=== PATIENT | female | born 1935 | race Caucasian/White ===

== ENCOUNTER 2018-01-31 10:06 | Outpatient (CLI) | payer MEDICARE, SELFPAY ==
[2018-01-31 12:42] LABS: HCT 42.5 % (36.0-46.0); Mean Corp. HGB Concentration 32.9 g/dL (32.0-36.0); Mean Corpuscular Hemoglobin 31.7 pg (27.0-33.0); Mean Corpuscular Volume 96.4 fL (80-95); Platelet Count 272 x1000/uL (130-400); RBC 4.41 m/cumm (4.00-5.20); RBC Distribution Width 12.5 % (11.7-14.6); White Blood Cell Count 7.26 k/cumm (4.4-10.8)
[2018-01-31 12:49] LABS: Anion Gap 5.8 mmol/L (3-11); BUN 22 mg/dL (7-18); CO2 28.2 mmol/L (21.0-32.0); CREATININE 1.02 mg/dL (0.55-1.02); Chloride 105 mmol/L (98-107); Estimated GFR 52.01 (mL/min/1.73m2); Glucose 95 mg/dL (70-100); Potassium 4.6 mmol/L (3.5-5.1); Sodium 139 mmol/L (136-145)
== END 2018-01-31 10:07 ==
PROVIDERS: PCP Family Medicine; Visit Provider Family Medicine
DX: R55 Syncope and collapse (principal)
CPT/HCPCS: 36415; 80048; 85027; 93225

== ENCOUNTER 2018-01-31 13:34 | Outpatient (CLI) | payer MEDICARE, SELFPAY ==
--- NOTE | 2018-02-14 10:29 | ZIOP_ITS ---
DATE OF DICTATION: February 13, 2018 DATE OF RECORDING: January 31, 2018 through February 02, 2018 PRESCRIBING PHYSICIAN: Rajendra Oliva M.D. PRIMARY INDICATIONS: Syncope and collapse. ENROLLMENT: 1 day and 17 hours. FINDINGS: 1. Baseline sinus rhythm, heart rate spectrum 49-145 bpm, average 76 bpm. 2. Occasional PAC's 1.7%, 7 SVT runs, fastest and longest at 7 beats and 171 bpm. 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 No atrial fibrillation. 3. Rare PVC's, less than 1%, occasional couplets. No VT. 4. No significant pauses. 5. One triggered event: sinus rhythm 91 bpm with occasional PAC's. 6. One symptom event: lightheaded, dizziness, less than one minute, sinus rhythm 95 bpm with occa sional PAC's and PVC's.
== END 2018-01-31 13:35 ==
PROVIDERS: PCP Family Medicine; Visit Provider Family Medicine
DX: R55 Syncope and collapse (principal); I49.1 Atrial premature depolarization; I49.3 Ventricular premature depolarization
CPT/HCPCS: 93225

== ENCOUNTER 2018-02-13 18:28 | Outpatient (CLI) | payer MEDICARE, SELFPAY | END 2018-02-13 18:48 | PROVIDERS: PCP Family Medicine; Referring Provider Family Medicine; Visit Provider Internal Medicine Cardiovascular Disease | DX: R55 Syncope and collapse (principal); I49.1 Atrial premature depolarization; I49.3 Ventricular premature depolarization | CPT/HCPCS: 0298T ==

== ENCOUNTER → 2018-03-20 08:52 | Outpatient (BNVA) | payer MEDICARE, SELFPAY | PROVIDERS: PCP Family Medicine; Visit Provider Orthopaedic Surgery | DX: M17.11 Unilateral primary osteoarthritis, right knee (principal); M17.12 Unilateral primary osteoarthritis, left knee; I10 Essential (primary) hypertension | CPT/HCPCS: 20610; 99211; 99213; J1040 ==

== ENCOUNTER 2018-04-14 13:44 | Outpatient (CLI) | payer MEDICARE, SELFPAY | END 2018-04-14 14:04 | PROVIDERS: PCP Family Medicine; Referring Provider Family Medicine; Visit Provider Internal Medicine Cardiovascular Disease | DX: R69 Illness, unspecified (principal) ==

== ENCOUNTER → 2018-06-19 09:27 | Outpatient (BNVA) | payer MEDICARE, SELFPAY | PROVIDERS: PCP Family Medicine; Referring Provider Family Medicine; Visit Provider Orthopaedic Surgery | DX: M17.0 Bilateral primary osteoarthritis of knee (principal); I10 Essential (primary) hypertension | CPT/HCPCS: 20610; 99211; 99213; J1040 ==

== ENCOUNTER → 2018-09-18 08:48 | Outpatient (BNVA) | payer MEDICARE, SELFPAY | PROVIDERS: PCP Family Medicine; Referring Provider Family Medicine; Visit Provider Orthopaedic Surgery | DX: M17.11 Unilateral primary osteoarthritis, right knee (principal); M17.12 Unilateral primary osteoarthritis, left knee; I10 Essential (primary) hypertension | CPT/HCPCS: 20610; 99211; 99213; J1040 ==

== ENCOUNTER 2018-12-02 07:57 | Emergency (ER) | payer MEDICARE, SELFPAY ==
[2018-12-02 08:08] VITALS: BP 158/104; PULSE 100; RESP 20; TEMP 37; O2SAT 97
--- NOTE | 2018-12-02 08:31 | ED.GENADUL_ITS ---
Discharge Plan Disposition Patient Disposition: HOME Condition: Stable Discharge Details Chief Complaint: FlankPain Clinical Impression: Groin pain, Piriformis muscle pain Primary Care Provider: Rajendra Oliva ED Provider: Arnoldo Mantilla Home Meds and New Rx's Prescriptions: New cyclobenzaprine 5 mg tablet 5 mg PO TID PRNQty: 9 RF: 0 oxycodone 5 mg tablet 2.5 mg PO Q8H PRN (Reason: severe pain) Qty: 6 RF: 0 Continued metoprolol tartrate 50 mg tablet 50 mg PO BID Qty: 180 RF: 4 omega-3 fatty acids-fish oil 1 EACH capsule 1 ea PO DAILY RF: 0 GLUCOS-CHOND 500 COMPLEX CP 1 EACH capsule 1 ea PO DAILY RF: 0 magnesium oxide 250 MG tablet 500 mg PO wkly RF: 0 acetaminophen 650 MG tablet 650 mg PO BID RF: 0 ketoconazole 120 ML shampoo 1 applic Topical daily prn RF: 0 hydrocortisone 30 GM cream with perineal applicator 1 applic Topical daily prn RF: 0 Ketoconazole 15 GM CREAM..G. 1 applic Topical PRN RF: 0 psyllium husk [Fiber (psyllium husk)] 0.52 GM capsule 1 tab PO DAILY RF: 0 amlodipine 5 MG tablet 5 mg PO DAILY Qty: 90 RF: 4 simvastatin 20 MG tablet 20 mg PO HS Qty: 90 RF: 4 omeprazole 20 MG capsule,delayed release(DR/EC) 20 mg PO DAILY Qty: 90 RF: 4 Discharge Instructions Instructions: Musculoskeletal Pain (ED), Piriformis Syndrome (ED) Additional Instructions: Continue to use your acetaminophen as directed and take additional pain medication along with muscle relaxers as needed for further discomfort. Use these medications cautiously as it may make you sleepy. While on these medications please continue to use your cane or walker for walking assistance. You may slowly advance activity as tolerated by discomfort and if not improving in the next week follow-up with your primary care provider. Feel free to return for any new or significant worsening of your symptoms Referrals: Rajendra Oliva [Primary Care Provider] - (As needed for reassessment or if not improving) Discharge Data Discharge Date/Time-TO BE ENTERED AT DEPARTURE: 12/02/18 10:28 Medical Decision Making Patient presenting to the emergency department for chief complaint of left groin and flank pain. Patient states history of kidney stones and is concerned that she may have another one. Patient states some associated nausea but attributes this mostly to pain. Physical exam shows no abdominal tenderness, mild left groin tenderness with significant increase of tenderness with internal rotation of the left hip, no CVA tenderness. Plan to check urinalysis upon further questioning of patient she does state that she has been putting stick down tiles on the floor and bent over significantly over the past couple days. Pending urinalysis results to evaluate for hematuria may be secondary to kidney stone patient given Tylenol, Zofran, and small dose of oxycodone. Review of urinalysis does show some hematuria and given this I do feel patient needs CT imaging to rule out any calculi given history. Review of CT imaging shows no acute findings suggestive of renal calculi or other emergent intra-abdominal pathology. Patient reassessed and states that she is feeling better after the medication and is ambulatory with minimal gait disturbance. Given recent strenuous activities I do feel that musculoskeletal injury is more than likely attributed to her discomfort. Given the patient is full weightbearing, ambulatory, and well-controlled with pain medication I feel that she can be safely discharged. Did discuss with patient activity modification. Did [place] drug database and showed no concerning findings so patient was given limited prescription of oxycodone to use for severe pain otherwise patient to use acetaminophen for discomfort. Given some concern of piriformis syndrome patient was also given limited supply of Flexeril. Did discuss with patient and family risk benefits of these medications and to be cautious with sedation. Return precautions were discussed after discussion of diagnosis and plan of care patient has no further needs, questions, or concerns and states clear understanding to return to the emergency department for any worsening symptoms. HPI General Mode of arrival: wheelchair . Date/Time Provider Initiated Documentation: 12/02/18 08:05 . Limitations to Documentation: no limitations . Information obtained by: patient, family and RN notes reviewed . History of Present Illness 83 year old F presents to the emergency department with the chief complaint of Left groin and flank pain, described as severe, with intensity rated at 7. Quality is described as sharp, and is localized to the back and pelvis. Patient started experiencing this day(s) (1) and it has been constant. Patient did receive the following treatments prior to arrival, other (acetominophen) Related Data Home Medications Medication Instructions Recorded Confirmed Glucos-Chond 500 Complex Cp 1 ea PO DAILY 09/18/13 12/02/18 omega-3 fatty acids-fish oil 1 ea PO DAILY 09/18/13 12/02/18 magnesium oxide 500 mg PO wkly 11/15/15 12/02/18 acetaminophen 650 mg PO BID tab-cap 12/19/16 12/02/18 Ketoconazole 1 applic TOPICAL PRN 07/17/17 12/02/18 hydrocortisone 1 applic TOPICAL daily prn script 07/17/17 12/02/18 ketoconazole 1 applic TOPICAL daily prn script 07/17/17 12/02/18 amlodipine 5 mg PO DAILY #90 tab-cap 11/01/17 12/02/18 omeprazole 20 mg PO DAILY #90 tab-cap 11/01/17 12/02/18 psyllium husk [Fiber (psyllium 1 tab PO DAILY 11/01/17 12/02/18 husk)] simvastatin 20 mg PO HS #90 tab-cap 11/01/17 12/02/18 metoprolol tartrate 50 mg tablet 50 mg PO BID #180 tab-cap 06/17/18 12/02/18 cyclobenzaprine 5 mg PO TID PRN #9 tab 12/02/18 oxycodone 2.5 mg PO Q8H PRN #6 tab 12/02/18 Previous Rx's Medication Instructions Recorded amlodipine 5 mg PO DAILY #90 tab-cap 11/01/17 omeprazole 20 mg PO DAILY #90 tab-cap 11/01/17 simvastatin 20 mg PO HS #90 tab-cap 11/01/17 metoprolol tartrate 50 mg tablet 50 mg PO BID #180 tab-cap 06/17/18 cyclobenzaprine 5 mg PO TID PRN #9 tab 12/02/18 oxycodone 2.5 mg PO Q8H PRN #6 tab 12/02/18 Allergies Allergy/AdvReac Type Severity Reaction Status Date / Time mesalamine Allergy Intermediate HIVES Unverified 12/02/18 08:21 adhesive Allergy Mild Unverified 12/02/18 08:21 latex Allergy Mild SKIN RASH Unverified 12/02/18 08:21 oxaprozin Allergy Unknown Unverified 12/02/18 08:21 tetracycline Allergy Unknown Unverified 12/02/18 08:21 codeine AdvReac Intermediate H/A Unverified 12/02/18 08:21 Sulfa (Sulfonamide AdvReac Intermediate NAUSEA Unverified 12/02/18 08:21 Antibiotics) esomeprazole magnesium AdvReac Mild H/A Unverified 12/02/18 08:21 [From Nexium] General Stated Complaint: FlankPain REFUGIO: 3 Review of Systems Constitutional Reports chills and Denies fever(s) ENT Denies neck pain Cardiovascular Denies chest pain, Denies palpitations and Denies dyspnea Respiratory Denies dyspnea Gastrointestinal Denies abdominal pain, Denies constipation, Denies diarrhea, Denies nausea and Denies vomiting Genitourinary Reports as per HPI, Reports urinary frequency, Denies difficulty voiding, Reports flank pain and Denies urinary urgency Musculoskeletal Reports back pain and Denies neck pain Endocrine Denies palpitations PFSH Medical History Kidney stones (Chronic) Anxiety GERD (gastroesophageal reflux disease) Hyperlipidemia Hypertension Lower back pain Osteoarthritis of knees, bilateral Osteoporosis Primary malignant neoplasm of skin 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 Surgical History Abdominal hysterectomy Appendectomy Bladder Surgery (~07/2008) EGD - IV Sedation PROCEDURES Family History Mother Heart disease Hyperlipidemia Father Essential hypertension Heart disease Hyperlipidemia Sister Essential hypertension Heart disease Hyperlipidemia Brother Essential hypertension Heart disease Hyperlipidemia Brother Personal history of malignant neoplasm Brother Heart disease Stroke Brother Essential hypertension Heart disease Hyperlipidemia Brother Essential hypertension Heart disease Hyperlipidemia Stroke Son Hyperlipidemia Daughter Diabetes Hyperlipidemia COPD (chronic obstructive pulmonary disease) Daughter No problems noted. Social History Smoking/Tobacco Use Status: Never Alcohol Intake: never Drug use: Never Substance use type: does not use Do you feel safe at home: Yes Do you feel safe in your relationship?: Yes Exam Const General: cooperative Nutritional Appearance: average body habitus Orientation: alert, awake and oriented x3 Resp Effort & Inspection: normal respiratory effort and able to speak in complete sentences Auscultation: clear to auscultation bilaterally Cardio Rate: regular rate Rhythm: regular rhythm Heart Sounds: S1 normal, S2 normal, no click, no gallops, no murmurs and no rubs GI Palpation: soft, no hernias, no masses, not rigid and nontender Auscultation: normal bowel sounds Back/Spine/Pelvis Back: no CVA tenderness Thoracic/Lumbar Spine: No paraspinal tenderness and No lumbar spinal tenderness Pelvis: no pain with anterior-posterior compression, no pain with lateral compression, buttock tenderness on the left, sciatic notch tenderness on the left and tenderness over symphysis pubis Extrem Right lower extremity: normal to inspection and full ROM Left lower extremity: hip/thigh Details: tenderness Location: of the proximal upper leg Location: anteriorly and anterolaterally and abnormal ROM Details: pain with passive ROM Details: with internal rotation and with external rotation; no crepitus and no deformity Course Vital Signs Temperature 37 C 12/02/18 08:08 Pulse 100 H 12/02/18 08:08 Respiratory Rate 20 12/02/18 08:08 Blood Pressure 158/104 H 12/02/18 08:08 Pulse Oximetry 97 12/02/18 08:08 Temperature 37 C 12/02/18 08:08 Temperature Source Temporal Artery Scan 12/02/18 08:08 Pulse 100 H 12/02/18 08:08 Respiratory Rate 20 12/02/18 08:08 Respiratory Effort Non-Labored 12/02/18 08:08 Blood Pressure 158/104 H 12/02/18 08:08 Pulse Oximetry 97 12/02/18 08:08 Oxygen Delivery Method Room Air 12/02/18 08:08 Oxygen Flow Rate 0 12/02/18 08:08 Pain Level 8 12/02/18 08:24
[2018-12-02 08:37] LABS: Bilirubin Negative (Negative); Blood Trace-intact (Negative); Clarity Clear (Clear); Glucose Negative (Negative); Ketones 15 mg/dL (Negative); Leukocyte Esterase Negative (Negative); Nitrite Negative (Negative); Urobilinogen 0.2 EU/dL (Up TO 0.2)
[2018-12-02 08:53] LABS: WBC 0-2 HPF (0-5)
[2018-12-02 08:54] LABS: Bacteria Rare HPF (Negative); C & S Indicated? No; Casts Negative LPF (Negative); Crystals Negative HPF (Negative); Epithelial Cells Few HPF (Negative); Mucus Trace (Negative)
[2018-12-02] MEDS: Ondansetron O.D.T. 4 MG TABEF (08:55)
[2018-12-02] MEDS: oxyCODONE 5 MG TAB 2.5 MG PO (08:55)
[2018-12-02] MEDS: Normal Saline 500 ML IV (08:55)
[2018-12-02] MEDS: Acetaminophen 325 MG TAB 650 MG PO (08:55)
[2018-12-02] MEDS: Ondansetron 4 MG/2 ML VIAL (09:08)
--- NOTE | 2018-12-02 09:10 | DI.CT_ITS ---
SYMPTOM/DIAGNOSIS: LEFT FLANK, GROIN PAIN NONCONTRAST CT ABDOMEN AND PELVIS: Comparison is made with 06 Jul 2007. There is no evidence of hydronephrosis or urinary tract calculi. No renal masses are visible. The patient is stats post hysterectomy. The urinary bladder is unremarkable. The lung bases are clear. The liver, gallbladder, spleen, pancreas and adrenals are unremarkable. The aorta is tortuous and shows calcification but is normal in diameter. There is no bowel dilatation or inflammatory change. There are severe degenerative changes in the lumbar spine as well as scoliosis. IMPRESSION: No evidence of hydronephrosis, urinary tract calculi or other acute abnormality.
[2018-12-02 10:27] VITALS: BP 159/88; PULSE 86; RESP 18; TEMP 36.4; O2SAT 94
== END 2018-12-02 10:28 | disposition home or self-care (01) ==
PROVIDERS: Emergency Provider Nurse Practitioner Family; PCP Family Medicine
DX: R10.2 Pelvic and perineal pain (principal); M79.18 Myalgia, other site; R31.9 Hematuria, unspecified; Z87.440 Personal history of urinary (tract) infections
CPT/HCPCS: 96361; 96374; 99284; 74176; 81003; 81015; J2405

== ENCOUNTER → 2018-12-18 08:45 | Outpatient (BNVA) | payer MEDICARE, SELFPAY | PROVIDERS: PCP Family Medicine; Referring Provider Family Medicine; Visit Provider Orthopaedic Surgery | DX: M17.11 Unilateral primary osteoarthritis, right knee (principal); M17.12 Unilateral primary osteoarthritis, left knee; M25.552 Pain in left hip | CPT/HCPCS: 20610; 99211; 99213; J1040 ==

== ENCOUNTER 2019-02-16 13:40 | Outpatient (CLI) | payer MEDICARE, SELFPAY ==
--- NOTE | 2019-02-16 13:36 | DI.RAD_ITS ---
SYMPTOMS/DIAGNOSIS: KNEE PAIN LEFT KNEE: Medial tibiofemoral joint space narrowing, articular sclerosis and periarticular hypertrophic spurring are demonstrated. SUMMARY: The findings are consistent with severe DJD. RIGHT KNEE: Narrowing of the medial tibiofemoral joint space is demonstrated. There is articular sclerosis and periarticular hypertrophic spurring. Degenerative changes involving the patellofemoral joint are identified and there may be a small joint effusion. SUMMARY: Severe DJD, right knee.
== END 2019-02-16 14:00 ==
PROVIDERS: PCP Family Medicine; Visit Provider Physician Assistant
DX: M25.561 Pain in right knee (principal); M25.461 Effusion, right knee; M25.562 Pain in left knee; M17.0 Bilateral primary osteoarthritis of knee; Z98.890 Other specified postprocedural states
CPT/HCPCS: 73562; 99214

== ENCOUNTER 2019-03-11 13:00 | Outpatient (CLI) | payer MEDICARE, SELFPAY ==
--- NOTE | 2019-03-11 12:59 | HPE_ITS ---
Assessment and Plan Assessment and plan (1) Primary osteoarthritis of right knee: Status: Chronic Assessment and plan: Plan: Patient's complaint does not present like a typical chest pain complaint. She is functioning well and does not have any chest pain with activity. Her complaints could be consistent with GERD. Discussed patient's chest pain complaints with anesthesia department. After discussing case anesthesia department wanted to obtain an EKG for which they ordered. Patient is cleared for surgery pending EKG by anesthesia. Educated patient on surgery covering surgical technique, recovery process, benefits and risks including but not limited to risk of infection, blood clot, damage to soft tissue/blood vessels/nerves in detail. After discussion patient gives verbal understanding of risks and elects to proceed with scheduling surg won. Patient had opportunity to have questions answered to their satisfaction. They will contact office if issues arise. Patient will continue to be scheduled for right total knee replacement with Dr. Pruitt. After discussion patient voiced that she might want to proceed with her left knee first. She will contact office if she wishes to have left TKA instead of right. (2) Primary osteoarthritis of left knee: Status: Chronic History of Present Illness Narrative: Ms. Chambers is an 83-year-old female who presents to clinic for pre- operative visit for scheduled right TKA. She has long-standing history of bilateral knee pain with the right being more painful than left. However, over the past few weeks her left knee has been more bothersome causing her more significant discomfort than her right. She has significant arthritic disease in her knees bilaterally. Patient has been treated by Dr. Schroeder and reports previously receiving Synvisc injections without symptomatic relief as well as Depo-Medrol injections every 3 months which helped. Her most recent bilateral knee injection was on 12/18/18. Pain is described as a constant pain along her patella and the medial aspect of her joint. She is unable to walk her driveway to get her mail due to pain. Occasionally she will use a cane to ambulate. Unfortunately, patient continues to have pain that restricts activities of her daily life including ambulating around a grocery store. Due to her continued severe knee pain she was offered surgical intervention and elected to proceed. Pertinent Surgical Information Initially she denied all cardiac ROS then when completing the physical examination patient reported her cardiac symptoms. She states she woke up with a sharp chest pain located in the center and slightly towards the left side of her chest that woke her up as she turned over in bed. At first she states the chest pain woke her up but with further questioning she reports rolling over in bed, waking up and then feeling chest pain. With additional questions she is unsure if pain woke her up or if she was already awake and noticed pain. Describ es a sharp pain that lasted about 5 minutes before resolving without intervention. Denies any diaphoresis, dyspnea, radiated pain to her neck or down her arm. Reports she has had these events in the past that she has discussed with her PCP, Dr. Oliva that have been occurring a few times yearly. Review of her chart shows Holter monitor in 2018 was completed after syncopal event. Reviewed patient's holter monitor read by Dr. Carrasco on 02/13/18 lists the following findings: baseline sinus rhythm, heart rate spectrum 49-145 bpm, average 76 bpm.; Occasional PAC's 1.7%, 7 SVT runs, fastest and longest at 7 beats and 171 bpm. Most consistent with ectopic atrial tachycardia. No atrial fibrillation. ; Rare PVC's, less than 1%, occasional couplets. No VT.; No significant pauses.; One triggered event: sinus rhythm 91 bpm with occasional PAC's. ; One symptom event: lightheaded, dizziness, less than one minute, sinus rhythm 95 bpm with occasional PAC's and PVC's. States she is very active at baseline - going up/down ladders, she paints outdoors, she walks around when not limited by her knee pain. Denies any chest pain with activity or chest pain during the day. Reports she had general anesthesia for her left foot operation a few years ago at [facility] with Dr. Pak. States she did well with anesthesia and had experienced rare episodes of this chest pain prior to that surgery. Describing sleeping with two feather pillows at night. She does have significant PMH of GERD that as per patient has been treated for years with omeprazole. Her symptoms are isolated to just at night; reports symptoms only ever happen when she has sleeping and then resolve without intervention. Patient recently had an intensive right molar tooth filling on 03/03/19 in which she experienced a severe reaction causing her to have significant swelling along the right cheek and neck. In addition she felt like she had water in her ear when the swelling was present. She was treated with benadryl and the swelling was present for 1 week (yesterday). Denies past medical history of: stroke, cardiac issues, angina, asthma, COPD, sleep apnea, renal issues, liver issues, hepatitis, current gastrointestinal ulcers, bleeding disorders, migraines, depression, diabetes, autoimmune disorders, thyroid issues Reports it takes a while for her to come out of anesthesia; she also reports history of vomiting and nausea following anesthesia. Denies prior complications from surgery. Review of Systems Constitutional Constitutional: Denies fever(s), Denies frequent falls and Denies headache(s) Eyes Eyes: Denies change in vision ENT Ears, Nose, Mouth, and Throat: Denies dizziness, Denies ear discharge, Denies headache(s), Denies epistaxis, Denies nasal discharge and Denies sore throat Cardiovascular Cardiovascular: Reports chest pain (see Preop Info), Denies rapid heart rate, Denies irregular heart rhythm, Denies palpitations, Denies dyspnea, Denies dyspnea on exertion, Denies orthopnea, Denies paroxysmal nocturnal dyspnea and Denies slow heart rate Comments: Initially patient denied all cardiac symptoms however without prompting she later revealed that she has rare episodes of left sided chest pain; see Preop Info for more information Respiratory Respiratory: Denies cough, Denies dyspnea, Denies dyspnea on exertion and Denies wheezing Gastrointestinal Gastrointestinal: Denies abdominal pain, Denies melena, Denies hematochezia, Denies constipation, Denies diarrhea, Denies nausea and Denies vomiting Genitourinary Genitourinary: Denies hematuria, Denies dysuria and Denies urinary urgency Musculoskeletal Musculoskeletal: Reports as per HPI, Denies numbness and Denies tingling Neurologic Neurologic: Denies dizziness, Denies frequent falls, Denies headache(s), Denies numbness and Denies tingling Psychiatric Psychiatric: Reports anxiety and Denies depression Endocrine Endocrine: Denies palpitations Allergic/Immunologic Allergic/Immunologic: Denies wheezing [facility] Medical History (Updated 03/12/19 @ 15:41 by Abbi Ron) Anxiety Cellulitis of left hand (Resolved) Epilepsy (Chronic 11/30/10) GERD (gastroesophageal reflux disease) History of colitis (Acute) COLLAGENOUS COLITIS History of postoperative nausea and vomiting (Acute) Hyperlipidemia Hypertension Kidney stones (Chronic) Lower back pain Osteoarthritis of knees, bilateral Osteoporosis Primary malignant neoplasm of skin (Resolved) basal [id number]. 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) consider PT stretch daily Synovitis of hand (Inactive) 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 Surgical History (Updated 03/11/19 @ 14:36 by Rere Medina RN) Abdominal hysterectomy Appendectomy Bladder Surgery (~07/2008) sling and reconstruction for uterine prolapse and cystocele EGD - IV Sedation History of colonoscopy (Chronic) History of shoulder surgery (Inactive) Right bursa and excision of bone spurs Status post left foot surgery (Acute) Hallux valgus Status post phlebectomy (Inactive) Left leg vein excision Status post surgical removal of ganglion cyst (Acute) RMF Social History Smoking/Tobacco Use Status: Never Alcohol Intake: never Drug use: Never Substance use type: does not use Current gender identity: female Do you feel safe at home: Yes Do you feel safe in your relationship?: Yes Meds Home Medications and Allergies Home Medications Medication Instructions Recorded Confirmed Type Glucos-Chond 500 Complex Cp 1 ea PO DAILY 09/18/13 03/11/19 History omega-3 fatty acids-fish oil 1 ea PO DAILY 09/18/13 03/11/19 History magnesium oxide 500 mg PO wkly 11/15/15 03/11/19 History Ketoconazole 1 applic TOPICAL PRN 07/17/17 03/11/19 History hydrocortisone 1 applic TOPICAL daily prn script 07/17/17 03/11/19 History ketoconazole 1 applic TOPICAL daily prn script 07/17/17 03/11/19 History psyllium husk [Fiber (psyllium 1 tab PO DAILY 11/01/17 03/11/19 History husk)] metoprolol tartrate 50 mg tablet 50 mg PO BID #180 tab-cap 06/17/18 03/11/19 Rx oxycodone 2.5 mg PO Q8H PRN #6 tab 12/02/18 03/11/19 Rx Jeri's Butter See Rx Instructions TOPICAL PRN 12/16/18 03/11/19 History acetaminophen 650 mg 650 mg PO BID tab-cap 12/16/18 03/11/19 History tablet,extended release amlodipine 5 mg tablet 5 mg PO DAILY #90 tab-cap 12/16/18 03/11/19 Rx cholecalciferol (vitamin D3) 1,000 2,000 unit PO DAILY cap 12/16/18 03/11/19 History unit capsule hydrochlorothiazide 12.5 mg tablet 12.5 mg PO DAILY #90 tab 12/16/18 03/11/19 Rx simvastatin 20 mg tablet 20 mg PO HS #90 tab-cap 12/16/18 03/11/19 Rx omeprazole 20 mg capsule,delayed 20 mg PO DAILY #90 tab-cap 03/10/19 03/11/19 Rx release Allergies Allergy/AdvReac Type Severity Reaction Status Date / Time mesalamine Allergy Intermediate HIVES Unverified 03/11/19 14:37 latex Allergy Mild SKIN RASH Unverified 03/11/19 14:37 oxaprozin Allergy Unknown Unverified 03/11/19 14:37 tetracycline Allergy Unknown Unverified 03/11/19 14:37 morphine AdvReac Severe headaches, Verified 03/11/19 14:37 vomiting codeine AdvReac Intermediate H/A Unverified 03/11/19 14:37 Sulfa (Sulfonamide AdvReac Intermediate NAUSEA Unverified 03/11/19 14:37 Antibiotics) esomeprazole magnesium AdvReac Mild H/A Unverified 03/11/19 14:37 [From Nexium] Exam Const General: cooperative and no acute distress [facility] Head: normal to inspection, normocephalic and atraumatic Ears: external ears normal General nose exam: external nose normal and no nasal discharge Face and sinus: face symmetric Mouth: oral mucosae normal, lip normal, tongue normal and moist mucous membranes Teeth and gingiva: gingiva normal Throat: posterior oropharynx normal Eyes General: appearance normal, both eyes and all related structures Pupils: PERRL EOM: EOM intact bilaterally Neck Neck: trachea midline Carotids: normal carotid upstroke Lymphatic: no lymphadenopathy noted Resp Effort & Inspection: normal respiratory effort and able to speak in complete sentences Auscultation: clear to auscultation bilaterally, no rales, no rhonchi and no wheezes Cardio Heart Sounds: S1 normal, S2 normal and no murmurs Pulses: radial pulses present bilaterally GI Palpation: soft, no hepatosplenomegaly and nontender Auscultation: normal bowel sounds Skin General skin exam: no rashes or lesions noted Results Labs Result diagrams: 03/11/19 15:52 03/11/19 15:52
[2019-03-11 16:12] LABS: HCT 42.1 % (36.0-46.0); Mean Corp. HGB Concentration 33.3 g/dL (32.0-36.0); Mean Corpuscular Hemoglobin 30.8 pg (27.0-33.0); Mean Corpuscular Volume 92.7 fL (80-95); Mean Platelet Volume 9.6 fL (8.0-11.0); Platelet Count 284 x1000/uL (130-400); RBC 4.54 m/cumm (4.00-5.20); RBC Distribution Width 12.6 % (11.7-14.6); White Blood Cell Count 5.73 k/cumm (4.4-10.8)
[2019-03-11 17:02] LABS: Anion Gap 11.5 mmol/L (3-11); BUN 27 mg/dL (7-18); CO2 27.5 mmol/L (21.0-32.0); CREATININE 0.94 mg/dL (0.55-1.02); Calcium 9.6 mg/dL (8.5-10.1); Chloride 105 mmol/L (98-107); Estimated GFR 57.01 (mL/min/1.73m2); Glucose 105 mg/dL (70-100); Potassium 4.5 mmol/L (3.5-5.1); Sodium 144 mmol/L (136-145)
== END 2019-03-11 13:20 ==
LOC: DIORS 13:03 → DSU 13:06
PROVIDERS: PCP Family Medicine; Visit Provider Student in an Organized Health Care Education/Training Program
DX: M25.561 Pain in right knee (principal); M17.11 Unilateral primary osteoarthritis, right knee; Z01.818 Encounter for other preprocedural examination; Z01.812 Encounter for preprocedural laboratory examination; I10 Essential (primary) hypertension
CPT/HCPCS: 36415; 80048; 85027; NC; 77073

== ENCOUNTER 2019-03-11 13:06 | Outpatient (CLI) | payer MEDICARE, SELFPAY ==
--- NOTE | 2019-03-11 12:57 | DI.RAD_ITS ---
EXAM: XR STANDING ALIGNMENT INDICATION: pre-operative planning right TKA. COMPARISON: No exams were available for comparison TECHNIQUE: 2D digital imaging was performed. FINDINGS: The hip joint spaces are well maintained. There are severe degenerative changes of both knees, grea test of the medial femoral tibial joints. This causes some varus angulation at the knees. The ankle s show mild degenerative changes, right greater than left. 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
== END 2019-03-11 13:26 ==
PROVIDERS: PCP Family Medicine; Visit Provider Student in an Organized Health Care Education/Training Program
DX: M17.0 Bilateral primary osteoarthritis of knee (principal); M19.071 Primary osteoarthritis, right ankle and foot; M19.072 Primary osteoarthritis, left ankle and foot
CPT/HCPCS: 77073

== ENCOUNTER 2019-03-25 11:02 | Inpatient (IN) | payer MEDICARE, SELFPAY ==
--- NOTE | 2019-03-11 16:38 | PDOC.CMPRO ---
- If Service Date Differs Date of service: 03/11/19 Time of Service: 16:38 Care Management Progress Note CM met with Yoly during her pre op appointment. Yoly's a few years ago, so she now lives alone in [place]. Her daughter lives next to her, but doesn't often check in on her. Her son, Luan, lives in [place] and does check in on her often. Her home is one floor, with her bedroom and bathroom close to each other. She has grab bars all throughout her house, a cane and a 4WW. CM explained that often the recommendation for post surgery made by PT and the MD is a FWW, which CM will coordinate if needed. Yoly currently does not have any services in the community and she is independent at baseline. She stated that she is thinking about filling out an AD, but she has not yet. She also stated that she is interested in the portal, but she will ask her son to help sign her up. Luan will bring her to and from the hospital for surgery. She reports that she has been preparing food ahead and putting it in the freezer for easy access, and that Luan will help her with any additional support required. CM will continue to follow.
[2019-03-25] VITALS (12 sets, daily range): BP systolic 118–157; BP diastolic 72–89; PULSE 57–77; RESP 15–20; TEMP 36.3–37.2; O2SAT 92–96
[2019-03-25] MEDS: Gabapentin 300 MG CAP PO (11:49)
[2019-03-25] MEDS: Acetaminophen 500 MG TAB 1000 MG PO ×2 (11:49→19:43)
[2019-03-25] MEDS: Celecoxib 200 MG CAP 400 MG PO (11:49)
[2019-03-25] MEDS: Lactated Ringers 1,000 ML 80 ML IV ×2 (12:00→17:45)
[2019-03-25] MEDS: Bupivacaine 0.25% Pres-Free 30 ML VIAL ×2 (12:32→13:28)
[2019-03-25] MEDS: ceFAZolin 2 GM/50 ML BAG IVPB (12:53)
[2019-03-25] MEDS: Normal Saline 20 ML VIAL (13:28)
[2019-03-25] MEDS: Ketorolac 30 MG/ML VIAL (13:28)
[2019-03-25] MEDS: Bupivacaine LIPOSOME/PF 133 MG/10 ML VIAL IJ (13:28)
--- NOTE | 2019-03-25 17:35 | NUR.NOTE ---
Nursing Note: Patient arrived from PACU around 1630. Patient transferred from stretcher to bed via hovermat. Patient alert and oriented x3. HR regular. Apical HR 66. VSS. See worklist. Lungs clear at auscultation. Patient reports positive sensation in bilateral lower extremities. Patient reports achyness in right knee. Dressing clean, dry and intact. Positive pedal pulses bilaterally. Right leg on pillow with knee hanging to gravity and cryo cuff on. Patient currently having dinner. Denies nausea and pain.
[2019-03-25] MEDS: Metoprolol 50 MG TAB PO (19:44)
[2019-03-25] MEDS: Celecoxib 200 MG CAP PO (19:44)
[2019-03-25] MEDS: Aspirin E.C. 81 MG TABEC PO (19:44)
--- NOTE | 2019-03-25 22:05 | W.PM.OP ---
Date of service: 03/25/19 Time of Service: 17:06 Operative Note Operative Note DATE OF PROCEDURE: 03/25/19 PRE-OP DIAGNOSIS: Right Knee Osteoarthritis POST-OP DIAGNOSIS: same PROCEDURE: Right Total Knee Replacement SURGEON: Sekou Pruitt ELECTRIC POWER LINE EXAMINER: Abbi Ron ANESTHESIA: regional and spinal ESTIMATED BLOOD LOSS: 200 PATHOLOGY: none sent TOURNIQUET TIME: 32 COMPLICATIONS: None Patient was transported to: PACU Patient's condition: stable Implants: 1. Depuy Attune Posterior Stabilized Femoral Component, Size 5 2. Depuy Attune Fixed Platform Tibial Component, Size 4 3. Depuy Attune 5 x 8mm fixed, Stabilized Poly 4. Depuy Attune Patellar Component, Size 35 mm Indications: I have seen Yoly in clinic for symptoms of RIGHT knee arthritis, confirmed with radiographic findings. Yoly has exhausted nonoperative methods and was having significant limitations in daily function and desired better function and less pain. I discussed the technical details of a knee replacement. I explained the risks of the procedure to include, but not limited to, bleeding, infection, pain, stiffness, fracture, damage to nerves and vessels, damage to muscles and tendons, loosening, need for repeat procedure, blood clot and cardiopulmonary demise. Despite these risks, Yoly elected to proceed. Findings: There was significant signs of arthritis throughout the knee. Procedure Description: Yoly was greeted in the preoperative holding area where the correct side was identified and marked. The consent was reviewed with the patient and signed. The history and physical was updated. All questions were answered. Preoperative mediacations were administered: Acetaminophen 1000mg, Celebrex 400mg, and Gabapentin 300mg. An adductor canal block was then administered by the anesthesia team in the PACU. Yoly was taken back to the operating room. A spinal anesthestic was then administered. The patient was placed into the supine position on the operating room table. A nonsterile tourniquet was placed high onto the leg but only used for cementing. Posts were placed for positioning during the procedure. All bony prominences were well padded. Prophylactic antibiotics in the form of cefazolin were administered. 1g of Tranxemic Acid was given intravenously within 30 minutes of incision. The right leg was then prepped with Chloraprep and draped in a standard fashion with impervious stockinette and extremity drape with Iodine impregnated skin protection. A timeout to confirm correct identity, side and site, procedure, allergies, anesthesia, and medical concerns was performed. With the knee in some flexion, a midline incision was made overlying the knee. Full thickness skin flaps were raised once the extensor mechanism was encountered. These were raised medially and laterally. Any bleeding was controlled with electrocautery. Once the extensor mechanism was fully exposed, a medial parapatellar arthrotomy was performed in a flexed position. All bleeding from the arthrotomy and the geniculate arteries was coagulated. A medial subperiosteal peel was performed with electrocautery to the midcoronal plane. Due to the significant varus deformity the entire medial tibial plateau was exposed. The fat pad was removed while keeping the patellar tendon protected. The anterior distal femur synovium was removed for later visualization. The ACL and PCL were resected and the anterior horn of the lateral meniscus was transected. The knee was then flexed with the patella everted. Large osteophytes from the tibia were removed. Large osteophytes from the femur were removed. Using a step drill, and based on preoperative templating, the femoral canal was entered. This was done with a step drill without any difficulty. The intramedullary distal femoral cut guide was inserted, set to a 5 degree valgus cut and 9mm cut thickness. The distal femoral cut guide was then held in position and pinned. With the soft tissues protected, the distal cut was performed. This was passed over a few times to ensure a planar cut. I then turned attention to the tibia. The extramedullary guide was placed onto the leg. The distal aspect was slid medial to adjust for position of center of ankle and stay in line with shaft of the tibia. Approximately 3-5 degrees of posterior slope was kept in the proximal cutting guide. The center of the guide was aligned with the PCL. The stylus was used to assess cut thickness. The medial side, most involved side, was set for a 3mm cut. This was then held in position and pinned into place with 2 additional pins and a cross pin for stability. The medial and lateral collateral ligaments were protected and the cut was performed. With this completed, it was assessed and noted to be of appropriate dimensions. The guide was removed. A spacer block was inserted and the knee was brought into extension. The 8 mm spacer block provided full extension, without hyperextension and with stability of both the medial and lateral collateral ligaments was assessed. The pins from the femur and the tibia were then removed. The distal femur was then sized. The anterior stylus was placed onto the lateral ridge of the anterior femur. This indicated a size 5 femur. The external rotation of the guide was adjusted to 3 degrees to match the epicondylar axis, perpendicular to [place]?s line. The 4-in-1 cutting guide was the placed. The posterior medial femur cut was evaluated and appeared of good thickness. The spacer block was inserted underneath the cutting guide and stability was confirmed in 90 degrees of flexion. An cris wing was used to confirm appropriate position of the anterior cut to avoid notching. This cutting guide was ensured to be flush on the cut surface and then pinned into place with headed pins. While protecting the soft tissues, quad tendon, and collateral ligaments, the anterior and posterior cuts were performed with a saw. The central two pins were removed and the posterior and anterior chamfers were cut next. The notch-cutting guide was placed. This was pinned to lateralize the femoral component as much as possible while keeping it flush on the cut surface. This was then pinned into position. A reciprocating saw was used to make the notch cut. A rasp smoothed the cut surfaces. A trial posterior stabilized femoral component was then inserted, impacted down to the cut surfaces, and the lug holes were drilled. A provisional trial tibial component was placed and the knee was brought through range of motion. There was noted to be excellent extension and flexion. There was no significant instability. The patella was tracking without thumbs. The tibial cut surface was fully exposed. The medial and lateral menisci were removed. The tibia was then sized as a 4. The tibia had been previously marked during trialing to correspond to the center of the tibial component to help with rotation. The trial was aligned to this sonia, approximately rotated to the medial 1/3rd of the tibial tubercle. The trial was pinned into place. The tibia was prepared with a reamer and a keel punch. The knee was then brought into extension and the patella was measured as 26 mm. Using the patellar clamp and cut guide, this was resected to a flat surface with at least 13mm of thickness remaining. The size 35 patella fit the best. This was oriented and then clamped into position. The lugs were drilled. The trial components were removed. The final components, except for the polyethylene were opened on the back table. The periosteal and capsular tissues, especially posteriorly, around the knee were then systematically injected with a periarticular cocktail consisting of 50cc 0.25% Marcaine, 30mg Ketorolac, 20cc of Exparal and 50cc of injectable saline. The tourniquet was then inflated to 275mmHg. The knee was thoroughly irrigated with a pulse lavage and dried. On the back table, with the implants opened, the cement was mixed. 2 batches of antibiotic laden cement were prepared with vacuum assistance. After the cement was ready a small amount was placed on to the back side of the tibial component at the keel. A small amount was placed onto the posterior flange of the femur. Cement was manual pressurized and impregnated into the cut surface of the tibia. The tibial component was then inserted into the cut surface and impacted into position. Excess cement was removed and the component was reimpacted. Again, excess cement was removed and our attention was then turned to the femur. The femoral cut surface was once again dried and cement was manually impacted into the cut surface. The femoral component was lined with the lug holes and impacted. Excess cement was removed. It was ensured to be down against the cut surface. The trial polyethylene was then inserted and the leg was brought out into full extension for the duration of the cement curing process, approximately 15min. Cement was lastly manually impacted into the cut surface of the patella and the patellar button was clamped into position and held. During this process attention was turned to the gutters of the knee and for all interfaces for any excess cement. After the cement had finally cured, approximately 15min, the clamp was removed from the patella and the knee was taken through range of motion. A size 8 mm polyethylene component provided the best range of motion and stability with less than 2mm gapping with medial and lateral stress and full extension without significant hyperextension. The patella was tracking with a no-thumbs technique. The trial poly was removed and once again the knee was checked for any loose, excess, or errant cement. The poly component was then inserted and impacted into position after cleaning and drying the tibial tray. The capsule was then reapproximated with a No. 1 Vicryl at multiple locations. The capsule was finally closed with a No. 2 Stratafix, barbed suture. The tourniquet was then released and the arthrotomy appeared watertight without significant bleeding. The second dosing of 1g TXA was started. Deep tissues were then reapproximated with 0 Vicryl and 2-0 Vicryl. The skin was closed with a running 3-0 Monocryl in a subcuticular fashion. This was reinforced with skin glue. A Mepilex silver dressing was applied along with a [id number] JESSICA wrap. A CryoCuff was applied. Yoly was transferred to the hospital bed without difficulty an suffering no apparent complication. Yoly has a good prognosis. Physical therapy will start today and without restrictions, weight-bearing as tolerated. Aspirin 81mg BID will be used for DVT prophylaxis.
[2019-03-25] MEDS: Simvastatin 20 MG TAB PO (22:53)
[2019-03-25] MEDS: oxyCODONE 5 MG TAB PO (22:58)
[2019-03-26] VITALS (8 sets, daily range): BP systolic 94–128; BP diastolic 54–75; PULSE 54–76; RESP 12–19; TEMP 36.5–36.8; O2SAT 84–97
[2019-03-26] MEDS: oxyCODONE 5 MG TAB PO ×3 (02:47→14:40)
[2019-03-26] MEDS: Lactated Ringers 1,000 ML 80 ML IV (05:43)
[2019-03-26] MEDS: Normal Saline 1,000 ML 1000 ML IV (07:20)
[2019-03-26] MEDS: Ondansetron 4 MG/2 ML VIAL IVP ×2 (07:41→14:06)
[2019-03-26] MEDS: Cholecalciferol (Vitamin D3) 1,000 UNIT TAB 2000 UNITS PO (08:48)
[2019-03-26] MEDS: amLODIPine 5 MG TAB PO (08:49)
[2019-03-26] MEDS: Omeprazole 20 MG CAPCR PO (08:49)
[2019-03-26] MEDS: Celecoxib 200 MG CAP PO ×2 (08:49→19:48)
[2019-03-26] MEDS: Acetaminophen 500 MG TAB 1000 MG PO ×3 (08:49→19:46)
[2019-03-26] MEDS: Aspirin E.C. 81 MG TABEC PO ×2 (08:49→19:47)
[2019-03-26] MEDS: Glucosamine/Chondroitin CAP 1 CAP PO (08:49)
[2019-03-26] MEDS: Metoprolol 50 MG TAB PO ×2 (08:49→19:48)
--- NOTE | 2019-03-26 09:52 | PDOC.CMIN ---
- If Service Date Differs Date of service: 03/26/19 Time of Service: 09:52 Care Management Initial Assess REASON FOR HOSPITALIZATION:: Primary Osteoarthritis right knee PAST MEDICAL HISTORY/PAST SURGICAL HISTORY:: Medical History (Updated 03/12/19 @ 15:41 by Abbi Ron). Anxiety. Cellulitis of left hand (Resolved). Epilepsy (Chronic 11/30/10). GERD (gastroesophageal reflux disease). History of colitis (Acute). COLLAGENOUS COLITIS. History of postoperative nausea and vomiting (Acute). Hyperlipidemia. Hypertension. Kidney stones (Chronic). Lower back pain. Osteoarthritis of knees, bilateral. Osteoporosis. Primary malignant neoplasm of skin (Resolved). basal [id number]. [place] [facility] [place] [facility] [place] 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 09[place]05 [facility] [place] ?colitis. 08/06 colonoscopy normal ?bacterial overgrowth. 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 Pyriformis syndrome (Inactive). consider PT. stretch daily. Synovitis of hand (Inactive). 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. Surgical History (Updated 03/11/19 @ 14:36 by Rere Medina RN). Abdominal hysterectomy. Appendectomy. Bladder Surgery (~07/2008). sling and reconstruction. for uterine prolapse and cystocele. EGD - IV Sedation. History of colonoscopy (Chronic). History of shoulder surgery (Inactive). Right bursa and excision of bone spurs. Status post left foot surgery (Acute). Hallux valgus. Status post phlebectomy (Inactive). Left leg vein excision. Status post surgical removal of ganglion cyst (Acute). RMF PREVIOUS FUNCTIONAL STATUS/SOCIAL/FAMILY SUPPORTS:: Yoly lives alone in a mobile home in [place], [place]. Her 3 years ago. She has a son Luan who is disabled and a daughter who lives next door with her children. Yoly is very active and very independent. She shared that she and her son painted her whole house together and that she continues to mow the lawn on the tractor, and shovels snow in the winter. She loves to be out doors and keeps busy. She occasionally used a cane to get around but did not have any home services. CURRENT FUNCTIONAL STATUS:: Yoly was sitting up in bed when CM met with her. She was smiling and pleasant and readily engaged in conversation. Yoly stated that she had been vomiting earlier but that she felt better and that her pain was a 0. She stated that she does not feel she will need any services at home. She cleaned her house, dusted, vacuumed and went grocery shopping before coming to the hospital. ADVANCE DIRECTIVES:: VASU Chambers Has patient been provided with information about the portal?: No Did the patient sign up for the portal?: No CODE STATUS:: Full Code INSURANCE COVERAGE / FINANCIAL ISSUES:: Medicare. Financial Assist 100 CURRENT HOME/COMMUNITY SERVICES/EQUIPMENT:: has a walker and cane PRIMARY CARE PHYSICIAN:: Rajendra Oliva POTENTIAL DISCHARGE NEEDS:: Follow up with surgeon and PCP and discharge plan of care PATIENT/FAMILY EDUCATION NEEDS:: Discharge plan, limitations, Follow up plan, Ask Me Three ANTICIPATED BARRIERS TO DISCHARGE:: none TRANSPORTATION:: via private vehicle with family when ready. PLAN:: Yoly will be discharged home with no services. She will follow up with her surgeon and discharge plan of care. She will transport with family via private vehicle. CM will continue to support patient, family and dsicharge planning needs.
[2019-03-26] MEDS: Normal Saline Flush 10 ML SYR IV ×3 (11:20→14:40)
--- NOTE | 2019-03-26 12:44 | IN_ITS ---
Date of service: 03/26/19 Time of Service: 08:06 PT Notes Inpatient Physical Therapy Evaluation Date: 03/26/2019 Referring Doctor: Sekou Pruitt MD PT Orders: PT CONSULT: S/P Ortho Surgery Precautions: Fall. Standard. Patient Profile/Admitting Diagnosis: Patient is a 83-year-old female s/p R TKA POD 1 due to primary unuilateral osteoarthritis of R knee. PMHX: Medical History (Updated 03/12/19 @ 15:41 by Abbi Ron) Anxiety Cellulitis of left hand (Resolved) Epilepsy (Chronic 11/30/10) GERD (gastroesophageal reflux disease) History of colitis (Acute) COLLAGENOUS COLITIS History of postoperative nausea and vomiting (Acute) Hyperlipidemia Hypertension Kidney stones (Chronic) Lower back pain Osteoarthritis of knees, bilateral Osteoporosis Primary malignant neoplasm of skin (Resolved) basal [id number]. 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) consider PT stretch daily Synovitis of hand (Inactive) 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 Surgical History (Updated 03/11/19 @ 14:36 by Rere Medina RN) Abdominal hysterectomy Appendectomy Bladder Surgery (~07/2008) sling and reconstruction for uterine prolapse and cystocele EGD - IV Sedation History of colonoscopy (Chronic) History of shoulder surgery (Inactive) Right bursa and excision of bone spurs Status post left foot surgery (Acute) Hallux valgus Status post phlebectomy (Inactive) Left leg vein excision Status post surgical removal of ganglion cyst (Acute) F Social History/Home Situation: Patient lives alone in a mobile home in [place]. She has five steps to her porch, one to enter her home, and two to enter her middle room. Current Functional Limitations: Ms. Chambers states she used a cane for ambulation before surgery. Equipment Owned/DME: [place] Subjective: Patient states she is feeling good. She reports 1/10 pain, which gets better with ambulation. She denies headache, dizziness, lightheadedness, and is agreeable to PT evaluation this morning. Objective: General Observation: Patient is seen laying in bed with HOB elevated. She has an IV in R UE, antithromboembolic device on LLE, and mepilex bandage on R LE. Mental Status: Alert and oriented x 4 Pain: 1/10 ROM: Right Lower Extremity: Hip flexion WFL. Hip abduction WFL. Knee flexion 104. K nee extension -20 degrees. Ankle dorsiflexion WFL. Ankle plantarflexion WFL. Left Lower Extremity: Hip flexion WFL. Hip abduction WFL. Knee flexion WFL. Ankle dorsiflexion WFL. Ankle plantarflexion WFL. Strength: Right Lower Extremity: Hip flexors 4/5. Hip abductors 5/5. Knee flexors 3-/5. Knee extensors 3-/5. Ankle dorsiflexors 5/5. Ankle plantarflexors 5/5. Left Lower Extremity:Hip flexors 4/5. Hip abductors 5/5. Knee flexors 5/5. Knee extensors 5/5. Ankle dorsiflexors 5/5. Ankle plantarflexors 5/5. Bed Mobility/Transfers: Rolling Independent Supine to sit Independent Sit to supine Independent Sit to stand SBA Stand to sit SBA Bed to chair CGA Chair to bed SBA She Gait: Patient ambulated 30? with FWW, and CGA using a step-to gait pattern. She exhibited decreased step height, and length. She had a decreased shahid and overall gait speed. Balance: Static Sitting: Normal Dynamic Sitting: Normal Static Standing: Fair Dynamic Standing: Fair Special Tests: Mobility Limitations Standardized Measure [facility] AM-PAC 6 clicks Basic Mobility Inpatient Short Form: Raw Score: 18 CMS Score: 37% Informed Consent/Education: Patient instructed in purpose of PT consult and plan of care. Assessment: Patient is a 83 year old female s/p R TKA POD 1 due to primary osteoarthritis. Her pain is well managed, and she states ambulation decreases her pain. Nursing reported she had a bout of dizziness when they slid her up in bed, and the patient stated she had vertigo. She denied dizziness during the evaluation. She is ambulating well considering time passed since surgery. She lives alone in a mobile home, and has prepared to return home and be on her own. Her prognosis is good. Patient presents with clinical signs and symptoms consistent with curr ent/admitting diagnoses that have resulted to mobility limitations, gait instability, generalized weakness, and impairment of motor control as demonstrated by the following impairment level findings: 1. Decreased strength to R LE major muscle groups 2. Impaired sitting/standing balance 3. Impaired activity tolerance 4. Limitation of joint range of motion in R knee flexion/extension Impairments are contributing to the following functional limitations: 1. Dependent bed mobility skills 2. Increased dependence with transfers 3. Inability to safely ambulate without assistive device and physical assistance 4. Increase completion time for mobility ADL performance 5. Increased fall risk 6. Inability to negotiate steps alone safely Patient is assessed as a 14868 moderate complexity based on the following: History: Patient is a 83-year-old female s/p R TKA POD 1 due to primary unuilateral osteoarthritis of R knee. Examination: Demonstrable impairment in strength, balance, and range of motion with underlying impairments and functional limitations as documented above Presentation: Evolving Decision Makin Moderate complexity Goals: Goals X1 week 1. Supine-Sit independent 2. Sit-Supine independent 3. Sit-Stand independent 4. Stand-Sit independent 5. Bed-Chair independent 6. Chair-Bed independent 7. Independent gait on level surface with use of least restrictive device for at least 300 feet without report of pain nor dyspnea 8. Independent stair negotiation while holding onto bilateral rails for at least 10 steps without report of pain nor dyspnea 9. Independent with home exercise program 10. Good static and dynamic standing balance/tolerance Plan of Care/Treatment Plan: 1-2x/day, 7 days/week x 1 week. Plan of care has been reviewed with the SUGGESTION CLERK providing the service under Physical Therapy direction. Initiate Physical Therapy intervention for strengthening, bed mobility, transfers, gait, stairs, balance training, use of assistive device. DISCHARGE RECOMMENDATIONS: Patient is to be discharged to home once she is medically stable and all of the above goals are met. She will need a FWW and outpatient PT two weeks after discharge for continued strengthening, flexibility and balance training. TREATMENT CODE/TIME: 80473 x 21 minutes. Thank you very much for this referral. Jalen Daniels, [facility] In consultation with: Seda Lora PT, DPT, CLT [facility]
[2019-03-26] MEDS: Droperidol 5 MG/2 ML VIAL 0.625 MG IVP (14:39)
--- NOTE | 2019-03-26 15:34 | PT.INTREAT ---
Date of service: 03/26/19 Time of Service: 15:34 PT Notes Inpatient Physical Therapy Treatment Note [facility] Date: 03/26/19 PRECAUTIONS:Fall, WBAT R SUBJECTIVE: Yoly states that she has been feeling nauseous today, but feels a little better this afternoon. OBJECTIVE: PAIN: Patient c/o R LE pain with ther ex. BED MOBILITY/TRANSFERS Supine?sit: I with HOB flat Sit?supine: I with HOB flat Sit-stand: SBA Stand-sit: SBA GAIT Assistive Device: FWW Weight bearing: WBAT R Assist: SBA Distance: 40' x2 THEREX: Patient completed a LE strengthening and stabilization program, in a supine position, as per flow sheet. Patient was able to perform active SLR x10. She ends with cryocuff to R LE. STAIRS: Up/down 6x4 and 4x6 using 1 rail/SPC and a step-to pattern with SBA. She reports feeling woozy following stair training. ASSESSMENT: Patient tolerated session with c/o R knee pain with ther ex. She would benefit from continued gait and transfer training, as well as strengthening for improved mobility and activity tolerance. PLAN: Continue with PT's POC TREATMENT CODE/TIME: 30 minutes; 34591, [id number]
[2019-03-26] MEDS: Simvastatin 20 MG TAB PO (20:02)
[2019-03-27 00:40] VITALS: BP 101/63; PULSE 64; RESP 18; TEMP 37; O2SAT 93
[2019-03-27 04:00] VITALS: BP 107/60; PULSE 68; RESP 20; TEMP 36.7; O2SAT 95
[2019-03-27] MEDS: oxyCODONE 5 MG TAB PO (05:26)
[2019-03-27] MEDS: Omeprazole 20 MG CAPCR PO (07:32)
[2019-03-27 07:53] VITALS: BP 112/62; BP 119/66; BP 96/54; PULSE 62; RESP 18; TEMP 36.9; O2SAT 90
[2019-03-27 08:30] VITALS: O2SAT 94
[2019-03-27] MEDS: Aspirin E.C. 81 MG TABEC PO (08:54)
[2019-03-27] MEDS: Acetaminophen 500 MG TAB 1000 MG PO ×2 (08:54→13:09)
[2019-03-27] MEDS: amLODIPine 5 MG TAB PO (08:54)
[2019-03-27] MEDS: Celecoxib 200 MG CAP PO (08:54)
[2019-03-27] MEDS: Omega-3 Fatty Acids 1000 MG CAP PO (08:55)
[2019-03-27] MEDS: Cholecalciferol (Vitamin D3) 1,000 UNIT TAB 2000 UNITS PO (08:55)
[2019-03-27] MEDS: Glucosamine/Chondroitin CAP 1 CAP PO (08:55)
[2019-03-27] MEDS: Metoprolol 50 MG TAB PO (08:55)
[2019-03-27] MEDS: Ondansetron 4 MG/2 ML VIAL IVP (11:33)
[2019-03-27] MEDS: Normal Saline Flush 10 ML SYR IV (11:33)
--- NOTE | 2019-03-27 12:04 | W.PM.DS.N ---
Date of service: 03/27/19 Time of Service: 12:05 DS: Diagnosis Discharge Diagnosis (1) Primary osteoarthritis of right knee: Status: Chronic Discharge Plan Disposition Patient Disposition: HOME Condition: Improving Discharge Details Reason For Visit: RIGHT KNEE DJD Admit Date/Time: 03/25/19 11:02 Admit Provider: Sekou Pruitt Attending Provider: Sekou Pruitt Primary Care Provider: Rajendra Oliva Hospital Course Hospital Course: Patient was admitted to the medical/surgical floor following the procedure. It was tolerated well without any notable medical, surgical, or anesthetic complications. Mobilization began postoperatively. The peña catheter was removed and voiding spontaneously. Vitals were stable. Yoly did have some nausea which responded well to Zofran and time. Physical therapy worked with the patient and was cleared for discharge home. No acute medical issues. Home Meds and New Rx's Prescriptions: New aspirin 81 mg tablet,delayed release (DR/EC) 81 mg PO BID Qty: 60 RF: 0 acetaminophen 500 mg tablet 1,000 mg PO Q8H PRN (Reason: pain) Qty: 90 RF: 3 ibuprofen 600 mg tablet 600 mg PO TID PRNQty: 60 RF: 3 oxycodone 5 mg tablet 2.5 - 5 mg PO Q6H PRN PRNQty: 8 RF: 0 ondansetron 4 mg tablet,disintegrating 4 mg PO Q8H PRN (Reason: nausea and vomiting) Qty: 10 RF: 0 Continued cholecalciferol (vitamin D3) 1,000 unit capsule 2,000 unit PO DAILY RF: 0 Jeri's Butter See Rx Instructions topical PRN RF: 0 amlodipine 5 mg tablet 5 mg PO DAILY Qty: 90 RF: 4 simvastatin 20 mg tablet 20 mg PO HS Qty: 90 RF: 4 hydrochlorothiazide 12.5 mg tablet 12.5 mg PO DAILY Qty: 90 RF: 3 metoprolol tartrate 50 mg tablet 50 mg PO BID Qty: 180 RF: 4 omega-3 fatty acids-fish oil 1 EACH capsule 1 ea PO DAILY RF: 0 GLUCOS-CHOND 500 COMPLEX CP 1 EACH capsule 1 ea PO DAILY RF: 0 magnesium oxide 250 MG tablet 500 mg PO wkly RF: 0 ketoconazole 120 ML shampoo 1 applic Topical daily prn RF: 0 hydrocortisone 30 GM cream with perineal applicator 1 applic Topical daily prn RF: 0 Ketoconazole 15 GM CREAM..G. 1 applic Topical PRN RF: 0 psyllium husk [Fiber (psyllium husk)] 0.52 GM capsule 1 tab PO DAILY RF: 0 omeprazole 20 mg capsule,delayed release(DR/EC) 20 mg PO DAILY Qty: 90 RF: 4 Discontinued acetaminophen 650 mg tablet extended release 650 mg PO BID RF: 0 oxycodone 5 mg tablet 2.5 mg PO Q8H PRN (Reason: severe pain) Qty: 6 RF: 0 Discharge Instructions Instructions: Total Knee Discharge Instructions Additional Instructions: Dr. Pruitt?s Total Knee Discharge Instructions Activity: The most important activity is to walk. You should try to take short walks a few times a day. It is important that when resting you work on keeping the knee straight. Avoid putting a pillow behind the knee as this will encourage flexion. Work on range of motion exercises as provided by Physical Therapy. - Start outpatient physical therapy within 2 weeks. - You should wear the THANG hose on both legs for 2 weeks. Dressing: Keep the surgical dressing in place for at least one week. After the first week it may be removed and replace with light gauze and tape or nothing. It may get wet after 3 days but avoid soaking the dressing. If it gets wet, just lightly pat dry. Medications: - You should take Tylenol and anti-inflammatory Ibuprofen as your primary pain control medications - You have been prescribed a stronger pain medication Oxycodone for breakthrough pain, take as needed as prescribed. - You should continue your stomach acid reduction agent Omeprazole to help reduce stomach acid and reflux. - You will be taking Aspirin 81mg twice a day for DVT prevention unless instructed otherwise. - If you have constipation you should take Colace or Miralax (both ebkx-zsm-vyceeyi). It takes most people 3-4 days to have a bowel movement. Follow-up: 2 weeks Stand Alone Forms: Nursing Discharge Form Referrals: Sekou Pruitt MD [ [facility] STAFF PHYSICIAN] - 04/10/19 9:00 am [facility] [Provider Group] (2 weeks from L TKA) Activity:: Activity as Tolerated Equipment/Supplies:: No Equipment Needed Diet:: As Tolerated Discharge Orders Discharge Orders: Discharge Order (Routine); Ordered 03/27/19 Ordered By: Sekou Pruitt DS: Summary Status at Discharge Functional status at discharge: uses cane/walker Overall status at discharge: patient is progressing back to baseline Mental Status: mental status grossly normal Speech and Movement: speech and movement normal Mood: congruent mood Affect: normal affect Exam Psych Mental Status: mental status grossly normal Speech and Movement: speech and movement normal Mood: congruent mood Affect: normal affect DS: Data Vitals/I&O Vitals and I&O: Vital Signs Temperature 36.9 C 03/27/19 07:53 Temperature Source Tympanic 03/27/19 07:53 Pulse 62 03/27/19 07:53 Pulse Rhythm Regular 03/27/19 01:32 Respiratory Rate 18 03/27/19 07:53 Respiratory Effort Non-Labored 03/27/19 07:48 Respiratory Depth Normal 03/27/19 07:48 Respiratory Pattern Normal 03/27/19 07:48 Blood Pressure 96/54 L 03/27/19 07:53 Pulse Oximetry 90 L 03/27/19 07:53 Respiratory End-tidal CO2 36 03/25/19 16:00 Oxygen Delivery Method Room Air 03/27/19 07:53 Oxygen Flow Rate 0 03/27/19 07:53 Pain Level 5 03/27/19 08:57 Comment 03/27/19 04:00 Intake & Output 03/26/19 03/27/19 03/27/19 23:59 11:59 23:59 Intake Total 610 / 3160.666 400 / 400 Output Total 600 / 600 Balance 610 / 2360.666 -200 / -200 Intake: IV 2199.666 Oral 600 / 960 400 / 400 Output: Urine 600 / 600 Other: Urine Color Yellow Urine Appearance Clear Clear Urine Odor Normal Comment pt voided, missed hat in toilet, pt feels that her bladder is empty, first void since peña removal Voiding Methods Toilet Toilet [facility] Medical History Anxiety Cellulitis of left hand (Resolved) Epilepsy (Chronic 11/30/10) GERD (gastroesophageal reflux disease) History of colitis (Acute) COLLAGENOUS COLITIS History of postoperative nausea and vomiting (Acute) Hyperlipidemia Hypertension Kidney stones (Chronic) Lower back pain Osteoarthritis of knees, bilateral Osteoporosis Primary malignant neoplasm of skin (Resolved) basal [id number]. 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) consider PT stretch daily Synovitis of hand (Inactive) 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 Surgical History Abdominal hysterectomy Appendectomy Bladder Surgery (~07/2008) sling and reconstruction for uterine prolapse and cystocele EGD - IV Sedation History of colonoscopy (Chronic) History of shoulder surgery (Inactive) Right bursa and excision of bone spurs Status post left foot surgery (Acute) Hallux valgus Status post phlebectomy (Inactive) Left leg vein excision Status post surgical removal of ganglion cyst (Acute) RMF Family History Mother Heart disease Hyperlipidemia Father Essential hypertension Heart disease Hyperlipidemia Sister Essential hypertension Heart disease Hyperlipidemia Brother Essential hypertension Heart disease Hyperlipidemia Brother Personal history of malignant neoplasm Brother Heart disease Stroke Brother Essential hypertension Heart disease Hyperlipidemia Brother Essential hypertension Heart disease Hyperlipidemia Stroke Son Hyperlipidemia Daughter Diabetes Hyperlipidemia COPD (chronic obstructive pulmonary disease) Daughter No problems noted. Social History Smoking/Tobacco Use Status: Never Alcohol Intake: never Drug use: Never Substance use type: does not use Current gender identity: female Do you feel safe at home: Yes Do you feel safe in your relationship?: Yes
--- NOTE | 2019-03-27 16:28 | PDOC.CMDIS ---
- If Service Date Differs Date of service: 03/27/19 Time of Service: 16:28 LACE Index Scoring Tool - Questions: Length of Stay (in days): 2 Acuity (Admit via E.D.?): No E.D. Visits: 1 - Answers: Total Score: 3 Risk of Readmission: Low Risk Care Management Discharge Reason for Hospitalization: Primary Osteoarthritis right knee Discharge Plan: Yoly will return home with no additional services at this time. Her son, Luan, will transport her home via private vehicle. She will follow up with Ortho as recommended. Patient/Family Education Needs: Review discharge instructions regarding activity levels and medication, discussion of self care needs including Ask Me Three
--- NOTE | 2019-03-27 16:41 | PT.INTREAT ---
Date of service: 03/27/19 Time of Service: 16:41 PT Notes Inpatient Physical Therapy Treatment Note [facility] Date: 03/27/19 PRECAUTIONS: Fall, WBAT R SUBJECTIVE: Yoly states that she is feeling nauseous this morning, but is hopeful that she will return home today. OBJECTIVE: PAIN: Patient c/o R knee pain with gait training BED MOBILITY/TRANSFERS Sit-stand: S Stand-sit: S GAIT Assistive Device: FWW Weight bearing: WBAT R Assist: SBA Distance: 150' Deviation: Standing rest x5 secondary to R knee pain THEREX: Patient completed a LE strengthening and stabilization program, in a seated position, as per flow sheet. STAIRS: Up/down 3x4 and 2x6 using B rails and step-to pattern with supervision ASSESSMENT: Patient tolerated session with increased R knee pain with gait training. She was able to tolerate a progression in gait distance with FWW support and SBA requiring standing rest x5. She would benefit from continued gait training as well as strengthening for improved mobility and activity tolerance. PLAN: As per primary PT TREATMENT CODE/TIME: 30 minutes; 53557, [id number]
--- NOTE | 2019-03-30 09:10 | PT.INDS ---
Date of service: 03/30/19 PT Notes Inpatient Physical Therapy Discharge Summary Dates: 03/30/2019 Dates of Service: 03/26/2019 and 03/27/2019 This is a clinical summary of care provided on the duration of dates listed above. No charge was made in the completion of this documentation. Referring Doctor: Sekou Pruitt MD PT Orders: PT CONSULT: S/P Ortho Surgery Precautions: Fall. Standard. Patient Profile/Admitting Diagnosis: Patient is a 83-year-old female s/p R TKA POD 3 due to primary unilateral osteoarthritis of R knee. PMHX: Medical History (Updated 03/12/19 @ 15:41 by Abbi Ron) Anxiety Cellulitis of left hand (Resolved) Epilepsy (Chronic 11/30/10) GERD (gastroesophageal reflux disease) History of colitis (Acute) COLLAGENOUS COLITIS History of postoperative nausea and vomiting (Acute) Hyperlipidemia Hypertension Kidney stones (Chronic) Lower back pain Osteoarthritis of knees, bilateral Osteoporosis Primary malignant neoplasm of skin (Resolved) basal qcae-[id number]. 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) consider PT stretch daily Synovitis of hand (Inactive) 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 Surgical History (Updated 03/11/19 @ 14:36 by Rere Medina RN) Abdominal hysterectomy Appendectomy Bladder Surgery (~07/2008) sling and reconstruction for uterine prolapse and cystocele EGD - IV Sedation History of colonoscopy (Chronic) History of shoulder surgery (Inactive) Right bursa and excision of bone spurs Status post left foot surgery (Acute) Hallux valgus Status post phlebectomy (Inactive) Left leg vein excision Status post surgical removal of ganglion cyst (Acute) RMF Social History/Home Situation: Patient lives alone in a mobile home in [place]. She has five steps to her porch, one to enter her home, and two to enter her middle room. Current Functional Limitations: Ms. Chambers states she used a cane for ambulation before surgery. Equipment Owned/DME: [place] Subjective: NT Objective: General Observation: NT Mental Status: NT ROM: Right Lower Extremity: Hip flexion WFL. Hip abduction WFL. Knee flexion 104. Knee extension -20 degrees. Ankle dorsiflexion WFL. Ankle plantarflexion WFL. Left Lower Extremity: Hip flexion WFL. Hip abduction WFL. Knee flexion WFL. Ankle dorsiflexion WFL. Ankle plantarflexion WFL. Strength: Right Lower Extremity: Hip flexors 4/5. Hip abductors 5/5. Knee flexors 3-/5. Knee extensors 3-/5. Ankle dorsiflexors 5/5. Ankle plantarflexors 5/5. Left Lower Extremity:Hip flexors 4/5. Hip abductors 5/5. Knee flexors 5/5. Knee extensors 5/5. Ankle dorsiflexors 5/5. Ankle plantarflexors 5/5. Bed Mobility/Transfers: Rolling Independent Supine to sit Independent Sit to supine Independent Sit to stand supervision Stand to sit supervision Bed to chair supervision Chair to bed supervision Gait: Patient ambulated 150? with FWW, and CGA using a step-to gait pattern. Negotiated three 4-inch steps and two 6-inch steps while holding onto bilateral rails using step-to gait pattern with supervision. Balance: Static Sitting: Normal Dynamic Sitting: Normal Static Standing: Fair Dynamic Standing: Fair Assessment: Patient is a 83-year-old female s/p R TKA POD 3 due to primary osteoarthritis. Her pain is well managed, and she states ambulation decreases her pain. Nursing reported she had a bout of dizziness when they slid her up in bed, and the patient stated she had vertigo. She denied dizziness during the evaluation. She is ambulating well considering time passed since surgery. She lives alone in a mobile home, and has prepared to return home and be on her own. Her prognosis is good. Patient continues to present with clinical signs and symptoms consistent with current/admitting diagnoses that have resulted to mobility limitations, gait instability, generalized weakness, and impairment of motor control as demonstrated by the following impairment level findings: 1. Decreased strength to R LE major muscle groups 2. Impaired standing balance 3. Impaired activity tolerance 4. Limitation of joint range of motion in R knee flexion/extension Impairments are contributing to the following functional limitations: 1. Dependent bed mobility skills 2. Increased dependence with transfers 3. Inability to safely ambulate without assistive device and physical assistance 4. Increase completion time for mobility ADL performance 5. Increased fall risk 6. Inability to negotiate steps alone safely Goals: Goals X1 week 1. Supine-Sit independent MET 2. Sit-Supine independent MET 3. Sit-Stand independent NOT MET 4. Stand-Sit independent NOT MET 5. Bed-Chair independent NOT MET 6. Chair-Bed independent NOT MET 7. Independent gait on level surface with use of least restrictive device for at least 300 feet without report of pain nor dyspnea NOT MET 8. Independent stair negotiation while holding onto bilateral rails for at least 10 steps without report of pain nor dyspnea NOT MET 9. Independent with home exercise program NOT MET 10. Good static and dynamic standing balance/tolerance NOT MET DISCHARGE RECOMMENDATIONS: Patient is to be discharged to home once she is medically stable and all of the above goals are met. She will need a FWW and outpatient PT two weeks after discharge for continued strengthening, flexibility and balance training. TREATMENT CODE/TIME: KASSY. Thank you very much for this referral. Seda Lora PT, DPT, CLT [facility]
--- NOTE | 2019-03-30 21:46 | W.PM.PROGNOT ---
Date of Service Date of service: 03/26/19 Time of Service: 16:22 Assessment and Plan Assessment and plan (1) Primary osteoarthritis of left knee: Status: Chronic Assessment and plan: Yoly is doing well physically from the knee replacement surgery. She has had some pain but trying to reduce and limit any narcotic treatments. Given the nausea, we will keep Yoly here tonight and follow her nausea and treat with IV Ondansetron. Start ASA 81mg BID. WBAT with assistive devices. Likely alexandrea etomorrow. Subjective Subjective Interval history since last seen: Yoly has continued to have some nuasea throughout the day. While she has had some pain it has been controlled. She did well with physical therapy and has been minimal assistance for bathroom. She has had no chest pain or shortness of breath. Exam Narrative Exam Narrative: L knee dressing c/d/i. Minimal swelling and ecchymosis. Able to SLR. +ADF/APF/EHL/FHL. SILT DP/SP/Tib. Foot WWP. Objective Objective Clinical Data: Vital Signs Temperature 36.9 C 03/27/19 07:53 Temperature Source Tympanic 03/27/19 07:53 Pulse 62 03/27/19 07:53 Pulse Rhythm Regular 03/27/19 01:32 Respiratory Rate 18 03/27/19 07:53 Respiratory Effort Non-Labored 03/27/19 07:48 Respiratory Depth Normal 03/27/19 07:48 Respiratory Pattern Normal 03/27/19 07:48 Blood Pressure 96/54 L 03/27/19 07:53 Pulse Oximetry 94 L 03/27/19 08:30 Respiratory End-tidal CO2 36 03/25/19 16:00 Oxygen Delivery Method Room Air 03/27/19 08:30 Oxygen Flow Rate 0 03/27/19 08:30 Pain Level 1 03/27/19 13:09 Comment 03/27/19 04:00
== END 2019-03-27 13:38 | disposition home or self-care (01) | DRG 470 ==
LOC: PDS 11:02 → MS 17:02
PROVIDERS: Admitting Provider Student in an Organized Health Care Education/Training Program; PCP Family Medicine; Visit Provider Student in an Organized Health Care Education/Training Program
PROC: 0SRC0J9 Replacement of Right Knee Joint with Synthetic Substitute, Cemented, Open Approach (ICD-10-PCS; CPT 27447; principal; 2019-03-25 12:15)
DX: M17.11 Unilateral primary osteoarthritis, right knee (principal); M25.561 Pain in right knee; Z96.651 Presence of right artificial knee joint; G89.18 Other acute postprocedural pain; R11.0 Nausea; E78.5 Hyperlipidemia, unspecified; I10 Essential (primary) hypertension; K21.9 Gastro-esophageal reflux disease without esophagitis; G40.909 Epilepsy, unspecified, not intractable, without status epilepticus
CPT/HCPCS: 27447; 76942; 97110; 97162; 97530; NC; J0690; J1790; J1885; J2250; J2370; J2405

== ENCOUNTER 2019-04-08 13:02 | Outpatient (CLI) | payer MEDICARE, SELFPAY ==
--- NOTE | 2019-04-08 12:58 | DI.RAD_ITS ---
EXAM: XR STANDING ALIGNMENT CLINICAL HISTORY: status post right TKA TECHNIQUE: AP views of the lower extremities were obtained for standing alignment. COMPARISON: XR STANDING ALIGNMENT from 03/11/2019 FINDINGS: Mild DJD of both hips and both ankles noted. Right knee prosthesis in position. Marked degenerative changes noted involving the left knee, predominantly medial tibiofemoral joint.
--- NOTE | 2019-04-08 12:58 | DI.RAD_ITS ---
EXAM: XR KNEE RT 1V CLINICAL HISTORY: status post right TKA COMPARISON: XR KNEE RT 3V AP,LAT,EILEEN from 02/16/2019 FINDINGS: A single lateral view of the knee was obtained and shows a total knee joint replacement in position. Components appear well seated. No other bony abnormality is seen. IMPRESSION:
== END 2019-04-08 13:22 ==
PROVIDERS: PCP Family Medicine; Visit Provider Physician Assistant
DX: Z96.651 Presence of right artificial knee joint (principal); M16.0 Bilateral primary osteoarthritis of hip; M17.12 Unilateral primary osteoarthritis, left knee; M19.071 Primary osteoarthritis, right ankle and foot; M19.072 Primary osteoarthritis, left ankle and foot; Z47.1 Aftercare following joint replacement surgery
CPT/HCPCS: 73560; 77073

== ENCOUNTER → 2019-05-07 13:57 | Outpatient (BNVA) | payer MEDICARE, SELFPAY | PROVIDERS: PCP Family Medicine; Referring Provider Family Medicine; Visit Provider Student in an Organized Health Care Education/Training Program | DX: Z47.1 Aftercare following joint replacement surgery (principal); Z96.651 Presence of right artificial knee joint; I10 Essential (primary) hypertension ==

== ENCOUNTER → 2019-06-18 10:15 | Outpatient (BNVA) | payer MEDICARE, SELFPAY | PROVIDERS: PCP Family Medicine; Referring Provider Family Medicine; Visit Provider Student in an Organized Health Care Education/Training Program | DX: M17.12 Unilateral primary osteoarthritis, left knee (principal); Z96.651 Presence of right artificial knee joint; Z47.1 Aftercare following joint replacement surgery; I10 Essential (primary) hypertension | CPT/HCPCS: 20610; 99213; J1040 ==

== ENCOUNTER → 2019-10-16 08:49 | Outpatient (BNVA) | payer MEDICARE, SELFPAY | PROVIDERS: PCP Family Medicine; Referring Provider Family Medicine; Visit Provider Student in an Organized Health Care Education/Training Program | DX: M17.12 Unilateral primary osteoarthritis, left knee (principal); I10 Essential (primary) hypertension | CPT/HCPCS: 20610; 99213; J1040 ==

== ENCOUNTER 2019-12-09 08:28 | Outpatient (CLI) | payer MEDICARE, SELFPAY ==
[2019-12-09 12:35] LABS: Abs Immature Grans 0.02 k/cumm (0.0-0.09); Absolute Basophil Count 0.01 k/cumm (0.0-0.2); Absolute Eosinophil Count 0.14 k/cumm (0.0-0.7); Absolute Lymphocyte Count 1.41 k/cumm (1.2-3.4); Absolute Monocyte Count 0.59 k/cumm (0.11-0.7); Basophils % 0.1; Eosinophils % 1.7; HCT 39.2 % (36.0-46.0); HGB 12.7 g/dL (12.0-15.5); Immature Grans % 0.2 %; Lymphocytes % 17.5; Mean Corp. HGB Concentration 32.4 g/dL (32.0-36.0); Mean Corpuscular Volume 92.7 fL (80-95); Mean Platelet Volume 10.1 fL (8.0-11.0); Monocytes % 7.3; Neutrophils % 73.2; Platelet Count 319 x1000/uL (130-400); RBC 4.23 m/cumm (4.00-5.20); RBC Distribution Width 12.5 % (11.7-14.6); White Blood Cell Count 8.07 k/cumm (4.4-10.8)
[2019-12-09 12:44] LABS: Anion Gap 11.2 mmol/L (3-11); CO2 22.8 mmol/L (21.0-32.0); Chloride 104 mmol/L (98-107); Sodium 138 mmol/L (136-145)
== END 2019-12-09 08:48 ==
PROVIDERS: PCP Family Medicine; Visit Provider Family Medicine
DX: D64.9 Anemia, unspecified (principal); E87.1 Hypo-osmolality and hyponatremia
CPT/HCPCS: 36415; 80051; 85025

== ENCOUNTER 2020-01-12 07:44 | Outpatient (REF) | payer MEDICARE, SELFPAY ==
[2020-01-13 10:24] LABS: Campylobacter PCR Negative (Negative); Salmonella PCR Negative (Negative); Shiga Toxin PCR Negative (Negative); Shigella/Enteroinvasive Ecoli Negative (Negative)
[2020-01-13 20:52] LABS: Calprotectin 69.5 mcg/g
== END 2020-01-12 08:04 ==
LOC: LBN 07:44
PROVIDERS: PCP Family Medicine; Visit Provider Nurse Practitioner Adult Health
DX: R19.7 Diarrhea, unspecified (principal)
CPT/HCPCS: 87505; 83993; 87177; 87324

== ENCOUNTER 2020-01-26 08:21 | Outpatient (CLI) | payer MEDICARE, SELFPAY ==
--- NOTE | 2020-01-26 13:15 | DI.RAD_ITS ---
EXAM: XR LUMBAR SPINE COMPLETE CLINICAL HISTORY: chronic low back pain, no injury, M54.9 dorsalgia TECHNIQUE: COMPARISON: CR LUMBAR SPINE COMPLETE from 02/09/2015 FINDINGS: Five views were obtained. There is a moderate biconvex thoracolumbar scoliosis. There are mild dege nerative changes of the SI joints. There is disc space narrowing throughout the lumbar spine with mu ltilevel vacuum disc phenomenon. No fracture identified. Severe hypertrophic degenerative changes o f facet joints and vertebral endplates are noted. IMPRESSION: Severe DJD and scoliosis lumbosacral spine, multilevel disc degeneration. RADIATION DOSE DELIVERED: Total DLP
== END 2020-01-26 08:41 ==
PROVIDERS: PCP Family Medicine; Visit Provider Family Medicine
DX: M47.817 Spondylosis without myelopathy or radiculopathy, lumbosacral region (principal); M41.85 Other forms of scoliosis, thoracolumbar region; M54.9 Dorsalgia, unspecified; G89.29 Other chronic pain
CPT/HCPCS: 72110

== ENCOUNTER 2020-01-29 04:03 | Outpatient (CLI) | payer MEDICARE, SELFPAY ==
--- NOTE | 2020-01-29 08:22 | DI.MRI_ITS ---
EXAM: MR LUMBAR SPINE WO CLINICAL HISTORY: LOW back pain,M54.5. TECHNIQUE: Multiplanar multisequence MRI was performed. COMPARISON: No exams were available for comparison FINDINGS: MR examination of the lumbar spine was performed according to the usual protocol. There are peridiscal vertebral signal changes at multiple levels consistent with disc degeneration, m ost prominent at L3-4. There is multilevel loss of disc height. There are prominent hypertrophic ve rtebral endplate changes and hypertrophic facet changes throughout the lumbar region. There is possi ble healed right spondylolysis at L5. There is mild pseudo spondylolisthesis of L5 on S1. No significant findings at T11-T12. The conus medullaris appears intact. At T12-L1, there is facet hypertrophy causing deformity of left lateral wall of the spinal canal and slight narrowing of left lateral recess. Possibility of mild left neural foraminal stenosis is raise d. Moderate disc bulge without focal disc herniation. At L1-2, there is facet hypertrophy with mild narrowing of the lateral recesses of the spinal canal. There is probably mild bilateral neural foraminal stenosis left greater than right. At L2-3, there is prominent facet hypertrophic change with mild narrowing of the lateral recesses and borderline central canal spinal stenosis. Mild disc bulge without disc herniation. Mild bilateral neural foraminal stenosis. At L3-4, there is mild disc bulge without disc herniation. Mild facet hypertrophic changes. Neural foramina appear fairly well maintained. At L4-5, there is moderate disc bulge without focal disc herniation. There is narrowing of the later al recesses and neural foramina bilaterally. At L5-S1, there is prominent facet hypertrophy bilaterally. There is no evidence of disc herniation. There is a mild disc bulge. There is slight anterior pseudo spondylolisthesis of L5 on S1. There is bilateral neural foraminal narrowing at L5-S1. No central canal spinal stenosis.. IMPRESSION: Multilevel disc degeneration and multilevel hypertrophic facet changes with neural foraminal narrowi ng noted at multiple levels and borderline central canal spinal stenosis at L2-3. Please see above d iscussion for findings at individual disc levels. DATA REPOSITORY:
== END 2020-01-29 04:23 ==
PROVIDERS: PCP Family Medicine; Visit Provider Family Medicine
DX: M51.36 Other intervertebral disc degeneration, lumbar region (principal); M48.061 Spinal stenosis, lumbar region without neurogenic claudication; M51.26 Other intervertebral disc displacement, lumbar region
CPT/HCPCS: 72148

== ENCOUNTER 2020-02-05 12:52 | Outpatient (REF) | payer MEDICARE, SELFPAY ==
[2020-02-05 13:14] LABS: Abs Immature Grans 0.04 10^3/uL (0.0-0.06); Absolute Basophil Count 0.02 10^3/uL (0.0-0.2); Absolute Lymphocyte Count 0.59 10^3/uL (1.2-3.4); Absolute Monocyte Count 0.71 10^3/uL (0.1-0.8); Basophils % 0.2; HCT 40.1 % (36.0-46.0); HGB 12.8 g/dL (11.2-15.7); Immature Grans % 0.3; Lymphocytes % 4.9; MCH 29.5 pg (27.0-33.0); MCHC 31.9 % (32.0-36.0); MCV 92.4 fL (80-95); MPV 10.2 fL (8.0-11.0); Monocytes % 5.9; Neutrophils % 88.7; Nucleated RBC 0 %; Platelet Count 306 10^3/uL (130-400); RBC 4.34 10^6/uL (3.93-5.22); RDW 12.3 % (11.7-14.6); RDW-SD 42.2 fL; WBC 12.06 10^3/uL (4.4-10.8)
[2020-02-05 13:28] LABS: C-Reactive Protein 1.06 mg/dL (0.0-0.3)
[2020-02-05 14:07] LABS: ESR 36 mm/hr (0-30)
== END 2020-02-05 13:12 ==
LOC: LBN 12:52
PROVIDERS: PCP Family Medicine; Visit Provider Family Medicine
DX: R51 Headache (principal)
CPT/HCPCS: 85652; 85025; 86140

== ENCOUNTER 2020-02-10 01:26 | Outpatient (CLI) | payer MEDICARE, SELFPAY ==
--- NOTE | 2020-02-10 07:00 | DI.RAD_ITS ---
EXAM: XR MANDIBLE COMPLETE CLINICAL HISTORY: pain in rt jaw; no trauma,R68.84. TECHNIQUE: 2D digital imaging was performed. COMPARISON: No exams were available for comparison FINDINGS: BONES: No evidence of fracture. No destructive bony lesions are visible. The visualized portions of the skull are unremarkable. No sinus opacification is seen. Degenerative changes are seen in the c ervical spine. JOINTS: No evidence of temporomandibular joint dislocation . SOFT TISSUES: Unremarkable. IMPRESSION: Unremarkable radiographs of the mandible. DATA REPOSITORY: RADIATION DOSE DELIVERED:
== END 2020-02-10 01:46 ==
PROVIDERS: PCP Family Medicine; Visit Provider Family Medicine
DX: R68.84 Jaw pain (principal)
CPT/HCPCS: 70110

== ENCOUNTER 2020-02-12 10:43 | Day surgery (SDC) | payer MEDICARE, SELFPAY ==
[2020-02-12 11:30] VITALS: BP 141/86; PULSE 66; RESP 18; TEMP 36.4; O2SAT 92
[2020-02-12] MEDS: Tropicam./Phenyleph. (1/2.5%) 5 ML BTL OS ×3 (11:38→11:51)
--- NOTE | 2020-02-12 12:42 | W.PM.DSUDISC ---
Discharge Plan Disposition Patient Disposition: HOME Condition: Good Discharge Details Attending Provider: Wong Moore Primary Care Provider: Rajendra Oliva Home Meds and New Rx's Prescriptions: No Action cholecalciferol (vitamin D3) 1,000 unit capsule 2,000 unit PO DAILY RF: 0 Jeri's Butter See Rx Instructions topical PRN RF: 0 amoxicillin 500 mg tablet 500 mg PO TID Qty: 21 RF: 0 Metamucil 3.4 gram/5.4 gram powder 3 tsp PO DAILY RF: 0 diphenoxylate-atropine [Lomotil] 2.5-0.025 mg tablet 1 tab PO BID PRN (Reason: diarrhea) Qty: 30 RF: 0 amlodipine 5 mg tablet 5 mg PO DAILY Qty: 90 RF: 4 hydrochlorothiazide 12.5 mg tablet 12.5 mg PO DAILY Qty: 90 RF: 3 omega-3 fatty acids-fish oil 1 EACH capsule 1 ea PO DAILY RF: 0 magnesium oxide 250 MG tablet 500 mg PO wkly RF: 0 hydrocortisone 30 GM cream with perineal applicator 1 applic Topical daily prn RF: 0 Ketoconazole 15 GM CREAM..G. 1 applic Topical PRN RF: 0 omeprazole 20 mg capsule,delayed release(DR/EC) 20 mg PO DAILY Qty: 90 RF: 4 metoprolol tartrate 50 mg tablet 50 mg PO BID Qty: 180 RF: 4 losartan 100 mg tablet 100 mg PO DAILY Qty: 90 RF: 3 simvastatin 20 mg tablet 20 mg PO HS Qty: 90 RF: 4 acetaminophen 500 mg tablet 1,000 mg PO Q8H PRN (Reason: pain) Qty: 90 RF: 3 ibuprofen 600 mg tablet 600 mg PO TID PRNQty: 60 RF: 3 Discharge Instructions Stand Alone Forms: Post-op Topical Cataract, Press Ganey (DSU) Discharge Orders Discharge Orders: Discharge Order (Routine); Ordered 02/12/20 Ordered By: Wong Moore DS: Diagnosis Discharge Diagnosis (1) Posterior subcapsular age-related cataract of left eye: Status: Resolved (2) Nuclear sclerotic cataract of left eye: Status: Resolved (3) Cortical cataract of left eye: Status: Resolved
[2020-02-12] MEDS: Povidone-Iodine Ophth 30 ML BTL (12:50)
[2020-02-12] MEDS: Balanced Salt Soln.-PLUS 500 ML BAG (12:52)
[2020-02-12] MEDS: Lidocaine 1% Pres-Free 5 ML VIAL (12:53)
[2020-02-12] MEDS: Lidocaine 2% Jelly 6 ML SYR (12:56)
[2020-02-12] MEDS: Moxifloxacin-PF 1 MG/ML VIAL (13:08)
--- NOTE | 2020-02-12 13:37 | W.PM.OP ---
Date of service: 02/12/20 Time of Service: 13:37 Operative Note Operative Note DATE OF PROCEDURE: 02/12/20 PRE-OP DIAGNOSIS: Nuclear/cortical/posterior subcapsular cataract, left eye POST-OP DIAGNOSIS: same PROCEDURE: Cataract extraction using phacoemulsification with intraocular lens implant, left eye SURGEON: Wong Moore ANESTHESIA: MAC and local (sub-tenon's anesthetic infiltration) PATHOLOGY: none sent COMPLICATIONS: None Patient was transported to: same day Patient's condition: stable Implants: Eduardo and [employer] Vision / [employer] Tecnis [id number] Indications: Progressive decreased vision due to cataract, left eye Procedure Description: CATARACT SURGERY OPERATIVE REPORT PREOPERATIVE DIAGNOSIS: Nuclear/cortical/posterior subcapsular cataract, left eye POSTOPERATIVE DIAGNOSIS: Same OPERATION: Cataract extraction using phacoemulsification with posterior chamber intraocular lens implant, left eye. IOL: IOL Rotary Soil Stabilizer Operator/Model: [employer] Vision / JOHNSON Tecnis [id number] IOL Power: + 20.0 diopters IOL Serial Number: [id number] Optic Diameter: 6.0mm Haptic/Overall Diameter: 13.0mm PHACO INFO: Lm [employer] Vision System with OZil and Active Fluidics Cumulative Dispersed Energy (CDE): 8.3 seconds SURGEON: Wong Moore MD, LIANA ANESTHESIA: Monitored Anesthesia Care (MAC), with local sub-tenon's anesthetic infiltration COMPLICATIONS: None SPECIMENS: None INDICATIONS FOR PROCEDURE: Patient is an 84-year-old lady with history of diminished visual acuity in her left eye. She is noted to have a significant nuclear/cortical/posterior subcapsular cataract in the left eye. The option of cataract surgery was offered to the patient and she wished to proceed. PROCEDURE: The correct surgical eye was identified and marked as the left eye and the pupil was dilated in the preoperative area using mydriatics and cycloplegics. The dilated pupil size was 6.5 mm. Oral sedation was administered in the form of an Imprimis MKO Melt (midazolam 3mg/ketamine 25mg/ondansetron 2mg). The patient was brought to the operating room where cardiopulmonary monitoring was instituted and surgical time-out was performed, confirming the correct operative eye and IOL power. Topical anesthesia was administered and ophthalmic povidone-iodine 5% was instilled into the conjunctival fornices. Lidocaine gel was applied to the cornea and the manoj-ocular area was prepped with Betadine 10% solution and draped in the usual sterile fashion for intraocular surgery, including an aperture drape. A Tegaderm transparent film dressing was cut in half and used to cover the lashes and lid margins. Care was taken to sequester the lashes and lid margins under the Tegaderm dressing. A lid speculum was placed between the lids of the operative eye and the Bayron-Tomas operating microscope was maneuvered into position. Rita scissors were then used to make a conjunctival buttonhole approximately 6mm posterior to the limbus in the inferonasal quadrant. Blunt dissection was carried out to expose bare sclera, and a blunt-tipped sub-tenon?s anesthesia cannula was introduced and passed posteriorly along the globe where non-preserved plain lidocaine was injected into posterior sub-Tenon?s space. A sideport knife was used to make a paracentesis port superior/superiortemporally. Intraocular phenylephrine/lidocaine was injected into the anterior chamber. The anterior chamber was then filled with Healon Pro. A 2.4mm keratome knife was used to create a half-thickness groove at the limbus and then to construct a three-plane near-clear corneal tunnel extending 2.0mm into clear cornea in the temporal position. . A flap was raised on the anterior capsule and capsulorhexis forceps were used to complete a continuous curvilinear capsulorhexis of 5.5 mm. Balanced salt solution was then used to perform cortical cleaving hydrodissection and nuclear hydrodelineation until the lens could be freely rotated within the capsular bag. The lens nucleus was then disassembled and removed within the capsular bag and iris plane using phacoemulsification. Residual cortical material was removed using the 45-degree angled silicone I/A tip with 0.3mm port. The posterior capsule was carefully polished to remove as much residual lens epithelial cells as safely possible. The capsular bag was then inflated and the anterior chamber deepened with viscoelastic. The lens implant described above was inserted into the capsular bag using the J[employer]NSON [employer] Injector. A Kuglen hook was used to dial the IOL into position. Residual viscoelastic was then removed first from posterior to the IOL, then from the anterior chamber using the I/A handpiece. The lens implant was noted to center nicely within the capsular bag. The incisions were stromally hydrated, and the anterior chamber was reformed using BSS. Then 0.5cc of moxifloxacin 1.0mg/ml were injected into the capsular bag and anterior chamber. The incisions were checked with a Weck spear and found to be secure. Several drops of ophthalmic povidone-iodine 5% were then applied to the eye followed by two drops of Imprimis combination prednisolone/moxifloxacin/nepafenac solution. The drapes were removed and a clear plastic protective eye shield was placed over the eye. The patient was then returned to Same Day Surgery in stable condition.
[2020-02-12 13:40] VITALS: BP 130/78; PULSE 81; RESP 16; TEMP 36.5; O2SAT 94
== END 2020-02-12 14:00 | disposition home or self-care (01) ==
PROVIDERS: PCP Family Medicine; Visit Provider Ophthalmology
PROC: (CPT 66984; principal; 2020-02-12 14:30)
DX: H25.042 Posterior subcapsular polar age-related cataract, left eye (principal); H25.12 Age-related nuclear cataract, left eye; H25.012 Cortical age-related cataract, left eye
CPT/HCPCS: 66984; V2632

== ENCOUNTER 2020-02-26 06:50 | Day surgery (SDC) | payer MEDICARE, SELFPAY ==
[2020-02-26 06:55] VITALS: BP 136/85; PULSE 67; RESP 16; TEMP 36.5; O2SAT 94
[2020-02-26] MEDS: Tropicam./Phenyleph. (1/2.5%) 5 ML BTL OD ×3 (07:20→07:26)
[2020-02-26] MEDS: Tetracaine 0.5% 4 ML BTL OD (08:23)
[2020-02-26] MEDS: Moxifloxacin-PF 1 MG/ML VIAL (08:30)
[2020-02-26] MEDS: Balanced Salt Soln.-PLUS 500 ML BAG (08:31)
[2020-02-26] MEDS: Lidocaine 2% Jelly 6 ML SYR (08:32)
[2020-02-26] MEDS: Lidocaine 1% Pres-Free 5 ML VIAL (08:32)
[2020-02-26] MEDS: Povidone-Iodine Ophth 30 ML BTL (08:33)
--- NOTE | 2020-02-26 08:45 | W.PM.DSUDISC ---
Discharge Plan Disposition Patient Disposition: HOME Condition: Good Discharge Details Attending Provider: Wong Moore Primary Care Provider: Rajendra Oliva Home Meds and New Rx's Prescriptions: No Action cholecalciferol (vitamin D3) 1,000 unit capsule 2,000 unit PO DAILY RF: 0 Jeri's Butter See Rx Instructions topical PRN RF: 0 amoxicillin 500 mg tablet 500 mg PO TID Qty: 21 RF: 0 Metamucil 3.4 gram/5.4 gram powder 3 tsp PO DAILY RF: 0 amlodipine 5 mg tablet 5 mg PO DAILY Qty: 90 RF: 4 hydrochlorothiazide 12.5 mg tablet 12.5 mg PO DAILY Qty: 90 RF: 3 omega-3 fatty acids-fish oil 1 EACH capsule 1 ea PO DAILY RF: 0 magnesium oxide 250 MG tablet 500 mg PO wkly RF: 0 hydrocortisone 30 GM cream with perineal applicator 1 applic Topical daily prn RF: 0 Ketoconazole 15 GM CREAM..G. 1 applic Topical PRN RF: 0 omeprazole 20 mg capsule,delayed release(DR/EC) 20 mg PO DAILY Qty: 90 RF: 4 metoprolol tartrate 50 mg tablet 50 mg PO BID Qty: 180 RF: 4 losartan 100 mg tablet 100 mg PO DAILY Qty: 90 RF: 3 simvastatin 20 mg tablet 20 mg PO HS Qty: 90 RF: 4 diphenoxylate-atropine [Lomotil] 2.5-0.025 mg tablet 0.5 tab PO BID PRN (Reason: diarrhea) Qty: 30 RF: 1 acetaminophen 500 mg tablet 1,000 mg PO Q8H PRN (Reason: pain) Qty: 90 RF: 3 ibuprofen 600 mg tablet 600 mg PO TID PRNQty: 60 RF: 3 Discharge Instructions Stand Alone Forms: Post-op Topical Cataract, Press Ganey (DSU) Discharge Orders Discharge Orders: Discharge Order (Routine); Ordered 02/26/20 Ordered By: Wong Moore DS: Diagnosis Discharge Diagnosis (1) Posterior subcapsular age-related cataract, right eye: Status: Resolved (2) Nuclear sclerotic cataract of right eye: Status: Resolved (3) Cortical cataract of right eye: Status: Resolved
--- NOTE | 2020-02-26 08:46 | ROE_ITS ---
Date of service: 02/26/20 Time of Service: 08:47 Operative Note Operative Note DATE OF PROCEDURE: 02/26/20 PRE-OP DIAGNOSIS: Nuclear/cortical/posterior subcapsular cataract, right eye POST-OP DIAGNOSIS: same PROCEDURE: Cataract extraction using phacoemulsification with intraocular lens implant, right eye SURGEON: Wong Moore ANESTHESIA: MAC and local (sub-tenon's anesthetic infiltration) ESTIMATED BLOOD LOSS: 0 PATHOLOGY: none sent COMPLICATIONS: None Patient was transported to: same day Patient's condition: stable Implants: Eduardo and [employer] / [employer] Tecnis [id number] intraocular lens Indications: Progressive decreased vision due to cataract, right eye Procedure Description: CATARACT SURGERY OPERATIVE REPORT PREOPERATIVE DIAGNOSIS: Nuclear/cortical/posterior subcapsular cataract, right eye POSTOPERATIVE DIAGNOSIS: Same OPERATION: Cataract extraction using phacoemulsification with posterior chamber intraocular lens implant, right eye. 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 Diopters IOL Serial Number: [id number] Optic Diameter: 6.0mm Haptic/Overall Diameter: 13.0mm PHACO INFO: Lm [email or web address] Vision System with OZil and Active [employer]uid[employer] Cumulative Dispersed Energy (CDE): 6.77 seconds SURGEON: Wong Moore MD, LIANA ANESTHESIA: Monitored Anesthesia Care (MAC), with local sub-tenon's anesthetic infiltration COMPLICATIONS: None SPECIMENS: None INDICATIONS FOR PROCEDURE: The patient is a 84-year-old lady with visual acuity to both eyes secondary to the development of bilateral cataracts. She has already undergone cataract surgery left eye and is doing well postoperatively. PROCEDURE: The correct surgical eye was identified and marked as the right eye and the pupil was dilated in the preoperative area using mydriatics and cycloplegics. The dilated pupil size was 6.0 mm. Oral sedation was administered in the form of an Imprimis MKO Melt (midazolam 3mg/ketamine 25mg/ondansetron 2mg). The patient was brought to the operating room where cardiopulmonary monitoring was instituted and surgical time-out was performed, confirming the correct operative eye and IOL power. Topical anesthesia was administered and ophthalmic povidone-iodine 5% was instilled into the conjunctival fornices. Lidocaine gel was applied to the cornea and the manoj-ocular area was prepped with Betadine 10% solution and draped in the usual sterile fashion for intraocular surgery, including an aperture drape. A Tegaderm transparent film dressing was cut in half and used to cover the lashes and lid margins. Care was taken to sequester the lashes and lid margins under the Tegaderm dressing. A lid speculum was placed between the lids of the operative eye and the Bayron-Tomas operating microscope was maneuvered into position. Rita scissors were then used to make a conjunctival buttonhole approximately 6mm posterior to the limbus in the inferonasal quadrant. Blunt dissection was carried out to expose bare sclera, and a blunt-tipped sub-tenon?s anesthesia cannula was introduced and passed posteriorly along the globe where non- preserved plain lidocaine was injected into posterior sub-Tenon?s space. A sideport knife was used to make a paracentesis port inferiortemporally. Intraocular phenylephrine/lidocaine was injected into the anterior chamber. The anterior chamber was then filled with Healon Pro. A 2.4mm keratome knife was used to create a half-thickness groove at the limbus and then to construct a three-plane near-clear corneal tunnel extending 2.0mm into clear cornea in the superiortemporal position. . A flap was raised on the anterior capsule and capsulorhexis forceps were used to complete a continuous curvilinear capsulorhexis of 4.8 mm. Balanced salt solution was then used to perform cortical cleaving hydrodissection and nuclear hydrodelineation until the lens could be freely rotated within the capsular bag. The lens nucleus was then disassembled and removed within the capsular bag and iris plane using phacoemulsification. Residual cortical material was removed using the I/A handpiece. The posterior capsule was carefully polished to remove as much residual lens epithelial cells as safely possible. The capsular bag was then inflated and the anterior chamber deepened with viscoelastic. The lens implant described above was inserted into the capsular bag using the JOHNSON [place] Injector. A Kuglen hook was used to dial the IOL into position. Residual viscoelastic was then removed first from posterior to the IOL, then from the anterior chamber using the I/A handpiece. The lens implant was noted to center nicely within the capsular bag. The incisions were stromally hydrated, and the anterior chamber was reformed using BSS. Then 0.5cc of moxifloxacin 1.0mg/ml were injected into the capsular bag and anterior chamber. The incisions were checked with a Weck spear and found to be secure. Several drops of ophthalmic povidone-iodine 5% were then applied to the eye followed by two drops of Imprimis combination prednisolone/moxifloxacin/nepafenac solution. The drapes were removed and a clear plastic protective eye shield was placed over the eye. The patient was then returned to [facility] Day Surgery in stable condition.
[2020-02-26 09:05] VITALS: BP 139/87; PULSE 74; RESP 16; TEMP 36.2; O2SAT 97
== END 2020-02-26 09:20 | disposition home or self-care (01) ==
PROVIDERS: PCP Family Medicine; Visit Provider Ophthalmology
PROC: (CPT 66984; principal; 2020-02-26 08:30)
DX: H25.041 Posterior subcapsular polar age-related cataract, right eye (principal)
CPT/HCPCS: 66984; V2632

== ENCOUNTER 2020-03-25 09:16 | Outpatient (CLI) | payer MEDICARE, SELFPAY ==
--- NOTE | 2020-03-25 09:14 | DI.RAD_ITS ---
EXAM: XR KNEE RT 3V AP,LAT,EILEEN INDICATION: yearly follow-up. COMPARISON: CR XR KNEE RT 1V from 04/08/2019 TECHNIQUE: 2D digital imaging was performed. FINDINGS: There has been no change in the total knee prosthesis. No abnormal bony lucencies are seen. Vascula r calcifications are incidentally noted. No joint effusion is visible. Impression: Stable appearance of total knee prosthesis DATA REPOSITORY: RADIATION DOSE DELIVERED:
== END 2020-03-25 09:36 ==
PROVIDERS: PCP Family Medicine; Referring Provider Family Medicine; Visit Provider Student in an Organized Health Care Education/Training Program
DX: Z96.651 Presence of right artificial knee joint; M17.12 Unilateral primary osteoarthritis, left knee; I10 Essential (primary) hypertension
CPT/HCPCS: 20610; 73562; 99213; J1040

== ENCOUNTER → 2020-08-26 07:49 | Outpatient (BNVA) | payer MEDICARE, SELFPAY | PROVIDERS: PCP Family Medicine; Referring Provider Family Medicine; Visit Provider Student in an Organized Health Care Education/Training Program | DX: M17.12 Unilateral primary osteoarthritis, left knee (principal) | CPT/HCPCS: 20610; J1040 ==

== ENCOUNTER → 2020-09-02 07:48 | Outpatient (BNVA) | payer MEDICARE, SELFPAY | PROVIDERS: PCP Family Medicine; Referring Provider Family Medicine; Visit Provider Student in an Organized Health Care Education/Training Program | DX: M17.12 Unilateral primary osteoarthritis, left knee (principal); R22.41 Localized swelling, mass and lump, right lower limb | CPT/HCPCS: 99213 ==

== ENCOUNTER 2021-03-10 10:20 | Outpatient (CLI) | payer MEDICARE, SELFPAY ==
[2021-03-10 12:18] LABS: Abs Immature Grans 0.02 10^3/uL (0.0-0.06); Absolute Basophil Count 0.03 10^3/uL (0.0-0.2); Absolute Eosinophil Count 0.04 10^3/uL (0.0-0.7); Absolute Monocyte Count 0.66 10^3/uL (0.1-0.8); Absolute Neutrophil Count 5.23 10^3/uL (1.2-6.7); Basophils % 0.4; Eosinophils % 0.5; HCT 36.7 % (36.0-46.0); HGB 11.5 g/dL (11.2-15.7); Immature Grans % 0.3; Lymphocytes % 17.9; MCH 28.9 pg (27.0-33.0); MCHC 31.3 % (32.0-36.0); MCV 92.2 fL (80-95); MPV 10.5 fL (8.0-11.0); Monocytes % 9.1; Neutrophils % 71.8; Nucleated RBC 0 %; Platelet Count 293 10^3/uL (130-400); RBC 3.98 10^6/uL (3.93-5.22); RDW 12.2 % (11.7-14.6); RDW-SD 41.1 fL; WBC 7.28 10^3/uL (4.4-10.8)
[2021-03-10 12:30] LABS: Anion Gap 6.7 mmol/L (3-11); BUN 29 mg/dL (7-18); CO2 29.3 mmol/L (21.0-32.0); CREATININE 1.2 mg/dL (0.55-1.02); Calcium 9.3 mg/dL (8.5-10.1); Calculated LDL 93 mg/dL (<100); Chloride 105 mmol/L (98-107); Cholesterol 162 mg/dL (<200); Glucose 108 mg/dL (74-106); HDL Cholesterol 55 mg/dL (40-60); Potassium 4.3 mmol/L (3.5-5.1); Sodium 141 mmol/L (136-145); Triglyceride 74 mg/dL (<150)
== END 2021-03-10 10:21 | disposition home or self-care (01) ==
LOC: LOS 10:21
PROVIDERS: PCP Family Medicine; Referring Provider Family Medicine; Visit Provider Family Medicine
DX: E78.5 Hyperlipidemia, unspecified; E87.1 Hypo-osmolality and hyponatremia; M54.12 Radiculopathy, cervical region
CPT/HCPCS: 36415; 80048; 80061; 85025

== ENCOUNTER 2021-04-11 19:13 | Outpatient (REF) | payer MEDICARE, SELFPAY ==
[2021-04-11 20:13] LABS: Clarity Cloudy (Clear); Leukocyte Esterase Moderate (Negative); Nitrite Positive (Negative); Specific Gravity 1.025 (1.005-1.025)
[2021-04-11 20:14] LABS: Bilirubin Negative (Negative); Blood Moderate (Negative); Glucose Negative (Negative); Ketones Negative (Negative); Urobilinogen 0.2 EU/dL (Up TO 0.2)
[2021-04-11 20:17] LABS: WBC 20-50 HPF (0-5)
[2021-04-11 20:18] LABS: Bacteria Many HPF (Negative); C & S Indicated? Yes; Casts Negative LPF (Negative); Crystals Negative HPF (Negative); Epithelial Cells Few HPF (Negative); Mucus Negative (Negative)
== END 2021-04-11 19:14 | disposition home or self-care (01) ==
LOC: LBN 19:13
PROVIDERS: PCP Family Medicine; Visit Provider Family Medicine
DX: R30.0 Dysuria (principal)
CPT/HCPCS: 87077; 81003; 81015; 87086; 87186

== ENCOUNTER 2021-09-29 10:10 | Outpatient (CLI) | payer MEDICARE, SELFPAY ==
--- NOTE | 2021-09-29 10:00 | RT.EKG_ITS ---
APPROVED REPORT Exam: Resting ECG Reason for Exam: complaints of chest pain and SOB Patient Location: O HR:57 bpm ECG Measurements Heart Rate 57 AXIS GA 223 P 43 QRSd 75 QRS -7 QT 420 T 35 QTc 409 Conclusion Sinus bradycardia...rate< 60 Prolonged GA interval...GA >220, V-rate 50- 90
== END 2021-09-29 10:11 | disposition home or self-care (01) ==
LOC: DI.CM 10:11
PROVIDERS: PCP Family Medicine; Visit Provider Family Medicine
DX: R07.89 Other chest pain (principal)
CPT/HCPCS: 93010

== ENCOUNTER → 2021-10-12 00:05 | Outpatient (CLI) | payer MEDICARE, SELFPAY ==
--- NOTE | 2021-10-12 07:17 | DI.NM_ITS ---
APPROVED REPORT Exam: Exercise Treadmill Patient Location: Out-Patient Room/Bed: Stress Nurse: Elissa Hollingsworth RN Ordering Provider:GUADALUPE ARAGON, Contact Number: [phone] BMI: 29.47 Baseline Rhythm: Sinus Rhythm Comment: 1st AVB SD 0.22-0.25 Indications: chest pain Medical History Medical History: Chest pain, anxiety, HLD, HTN, GERD Cardiac Medications: Metoprolol tartrate, simvastatin, mag oxide, losartan, HCTZ, Amlodipine Allergies: Morphine, codeine, Esomeprazole, sulfa, tetracycline, latex, mesalamine Cardiac Risk Factors: Family Hx, HTN, HLD Previous Cardiac Procedures: None Pretest Chest Pain Characteristics: None Exercise History: Sedentary Physical Disabilities: ambulates with cane Lung Sounds: Clear to auscultation Heart Sounds: Regular Stress Test Details Test: Pharmacologic stress was paired with low level exercise. Nuclear Acquisition: Rest Tc-99m/Stress Tc-99m 1 day Rest Isotope: Tc-99m Sestamibi. Dose: 10.7 Date: 10/12/2021 Injection Time: 0820 Stress Isotope: Tc-99m Sestamibi. Dose: 31 Date: 10/12/2021 Injection Time: 0955 HR Resting HR Supine: 72 bpm Max Heart Rate (APMHR): 136 bpm Resting HR Standin bpm Target HR (85% APMHR): 115 bpm Max HR Achieved: 109 bpm % of APMHR: 80 Recovery HR: 91 bpm Comment: took metoprolol BP Resting BP Supine: 168/96 mmHg Resting BP Standin/90 mmHg Max BP: 162/98 mmHg Recovery BP: 158/88 mmHg ECG Resting ECst degree AV block, Sinus Rhythm Ectopy: none Stress ECG: Sinus Rhythm, Sinus Tachycardia ST Change: No significant ST segment changes noted Arrhythmia: VPC's, APC's Comment: Rare PVCs, frequent PACs Recovery ECG: Sinus Rhythm Recovery ST Change: No significant ST segment changes noted Recovery Arrhythmia: APC Comment: frequent PACs Clinical Rate Pressure Product: [id number] Stress ECG Conclusion 1. The resting electrocardiogram showed poor R wave progression 2. The patient underwent stress testing using a combination of low-level exercise with pharmacologic stress with regadenoson 3. Peak heart rate achieved was 80% of predicted for age 4. The electrocardiographic portion of the test was nondiagnostic due to inadequate heart rate 5. See MPI report Stress Test Summary STAGE HR BP Symptoms NOTES Supine 72 168/96 1 min post Lexiscan injection SOB severe Severe SOB, had to stop treadmill and get patient to str etcher 3 min post Lexiscan injection 99 162/98 SOB mild 6 min post Lexiscan injection 91 158/88 SOB resolved Pharmacologic testing was paired with low level exercise with treadmill at 1.0 MPH and 0% grade. Pt a mbulated for 2 minutes, lexiscan was injected, and then 30 seconds after injection patient reported s evere SOB and treadmill was stopped and patient brought back to stretcher. SOB resolved 4 minutes pos t lexiscan. MPI Conclusion Normal myocardial perfusion without evidence of ischemia or prior infarction EF 60%, normal wall motion Radiologist Interpretation Radiologist agrees with Pot Filler's Interpretation. Radiologist Interpretation by: Pedro Pablo Nelson MD Interpretation Date/Time: 10/12/2021 13:14:14
[2021-10-12] MEDS: Regadenoson 0.4 MG/5 ML SYR IVP (10:24)
== END ==
PROVIDERS: PCP Family Medicine; Visit Provider Family Medicine
DX: R07.9 Chest pain, unspecified (principal)
CPT/HCPCS: 78452; 93016; 93018; 93017; J2785

== ENCOUNTER 2021-10-16 21:54 | Outpatient (REF) | payer MEDICARE, SELFPAY ==
[2021-10-16 21:43] LABS: Bilirubin Negative (Negative); Blood Small (Negative); Clarity Cloudy (Clear); Glucose Negative (Negative); Ketones Negative (Negative); Leukocyte Esterase Large (Negative); Nitrite Positive (Negative); Urobilinogen 0.2 EU/dL (Up TO 0.2); pH 5.5 (5-8)
[2021-10-16 21:57] LABS: Bacteria Many HPF (Negative); C & S Indicated? Yes; Casts Negative LPF (Negative); Crystals Many Amorphous HPF (Negative); Epithelial Cells Few HPF (Negative); Mucus Negative (Negative); RBC Negative HPF (0-2); WBC >50 HPF (0-5)
== END 2021-10-16 21:55 | disposition home or self-care (01) ==
LOC: LBN 21:54
PROVIDERS: PCP Family Medicine; Visit Provider Family Medicine
DX: R30.0 Dysuria (principal)
CPT/HCPCS: 87077; 81003; 81015; 87086; 87186

== ENCOUNTER 2021-11-10 06:38 | Emergency (ER) | payer MEDICARE, SELFPAY ==
[2021-11-10 06:45] VITALS: BP 145/76; PULSE 71; RESP 20; TEMP 36.8; O2SAT 97
--- NOTE | 2021-11-10 07:15 | RT.EKG_ITS ---
APPROVED REPORT Exam: Resting ECG Reason for Exam: cough Patient Location: E HR:72 bpm ECG Measurements Heart Rate 72 AXIS [place] 203 P 49 QRSd 72 QRS -9 QT 391 T 41 QTc 423 Conclusion Sinus rhythm...normal P axis, V-rate 60- 99
--- NOTE | 2021-11-10 07:27 | W.ED.GENAD ---
Discharge Plan Disposition Patient Disposition: STILL A PATIENT Condition: Serious Discharge Details Primary Care Provider: Rajendra Oliva ED Provider: Markos Cardoso Home Meds and New Rx's Prescriptions: No Action cholecalciferol (vitamin D3) 1,000 unit capsule 2,000 unit PO DAILY Jeri's Butter See Rx Instructions topical PRN Label Comments: 12/16/18 Hemp with Arnica, si Rx Instructions: 1 application topical as needed; amlodipine 5 mg tablet 7.5 mg PO DAILY Qty: 90 4RF Rx Instructions: 1.5 tabs 10/26/ omega-3 fatty acids-fish oil 1 EACH capsule 1 ea PO DAILY magnesium oxide 250 MG tablet 500 mg PO wkly Label Comments: 06/21/17 on hold. si 11/01/17 takes wkly. si simvastatin 20 mg tablet 20 mg PO HS Qty: 90 4RF Rx Instructions: 1 TAB HS hydrochlorothiazide 12.5 mg tablet 12.5 mg PO DAILY Qty: 90 3RF Label Comments: Pt reports she hasn't been taking. 03/25/19 reports MD is not aware but it stopped her legs from cramping. 03/25/19 TR ibuprofen 600 mg tablet 600 mg PO BID PRN (Reason: joint pain) Qty: 60 2RF Rx Instructions: Take with food. losartan 100 mg tablet 100 mg PO DAILY Qty: 90 3RF omeprazole 20 mg capsule,delayed release(DR/EC) 20 mg PO DAILY Qty: 90 4RF Rx Instructions: metoprolol tartrate 50 mg tablet 50 mg PO BID Qty: 180 4RF Rx Instructions: instead of metoprolol succinate per insurance diphenoxylate-atropine [Lomotil] 2.5-0.025 mg tablet 0.5 tab PO DAILY Qty: 45 1RF Medical Decision Making 743 -- 86-year-old female here with shortness of breath, productive cough and chills. She has had some chest tightness which has improved after coughing and producing sputum this morning. Patient is hemodynamically stable but is tachypneic saturating well with rales and wheeze on the right. Concern for acute pneumonia. Plan to obtain chest x-ray and labs. Will give albuterol neb. Patient's have orthopnea with chest discomfort. Consider ACS and CHF. I would expect troponin elevation given chest discomfort at present all night. EKG was reviewed interpreted by me: Please see report, no STEMI. Nondiagnostic. She did recently have a negative MPI. HPI General Mode of arrival: ambulatory. Date/Time Provider Initiated Documentation: 11/10/21 07:00. Limitations to Documentation: no limitations. Information obtained by: patient. HPI Narrative: 86-year-old female presents with chief complaint of shortness of breath. Patient notes she is been feeling unwell with cold symptoms over the past few weeks. Symptoms much worse over the past couple days. She states she has cough productive of yellowish sputum. She states that last night and this morning she was having difficulty breathing. Her chest felt tight. She notes she coughed excessively in route to the hospital and produced a lot of sputum and is now breathing easier and feeling better. Patient has associated wheezing recently with no history of asthma/COPD. She does note associated chills. Of note, patient states that she has not been able to lie flat and has had to prop her self up with pillows. Related Data Home Medications Medication Instructions Recorded Confirmed omega-3 fatty acids-fish oil 300 1 ea PO DAILY 09/18/13 10/26/21 mg-1,000 mg capsule magnesium oxide 500 mg PO wkly 11/15/15 10/26/21 Jeri's Butter See Rx Instructions topical PRN 12/16/18 10/26/21 cholecalciferol (vitamin D3) 25 2,000 unit PO DAILY 12/16/18 10/26/21 mcg (1,000 unit) capsule simvastatin 20 mg tablet 20 mg PO HS #90 tab-caps 02/10/21 10/26/21 hydrochlorothiazide 12.5 mg tablet 12.5 mg PO DAILY #90 tabs 06/14/21 10/26/21 ibuprofen 600 mg tablet 600 mg PO BID PRN joint pain #60 06/14/21 10/26/21 tabs losartan 100 mg tablet 100 mg PO DAILY #90 tabs 06/14/21 10/26/21 omeprazole 20 mg capsule,delayed 20 mg PO DAILY #90 tab-caps 06/14/21 10/26/21 release metoprolol tartrate 50 mg tablet 50 mg PO BID #180 tab-caps 07/31/21 10/26/21 diphenoxylate-atropine 2.5 0.5 tab PO DAILY diarrhea #45 tabs 10/16/21 10/26/21 mg-0.025 mg tablet (Lomotil) amlodipine 5 mg tablet 7.5 mg PO DAILY #90 tab-caps 10/26/21 10/26/21 Previous Rx's Medication Instructions Recorded simvastatin 20 mg tablet 20 mg PO HS #90 tab-caps 02/10/21 hydrochlorothiazide 12.5 mg tablet 12.5 mg PO DAILY #90 tabs 06/14/21 ibuprofen 600 mg tablet 600 mg PO BID PRN joint pain #60 06/14/21 tabs losartan 100 mg tablet 100 mg PO DAILY #90 tabs 06/14/21 omeprazole 20 mg capsule,delayed 20 mg PO DAILY #90 tab-caps 06/14/21 release metoprolol tartrate 50 mg tablet 50 mg PO BID #180 tab-caps 07/31/21 diphenoxylate-atropine 2.5 0.5 tab PO DAILY diarrhea #45 tabs 10/16/21 mg-0.025 mg tablet (Lomotil) amlodipine 5 mg tablet 7.5 mg PO DAILY #90 tab-caps 10/26/21 Allergies Allergy/AdvReac Type Severity Reaction Status Date / Time mesalamine Allergy Intermediate HIVES Verified 11/10/21 06:51 latex Allergy Mild SKIN RASH Verified 11/10/21 06:51 oxaprozin Allergy Unknown unknown Verified 11/10/21 06:51 tetracycline Allergy Unknown unknown Verified 11/10/21 06:51 morphine AdvReac Severe headaches, Verified 11/10/21 06:51 vomiting codeine AdvReac Intermediate H/A Verified 11/10/21 06:51 Sulfa (Sulfonamide AdvReac Intermediate NAUSEA Verified 11/10/21 06:51 Antibiotics) esomeprazole magnesium AdvReac Mild H/A Verified 11/10/21 06:51 [From Nexium] General Stated Complaint: RespSymp REFUGIO: 3 Review of Systems All systems reviewed & are unremarkable except as noted in HPI and below ENT Ears, Nose, Mouth, and Throat: Reports sore throat Cardiovascular Cardiovascular: Denies leg edema Respiratory Respiratory: Reports as per HPI PFSH All Active Problems Lesion of skin of nose (Acute) Chest pain (Acute) Chills (without fever) (Acute) Chest pain, atypical (Acute) Groin rash (Acute) Collagenous colitis (Acute) Anxiety (Acute) Cervical radiculopathy (Acute 05/10/15) C spine DJD Dysphagia, unspecified (Acute 09/02/17) Generalized osteoarthrosis (Acute) DJD per Xray-10/07=right foot 1st MTP; left hand Hyperlipidemia (Acute) Lumbago (Acute) scoliosis and DJD 03/10-xray Varicose veins of lower extremity (Acute) Essential tremor (Acute) she wishes to hold off on any interventions for now Primary osteoarthritis of left knee (Chronic) Most recent Depo-Medrol injection: 08/26/20; 03/25/20; 10/16/19; 06/18/2019 Facial pain (Acute) Pain in upper jaw (Acute) Abdominal pain (Acute) Protracted diarrhea (Acute 09/18/13) 09/05 [facility] [place] ?colitis 08/06 colonoscopy normal ?bacterial overgrowth 09/2015 collagenous collitis Epilepsy (Chronic 11/30/10) pt. denies this Medical History Anxiety Arthritis of knee, right Cellulitis of left hand History of colitis COLLAGENOUS COLITIS History of postoperative nausea and vomiting Hyperlipidemia Kidney stones Lower back pain Osteoarthritis of knees, bilateral Osteoporosis Primary malignant neoplasm of skin basal [id number]. 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 Synovitis of hand 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 Surgical History Abdominal hysterectomy Appendectomy Bladder Surgery (~07/2008) sling and reconstruction for uterine prolapse and cystocele EGD - IV Sedation History of cataract surgery History of colonoscopy History of shoulder surgery Right bursa and excision of bone spurs Status post left foot surgery Hallux valgus Status post phlebectomy Left leg vein excision Status post surgical removal of ganglion cyst RMF Family History Mother Heart disease Hyperlipidemia Father Essential hypertension Heart disease Hyperlipidemia Sister Essential hypertension Heart disease Hyperlipidemia Brother Essential hypertension Heart disease Hyperlipidemia Brother Personal history of malignant neoplasm Brother Heart disease Stroke Brother Essential hypertension Heart disease Hyperlipidemia Brother Essential hypertension Heart disease Hyperlipidemia Stroke Son Hyperlipidemia Daughter Diabetes Hyperlipidemia COPD (chronic obstructive pulmonary disease) Daughter No problems noted. Social History Smoking/Tobacco Use Status: Never Smoking risk assessment performed?: Yes Alcohol Intake: never Drug use: Never Substance use type: does not use Current gender identity: female Do you feel safe at home: Yes Do you feel safe in your relationship?: Yes Exam Const General: cooperative and no acute distress HENMT Mouth: moist mucous membranes Eyes Conjunctivae: normal conjunctivae Sclera: normal sclerae Neck Neck: trachea midline and supple Resp Auscultation: no rhonchi Cardio Rate: regular rate and not tachycardic Rhythm: regular rhythm GI Palpation: soft, not firm, no guarding, no masses, not rigid and nontender Skin General skin exam: no rashes or lesions noted Neuro General: patient alert, patient awake and tone normal Extrem General: no edema Psych Appearance: grossly normal Mental Status: mental status grossly normal Speech and Movement: speech and movement normal Course Vital Signs Vital signs: Vital Signs Temperature 36.8 C 11/10/21 06:45 Pulse 71 11/10/21 06:45 Respiratory Rate 20 11/10/21 06:45 Blood Pressure 145/76 H 11/10/21 06:45 Pulse Oximetry 97 11/10/21 06:45 Temperature 36.8 C 11/10/21 06:45 Temperature Source Temporal Artery Scan 11/10/21 06:45 Pulse 71 11/10/21 06:45 Respiratory Rate 20 11/10/21 06:45 Blood Pressure 145/76 H 11/10/21 06:45 Pulse Oximetry 97 11/10/21 06:45 Oxygen Delivery Method Room Air 11/10/21 06:45 Oxygen Flow Rate 0 11/10/21 06:45
[2021-11-10] MEDS: Lactated Ringers 250 ML 1000 ML IV (07:30)
[2021-11-10 07:39] LABS: Lactate 1.2 mmol/L (0.6-1.4)
[2021-11-10] MEDS: Albuterol 2.5 MG/3 ML INH SOLN VIAL UPD (07:50)
--- NOTE | 2021-11-10 07:58 | DI.RAD_ITS ---
Exam(s) XR PORTABLE CHEST AP EXAM: XR PORTABLE CHEST AP CLINICAL HISTORY: cough, pui TECHNIQUE: 2D digital imaging was performed of the chest. One image was obtained. An AP view was ob tained. COMPARISON: CR CHEST 2 VIEWS PA,LAT from 03/01/2016 FINDINGS: MEDIASTINUM: Normal. HEART: Normal. PULMONARY VASCULATURE: Normal. LUNGS: Clear. PLEURAL SPACE: No pleural effusion or pneumothorax. BONE:Within normal limits for the patient's age. OTHER FINDINGS:Normal. IMPRESSION: No acute pulmonary findings. DATA REPOSITORY: RADIATION DOSE DELIVERED:
[2021-11-10 08:06] VITALS: BP 138/81; PULSE 72; RESP 18; TEMP 37; O2SAT 97
[2021-11-10 08:13] LABS: COVID-19 PCR Negative (Negative); Influenza A PCR Negative (Negative); Influenza B PCR Negative (Negative); RSV PCR Negative (Negative)
[2021-11-10 08:13] LABS: Abs Immature Grans 0.03 10^3/uL (0.0-0.06); Absolute Basophil Count 0.01 10^3/uL (0.0-0.2); Absolute Eosinophil Count 0.11 10^3/uL (0.0-0.7); Absolute Lymphocyte Count 1.08 10^3/uL (1.2-3.4); Absolute Monocyte Count 0.63 10^3/uL (0.1-0.8); Basophils % 0.1; Eosinophils % 1.4; HCT 39.4 % (36.0-46.0); HGB 12.8 g/dL (11.2-15.7); Immature Grans % 0.4; Lymphocytes % 13.7; MCH 29.4 pg (27.0-33.0); MCHC 32.5 % (32.0-36.0); MCV 90 fL (80-95); MPV 9.9 fL (8.0-11.0); Neutrophils % 76.4; Platelet Count 239 10^3/uL (130-400); RBC 4.36 10^6/uL (3.93-5.22); RDW-SD 40.1 fL; WBC 7.86 10^3/uL (4.4-10.8)
[2021-11-10 08:16] LABS: Source Nasopharynx
[2021-11-10 08:36] LABS: ALT 21 U/L (14-59); AST 22 U/L (15-37); Albumin 3.4 g/dL (3.4-5.0); Alkaline Phosphatase 115 U/L (46-116); Anion Gap 7.6 mmol/L (3-11); BUN 20 mg/dL (7-18); Bilirubin, Total 0.5 mg/dL (0.2-1.0); CO2 28.4 mmol/L (21.0-32.0); CREATININE 0.9 mg/dL (0.55-1.02); Calcium 9.1 mg/dL (8.5-10.1); Chloride 104 mmol/L (98-107); Estimated GFR 59.51 (mL/min/1.73m2); Glucose 102 mg/dL (74-106); NT-proBNP 553 pg/mL (<300); Potassium 3.8 mmol/L (3.5-5.1); Sodium 140 mmol/L (136-145); Total Protein 7.3 g/dL (6.4-8.2); Troponin I < 50 ng/L (<or=60)
--- NOTE | 2021-11-10 09:00 | DI.US_ITS ---
Exam(s) US LOWER EXTREMITY VENOUS LT EXAM: US LOWER EXTREMITY VENOUS LT CLINICAL HISTORY: swelling in left leg, sob, concern for DVT TECHNIQUE: Left lower extremity venous ultrasound performed using grayscale, color-flow, and spectra l Doppler analysis. COMPARISON: CR XR PORTABLE CHEST AP from 11/10/2021 US US LOWER EXTREMITY VENOUS LT from 11/10/2021 FINDINGS: The left common femoral, femoral and popliteal veins demonstrate normal compressibility, augmentation , and color Doppler. The posterior tibial veins are patent. The saphenofemoral junction is unremarka ble. There is no evidence of a Blanco cyst. Mild edema is seen in the soft tissues around the ankle. IMPRESSION: 1. No DVT. 2. Results of this exam have been verbally communicated with provider. DATA REPOSITORY:
[2021-11-10] MEDS: Normal Saline Flush 10 ML SYR IVP (09:31)
--- NOTE | 2021-11-10 09:40 | DI.CT_ITS ---
Exam(s) CT CHEST PE CTA EXAM: CT CHEST PE CTA CLINICAL HISTORY: shortness of breath, left leg swelling, concern PE. TECHNIQUE: Imaging Protocol: Axial CT angiography was performed with multi-slice acquisition and mu lti-planar and/or 3D reconstructions. CONTRAST MATERIAL: Intravenous: Isovue 100 contrast volume:61 mL COMPARISON: CT,NM,TMT NM MPI REST STRESS GRP from 10/12/2021 CR XR PORTABLE CHEST AP from 11/10/2021 FINDINGS: The examination is limited due to patient motion artifact. Tracheobronchial tree: Patent where visualized. Pulmonary parenchyma: No focal consolidating infiltrates are seen. Atelectatic changes are seen in t he lung bases. No architectural distortion. Pulmonary Arteries: No evidence of filling defect to suggest pulmonary emboli. Mediastinum and Mónica: No dominant adenopathy or fluid collection. The esophagus is unremarkable. Th ere is a small hiatal hernia. Visualized thyroid gland: There is a 1.9 cm hypodense right thyroid nodule. Pleura: No effusion or pneumothorax. Heart: Cardiomegaly. Coronary artery calcifications are present. No pericardial effusion. Aorta: Thoracic aorta non-dilated. No evidence of dissection. Atherosclerosis is present. Upper abdomen: Unremarkable. Soft tissues: Unremarkable. Bones: Within normal limits for the patient's age. IMPRESSION: 1. No evidence of pulmonary embolism, thoracic aortic dissection or aneurysm. 2. 1.9 cm hypodense right thyroid nodule. A follow-up nonemergent thyroid ultrasound is recommended. 3. Results of this exam have been verbally communicated with provider. Incidental Findings RADIATION DOSE DELIVERED: 394.28mGy.cm Total DLP DATA REPOSITORY: All CT scans at this facility are submitted to the National Radiology Data Registry (NRDR) Dose Index Registry (DIR) with the [employer] (A[employer]). RADIATION OPTIMIZATION: All CT scans at this facility use at least one of these dose optimization te chniques: automated exposure control; mA and/or kV adjustment per patient size (includes targeted exa ms where dose is matched to clinical indication); or iterative reconstruction.
--- NOTE | 2021-11-10 10:19 | W.EDPROG ---
Date of service: 11/10/21 Time of Service: 10:19 Medical Decision Making Patient resting comfortably no acute distress. Feeling much better after nebs and after bringing up some mucus when coughing. No hypoxia no tachycardia. Negative for DVT in left lower extremity also negative for PE. Patient did endorse some left lower extremity swelling last month and describes what sounds like either resolving localized edema versus subcutaneous burst blood vessel. Nontoxic no acute distress. Will follow with primary care physician. Son here to take her home. Sign Out Sign Out Data: Sign Out Comment: Follow-up on chest x-ray and labs. Reassess for disposition. Last updated by Markos Cardoso MD at 11/10/21 07:48 Discharge Plan Disposition Patient Disposition: HOME Condition: Improving Discharge Details Clinical Impression: Upper respiratory infection, viral Primary Care Provider: Rajendra Oliva ED Provider: Wong Tejeda Home Meds and New Rx's Prescriptions: No Action cholecalciferol (vitamin D3) 1,000 unit capsule 2,000 unit PO DAILY Jeri's Butter See Rx Instructions topical PRN Label Comments: 12/16/18 Hemp with marco Davila Rx Instructions: 1 application topical as needed; amlodipine 5 mg tablet 7.5 mg PO DAILY Qty: 90 4RF Rx Instructions: 1.5 tabs 10/26/21 omega-3 fatty acids-fish oil 1 EACH capsule 1 ea PO DAILY magnesium oxide 250 MG tablet 500 mg PO wkly Label Comments: 06/21/17 on hold. si 11/01/17 takes wkly. si simvastatin 20 mg tablet 20 mg PO HS Qty: 90 4RF Rx Instructions: 1 TAB HS hydrochlorothiazide 12.5 mg tablet 12.5 mg PO DAILY Qty: 90 3RF Label Comments: Pt reports she hasn't been taking. 03/25/19 reports MD is not aware but it stopped her legs from cramping. 03/25/19 TR ibuprofen 600 mg tablet 600 mg PO BID PRN (Reason: joint pain) Qty: 60 2RF Rx Instructions: Take with food. losartan 100 mg tablet 100 mg PO DAILY Qty: 90 3RF omeprazole 20 mg capsule,delayed release(DR/EC) 20 mg PO DAILY Qty: 90 4RF Rx Instructions: metoprolol tartrate 50 mg tablet 50 mg PO BID Qty: 180 4RF Rx Instructions: instead of metoprolol succinate per insurance diphenoxylate-atropine [Lomotil] 2.5-0.025 mg tablet 0.5 tab PO DAILY Qty: 45 1RF Discharge Instructions Instructions: Upper Respiratory Infection (ED) Additional Instructions: Please continue to take your medications as prescribed. Please return to the emergency department you develop any worsening symptoms such as cough fever shortness of breath chest pain or any other abnormal symptoms. Please be seen by your primary care physician.
== END 2021-11-10 10:27 | disposition home or self-care (01) ==
PROVIDERS: Student in an Organized Health Care Education/Training Program; Emergency Provider Emergency Medicine; PCP Family Medicine
DX: J06.9 Acute upper respiratory infection, unspecified (principal); R06.02 Shortness of breath; R22.42 Localized swelling, mass and lump, left lower limb; R05.1 Acute cough
CPT/HCPCS: 36415; 71275; 80053; 87637; 93005; 94640; 99285; 71045; 83605; 83880; 84484; 85025; 93010; 93971; 99284; J7613

== ENCOUNTER → 2022-01-25 00:45 | Outpatient (CLI) | payer MEDICARE, SELFPAY ==
--- NOTE | 2022-01-25 07:45 | DI.US_ITS ---
Exam(s) US THYROID EXAM: US THYROID CLINICAL HISTORY: THYROID nodule seen on chest CT,E04.1 TECHNIQUE: Ultrasound performed using standard protocol. COMPARISON: US US LOWER EXTREMITY VENOUS LT from 11/10/2021 FINDINGS: Thyroid ultrasound was performed to evaluate thyroid nodule noted on recent CT. There is nodule of t he lower pole of the right thyroid lobe, this measures about 16 x 21 x 30 millimeters. This is mildl y heterogeneous and solid in echotexture, it is wider than tall, and is isoechoic with surrounding pa renchyma. There are no calcifications associated, borders are smooth. No additional thyroid nodule seen. Right thyroid lobe measures 41 x 18 x 19 millimeters. Left thyroid lobe measures 37 x 13 x 13 millim eters. The isthmus is about 1-2 millimeters in thickness. Thyroid parenchyma is homogeneous. IMPRESSION: Right lower pole thyroid nodule, this is a TR 3 lesion by TI-RADS classification, biopsy is recommend ed for TR 3 lesion in excess of 2.5 cm. DATA REPOSITORY:
== END ==
PROVIDERS: PCP Family Medicine; Visit Provider Family Medicine
DX: E04.1 Nontoxic single thyroid nodule (principal)
CPT/HCPCS: 76536

== ENCOUNTER 2022-03-21 12:45 | Outpatient (CLI) | payer MEDICARE, SELFPAY ==
[2022-03-21 13:04] LABS: TSH (W/Ref FT4) 1.66 uIU/mL (0.36-3.74)
== END 2022-03-21 12:46 | disposition home or self-care (01) ==
LOC: LBO 12:48
PROVIDERS: PCP Family Medicine; Visit Provider Otolaryngology
DX: F41.9 Anxiety disorder, unspecified (principal)
CPT/HCPCS: 36415; 84443

== ENCOUNTER 2022-07-20 08:21 | Emergency (ER) | payer MEDICARE, SELFPAY ==
[2022-07-20] VITALS (51 sets, daily range): BP systolic 119–158; BP diastolic 69–118; PULSE 60–87; RESP 13–26; TEMP 36.7–37.3; O2SAT 92–97
--- NOTE | 2022-07-20 08:15 | RT.EKG_ITS ---
APPROVED REPORT Exam: Resting ECG Reason for Exam: SOB Patient Location: E HR:73 bpm ECG Measurements Heart Rate 73 AXIS TN 216 P 90 QRSd 80 QRS -14 QT 418 T 36 QTc 460 Conclusion Sinus rhythm...normal P axis, V-rate 60- 99 Borderline prolonged TN interval...TN >212, V-rate 50- 90
--- NOTE | 2022-07-20 08:45 | DI.RAD_ITS ---
Exam(s) XR CHEST 2V PA LATERAL EXAM: XR CHEST 2V PA LATERAL CLINICAL HISTORY: sob TECHNIQUE: 2D digital imaging was performed. COMPARISON: CT CT CHEST PE CTA from 11/10/2021 FINDINGS: HEART: Normal size. Aorta: Tortuous, dilated proximally, stable. PULMONARY VASCULATURE: Normal. LUNGS: Clear. PLEURAL SPACE: No pleural effusion or pneumothorax. BONE:Unremarkable for age. IMPRESSION: No acute abnormality. DATA REPOSITORY: RADIATION DOSE DELIVERED:
--- NOTE | 2022-07-20 08:48 | W.ED.GENAD ---
Discharge Plan Discharge Details Chief Complaint: SOB Primary Care Provider: Rajendra Oliva ED Provider: Cas Vazquez Home Meds and New Rx's Prescriptions: No Action cholecalciferol (vitamin D3) 1,000 unit capsule 2,000 unit PO DAILY Jeri's Butter See Rx Instructions topical PRN Patient Comments: 12/16/18 Hemp with marco Davila Rx Instructions: 1 application topical as needed; amlodipine 5 mg tablet 7.5 mg PO DAILY Qty: 90 4RF Rx Instructions: 1.5 tabs 10/26/21 omeprazole 20 mg capsule,delayed release(DR/EC) 20 mg PO DAILY Qty: 90 4RF Rx Instructions: metoprolol tartrate 50 mg tablet 50 mg PO BID Qty: 180 4RF Rx Instructions: instead of metoprolol succinate per insurance diphenoxylate-atropine [Lomotil] 2.5-0.025 mg tablet 1 tab PO DAILY Qty: 90 1RF acetaminophen 325 mg tablet 325 mg PO ONCE PRN omega-3 fatty acids-fish oil 1 EACH capsule 1 ea PO DAILY magnesium oxide 250 mg magnesium tablet 500 mg PO wkly PRN hydrochlorothiazide 12.5 mg tablet 12.5 mg PO DAILY Qty: 90 3RF Patient Comments: Pt reports she hasn't been taking. 03/25/19 reports MD is not aware but it stopped her legs from cramping. 03/25/19 TR losartan 100 mg tablet 100 mg PO DAILY Qty: 90 3RF simvastatin 20 mg tablet 20 mg PO HS Qty: 90 4RF Rx Instructions: 1 TAB HS Medical Decision Making 86-year-old lady with longstanding history of shortness of breath. After her last admission an outpatient stress test had been ordered for her to investigate her shortness of breath but she declined to have that study done because she is convinced that her lungs were the problem and not her heart. She presents today for worsening shortness of breath on exertion. Her EKG is nonischemic. Normal sinus rhythm with normal ST-T segments and T waves. Serial troponins were also negative emergency department and reportedly she was symptom free Chest x-ray did not reveal any abnormalities no signs of failure. Her proBNP is mildly elevated. Creatinine 1.1 from baseline of 0.9. At this point I believe that it is safe for her to be discharged home with close follow-up with her PCP. She is to continue her regular medications. I do not think she would benefit from a short course of diuretics at this point. HPI General Date/Time Provider Initiated Documentation: 07/20/22 08:37. HPI Narrative: 86-year-old lady who has been struggling with some dyspnea on exertion for the past 6 to 8 months, presents to the emergency department for persistent symptoms. She states that when she carries out activities like shopping walking around the house she does some shortness of breath sometimes associated with some pressure in her chest. No nausea no vomiting. No diaphoresis. No back pain no chest pain no abdominal pain. Symptoms resolved with rest She has had emergency department visits for this as well has primary care visits. Dr. Oliva had actually ordered either an echo or stress test which she declined to have as an outpatient. Related Data Home Medications Medication Instructions Recorded Confirmed omega-3 fatty acids-fish oil 300 1 ea PO DAILY 09/18/13 07/20/22 mg-1,000 mg capsule Jeri's Butter See Rx Instructions topical PRN 12/16/18 07/20/22 cholecalciferol (vitamin D3) 25 2,000 unit PO DAILY 12/16/18 07/20/22 mcg (1,000 unit) capsule amlodipine 5 mg tablet 7.5 mg PO DAILY #90 tab-caps 10/26/21 07/20/22 magnesium oxide 500 mg PO wkly PRN 03/07/22 07/20/22 acetaminophen 325 mg tablet 325 mg PO ONCE PRN 03/21/22 07/20/22 hydrochlorothiazide 12.5 mg tablet 12.5 mg PO DAILY #90 tabs 04/25/22 07/20/22 losartan 100 mg tablet 100 mg PO DAILY #90 tabs 04/25/22 07/20/22 simvastatin 20 mg tablet 20 mg PO HS #90 tab-caps 04/25/22 07/20/22 diphenoxylate-atropine 2.5 1 tab PO DAILY diarrhea #90 tabs 05/16/22 07/20/22 mg-0.025 mg tablet (Lomotil) metoprolol tartrate 50 mg tablet 50 mg PO BID #180 tab-caps 05/16/22 07/20/22 omeprazole 20 mg capsule,delayed 20 mg PO DAILY #90 tab-caps 05/16/22 07/20/22 release Previous Rx's Medication Instructions Recorded amlodipine 5 mg tablet 7.5 mg PO DAILY #90 tab-caps 10/26/21 hydrochlorothiazide 12.5 mg tablet 12.5 mg PO DAILY #90 tabs 04/25/22 losartan 100 mg tablet 100 mg PO DAILY #90 tabs 04/25/22 simvastatin 20 mg tablet 20 mg PO HS #90 tab-caps 04/25/22 diphenoxylate-atropine 2.5 1 tab PO DAILY diarrhea #90 tabs 05/16/22 mg-0.025 mg tablet (Lomotil) metoprolol tartrate 50 mg tablet 50 mg PO BID #180 tab-caps 05/16/22 omeprazole 20 mg capsule,delayed 20 mg PO DAILY #90 tab-caps 05/16/22 release Allergies Allergy/AdvReac Type Severity Reaction Status Date / Time mesalamine Allergy Intermediate HIVES Verified 07/20/22 08:31 latex Allergy Mild SKIN RASH Verified 07/20/22 08:31 oxaprozin Allergy Unknown unknown Verified 07/20/22 08:31 tetracycline Allergy Unknown unknown Verified 07/20/22 08:31 morphine AdvReac Severe headaches, Verified 07/20/22 08:31 vomiting codeine AdvReac Intermediate H/A Verified 07/20/22 08:31 Sulfa (Sulfonamide AdvReac Intermediate NAUSEA Verified 07/20/22 08:31 Antibiotics) esomeprazole magnesium AdvReac Mild H/A Verified 07/20/22 08:31 [From Nexium] General Stated Complaint: SOB REFUGIO: 3 Review of Systems Narrative: Constitutional negative for fevers and chills, positive fatigue negative for malaise HEENT negative cardiovascular see HPI respiratory see HPI GI no abdominal pain no nausea no vomiting no diarrhea no dysuria no frequency musculoskeletal no myalgia no arthralgias skin no rashes neuro no headaches no focal weakness no paresthesias psych positive anxiety endocrine no weight gain or weight loss hematological not on blood thinners no easy bleeding PFSH All Active Problems (Updated 05/16/22 @ 07:57 by Rajendra Oliva MD) COLVIN (dyspnea on exertion) (Acute) Thyroid nodule (Acute) Lesion of skin of nose (Acute) Chest pain (Acute) Chills (without fever) (Acute) Chest pain, atypical (Acute) Groin rash (Acute) Collagenous colitis (Acute) Anxiety (Acute) Cervical radiculopathy (Acute 05/10/15) C spine DJD Dysphagia, unspecified (Acute 09/02/17) Generalized osteoarthrosis (Acute) DJD per Xray-10/07=right foot 1st MTP; left hand Hyperlipidemia (Acute) Lumbago (Acute) scoliosis and DJD 03/10-xray Varicose veins of lower extremity (Acute) Essential tremor (Acute) she wishes to hold off on any interventions for now Primary osteoarthritis of left knee (Chronic) Most recent Depo-Medrol injection: 08/26/20; 03/25/20; 10/16/19; 06/18/2019 Facial pain (Acute) Pain in upper jaw (Acute) Abdominal pain (Acute) Protracted diarrhea (Acute 09/18/13) 09/05 [facility] [place] ?colitis 08/06 colonoscopy normal ?bacterial overgrowth 09/2015 collagenous collitis Epilepsy (Chronic 11/30/10) pt. denies this Medical History Anxiety Arthritis of knee, right Cellulitis of left hand History of colitis COLLAGENOUS COLITIS History of postoperative nausea and vomiting Hyperlipidemia Kidney stones Lower back pain Osteoarthritis of knees, bilateral Osteoporosis Primary malignant neoplasm of skin basal [id number]. 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 Synovitis of hand 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 Surgical History Abdominal hysterectomy Appendectomy Bladder Surgery (~07/2008) sling and reconstruction for uterine prolapse and cystocele EGD - IV Sedation History of cataract surgery History of colonoscopy History of shoulder surgery Right bursa and excision of bone spurs Status post left foot surgery Hallux valgus Status post phlebectomy Left leg vein excision Status post surgical removal of ganglion cyst RMF Family History Mother Heart disease Hyperlipidemia Father Essential hypertension Heart disease Hyperlipidemia Sister Essential hypertension Heart disease Hyperlipidemia Brother Essential hypertension Heart disease Hyperlipidemia Brother Personal history of malignant neoplasm Brother Heart disease Stroke Brother Essential hypertension Heart disease Hyperlipidemia Brother Essential hypertension Heart disease Hyperlipidemia Stroke Son Hyperlipidemia Daughter Diabetes Hyperlipidemia COPD (chronic obstructive pulmonary disease) Daughter No problems noted. Social History Smoking/Tobacco Use Status: Never Smoking risk assessment performed?: Yes Alcohol Intake: never Drug use: Never Substance use type: does not use Current gender identity: female Do you feel safe at home: Yes Do you feel safe in your relationship?: Yes Exam Narrative Exam Narrative: Awake alert Amlin x3 calm no acute distress pleasant cooperative HEENT PERRLA EOMI MMM anicteric Neck no JVD Chest clear to auscultation bilaterally regular rhythm and rate no murmurs Abdomen soft nondistended nontender Negative CVAT Skin no rashes Neuro cranial nerves II to XII grossly intact strength 5/5 bilaterally upper and lower extremities Extremities no pitting edema Psych adequate mood and affect. Course Vital Signs Vital signs: Vital Signs Temperature 37.3 C 07/20/22 08:26 Pulse 75 07/20/22 08:26 Respiratory Rate 24 07/20/22 08:26 Blood Pressure 158/90 H 07/20/22 08:26 Pulse Oximetry 94 07/20/22 08:26 Temperature 37.3 C 07/20/22 08:26 Temperature Source Temporal Artery Scan 07/20/22 08:26 Pulse 75 07/20/22 08:26 Respiratory Rate 24 07/20/22 08:42 Respiratory Effort Short of Breath, Labored, Incrsd Work of Breathing 07/20/22 08:42 Respiratory Pattern Tachypnea 07/20/22 08:42 Blood Pressure 158/90 H 07/20/22 08:26 Blood Pressure Position Sitting 07/20/22 08:26 Pulse Oximetry 94 07/20/22 08:26 Oxygen Delivery Method Room Air 07/20/22 08:26 Oxygen Flow Rate 0 07/20/22 08:26 Pain Level 0 07/20/22 08:26
[2022-07-20 09:06] LABS: Abs Immature Grans 0.02 10^3/uL (0.0-0.06); Absolute Basophil Count 0.05 10^3/uL (0.0-0.2); Absolute Eosinophil Count 0.07 10^3/uL (0.0-0.7); Absolute Lymphocyte Count 1.27 10^3/uL (1.2-3.4); Absolute Monocyte Count 0.53 10^3/uL (0.1-0.8); Absolute Neutrophil Count 5.05 10^3/uL (1.2-6.7); Basophils % 0.7; HCT 42.1 % (36.0-46.0); HGB 14.1 g/dL (11.2-15.7); Immature Grans % 0.3; Lymphocytes % 18.2; MCH 29.9 pg (27.0-33.0); MCHC 33.5 % (32.0-36.0); MCV 89 fL (80-95); Monocytes % 7.6; Neutrophils % 72.2; Platelet Count 264 10^3/uL (130-400); RBC 4.71 10^6/uL (3.93-5.22); RDW 12.3 % (11.7-14.6); WBC 6.99 10^3/uL (4.4-10.8)
[2022-07-20 09:29] LABS: Anion Gap 8.2 mmol/L (3-11); BUN 25 mg/dL (7-18); CO2 28.8 mmol/L (21.0-32.0); CREATININE 1.1 mg/dL (0.55-1.02); Calcium 9.5 mg/dL (8.5-10.1); Chloride 101 mmol/L (98-107); Estimated GFR 49.24 (mL/min/1.73m2); Glucose 107 mg/dL (74-106); NT-proBNP 746 pg/mL (<300); Potassium 3.7 mmol/L (3.5-5.1); Sodium 138 mmol/L (136-145); Troponin I < 50 ng/L (<or=60)
[2022-07-20 12:01] LABS: Troponin I < 50 ng/L (<or=60)
--- NOTE | 2022-07-20 12:47 | NUR.NOTE ---
pt has been referred tp PCP for f/u in 1 week for dyspnea - EDNursing Note:
== END 2022-07-20 13:30 | disposition home or self-care (01) ==
PROVIDERS: Emergency Provider Emergency Medicine; PCP Family Medicine
DX: R06.00 Dyspnea, unspecified (principal); R06.02 Shortness of breath
CPT/HCPCS: 36415; 80048; 93005; 99284; 71046; 83880; 84484; 85025; 93010; 99283

== ENCOUNTER 2022-08-03 00:29 | Outpatient (CLI) | payer MEDICARE, SELFPAY ==
--- NOTE | 2022-08-03 10:35 | DI.US_ITS ---
APPROVED REPORT EXAM: Comprehensive 2D, Doppler, and color-flow Echocardiogram Patient Location: [facility] Paramedic: Sofy Will RDCS (AE) Indications: Dyspne on exertion, HTN, Other Information Study Quality: Adequate Conclusion Normal left ventricular wall thickness and chamber size. Estimated ejection fraction is 55 to 60%. Wall motion is normal Right ventricle is grossly normal in size and systolic function Both atria are normal in size There are no structural valvular abnormalities Mild mitral and tricuspid regurgitation Estimated right ventricular systolic pressure is 28 mmHg Dilated ascending aorta measuring 4.09 cm Wall motion Left Ventricle The left ventricle is normal size. The left ventricular systolic function is normal. The left ventric ular ejection fraction is within the normal range. There is normal left ventricular wall thickness. T here is normal LV segmental wall motion. There is no ventricular septal defect visualized. LVEF is 58 %. Right Ventricle Right ventricle is grossly normal in size. Right ventricular systolic function is grossly normal. The RVSP is 28.7mmHg. Atria The left atrium size is normal. The right atrium size is normal. The interatrial septum is intact wit h no evidence for an atrial septal defect. Aortic Valve The aortic valve is normal in structure. Aortic valve is trileaflet. There is no aortic valvular sten osis. No aortic regurgitation is present. Mitral Valve The mitral valve is normal in structure. No evidence of mitral valve stenosis. Mild mitral regurgitat ion. Tricuspid Valve The tricuspid valve is normal in structure. There is no tricuspid valve stenosis. Mild tricuspid reg urgitation. Pulmonic Valve The pulmonary valve is normal in structure. There is no pulmonic valvular stenosis. Trace pulmonic re gurgitation. Great Vessels The aortic root is normal in size. The ascending aorta is moderate to severely dilated. Aortic arch i s not well visualized. IVC is normal in size and collapses >50% with inspiration. Pericardium There is no pericardial effusion. 2D Dimensions IVSD d PLAX 0.98 cm F: 0.6-1.0 LV Vol A2C d MOD 67.0 mL LVPW d PLAX 0.97 cm F: 0.6 - 1.0 LV Vol A4C d MOD 63.2 mL LVID d PLAX 4.27 cm F: 3.8 - 5.2 LA vol/ BSA A2C s A-L 28.0 mL/m2 LVDs 3.05 cm F: 2.2 - 3.5 LA vol/ BSA A4C s A-L 22.6 mL/m2 Ao Root d 3.45 cm F: 2.7 - 3.3 LA Vol/ BSA Biplane s A-L 25.8 mL/m2 RA Area A4C 16.61 cm2 LA Area A4C s MOD 15.29 cm2 RA Vol/ BSA A4C s A-L 25.5 mL/m2 LA Area A2C s MOD 16.59 cm2 Ao Asc Diam d 4.09 cm F: 2.3 - 3.1 LV EF A4C MOD 58.6 % LV EF Teichholz 55.4 % LV EF A2C MOD 58.6 % LVEF (Nguyen's) 58.11 % F: 54 - 74 LV EF Biplane MOD 58.1 % LV Volume 52.41 mL F: 46 - 106 SV 38.14 mL LV Volume Index 31.38 mL/m2 F: 29 - 61 SV Index 22.77 mL/m2 LV Vol Biplane MOD 65.6 mL FS 28.50 % M-Mode TAPSE 3.15 cm (M/F) >1.7 LV Diastology MV E' medial 0.051 (>0.07 m/s) E/A Ratio 0.6 LV E/e MED 9.20 (<14) MV E Vmax 0.47 (0.4-1.3 m/s) MV E' lateral 0.040 (>0.1 m/s) MV A Vmax 0.80 (0.4-1.3 m/s) LV E/e LAT 11.70 (<14) MV E/A Ratio 0.58 MV E/E' medial 9.23 MV E/E' lateral 11.74 Aortic Valve LVOT Area 3.53 cm2 AoV Area Vmax 2.75 cm2 LVOT Vmax 0.86 m/s AoV Area/ BSA (Vmax) 1.64 cm2/m2 LVOT Mean Hamilton. 0.54 m/s RICH Mean Hamilton. 2.63 cm2 LVOT Peak Grad 3.0 mmHg RICH Mean Hamilton. Index 1.57 cm2/m2 LVOT Mean Grad 1.4 mmHg LVOT VTI 0.194 m LVOT Diam s 2.10 cm AoV Vmax 1.11 m/s Velocity Ratio 0.77 AoV Mean Hamilton. 0.73 m/s AoV Peak Grad 4.9 mmHg LVOT SV 68.53 mL AoV Mean Grad 2.4 mmHg AoV VTI 0.216 m AoV Area VTI 3.18 cm2 AoV Area/ BSA (VTI) 1.90 cm/m2 Mitral Valve MV DT 256 (160-240 msec) MV PHT 74 msec MV Area PHT 2.97 cm2 MV VTI 0.249 m MV Area VTI 2.76 (4.0-6.0 cm2) Pulmonary Valve PV Vmax 0.64 (0.5-1.5 m/s) RVOT Peak Gr. 1.19 mmHg PV Peak Grad 1.6 mmHg RVOT Mean Gr. 0.60 mmHg PV Mean Grad 0.8 mmHg RVOT VTI 0.119 m PV VTI 0.132 m RVOT Vmax 0.54 m/s Tricuspid Valve TR Peak Grad 25.6 mmHg TR Vmax 2.53 m/s RA Pressure 3.00 mmHg RVSP (TR) 28.7 mmHg
== END 2022-08-03 00:49 ==
LOC: DI 00:29
PROVIDERS: PCP Family Medicine; Visit Provider Family Medicine
DX: I10 Essential (primary) hypertension (principal)
CPT/HCPCS: 93306

== ENCOUNTER 2022-09-07 03:46 | Outpatient (CLI) | payer MEDICARE, SELFPAY ==
[2022-09-07] MEDS: Albuterol HFA 18 GM 200 PUFF INH IH (14:34)
[2022-09-07] MEDS: Inhaler, Assist Device 1 EACH MC (14:34)
--- NOTE | 2022-09-10 09:17 | W.PFT ---
Date of service: 09/07/22 Time of Service: 13:05 Pulmonary Function Test Result Indications: Dyspnea on exertion Interpretation Spirometry: Although the FEV1/FVC is technically normal, mild airflow limitation is possible based on the flow volume loop and volume time curve. There was no significant bronchodilator response. Lung Volumes: There is some air trapping Diffusion Capacity: Normal diffusion Airway Pressure: Borderline low airways resistance. Impression Likely mild airflow limitation with air trapping and possible increased airways resistance. This may represent mild chronic bronchitis (COPD) or asthma. Clinical Correlation therefore is recommended.
== END 2022-09-07 03:47 | disposition home or self-care (01) ==
LOC: RT 03:46
PROVIDERS: PCP Family Medicine; Visit Provider Family Medicine
DX: R06.09 Other forms of dyspnea (principal)
CPT/HCPCS: 94060; 94726; 94729

== ENCOUNTER 2022-09-10 00:01 | Outpatient (CLI) | payer MEDICARE, SELFPAY ==
--- NOTE | 2022-09-10 07:45 | DI.US_ITS ---
Exam(s) US THYROID EXAM: US THYROID CLINICAL HISTORY: assess for change,thyroid nodule, e04.1. TECHNIQUE: Ultrasound thyroid performed using standard protocol. COMPARISON: US US THYROID from 01/25/2022 FINDINGS: ISTHMUS: 2.1 mm RIGHT LOBE: Size: 4.6 x 2.4 x 2.4 cm Echogenicity: Normal. Vascularity: Normal. Nodules: There is a solid isoechoic nodule again seen in the right lobe measuring 3.1 x 1.8 x 2.3 cm. This compares to 3 x 1.6 x 2 cm. It is consistent with a TI rads level 3 nodule. Due to its size, FNA is recommended. Please correlate with the patient's previous procedural history. There is a 0. 9 x 1 x 1.5 cm nodule in the inferior pole of the right lobe. This previously measured 1 x 0.9 x 1.5 cm. It is solid and hypoechoic. This is consistent with a TI rads level 4 nodule. Due to its size , FNA is recommended. LEFT LOBE: Size: 4 x 1.6 x 1.5 cm Echogenicity: Normal. Vascularity: Normal. Nodules: There is a solid hypoechoic 1.0 x 0.5 x 0.5 cm nodule. This nodule shown slight increase in size. Previously it measured 0.6 x 0.4 x 0.5 cm. This is consistent with a TI rads level 4 nodule. Follow-up is recommended due to its size. OTHER FINDINGS: None. IMPRESSION: Thyroid nodules as described above. DATA REPOSITORY:
== END 2022-09-10 00:21 ==
PROVIDERS: PCP Family Medicine; Visit Provider Otolaryngology
DX: E04.1 Nontoxic single thyroid nodule (principal)
CPT/HCPCS: 76536; 94762

== ENCOUNTER 2022-09-10 08:08 | Outpatient (CLI) | payer MEDICARE, SELFPAY ==
--- NOTE | 2022-09-11 12:36 | W.PFT ---
Date of service: 09/10/22 Time of Service: 19:58 Pulmonary Function Test Result Indications: Nocturnal dyspnea Note: Overnight Oximetry Amount of time analyzed: 7 hours 41 minutes Number of minutes under 88%: 6.0 minutes DANIEL: 1.9 Appearance of oxygen saturation pattern: Progressive decreases and increases which may be consistent with cardiac or pulmonary disease. Recommendation: Recommend sleep study or starting 2LPM supplemental oxygen at night followed by a repeat overnight oximetry. Idalia Joyce MD Pulmonary & Critical Care Medicine Clinical Correlation therefore is recommended.
== END 2022-09-10 08:09 | disposition home or self-care (01) ==
LOC: RT 09-11 08:09
PROVIDERS: PCP Family Medicine; Visit Provider Physician Assistant Surgical
DX: R06.00 Dyspnea, unspecified (principal)
CPT/HCPCS: 94762

== ENCOUNTER 2022-09-20 09:54 | Outpatient (RCR) | payer MEDICARE, SELFPAY ==
--- NOTE | 2022-09-20 09:45 | HOLTER_ITS ---
APPROVED REPORT Conclusion This is a Holter monitor ordered for dyspnea and palpitations Rhythm throughout is sinus with an average heart rate of 66. Minimum was 51, maximum 117. Borderlin e first-degree AV block was seen There were occasional ventricular ectopic beats There were rare atrial premature beats. Several self-limited atrial runs occurred. These were gener ally 4-5 beats in duration There was no atrial fibrillation, no high-grade AV block, no pauses greater than 3 seconds
== END 2022-09-30 23:59 | disposition home or self-care (01) ==
LOC: CARDOPNVT 09:54
PROVIDERS: PCP Family Medicine; Visit Provider Physician Assistant Surgical
DX: R00.2 Palpitations (principal); R06.00 Dyspnea, unspecified; I49.3 Ventricular premature depolarization
CPT/HCPCS: 93227; 93225; 93226

== ENCOUNTER 2022-10-23 01:10 | Outpatient (CLI) | payer MEDICARE, SELFPAY ==
--- NOTE | 2022-10-23 07:45 | DI.US_ITS ---
Exam(s) US NEEDLE LOCAL OTHER WO RAD EXAM: TR 3 and TR 4 right-sided nodules,ultrasound guided bx,e04.2 COMPARISON: US US THYROID from 09/10/2022 TECHNIQUE: Ultrasound performed using standard protocol. FINDINGS: Sonography was provided for Dr. Soto during the performance of a thyroid nodule biopsy. Please re chintan to the procedure report for complete details. DATA REPOSITORY:
--- NOTE | 2022-10-23 12:40 | PAPNONF_PTH ---
PATIENT: Yoly Chambers LOC: [facility] U#:[id number] AGE/SX: 86/F ROOM: RE10/23/[address]: Alfredo Soto MD : [id number] BED: DIS: 10/23/2022 SPEC #: [id number] RECD: 10/23/22 13:05 STATUS: LESTER REJaci #: [id number] TRACEY: 10/23/22 12:[address]: Alfredo Soto DEPT: [facility] Cytology RECD BY: Cathy Mackenzie ENTERED: 10/23/22 13:06 SP TYPE: JOSEMANUEL COLEY DR: Rajendra Oliva MD Tissues: 1 - BODY FLUID CYTO-FINE NEEDLE [facility] Procedures: BODY FLUID CYTO-FINE NEEDLE ASPIRATE[facility] Comments: [id number] (PATH FNA CONSULT) (REFRIGERATED)
--- NOTE | 2022-10-23 13:21 | W.PROCNOTE ---
Date of service: 10/23/22 Time of Service: 13:21 Procedure Note Date of procedure: 10/23/22 Procedure: Ultrasound-guided FNA, right thyroid nodule, pathology present Surgeon/Proceduralist/Physician: Alfredo Soto Procedure Diagnosis: Right thyroid nodule, meeting criteria for biopsy Procedure Indications: The patient has a right-sided thyroid nodule which meets criteria for biopsy. She wishes to proceed with biopsy. Risks and benefits as well as the procedure were discussed at length. Consent was filled out and signed prior to the procedure. Procedure Description: The patient was positioned in supine position and prepped and draped in appropriate fashion. Her neck was slightly extended. Ultrasound was used to localize the right-sided thyroid nodule which revealed that it had increased slightly in size since I saw her last. 1% lidocaine with 1/100,000 epinephrine was injected into the skin and subcutaneous tissues overlying the thyroid nodule and then a 25-gauge needle was used to remove the biopsy, with pathology assessing for cellular adequacy. 2 additional passes were made for potential of Afirma testing. After ensuring adequate hemostasis, a sterile dressing was applied. The patient was allowed to sit and then to stand. Her vital signs remained stable. She will remove the bandage later on today. She will call if she does not hear from me with regard to pathology results within 1 week. She may use Tylenol or ibuprofen for any discomfort. She had no further questions. She is comfortable with this plan.
== END 2022-10-23 01:30 ==
PROVIDERS: PCP Family Medicine; Visit Provider Otolaryngology
DX: E04.2 Nontoxic multinodular goiter (principal)
CPT/HCPCS: 10005; 76942; 88104

== ENCOUNTER 2023-01-23 08:57 | Outpatient (CLI) | payer MEDICARE, SELFPAY ==
[2023-01-23 12:16] LABS: NT-proBNP 1224 pg/mL (<300)
== END 2023-01-23 08:58 | disposition home or self-care (01) ==
LOC: LOS 08:57
PROVIDERS: PCP Family Medicine; Referring Provider Family Medicine; Visit Provider Family Medicine
DX: R06.09 Other forms of dyspnea (principal)
CPT/HCPCS: 36415; 83880

== ENCOUNTER → 2023-01-23 15:18 | Outpatient (CLI) | payer MEDICARE, SELFPAY ==
--- NOTE | 2023-01-23 13:34 | DI.RAD_ITS ---
Exam(s) XR CHEST 2V PA LATERAL EXAM: XR CHEST 2V PA LATERAL CLINICAL HISTORY: sob R05.3 CHRONIC COUGH TECHNIQUE: 2D digital imaging was performed of the chest. Two images were obtained. PA and lateral views were obtained. COMPARISON: CR XR CHEST 2V PA LATERAL from 07/20/2022 FINDINGS: MEDIASTINUM: Normal. HEART: Normal. PULMONARY VASCULATURE: There is tortuosity and atherosclerosis of the thoracic aorta. LUNGS: Stable scarring is seen in the left lung. No focal consolidating infiltrates are present. PLEURAL SPACE: No pleural effusion or pneumothorax. BONE:Within normal limits for the patient's age. OTHER FINDINGS:Normal. IMPRESSION: No acute pulmonary findings. DATA REPOSITORY: RADIATION DOSE DELIVERED:
== END ==
PROVIDERS: PCP Family Medicine; Visit Provider Family Medicine
DX: R05.3 Chronic cough (principal)
CPT/HCPCS: 36415; 71046; 83880

== ENCOUNTER 2023-04-12 02:18 | Emergency (ER) | payer MEDICARE, SELFPAY ==
[2023-04-12] VITALS (24 sets, daily range): BP systolic 140–184; BP diastolic 70–165; PULSE 65–107; RESP 15–27; TEMP 36.4–37.4; O2SAT 88–97
--- NOTE | 2023-04-12 02:15 | RT.EKG_ITS ---
APPROVED REPORT Exam: Resting ECG Reason for Exam: left arm pain Patient Location: E HR:92 bpm ECG Measurements Heart Rate 92 AXIS MS 67 P 0 QRSd 78 QRS -24 QT 399 T 2 QTc 493 Conclusion Sinus rhythm...normal P axis, V-rate 60- 99 Inferior infarct, old...Q >35mS, II III aVF Narrow complex normal sinus rhythm at a rate of 92. Left axis deviation no signs of LVH based on vol tage criteria. Poor R wave progression. No ST segment abnormalities. No T wave inversions. Appear s similar compared to prior dated earlier this year.
--- NOTE | 2023-04-12 02:33 | ED.GENADUL_ITS ---
Discharge Plan Discharge Details Chief Complaint: GenMedical Clinical Impression: Acute lactic acidosis, Cellulitis of left upper extremity Primary Care Provider: Rajendra Oliva ED Provider: Jhony Abdi Shannon Meds and New Rx's Prescriptions: No Action cholecalciferol (vitamin D3) 1,000 unit capsule 2,000 unit PO DAILY Jeri's Butter See Rx Instructions topical PRN Patient Comments: 12/16/18 Hemp with Lola si Rx Instructions: 1 application topical as needed; fluticasone propion-salmeterol [Advair Diskus] 250-50 mcg/dose blister with device 1 inh inhalation BID Qty: 60 11RF cyanocobalamin (vitamin B-12) 1,000 mcg capsule 1,000 mcg PO DAILY (DME) Aerochamber Mini Spacer See Rx Instructions .ROUTE .MEDSUPPLY Qty: 1 0RF Rx Instructions: As directed lidocaine 5 % adhesive patch,medicated 1 patch topical DAILY Qty: 30 2RF Rx Instructions: leave on most painful area for up to 12 hrs omeprazole 20 mg capsule,delayed release(DR/EC) 20 mg PO DAILY Qty: 90 4RF Rx Instructions: metoprolol tartrate 50 mg tablet 50 mg PO BID Qty: 180 4RF Rx Instructions: instead of metoprolol succinate per insurance acetaminophen 325 mg tablet 325 mg PO ONCE PRN aspirin [Adult Low Dose Aspirin] 81 mg tablet,delayed release (DR/EC) 81 mg PO DAILY omega-3 fatty acids-fish oil 1 EACH capsule 1 ea PO DAILY magnesium oxide 250 mg magnesium tablet 500 mg PO wkly PRN hydrochlorothiazide 12.5 mg tablet 12.5 mg PO DAILY Qty: 90 3RF Patient Comments: Pt reports she hasn't been taking. 03/25/19 reports MD is not aware but it stopped her legs from cramping. 03/25/19 TR simvastatin 20 mg tablet 20 mg PO HS Qty: 90 4RF Rx Instructions: 1 TAB HS diphenoxylate-atropine [Lomotil] 2.5-0.025 mg tablet 1 tab PO DAILY Qty: 90 1RF albuterol sulfate [Ventolin HFA] 90 mcg/actuation HFA aerosol inhaler 2 puff inhalation QID PRN (Reason: shortness of breath or wheezing) Qty: 8.5 2RF furosemide 20 mg tablet 20 mg PO DAILY Qty: 90 3RF amlodipine 5 mg tablet Patient Comments: TAKE ONE AND HALF A TABLET BY MOUTH ONCE DAILY spironolactone 25 mg tablet Patient Comments: TAKE 1/2 TABLET BY MOUTH DAILY amlodipine 10 mg tablet Patient Comments: TAKE ONE TABLET BY MOUTH EVERY DAY losartan 100 mg tablet Patient Comments: TAKE ONE TABLET BY MOUTH ONCE DAILY Anoro Ellipta 62.5-25 mcg/actuation blister with device INHALATION Patient Comments: INHALE 1 PUFF BY MOUTH AND INTO THE LUNGS ONCE DAILY HPI General Date/Time Provider Initiated Documentation: 04/12/23 02:33 . HPI Narrative: MDM This is an uncomfortable appearing [id number] 87-year-old tachycardic but normothermic and not hypotensive female with left hand pain swelling and left forearm pain and swelling concerning for the possibility of cellulitis. Given tachycardia will obtain lactate 2 sets of blood cultures treat empirically with ceftriaxone and vancomycin. No pain out of proportion to suggest necrotizing soft tissue infection. Patient did have a similar hospitalization several years ago and received antibiotics and subsequently steroids. Her condition ultimately improved. Swelling is in the same distribution as before when she was hospitalized. An arthocentesis was attempted at the time but unsuccessful. She does not carry diagnosis of gout. The left wrist is mildly swollen but I do not detect a large effusion that I would feel comfortable aspirating. No shortness of breath to suggest pneumonia. I considered vascular insult to the patient's hand however she had a 2+ left radial pulse and no signs of cyanosis. No documented history of cervical ribs so my suspicion for thoracic outlet syndrome is low. No nausea nor vomiting to suggest intra- abdominal infection. No diarrhea to suggest diverticulitis. No dysuria or frequency so doubt UTI. Will reassess following labs and imaging. Patient is not a drinker though she was hypertensive and tachycardic my suspicion for alcohol withdrawal is exceedingly low. Will provide 500 cc of crystalloid using normal saline. 3:28 AM Patient was found to have lactic acidosis with a serum lactate of 2.4 mmol/L. We will repeat lactate at 6 AM. 4:40 AM Urinalysis showing moderate blood but nitrite and leukoesterase negative. Microscopy showing few bacteriuria and hematuria. Patient continues to not have any tachycardia. She is mentating well. She is receiving some IV acetaminophen for her persistent left upper extremity pain. 5:26 AM CBC lacks anemia thrombocytopenia and leukocytosis. 5:36 AM I spoke with Dr. Denson from the hospitalist team who requested that he add on a uric acid level. He also requested a CT scan of the patient's left upper extremity to ensure that there was not necrotizing soft tissue infection. 5:45 AM Basic metabolic panel showing no KAYLEY. Very mild hyperglycemia but no anion gap. Normal bicarbonate. Very mild hypokalemia with a serum potassium of 3.2 for which patient will receive IV repletion. 6:42 AM Repeat reassuring normal lactate. We will sign patient out to the [facility] daytime provider pending read on her x-rays and CT scan prior to anticipated hospitalization. Chronic conditions affecting the care of the patient: Osteoarthritis History obtained from an outside historian: Patient's son External record review: [facility] EMR [Diagnostic interpretations performed by me:] [Per my independent interpretation chest x-ray shows:] [Per my independent interpretation EKG shows:] Narrow complex normal sinus rhythm at a rate of 92. Left axis deviation no signs of LVH based on voltage criteria. Poor R wave progression. No ST segment abnormalities. No T wave inversions. Appears similar compared to prior dated earlier this year. Medications: Hydromorphone, vancomycin, and ceftriaxone Social determinants of health affecting disposition: N/A Management discussed with: Dr. Denson & [facility] ED provider Treatment/interventions considered: Discharge but deferred given significant pain lactic acidosis and systemic symptoms of chills Response to therapies provided: Improved pain following oral analgesia in the ED HPI This is a [id number]-lenakrid 87-year-old female arrived to the emergency department with her son in the setting of left upper extremity pain for the past 3 days. Patient reports that she has had subjective chills and pain extending from her left elbow down to into her left hand. She reports that she has attempted treatment with ice and heat but this has not improved her symptoms. She has a history of asthma and some baseline shortness of breath but does not feel acutely short of breath at the moment. She denies chest pain nausea vomiting. She denies any trauma to her left upper extremity. She denies routine tobacco, ethanol, and illicits. She has not measured any explicit fevers. She had similar symptoms and was treated with antibiotics and hospitalized and also treated with steroids. Exam General: Well-appearing in no acute distress speaking in complete sentences. Head: Normocephalic, atraumatic. Eye:[Pupils equal, round reactive to light.] Extraocular eye movements intact. No conjunctival injection. No scleral icterus. Ear, nose, mouth, throat: Grossly normal inspection. Normal voice, handling secretions normally. Neck: Trachea midline. Cardiovascular: Well-perfused distal extremities. Regular rate and rhythm Respiratory: Nonlabored respiration. Clear lungs bilaterally Gastrointestinal: Nondistended abdomen. Soft nontender abdomen. Musculoskeletal: Left hand warm well perfused. Left hand and dorsal surface of left forearm warm compared to contralateral arm and hand. mild swelling throughout left wrist and left hand ulnar greater than radial aspect. Left hand with intact sensation across the radian, medial, and ulnar nerve distributions. Patient does have decreased motor function throughout left hand secondary to pain that she is able to grasp with 3 out of 5 strength. Patient is tenderness throughout her forearm although she is able to fully pronate and supinate. No crepitance to left upper extremity. She can flex and extend fully at the elbow. No pain more proximally in the elbow on the left. No right-sided upper extremity pain. Skin: Normal for age and race, grossly normal temperature and turgor. No acute rash. Neurologic: Alert and appropriate, no apparent acute deficits. Psychiatric: Mood and manner are appropriate. Grooming and personal hygiene are appropriate. Related Data Home Medications Medication Instructions Recorded Confirmed omega-3 fatty acids-fish oil 300 1 ea PO DAILY 09/18/13 04/12/23 mg-1,000 mg capsule Jeri's Butter See Rx Instructions topical PRN 12/16/18 04/12/23 cholecalciferol (vitamin D3) 25 2,000 unit PO DAILY 12/16/18 04/12/23 mcg (1,000 unit) capsule magnesium oxide 500 mg PO wkly PRN 03/07/22 04/12/23 acetaminophen 325 mg tablet 325 mg PO ONCE PRN 03/21/22 04/12/23 hydrochlorothiazide 12.5 mg tablet 12.5 mg PO DAILY #90 tabs 04/25/22 03/12/23 simvastatin 20 mg tablet 20 mg PO HS #90 tab-caps 04/25/22 04/12/23 metoprolol tartrate 50 mg tablet 50 mg PO BID #180 tab-caps 05/16/22 04/12/23 omeprazole 20 mg capsule,delayed 20 mg PO DAILY #90 tab-caps 05/16/22 04/12/23 release cyanocobalamin (vitamin B-12) 1,000 mcg PO DAILY 08/30/22 04/12/23 1,000 mcg capsule inhalational spacing device #1 ea 08/30/22 04/12/23 (Aerochamber Mini) aspirin 81 mg tablet,delayed 81 mg PO DAILY 09/10/22 04/12/23 release (Adult Low Dose Aspirin) diphenoxylate-atropine 2.5 1 tab PO DAILY diarrhea #90 tabs 11/19/22 04/12/23 mg-0.025 mg tablet (Lomotil) fluticasone 250 mcg-salmeterol 50 1 inh inhalation BID #60 ea 12/05/22 04/12/23 mcg/dose blistr powdr for inhalation (Advair Diskus) albuterol sulfate 90 mcg/actuation 2 puff inhalation QID PRN 02/14/23 04/12/23 aerosol inhaler (Ventolin HFA) shortness of breath or wheezing #8.5 grams lidocaine 5 % topical patch 1 patch topical DAILY #30 ea 03/12/23 04/12/23 furosemide 20 mg tablet 20 mg PO DAILY #90 tabs 03/25/23 04/12/23 amlodipine 10 mg tablet mg 04/12/23 amlodipine 5 mg tablet mg 04/12/23 losartan 100 mg tablet mg 04/12/23 spironolactone 25 mg tablet mg 04/12/23 umeclidinium 62.5 mcg-vilanterol inhalation 04/12/23 25 mcg/actuation powdr for inhalation (Anoro Ellipta) Previous Rx's Medication Instructions Recorded hydrochlorothiazide 12.5 mg tablet 12.5 mg PO DAILY #90 tabs 04/25/22 simvastatin 20 mg tablet 20 mg PO HS #90 tab-caps 04/25/22 metoprolol tartrate 50 mg tablet 50 mg PO BID #180 tab-caps 05/16/22 omeprazole 20 mg capsule,delayed 20 mg PO DAILY #90 tab-caps 05/16/22 release inhalational spacing device #1 ea 08/30/22 (Aerochamber Mini) diphenoxylate-atropine 2.5 1 tab PO DAILY diarrhea #90 tabs 11/19/22 mg-0.025 mg tablet (Lomotil) fluticasone 250 mcg-salmeterol 50 1 inh inhalation BID #60 ea 12/05/22 mcg/dose blistr powdr for inhalation (Advair Diskus) albuterol sulfate 90 mcg/actuation 2 puff inhalation QID PRN 02/14/23 aerosol inhaler (Ventolin HFA) shortness of breath or wheezing #8.5 grams lidocaine 5 % topical patch 1 patch topical DAILY #30 ea 03/12/23 furosemide 20 mg tablet 20 mg PO DAILY #90 tabs 03/25/23 Allergies Allergy/AdvReac Type Severity Reaction Status Date / Time mesalamine Allergy Intermediate HIVES Verified 04/12/23 04:45 latex Allergy Mild SKIN RASH Verified 04/12/23 04:45 oxaprozin Allergy Unknown unknown Verified 04/12/23 04:45 tetracycline Allergy Unknown unknown Verified 04/12/23 04:45 morphine AdvReac Severe headaches, Verified 04/12/23 04:45 vomiting codeine AdvReac Intermediate H/A Verified 04/12/23 04:45 losartan AdvReac Intermediate Cardiac Verified 04/12/23 04:45 Dysrhythmia Sulfa (Sulfonamide AdvReac Intermediate NAUSEA Verified 04/12/23 04:45 Antibiotics) esomeprazole magnesium AdvReac Mild H/A Verified 04/12/23 04:45 [From Nexium] General Stated Complaint: GenMedical REFUGIO: 3 PFSH All Active Problems (Updated 04/12/23 @ 03:29 by Jhony Abdi MD) Cellulitis of left upper extremity (Acute) Acute lactic acidosis (Acute) SOB (shortness of breath) (Acute) Orthopnea (Acute) Asthma (Chronic) Nocturnal hypoxia (Acute) Multinodular thyroid (Acute) Palpitations (Acute) COLVIN (dyspnea on exertion) (Acute) Thyroid nodule (Acute) Lesion of skin of nose (Acute) Chest pain (Acute) Chills (without fever) (Acute) Chest pain, atypical (Acute) Groin rash (Acute) Collagenous colitis (Acute) Anxiety (Acute) Cervical radiculopathy (Acute 05/10/15) C spine DJD Dysphagia, unspecified (Acute 09/02/17) Generalized osteoarthrosis (Acute) DJD per Xray-10/07=right foot 1st MTP; left hand Hyperlipidemia (Acute) Lumbago (Acute) scoliosis and DJD 03/10-xray Varicose veins of lower extremity (Acute) Essential tremor (Acute) she wishes to hold off on any interventions for now Primary osteoarthritis of left knee (Chronic) Most recent Depo-Medrol injection: 08/26/20; 03/25/20; 10/16/19; 06/18/2019 Facial pain (Acute) Pain in upper jaw (Acute) Abdominal pain (Acute) Protracted diarrhea (Acute 09/18/13) 09/05 [facility] colonoscopy ?colitis 08/06 colonoscopy normal ?bacterial overgrowth 09/2015 collagenous collitis Epilepsy (Chronic 11/30/10) pt. 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 PT stretch daily Synovitis of hand 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 Surgical History Abdominal hysterectomy Appendectomy Bladder Surgery (~07/2008) sling and reconstruction for uterine prolapse and cystocele EGD - IV Sedation History of cataract surgery History of colonoscopy History of shoulder surgery Right bursa and excision of bone spurs Status post left foot surgery Hallux valgus Status post phlebectomy Left leg vein excision Status post surgical removal of ganglion cyst RMF Family History Mother Heart disease Hyperlipidemia Father Essential hypertension Heart disease Hyperlipidemia Sister Essential hypertension Heart disease Hyperlipidemia Brother Essential hypertension Heart disease Hyperlipidemia Brother Personal history of malignant neoplasm Brother Heart disease Stroke Brother Essential hypertension Heart disease Hyperlipidemia Brother Essential hypertension Heart disease Hyperlipidemia Stroke Son Hyperlipidemia Daughter Diabetes Hyperlipidemia COPD (chronic obstructive pulmonary disease) Daughter No problems noted. Social History Smoking/Tobacco Use Status: Never Second Hand Exposure: Yes Smoking risk assessment performed?: Yes Alcohol Intake: never Drug use: Never Substance use type: does not use Current gender identity: female Do you feel safe at home: Yes Do you feel safe in your relationship?: Yes Course Vital Signs Vital signs: Vital Signs Temperature 37.4 C 04/12/23 02:25 Pulse 107 H 04/12/23 02:25 Respiratory Rate 22 04/12/23 02:25 Blood Pressure 166/99 H 04/12/23 02:25 Pulse Oximetry 95 04/12/23 02:25 Temperature 37.4 C 04/12/23 02:25 Temperature Source Oral 04/12/23 02:25 Pulse 107 H 04/12/23 02:25 Respiratory Rate 22 04/12/23 02:25 Respiratory Effort Normal 04/12/23 02:28 Blood Pressure 166/99 H 04/12/23 02:25 Blood Pressure Position Supine 04/12/23 02:25 Pulse Oximetry 95 04/12/23 02:25 Oxygen Delivery Method Room Air 04/12/23 02:25 Oxygen Flow Rate 0 04/12/23 02:25 Pain Level 8 04/12/23 02:25
--- NOTE | 2023-04-12 02:45 | DI.RAD_ITS ---
Exam(s) XR CHEST 2V PA LATERAL EXAM: XR CHEST 2V PA LATERAL CLINICAL HISTORY: Sepsis TECHNIQUE: 2D digital imaging was performed. COMPARISON: CR XR CHEST 2V PA LATERAL from 01/23/2023 FINDINGS: Exam limited by leads coiled over the chest. HEART: Normal size. Aorta: Tortuous. PULMONARY VASCULATURE: Normal. LUNGS: Clear. PLEURAL SPACE: No pleural effusion or pneumothorax. BONE:Unremarkable for age. IMPRESSION: No acute abnormality. DATA REPOSITORY: RADIATION DOSE DELIVERED:
--- NOTE | 2023-04-12 02:45 | DI.RAD_ITS ---
Exam(s) XR FOREARM LT EXAM: XR FOREARM LT CLINICAL HISTORY: Left forearm pain. TECHNIQUE: 2D digital imaging was performed. Two views. COMPARISON: No exams were available for comparison FINDINGS: BONES: No acute fracture is present. No bony destructive lesion is seen. Visualized portion of elbow is unremarkable. Severe degenerative changes at the wrist. SOFT TISSUE: Normal. IMPRESSION: No acute abnormality. DATA REPOSITORY: RADIATION DOSE DELIVERED:
[2023-04-12] MEDS: HYDROmorphone 2 MG/ML SYR 0.5 MG IVP (03:02)
[2023-04-12] MEDS: Normal Saline 500 ML IV (03:03)
[2023-04-12] MEDS: Acetaminophen 500 MG TAB 1000 MG PO (03:03)
[2023-04-12 03:19] LABS: Source Nasal/Nares
[2023-04-12 03:20] LABS: Lactate 2.4 mmol/L (0.6-1.4)
[2023-04-12] MEDS: cefTRIAXone 2 GM/50 ML BAG IVPB (03:37)
[2023-04-12 03:51] LABS: COVID-19 PCR Negative (Negative)
--- NOTE | 2023-04-12 04:00 | DI.RAD_ITS ---
Exam(s) XR HAND LT COMPLETE EXAM: XR HAND LT COMPLETE CLINICAL HISTORY: Left hand swelling. TECHNIQUE: 2D digital imaging was performed. Three views. COMPARISON: No exams were available for comparison FINDINGS: BONES: No acute fracture is present. No bony destructive lesion is seen. JOINTS: No dislocation present. Severe degenerative changes. SOFT TISSUE: Swelling around wrist. Chondrocalcinosis. IMPRESSION: Severe degenerative changes. No acute fracture. DATA REPOSITORY: RADIATION DOSE DELIVERED:
[2023-04-12 04:03] LABS: Bilirubin Negative (Negative); Blood Moderate (Negative); Clarity Clear (Clear); Glucose Negative (Negative); Ketones Negative (Negative); Leukocyte Esterase Negative (Negative); Nitrite Negative (Negative); Specific Gravity 1.025 (1.005-1.025); Urobilinogen 0.2 mg/dL (Up to 0.2); pH 6.5 (5-8)
[2023-04-12 04:07] LABS: Casts Negative LPF (Negative); Crystals Negative HPF (Negative); Epithelial Cells Few HPF (Negative); Mucus Negative (Negative); WBC Negative HPF (0-5)
[2023-04-12 04:08] LABS: Bacteria Few HPF (Negative); C & S Indicated? No
[2023-04-12] MEDS: ACETAMINOPHEN 1,000 MG/100 ML BTL 400 MG IVPB (04:37)
[2023-04-12 05:16] LABS: Abs Immature Grans 0.03 10^3/uL (0.0-0.06); Absolute Basophil Count 0.03 10^3/uL (0.0-0.2); Absolute Eosinophil Count 0.01 10^3/uL (0.0-0.7); Absolute Lymphocyte Count 0.92 10^3/uL (1.2-3.4); Absolute Monocyte Count 0.52 10^3/uL (0.1-0.8); Absolute Neutrophil Count 6.67 10^3/uL (1.2-6.7); Basophils % 0.4; Eosinophils % 0.1; HCT 37.2 % (36.0-46.0); HGB 12.2 g/dL (11.2-15.7); Immature Grans % 0.4; Lymphocytes % 11.2; MCH 29.4 pg (27.0-33.0); MCHC 32.8 % (32.0-36.0); MCV 90 fL (80-95); MPV 9.9 fL (8.0-11.0); Monocytes % 6.4; Neutrophils % 81.5; Platelet Count 236 10^3/uL (130-400); RBC 4.15 10^6/uL (3.93-5.22); RDW 12.8 % (11.7-14.6); RDW-SD 41.8 fL; WBC 8.18 10^3/uL (4.4-10.8)
--- NOTE | 2023-04-12 05:30 | DI.CT_ITS ---
Exam(s) CT UPPER EXTREMITY LT WO EXAM: CT UPPER EXTREMITY LT WO CLINICAL HISTORY: Left upper extremity pain TECHNIQUE: Imaging Protocol: Axial computed tomography images with coronal and sagittal reformatted images were created and reviewed. CONTRAST MATERIAL: Noncontrast COMPARISON: CT LT. UPPER EXTREMITY W CONTRAST from 03/02/2016 CR,XR XR HAND LT COMPLETE from 04/12/2023 CR,XR XR FOREARM LT from 04/12/2023 FINDINGS: Detailed evaluation of the wrist is limited by large field of view employed. Bones: There is no evidence of fracture or dislocation. There are severe degenerative changes at the 1st carpal metacarpal joint. Advanced degenerative hernandez ges are also noted in the interphalangeal joints of the fingers and as well as 1st through 3rd metaca rpophalangeal joints. There is chondrocalcinosis some of the triangular fibrocartilage. Multiple [place] fragments are noted around the wrist which are chronic. A few degenerative cystic changes are see n. No suspicious bony erosions. Soft Tissues: No focal collection. No abnormal soft tissue gas. IMPRESSION: Degenerative changes in the hand and wrist. Evidence of acute fracture. No acute soft tissue abnor mality in the forearm. RADIATION DOSE DELIVERED: Total DLP DATA REPOSITORY: All CT scans at this facility are submitted to the National Radiology Data Registry (NRDR) Dose Index Registry (DIR) with the [employer] (A[employer]). RADIATION OPTIMIZATION: All CT scans at this facility use at least one of these dose optimization te chniques: automated exposure control; mA and/or kV adjustment per patient size (includes targeted exa ms where dose is matched to clinical indication); or iterative reconstruction.
[2023-04-12 05:32] LABS: Anion Gap 9.4 mmol/L (3-11); BUN 22 mg/dL (7-18); CO2 25.6 mmol/L (21.0-32.0); CREATININE 0.9 mg/dL (0.55-1.02); Calcium 9.1 mg/dL (8.5-10.1); Chloride 103 mmol/L (98-107); Estimated GFR 62.26 (mL/min/1.73m2); Glucose 155 mg/dL (74-106); Potassium 3.2 mmol/L (3.5-5.1); Sodium 138 mmol/L (136-145)
[2023-04-12 05:53] LABS: Uric Acid 7.9 mg/dL (2.6-6.0)
[2023-04-12] MEDS: Normal Saline 500 ML 250 ML IV (06:15)
[2023-04-12] MEDS: POTASSIUM CHLORIDE 20 MEQ/100 ML BAG 50 MEQ IVPB (06:18)
[2023-04-12 06:37] LABS: Lactate 1.2 mmol/L (0.6-1.4)
--- NOTE | 2023-04-12 07:28 | DI.VRAD_ITS ---
PROCEDURE INFORMATION: Exam: XR Left Hand Exam date and time: 04/12/2023 4:03 AM Age: 87 years old Clinical indication: Pain; Hand; Left; Additional info: Lt hand pain TECHNIQUE: Imaging protocol: Radiologic exam of the left hand. Views: 3 views. COMPARISON: No relevant prior studies for comparison. FINDINGS: Bones/joints: The bones are diffusely demineralized. No fractures or suspicious osseous lesions are identified. 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 Similar findings are seen to a lesser degree in the proximal interphalangeal joints. Changes of osteoarthritis are additionally seen in the 1st-3rd metacarpophalangeal joints, the 1st interphalangeal and 1st carpometacarpal joints, and to a lesser extent in the triscaphe joint. Chondrocalcinosis is noted. Soft tissues: Mild periarticular soft tissue swelling in the digits. 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 Ordering:LINDA Booker MD
--- NOTE | 2023-04-12 07:29 | DI.VRAD_ITS ---
PROCEDURE INFORMATION: Exam: XR Chest Exam date and time: 04/12/2023 4:07 AM Age: 87 years old Clinical indication: Other: Sepsis TECHNIQUE: Imaging protocol: Radiologic exam of the chest. Views: 2 views. COMPARISON: 1. CR XR CHEST 2V PA LATERAL 01/23/2023 1:34 PM 2. CR XR CHEST 2V PA LATERAL 07/20/2022 9:23 AM FINDINGS: Lungs: Well aerated. No consolidation or pulmonary edema. Pulmonary vasculature is normal in caliber. Pleural spaces: No pleural effusion or pneumothorax. Heart/Mediastinum: Heart size is within normal limits. The thoracic aorta is tortuous. Cardiomediastinal contours are stable. Bones/joints: Degenerative changes. Mild exaggeration of the thoracic kyphosis No acute osseous abnormality. IMPRESSION: No active disease in the chest. No consolidation. Dictated and Authenticated by: Isabel Stephenson MD. Ordering:LINDA Booker MD
--- NOTE | 2023-04-12 07:32 | DI.VRAD_ITS ---
PROCEDURE INFORMATION: Exam: XR Left Forearm Exam date and time: 04/12/2023 4:00 AM Age: 87 years old Clinical indication: Pain; Lower or forearm; Left; Additional info: Lt forearm pain TECHNIQUE: Imaging protocol: Radiologic exam of the left forearm. Views: 2 views. COMPARISON: No relevant prior studies available. FINDINGS: Bones/joints: Diffuse osseous demineralization. No acute or healing fractures. No suspicious osseous lesions. Soft tissues: Faint calcifications in the region of the triangular fibrocartilage and adjacent to the ulnar styloid. Chondrocalcinosis and/or calcific periarthritis could account for this appearance. IMPRESSION: No acute abnormality in the left forearm. No fracture. Dictated and Authenticated by: Isabel Stephenson MD. Ordering:LINDA Booker MD
--- NOTE | 2023-04-12 07:54 | W.EDPROG ---
Date of service: 04/12/23 Time of Service: 07:54 Medical Decision Making 11:25 AM Patient was signed out to me by my colleague Dr. Abdi. Please refer to his HPI, physical exam, assessment and plan. At time of signout we are awaiting CT scan results. CT scan negative for evidence of acute process, necrotizing fasciitis, or subcutaneous emphysema. 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 Reexam was performed by myself, there does appear to be some mild swelling and warmth around the wrist, but no significant redness at this time. No evidence of abnormality swelling or redness in the forearm. 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 On my current assessment I do not see any evidence of redness or swelling that would clinically suggest cellulitis, rather the current symptomatology and clinical picture appears much more clinically consistent with a gout attack in the wrist. Patient has no fever, I did get an ESR and CRP, and these are both relatively normal/equivocal, ESR is only 33, CRP is minimally elevated at 0.67. Repeat lactate is normal. I did contact orthopedics and discussed the case with Dr. Pruitt. He has recommendations for steroids at this time as well. We will give Solu-Medrol here, and prednisone for home use. Dr. Pruitt does not recommend joint aspiration at this time. We will place referral for outpatient follow-up. Discussed red flags for which to return. I have extensively reviewed the treatment plan and discharge instructions with the patient. I have addressed all patient concerns at this time. The patient was made aware of what symptoms to monitor for that would warrant a return to the emergency department. Discussed the plan with the patient, they demonstrate verbal understanding and agreement with our assessment and plan at this time. The documentation in this chart was dictated using [employer] dictation software. Please excuse any dictation errors. FINDINGS: Lungs: Well aerated. No consolidation or pulmonary edema. Pulmonary vasculature is normal in caliber. Pleural spaces: No pleural effusion or pneumothorax. Heart/Mediastinum: Heart size is within normal limits. The thoracic aorta is tortuous. Cardiomediastinal contours are stable. Bones/joints: Degenerative changes. Mild exaggeration of the thoracic kyphosis No acute osseous abnormality. IMPRESSION: No active disease in the chest. No consolidation. Thank you for allowing us to participate in the care of your patient. Dictated and Authenticated by: Isabel Stephenson MD 04/12/2023 7:29 AM Eastern Time ([place] & [place]) FINDINGS: Bones/joints: Diffuse osseous demineralization. No acute or healing fractures. No suspicious osseous lesions. Soft tissues: Faint calcifications in the region of the triangular fibrocartilage and adjacent to the ulnar styloid. Chondrocalcinosis and/or calcific periarthritis could account for this appearance. IMPRESSION: No acute abnormality in the left forearm. No fracture. Thank you for allowing us to participate in the care of your patient. Dictated and Authenticated by: Isabel Stephenson MD 04/12/2023 7:32 AM Eastern Time ([place] & [place]) FINDINGS: Bones/joints: The bones are diffusely demineralized. No fractures or suspicious osseous lesions are identified. 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 Similar findings are seen to a lesser degree in the proximal interphalangeal joints. Changes of osteoarthritis are additionally seen in the 1st-3rd metacarpophalangeal joints, the 1st interphalangeal and 1st carpometacarpal joints, and to a lesser extent in the triscaphe joint. Chondrocalcinosis is noted. Soft tissues: Mild periarticular soft tissue swelling in the digits. 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 Dictated and Authenticated by: Isabel Stephenson MD 04/12/2023 7:28 AM Eastern Time ([place] & [place]) Sign Out Sign Out Data: Sign Out Comment: Please follow-up final reads on x-rays and CT scan prior to anticipated hospitalization for elderly female with worsening left arm pain swelling erythema concerning for recurrent cellulitis with lactic acidosis on arrival. 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 Primary Care Provider: Rajendra Oliva ED Provider: Ajit Mckeon Home Meds and New Rx's Prescriptions: New prednisone 50 mg tablet 50 mg PO DAILY Qty: 5 0RF No Action cholecalciferol (vitamin D3) 1,000 unit capsule 2,000 unit PO DAILY Jeri's Butter See Rx Instructions topical PRN Patient Comments: 12/16/18 Hemp with Arnica, si Rx Instructions: 1 application topical as needed; fluticasone propion-salmeterol [Advair Diskus] 250-50 mcg/dose blister with device 1 inh inhalation BID Qty: 60 11RF cyanocobalamin (vitamin B-12) 1,000 mcg capsule 1,000 mcg PO DAILY (DME) Aerochamber Mini Spacer See Rx Instructions .ROUTE .MEDSUPPLY Qty: 1 0RF Rx Instructions: As directed lidocaine 5 % adhesive patch,medicated 1 patch topical DAILY Qty: 30 2RF Rx Instructions: leave on most painful area for up to 12 hrs omeprazole 20 mg capsule,delayed release(DR/EC) 20 mg PO DAILY Qty: 90 4RF Rx Instructions: metoprolol tartrate 50 mg tablet 50 mg PO BID Qty: 180 4RF Rx Instructions: instead of metoprolol succinate per insurance acetaminophen 325 mg tablet 325 mg PO ONCE PRN aspirin [Adult Low Dose Aspirin] 81 mg tablet,delayed release (DR/EC) 81 mg PO DAILY omega-3 fatty acids-fish oil 1 EACH capsule 1 ea PO DAILY magnesium oxide 250 mg magnesium tablet 500 mg PO wkly PRN hydrochlorothiazide 12.5 mg tablet 12.5 mg PO DAILY Qty: 90 3RF Patient Comments: Pt reports she hasn't been taking. 03/25/19 reports MD is not aware but it stopped her legs from cramping. 03/25/19 TR simvastatin 20 mg tablet 20 mg PO HS Qty: 90 4RF Rx Instructions: 1 TAB HS diphenoxylate-atropine [Lomotil] 2.5-0.025 mg tablet 1 tab PO DAILY Qty: 90 1RF albuterol sulfate [Ventolin HFA] 90 mcg/actuation HFA aerosol inhaler 2 puff inhalation QID PRN (Reason: shortness of breath or wheezing) Qty: 8.5 2RF furosemide 20 mg tablet 20 mg PO DAILY Qty: 90 3RF amlodipine 5 mg tablet Patient Comments: TAKE ONE AND HALF A TABLET BY MOUTH ONCE DAILY spironolactone 25 mg tablet Patient Comments: TAKE 1/2 TABLET BY MOUTH DAILY amlodipine 10 mg tablet Patient Comments: TAKE ONE TABLET BY MOUTH EVERY DAY losartan 100 mg tablet Patient Comments: TAKE ONE TABLET BY MOUTH ONCE DAILY Anoro Ellipta 62.5-25 mcg/actuation blister with device INHALATION Patient Comments: INHALE 1 PUFF BY MOUTH AND INTO THE LUNGS ONCE DAILY Discharge Instructions Instructions: Gout (ED) Additional Instructions: At this time your symptoms appear consistent with gouty arthritis in your wrist. You have been given a prescription of prednisone. Please take this as prescribed. Please take Tylenol as needed for pain. Please apply the Voltaren gel 2-3 times per day on your wrist. Please follow-up closely with the learning support specialist. If you notice any worsening of your symptoms, or any new symptoms such as vomiting, diarrhea, fever, chills, shortness of breath, chest pain, numbness, weakness, or fainting , please return immediately to the emergency department for reevaluation. Please follow up with your primary care provider as soon as possible for reassessment and reevaluation. As always, it was a pleasure participating in your medical care today. Referrals: Sekou Pruitt MD [ [facility] STAFF PHYSICIAN] - Rajendra Oliva MD [Primary Care Provider] -
[2023-04-12] MEDS: Ondansetron O.D.T. 4 MG TABEF (08:29)
[2023-04-12 10:07] LABS: ESR 33 mm/hr (0-30)
[2023-04-12 10:14] LABS: C-Reactive Protein 0.67 mg/dL (0.0-0.3)
[2023-04-12] MEDS: Ondansetron 4 MG/2 ML VIAL IVP (11:22)
[2023-04-12] MEDS: methylPREDNISolone SUCC 125 MG VIAL IVP (11:22)
--- NOTE | 2023-04-12 11:32 | NUR.NOTE ---
Nursing Note: PT needs follow up with Ortho in one week for erosive arthritis. Melanie, ED
[2023-04-12] MEDS: Diclofenac 1% Gel 100 GM TUBE TP (11:51)
== END 2023-04-12 12:01 | disposition home or self-care (01) ==
PROVIDERS: Emergency Medicine; Emergency Provider Student in an Organized Health Care Education/Training Program; PCP Family Medicine
DX: E87.21 Acute metabolic acidosis (principal); L03.114 Cellulitis of left upper limb; R73.9 Hyperglycemia, unspecified; E87.6 Hypokalemia; M11.232 Other chondrocalcinosis, left wrist; J45.909 Unspecified asthma, uncomplicated; Z79.82 Long term (current) use of aspirin; Z20.822 Contact with and (suspected) exposure to COVID-19
CPT/HCPCS: 00123; 36415; 80048; 85652; 87040; 87635; 93005; 96365; 96366; 96367; 96368; 96375; 99284; 71046; 73090; 73130; 73200; 81003; 81015; 83605; 84550; 85025; 86140; 93010; J0131; J1170; J2405; J2930; J3480

== ENCOUNTER 2023-05-13 09:59 | Outpatient (REF) | payer MEDICARE, SELFPAY ==
[2023-05-13 12:23] LABS: Bilirubin Negative (Negative); Blood Moderate (Negative); Clarity Cloudy (Clear); Glucose Negative (Negative); Ketones Negative (Negative); Leukocyte Esterase Moderate (Negative); Nitrite Negative (Negative); Specific Gravity 1.015 (1.005-1.025); Urobilinogen 0.2 mg/dL (Up to 0.2); pH 5.5 (5-8)
[2023-05-13 12:30] LABS: C & S Indicated? Yes; WBC >50 HPF (0-5)
== END 2023-05-13 10:00 | disposition home or self-care (01) ==
LOC: LBN 09:59
PROVIDERS: PCP Family Medicine; Visit Provider Nurse Practitioner Family
DX: R30.0 Dysuria (principal); R35.0 Frequency of micturition; R82.998 Other abnormal findings in urine
CPT/HCPCS: 87077; 81003; 81015; 87086; 87186

== ENCOUNTER 2023-06-17 11:07 | Outpatient (REF) | payer MEDICARE, SELFPAY ==
[2023-06-17 15:11] LABS: Bilirubin Negative (Negative); Blood Moderate (Negative); Clarity Turbid (Clear); Glucose Negative (Negative); Ketones Negative (Negative); Leukocyte Esterase Small (Negative); Nitrite Positive (Negative); Urobilinogen 0.2 mg/dL (Up to 0.2); pH 5.5 (5-8)
[2023-06-17 15:22] LABS: Bacteria Many HPF (Negative); C & S Indicated? Yes; Casts Negative LPF (Negative); Crystals Negative HPF (Negative); Epithelial Cells Few HPF (Negative); Mucus Negative (Negative); WBC >50 HPF (0-5)
== END 2023-06-17 11:08 | disposition home or self-care (01) ==
LOC: LBN 11:07
PROVIDERS: PCP Family Medicine; Visit Provider Physician Assistant
DX: R39.89 Other symptoms and signs involving the genitourinary system (principal); R82.998 Other abnormal findings in urine
CPT/HCPCS: 87077; 81003; 81015; 87086; 87186

== ENCOUNTER 2023-07-01 18:24 | Outpatient (REF) | payer MEDICARE, SELFPAY ==
[2023-07-01 12:36] LABS: C Diff PCR Negative (Negative)
== END 2023-07-01 18:25 | disposition home or self-care (01) ==
LOC: LBN 18:24
PROVIDERS: PCP Family Medicine; Visit Provider Family Medicine
DX: R19.7 Diarrhea, unspecified (principal)
CPT/HCPCS: 87493

== ENCOUNTER 2023-08-05 10:28 | Outpatient (CLI) | payer MEDICARE, SELFPAY ==
--- NOTE | 2023-08-05 10:15 | RT.EKG_ITS ---
APPROVED REPORT Exam: Resting ECG Reason for Exam: high blood pressure Patient Location: O HR:85 bpm ECG Measurements Heart Rate 85 AXIS AZ 195 P 10 QRSd 85 QRS -21 QT 393 T 20 QTc 468 Conclusion Sinus rhythm...normal P axis, V-rate 50- 99 Normal Electrocardiogram
== END 2023-08-05 10:29 | disposition home or self-care (01) ==
LOC: DI.CM 10:29
PROVIDERS: PCP Family Medicine; Visit Provider Nurse Practitioner Family
DX: R42 Dizziness and giddiness (principal)
CPT/HCPCS: 93010

== ENCOUNTER → 2023-10-10 00:27 | Outpatient (CLI) | payer MEDICARE, SELFPAY ==
--- NOTE | 2023-10-10 12:50 | DI.US_ITS ---
Exam(s) US THYROID EXAM: US THYROID CLINICAL HISTORY: f/u multinodular thyroid,assess for change,E04.2. TECHNIQUE: Ultrasound thyroid performed using standard protocol. COMPARISON: US US THYROID from 09/10/2022 US US NEEDLE LOCAL OTHER WO RAD from 10/23/2022 FINDINGS: ISTHMUS: 3 mm RIGHT LOBE: Size: 5.5 x 2.6 x 2.4 cm Echogenicity: Normal. Vascularity: Normal. Nodules: There is again seen a predominantly solid nodule in the upper right thyroid gland measuring 1.8 AP by 2.2 transverse by 3.1 craniocaudad cm. No echogenic foci are seen. It is consistent with a TI rads level 3 nodule. Due to its size, FNA is recommended. The patient has had a prior thyroid biopsy. There is also nodule seen more inferiorly measuring 0.9 AP by 1.5 transverse by 1.2 cranioca udad cm. It is solid without echogenic foci. It is hypoechoic. It is consistent with a TI rads lev el 4 nodule. Due to its size, biopsy is suggested. LEFT LOBE: Size: 4.4 x 1.6 x 1.5 cm Echogenicity: Normal. Vascularity: Normal. Nodules: There is again seen a solid hypoechoic nodule in the lower pole of the left lobe of the thyr oid gland measuring 0.5 x 0.5 x 0.8 cm. No echogenic foci are seen. It is consistent with a TI rads level 4 nodule. Due to its size, no follow-up is recommended. OTHER FINDINGS: None. IMPRESSION: Stable thyroid nodules. Please see the above discussion for complete details. Please correlate the patient's biopsy history. DATA REPOSITORY:
== END ==
PROVIDERS: PCP Nurse Practitioner Family; Visit Provider Otolaryngology
DX: E04.2 Nontoxic multinodular goiter (principal)
CPT/HCPCS: 76536

== ENCOUNTER 2023-11-18 10:30 | Outpatient (REF) | payer MEDICARE, SELFPAY ==
[2023-11-19 11:24] LABS: HSV 1 DNA Result Positive (Negative); HSV 2 DNA Result Negative (Negative)
== END 2023-11-18 10:31 | disposition home or self-care (01) ==
LOC: LBN 10:30
PROVIDERS: PCP Nurse Practitioner Family; Visit Provider Family Medicine
DX: R21 Rash and other nonspecific skin eruption (principal); K13.0 Diseases of lips
CPT/HCPCS: 87529

== ENCOUNTER 2023-12-10 19:12 | Outpatient (REF) | payer MEDICARE, SELFPAY ==
[2023-12-10 21:23] LABS: Anion Gap 9.3 mmol/L (3-11); BUN 29 mg/dL (7-18); CO2 26.7 mmol/L (21.0-32.0); CREATININE 1.1 mg/dL (0.55-1.02); Calcium 9.2 mg/dL (8.5-10.1); Chloride 104 mmol/L (98-107); Estimated GFR 48.63 (mL/min/1.73m2); Glucose 100 mg/dL (74-106); Potassium 4.8 mmol/L (3.5-5.1); Sodium 140 mmol/L (136-145); Uric Acid 7.5 mg/dL (2.6-6.0)
[2023-12-10 21:25] LABS: Hemoglobin A1C 5.7 % (<5.7)
== END 2023-12-10 19:13 | disposition home or self-care (01) ==
LOC: LBN 19:12
PROVIDERS: PCP Nurse Practitioner Family; Visit Provider Nurse Practitioner Family
DX: E79.0 Hyperuricemia without signs of inflammatory arthritis and tophaceous disease (principal); I10 Essential (primary) hypertension; Z13.1 Encounter for screening for diabetes mellitus
CPT/HCPCS: 80048; 83036; 84550

== ENCOUNTER 2024-08-05 09:28 | Outpatient (REF) | payer MEDICARE, SELFPAY ==
[2024-08-05 13:29] LABS: Bilirubin Negative (Negative); Blood Moderate (Negative); Clarity Cloudy (Clear); Glucose Negative (Negative); Ketones Negative (Negative); Leukocyte Esterase Moderate (Negative); Nitrite Positive (Negative); Urobilinogen 0.2 mg/dL (Up to 0.2); pH 5.5 (5-8)
[2024-08-05 13:41] LABS: Epithelial Cells Few HPF (Negative); RBC >50 HPF (0-2); WBC >50 HPF (0-5)
[2024-08-05 13:42] LABS: Bacteria Many HPF (Negative); C & S Indicated? Yes; Casts Negative LPF (Negative); Crystals Negative HPF (Negative); Mucus Negative (Negative); Other Cells Negative (Negative)
== END 2024-08-05 09:29 | disposition home or self-care (01) ==
LOC: LBN 09:28
PROVIDERS: PCP Nurse Practitioner Family; Visit Provider Nurse Practitioner Family
DX: R39.9 Unspecified symptoms and signs involving the genitourinary system (principal); J18.9 Pneumonia, unspecified organism; N30.01 Acute cystitis with hematuria
CPT/HCPCS: 87077; 81003; 81015; 87086; 87186

== ENCOUNTER 2024-08-07 09:24 | Emergency (ER) | payer MEDICARE, SELFPAY ==
[2024-08-07] VITALS (25 sets, daily range): BP systolic 146–180; BP diastolic 85–110; PULSE 76–147; RESP 5–33; TEMP 36.5; O2SAT 92–98
--- NOTE | 2024-08-07 09:30 | RT.EKG_ITS ---
APPROVED REPORT Exam: Resting ECG Reason for Exam: Dyspnea Patient Location: E HR:89 bpm ECG Measurements Heart Rate 89 AXIS MS 187 P 29 QRSd 74 QRS -20 QT 361 T 33 QTc 440 Conclusion Sinus rhythm...normal P axis, V-rate 60- 99 Ventricular premature complex...V complex w/ short R-R interval I have reviewed and interpreted ECG and agree with software generated interpretation.
--- NOTE | 2024-08-07 09:45 | DI.RAD_ITS ---
Exam(s) XR PORTABLE CHEST AP EXAM: XR PORTABLE CHEST AP CLINICAL HISTORY: cough, SOB, eval for pneumonia. TECHNIQUE: 2D digital imaging was performed. COMPARISON: CR,XR XR CHEST 2V PA LATERAL from 04/12/2023 FINDINGS: Single AP portable view. Heart size is upper normal. The mediastinum is not widened. Lungs are clear. No infiltrates nor obvious pleural effusions. IMPRESSION: No acute pulmonary findings on this single AP portable view of the chest. DATA REPOSITORY: RADIATION DOSE DELIVERED:
--- NOTE | 2024-08-07 09:46 | ED.GENADUL_ITS ---
Discharge Plan Disposition Patient Disposition: Home Condition: Good Discharge Details Clinical Impression: Community acquired pneumonia Primary Care Provider: Fco Montes ED Provider: Ajit Mckeon Home Meds and New Rx's Prescriptions: No Action cholecalciferol (vitamin D3) 1,000 unit capsule 2,000 unit PO DAILY Jeri's Butter See Rx Instructions topical PRN Patient Comments: 12/16/18 Hemp with Arnica, si Rx Instructions: 1 application topical as needed; cyanocobalamin (vitamin B-12) 1,000 mcg capsule 1,000 mcg PO DAILY lidocaine 5 % adhesive patch,medicated 1 patch topical DAILY Qty: 30 2RF Rx Instructions: leave on most painful area for up to 12 hrs mupirocin 2 % ointment 1 applic topical BID Qty: 22 0RF albuterol sulfate [Ventolin HFA] 90 mcg/actuation HFA aerosol inhaler 2 puff inhalation QID PRN (Reason: shortness of breath or wheezing) Qty: 8.5 2RF diphenoxylate-atropine [Lomotil] 2.5-0.025 mg tablet 1 tab PO DAILY Qty: 90 1RF hydrochlorothiazide 12.5 mg tablet 12.5 mg PO DAILY Qty: 90 3RF Patient Comments: Pt reports she hasn't been taking. 03/25/19 reports MD is not aware but it stopped her legs from cramping. 03/25/19 TR diclofenac sodium [Aleve (diclofenac)] 1 % gel 4 g topical QID Qty: 100 0RF Rx Instructions: apply to SI joints QID prn irbesartan 150 mg tablet 150 mg PO DAILY Qty: 90 4RF Rx Instructions: dose increase acetaminophen 325 mg tablet 325 mg PO ONCE PRN aspirin [Adult Low Dose Aspirin] 81 mg tablet,delayed release (DR/EC) 81 mg PO DAILY omeprazole 20 mg capsule,delayed release(DR/EC) 20 mg PO DAILY Qty: 90 4RF Rx Instructions: prednisone 50 mg tablet 50 mg PO DAILY Qty: 5 0RF Rx Instructions: NOt taking, has on hand to start for cervical radiculopathy. amoxicillin-pot clavulanate [Augmentin] 500-125 mg tablet 1 tab PO BID Qty: 14 0RF azithromycin 250 mg tablet See Rx Instructions PO .COMPLEX Qty: 6 0RF Rx Instructions: For 250 mg dose pack: take 500 mg today (day 1), then 250 mg for 4 days (days 2-5) PO omega-3 fatty acids-fish oil 1 EACH capsule 1 ea PO DAILY magnesium oxide 250 mg magnesium tablet 500 mg PO wkly PRN simvastatin 20 mg tablet 20 mg PO HS Qty: 90 4RF Rx Instructions: 1 TAB HS Discharge Instructions Instructions: Community-Acquired Pneumonia, Adult (DC) Additional Instructions: At this time you still show evidence of pneumonia on your x-ray. It still continues to be my recommendation that you take all the antibiotics that were prescribed. However you have stated that you will not be taking the Augmentin anymore secondary to the diarrhea that it caused. While this is less ideal I would recommend that you still consider taking the azithromycin at the very least as you do have evidence of continued pneumonia. Your urine certainly does look improved compared to prior. Please continue to take the last 2 days of prednisone that you are prescribed. Please take a yogurt with live culture like Activia while you are on the antibiotic to help reduce the risk of infection or diarrhea. Please take the Symbicort inhaler, 2 puffs every 12 hours to help with your cough and wheeze. If you do have persistent diarrhea for greater than a week, please return for reassessment and evaluation of the stool to evaluate for potential C. difficile. If you notice any worsening of your symptoms, or any new symptoms such as vomiting, diarrhea, fever, chills, shortness of breath, chest pain, numbness, weakness, or fainting , please return immediately to the emergency department for reevaluation. Please follow up with your primary care provider as soon as possible for reassessment and reevaluation. As always, it was a pleasure participating in your medical care today. Referrals: Fco Montes NP [Primary Care Provider] - [facility] General Date/Time Provider Initiated Documentation: 08/07/24 09:33 . HPI Narrative: 88-year-old female with a past medical history of GERD, reactive airway disease but not a smoker, hypertension, high cholesterol, who presents today for evaluation of shortness of breath and cough. Patient states about 3 to 4 days ago she developed mild cough, she felt slightly short of breath. She was seen at urgent care about 24 hours ago. At that time she was diagnosed with pneumonia and urinary tract infection. She was started on Augmentin 500 mg for the UTI/pneumonia, and azithromycin 5-day course for the pneumonia. At home she states that she is not been feeling better, her cough has been worsening, and she has been feeling more short of breath. She admits to mild chest tightness. She does not smoke. Son who is at bedside states that he was just recently admitted for influenza, bilateral pneumonia and sepsis. He was recently discharged himself. Patient denies any persistent hemoptysis, however she did have a single episode 4 days ago where she coughed up what she describes as a large hard clot but thinks it may have come from her nose. No history of stroke or heart attack in the past. No other complaints at this time. Related Data Home Medications ?Medication ?Instructions ?Recorded ?Confirmed omega-3 fatty acids-fish oil 300 1 ea PO DAILY 09/18/13 08/07/24 mg-1,000 mg capsule Jeri's Butter See Rx Instructions topical PRN 12/16/18 08/07/24 cholecalciferol (vitamin D3) 25 2,000 unit PO DAILY 12/16/18 08/07/24 mcg (1,000 unit) capsule magnesium oxide 500 mg PO wkly PRN 03/07/22 08/07/24 acetaminophen 325 mg tablet 325 mg PO ONCE PRN 03/21/22 08/07/24 cyanocobalamin (vitamin B-12) 1,000 mcg PO DAILY 08/30/22 08/07/24 1,000 mcg capsule aspirin 81 mg tablet,delayed 81 mg PO DAILY 09/10/22 08/07/24 release (Adult Low Dose Aspirin) lidocaine 5 % topical patch 1 patch topical DAILY #30 ea 03/12/23 08/07/24 omeprazole 20 mg capsule,delayed 20 mg PO DAILY #90 tab-caps 08/14/23 08/07/24 release prednisone 50 mg tablet 50 mg PO DAILY #5 tabs 11/18/23 08/07/24 albuterol sulfate 90 mcg/actuation 2 puff inhalation QID PRN 02/24/24 08/07/24 aerosol inhaler (Ventolin HFA) shortness of breath or wheezing #8.5 grams diphenoxylate-atropine 2.5 1 tab PO DAILY diarrhea #90 tabs 02/24/24 08/07/24 mg-0.025 mg tablet (Lomotil) hydrochlorothiazide 12.5 mg tablet 12.5 mg PO DAILY #90 tabs 02/24/24 08/07/24 mupirocin 2 % topical ointment 1 applic topical BID #22 grams 02/24/24 08/07/24 diclofenac sodium 1 % topical gel 4 g topical QID #100 grams 03/23/24 08/07/24 (Aleve (diclofenac)) simvastatin 20 mg tablet 20 mg PO HS #90 tab-caps 05/22/24 08/07/24 irbesartan 150 mg tablet 150 mg PO DAILY #90 tabs 06/22/24 08/07/24 amoxicillin 500 mg-potassium 1 tab PO BID #14 tabs 08/05/24 08/07/24 clavulanate 125 mg tablet (Augmentin) azithromycin 250 mg tablet See Rx Instructions PO .COMPLEX #6 08/05/24 08/07/24 tabs Previous Rx's ?Medication ?Instructions ?Recorded lidocaine 5 % topical patch 1 patch topical DAILY #30 ea 03/12/23 omeprazole 20 mg capsule,delayed 20 mg PO DAILY #90 tab-caps 08/14/23 release prednisone 50 mg tablet 50 mg PO DAILY #5 tabs 11/18/23 albuterol sulfate 90 mcg/actuation 2 puff inhalation QID PRN 02/24/24 aerosol inhaler (Ventolin HFA) shortness of breath or wheezing #8.5 grams diphenoxylate-atropine 2.5 1 tab PO DAILY diarrhea #90 tabs 02/24/24 mg-0.025 mg tablet (Lomotil) hydrochlorothiazide 12.5 mg tablet 12.5 mg PO DAILY #90 tabs 02/24/24 mupirocin 2 % topical ointment 1 applic topical BID #22 grams 02/24/24 diclofenac sodium 1 % topical gel 4 g topical QID #100 grams 03/23/24 (Aleve (diclofenac)) simvastatin 20 mg tablet 20 mg PO HS #90 tab-caps 05/22/24 irbesartan 150 mg tablet 150 mg PO DAILY #90 tabs 06/22/24 amoxicillin 500 mg-potassium 1 tab PO BID #14 tabs 08/05/24 clavulanate 125 mg tablet (Augmentin) azithromycin 250 mg tablet See Rx Instructions PO .COMPLEX #6 08/05/24 tabs Allergies Allergy/AdvReac Type Severity Reaction Status Date / Time mesalamine Allergy Intermediate HIVES Verified 08/07/24 09:33 latex Allergy Mild SKIN RASH Verified 08/07/24 09:33 oxaprozin Allergy Unknown unknown Verified 08/07/24 09:33 tetracycline Allergy Unknown unknown Verified 08/07/24 09:33 morphine AdvReac Severe headaches, Verified 08/07/24 09:33 vomiting codeine AdvReac Intermediate H/A Verified 08/07/24 09:33 losartan AdvReac Intermediate Cardiac Verified 08/07/24 09:33 Dysrhythmia Sulfa (Sulfonamide AdvReac Intermediate NAUSEA Verified 08/07/24 09:33 Antibiotics) esomeprazole magnesium (From AdvReac Mild H/A Verified 08/07/24 09:33 Nexium) amlodipine AdvReac Intermediate Other (See Uncoded 08/07/24 09:33 Comment) General Stated Complaint: RespSymp REFUGIO: 3 Exam Narrative Exam Narrative: 1.Const: Well-nourished, Well-developed, appearing stated age 2.Eyes: PERRL, no conjunctival injection, and symmetrical lids. 3.ENT: Atraumatic external nose and ears. Slightly dry MM. Neck: Symmetric, trachea midline, No thyromegaly. 4.CVS: +S1/S2, Peripheral pulses 2+ and equal in all extremities. Brisk capillary refill in all extremities. 5.RESP: Rhonchorous breath sounds, no wheezes rales though. 6.GI: Soft, Nontender/Nondistended, No hepatosplenomegaly. No guarding or rebound. 7.MSK: Normocephalic/Atraumatic, Extremities w/o deformity or ttp No cyanosis or clubbing, Normal movement of all extremities 8.Skin: Warm, Dry. No rashes or lesions. 9.Neuro: ski edge painter II-XII grossly intact. Sensation grossly intact, no focal neurologic deficits. 10.Psych: (AAO) x3. Appropriate mood and affect Course Vital Signs Vital signs: Vital Signs Temperature 36.5 C 08/07/24 09:28 Pulse 91 H 08/07/24 09:28 Respiratory Rate 18 08/07/24 09:28 Blood Pressure 170/107 H 08/07/24 09:28 Pulse Oximetry 92 08/07/24 09:28 Temperature 36.5 C 08/07/24 09:33 Pulse 91 H 08/07/24 09:33 Respiratory Rate 18 08/07/24 09:33 Respiratory Effort Normal, Non-Labored 08/07/24 09:37 Respiratory Depth Normal 08/07/24 09:37 Blood Pressure 170/107 H 08/07/24 09:33 Pulse Oximetry 92 08/07/24 09:33 Medical Decision Making 88-year-old female with a past medical history of GERD, reactive airway disease but not a smoker, hypertension, high cholesterol, who presents today for evaluation of shortness of breath and cough. Patient states about 3 to 4 days ago she developed mild cough, she felt slightly short of breath. She was seen at urgent care about 24 hours ago. At that time she was diagnosed with pneumonia and urinary tract infection. She was started on Augmentin 500 mg for the UTI/pneumonia, and azithromycin 5-day course for the pneumonia. At home she states that she is not been feeling better, her cough has been worsening, and she has been feeling more short of breath. She admits to mild chest tightness. She does not smoke. Son who is at bedside states that he was just recently admitted for influenza, bilateral pneumonia and sepsis. He was recently discharged himself. Patient denies any persistent hemoptysis, however she did have a single episode 4 days ago where she coughed up what she describes as a large hard clot but thinks it may have come from her nose. No history of stroke or heart attack in the past. No other complaints at this time. Exam demonstrates slightly tachypneic female, but no hypoxemia. Rhonchorous breath sounds. Concern for worsening community-acquired pneumonia, with single episode of blood sounds more to be episode of a nosebleed leading to clot, and with no persistent hemoptysis, I feel it unlikely or at the very least less likely that there is a pulmonary cause. Will start with a chest x-ray. Symptoms do not appear overly consistent with PE at this time. We will give a breathing treatment, get an x-ray, perform laboratory workup. Will also evaluate for cardiac etiology although I feel that the chest tightness is more likely related to pneumonia or pulmonary etiology rather than ACS. EKG shows no evidence of STEMI. 12:30 PM Laboratory workup is returned, no white count bandemia or left shift. VBG shows no evidence of significant respiratory acidosis. Lactate is normal, electrol ytes normal, renal function stable, proBNP slightly high at 1111, serial troponins are normal though. Urinalysis shows no leuk esterase, no nitrites, or 10-20 WBCs, but there is moderate epithelials, with only few bacteria. COVID flu and RSV are negative. CTA of the chest shows no evidence of pulmonary embolism, there are infiltrates bilaterally in the right upper lobes right lower lobe left lower lobe. Patient is not wanting to take antibiotics anymore as it did cause some diarrhea from her history of irritable bowels. However with the findings I do recommend that she still continues to take the antibiotics. She is refusing to take the Augmentin but she states she is willing to take the azithromycin. With the evidence of notable pneumonia still, I do feel that this would be prudent. That being said I see no evidence of significant systemic severe illness, sepsis, or hypoxemia. We did get the patient up, ambulated her throughout the emergency department. She tolerated this well with no hypoxemia or tachycardia. She remains notably hemodynamically stable and is requesting discharge home. I do feel that this is reasonable but I did have a long discussion with her that she will likely not clinically improve at the rate that we would have hoped if she does not take all antibiotics as prescribed. She understands this. Additionally recommend continued hydration at home, and taking a daily probiotic and yogurt with live culture. She understands this. Respecting the patient's wishes she will be discharged home, family is at bedside and understands the plan. She does appear hemodynamically stable with no evidence of hemodynamic instability clinically or objectively at this time. Discussed red flags for which to return. I have extensively reviewed the treatment plan and discharge instructions with the patient and their family. I have addressed all patient concerns at this time. The patient and family was made aware of what symptoms to monitor for that would warrant a return to the emergency department. Discussed the plan with the patient and family, they demonstrate verbal understanding and agreement with our assessment and plan at this time. The documentation in this chart was dictated using Doodle Mobile dictation software. Please excuse any dictation errors. FINDINGS: CHEST: PULMONARY ARTERIES: There are no intraluminal filling defects to suggest acute pulmonary emboli. LUNGS: There is an area of infiltrate in the right upper lobe just above the minor fissure, this measuring 2 x 1.8 cm.. There is also mild infiltrate in the medial basal segment of right lower lobe. In the opposite-left lung there is an area of pleural based infiltrate in the inferior lingular segment measuring approximately 3 x 2 cm. Also some patchy infiltrate noted in the posterior and lateral basal segments of the left lower lobe.. There are no pleural effusions. MEDIASTINUM: There is no hilar nor mediastinal adenopathy. CARDIAC: Heart size is upper normal. There is no pericardial effusion.Caliber of the thoracic aorta is within normal limits. Ventricular ratio is 1:1 PARTIALLY VISUALIZED UPPERMOST ABDOMEN: Lowermost images reveal peripherally rubin cified and ectatic abdominal aorta only partially included in the field of view. OSSEOUS: No significant osseous lesions.No fractures.. IMPRESSION: 1. No evidence of acute pulmonary emboli. 2. There are infiltrates bilaterally in the right upper lobe, right lower lobe, left lower lobe, and lingular segment of the left lung. There are no pleural effusions nor intrathoracic adenopathy. 3. Appropriate follow-up recommended including repeat CT scan after appropriate clinical interval. Quality:SDOH Health Related Social Needs: No Data to Display PFSH All Active Problems (Updated 08/07/24 @ 12:51 by Ajit Mckeon DO) Community acquired pneumonia (Acute) Rash (Acute) Lip lesion (Acute) Left wrist pain (Acute) Diarrhea (Acute) Hyperuricemia (Acute) SOB (shortness of breath) (Acute) Orthopnea (Acute) Asthma (Chronic) Nocturnal hypoxia (Acute) Multinodular thyroid (Acute) Palpitations (Acute) COLVIN (dyspnea on exertion) (Acute) Thyroid nodule (Acute) Lesion of skin of nose (Acute) Chest pain (Acute) Chills (without fever) (Acute) Chest pain, atypical (Acute) Groin rash (Acute) Collagenous colitis (Acute) Anxiety (Acute) Cervical radiculopathy (Acute 05/10/15) C spine DJD Dysphagia, unspecified (Acute 09/02/17) Generalized osteoarthrosis (Acute) DJD per Xray-10/07=right foot 1st MTP; left hand Hyperlipidemia (Acute) Lumbago (Acute) scoliosis and DJD 03/10-xray Varicose veins of lower extremity (Acute) Essential tremor (Acute) she wishes to hold off on any interventions for now Primary osteoarthritis of left knee (Chronic) Most recent Depo-Medrol injection: 08/26/20; 03/25/20; 10/16/19; 06/18/2019 Facial pain (Acute) Pain in upper jaw (Acute) Abdominal pain (Acute) Protracted diarrhea (Acute 09/18/13) 09/05 [facility] [place] colonoscopy ?colitis 08/06 colonoscopy normal ?bacterial overgrowth 09/2015 collagenous collitis Medical History Epilepsy (11/30/10) pt. 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 Mohs at [facility] [place] Hyperlipidemia 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 Anxiety Osteoporosis Osteoarthritis of knees, bilateral Lower back pain Synovitis of hand Cellulitis of left hand Surgical History History of cataract surgery History of colonoscopy Status post left foot surgery Hallux valgus Status post surgical removal of ganglion cyst RMF History of shoulder surgery Right bursa and excision of bone spurs Status post phlebectomy Left leg vein excision Abdominal hysterectomy EGD - IV Sedation Bladder Surgery (~07/2008) sling and reconstruction for uterine prolapse and cystocele Appendectomy Family History Mother Heart disease Hyperlipidemia Father Essential hypertension Heart disease Hyperlipidemia Sister Essential hypertension Heart disease Hyperlipidemia Brother Essential hypertension Heart disease Hyperlipidemia Brother Personal history of malignant neoplasm Brother Heart disease Stroke Brother Essential hypertension Heart disease Hyperlipidemia Brother Essential hypertension Heart disease Hyperlipidemia Stroke Son Hyperlipidemia Daughter Diabetes Hyperlipidemia COPD (chronic obstructive pulmonary disease) Daughter No problems noted. Social History Smoking/Tobacco Use Status: Never Second Hand Exposure: Yes Smoking risk assessment performed?: Yes Alcohol Intake: never Drug use: Never Substance use type: does not use Adopted: No Caregiver/Support person: Yes Household members: none Housing: other Details: MOBILE HOME Number of Children: 3 number of grandchildren: 7 Communication Needs: Hard of Hearing and Corrective Lenses Education Level: high school Do you need help understanding health information?: Rarely current occupation: RETIRED Sexually active: No Do you think of yourself as: straight/heterosexual Current gender identity: female What is your relationship status?: How often do you talk on the phone with friends or family?: decline to answer How often do you get together with friends or relatives?: decline to answer How often do you attend zoroastrian or yazidi services?: decline to answer Do you belong to any clubs or organized social groups?: no Panel score (0-1 are the most socially isolated patients): 0 What type of physical activity do you participate in: other Details: [place] outside, mow lawn with riding mower, get groceries Duration: 60-90 minutes/day Frequency: 1-2 times per week Naz/[employer] Special naz needs: No Seatbelt use: always Drive intox or ride w/intox regional tanker truck driver: No Firearms in home: Yes Firearms unloaded and locked: Yes (unloaded, not locked) Do you feel safe at home: Yes Victim of physical abuse: No Victim of emotional abuse: No Victim of sexual abuse: No Would you like helpful sources: No
[2024-08-07] MEDS: Albuterol/Ipratropium 3 ML UPD VIAL UPD (10:26)
[2024-08-07 10:29] LABS: Abs Immature Grans 0.04 10^3/uL (0.0-0.06); Absolute Basophil Count 0.04 10^3/uL (0.0-0.2); Absolute Eosinophil Count 0.15 10^3/uL (0.0-0.7); Absolute Lymphocyte Count 1.57 10^3/uL (1.2-3.4); Absolute Monocyte Count 0.59 10^3/uL (0.1-0.8); Absolute Neutrophil Count 5.16 10^3/uL (1.2-6.7); BE (Venous) 4 mmol/L (-2-3); Basophils % 0.5 %; HCO3 (Venous) 29 mmol/L (23-28); HCT 44.1 % (36.0-46.0); HGB 14.1 g/dL (11.2-15.7); Immature Grans % 0.5 %; Lactate 1.8 mmol/L (<or=2.0); Lymphocytes % 20.8 %; MCH 29.7 pg (27.0-33.0); MCV 93 fL (80-95); MPV 9.4 fL (8.0-11.0); Monocytes % 7.8 %; Neutrophils % 68.4 %; O2 Sat (Venous) 39 %; Platelet Count 443 10^3/uL (130-400); RBC 4.75 10^6/uL (3.93-5.22); RDW 11.9 % (11.7-14.6); TCO2 (Venous) 26 mmol/L (24-29); WBC 7.55 10^3/uL (4.4-10.8); pCO2 (Venous) 52 mmHg (41-51); pH (Venous) 7.36 (7.31-7.41); pO2 (Venous) 24 mmHg
[2024-08-07 10:32] LABS: COVID-19 PCR Negative (Negative); Influenza A PCR Negative (Negative); Influenza B PCR Negative (Negative); RSV PCR Negative (Negative)
[2024-08-07 10:33] LABS: Bilirubin Negative (Negative); Blood Small (Negative); Clarity Clear (Clear); Glucose Negative (Negative); Ketones Negative (Negative); Leukocyte Esterase Negative (Negative); Nitrite Negative (Negative); Specific Gravity 1.015 (1.005-1.025); Urobilinogen 0.2 mg/dL (Up to 0.2); pH 5.5 (5-8)
[2024-08-07 10:34] LABS: Source Nasopharynx
[2024-08-07 10:42] LABS: INR 1.1 (0.9-1.1); PTT Activated 29.2 sec (20.6-30.2); Prothrombin Time 10.6 sec (9.1-11.1)
[2024-08-07 10:48] LABS: Bacteria Few HPF (Negative); Crystals Negative HPF (Negative); Epithelial Cells Moderate HPF (Negative); Mucus Trace (Negative); Other Cells Negative (Negative)
[2024-08-07 10:49] LABS: C & S Indicated? No/Sq. Contamination; Casts 0-2 Fine Granular LPF (Negative)
[2024-08-07 10:56] LABS: ALT 21 U/L (14-59); AST 20 U/L (15-37); Albumin 3.1 g/dL (3.4-5.0); Alkaline Phosphatase 110 U/L (46-116); Anion Gap 7.5 mmol/L (3-11); BUN 31 mg/dL (7-18); Bilirubin, Total 0.4 mg/dL (0.2-1.0); CO2 30.5 mmol/L (21.0-32.0); CREATININE 1.2 mg/dL (0.55-1.02); Calcium 9.8 mg/dL (8.5-10.1); Chloride 102 mmol/L (98-107); Estimated GFR 43.81 (mL/min/1.73m2); Glucose 116 mg/dL (74-106); NT-proBNP 1111 pg/mL (<300); Potassium 4.3 mmol/L (3.5-5.1); Sodium 140 mmol/L (136-145); Total Protein 8.6 g/dL (6.4-8.2); Troponin I 18 ng/L (<or=51)
--- NOTE | 2024-08-07 11:15 | DI.CT_ITS ---
Exam(s) CT CHEST PE CTA EXAM: CT CHEST PE CTA CLINICAL HISTORY: cough, SOB, eval for pe and pneumonia. TECHNIQUE: Imaging Protocol: CT angiography of the chest was performed using pulmonary embolus ryan col. Multi planar reconstructions were performed. CONTRAST MATERIAL: Intravenous: Omnipaque 350 Contrast volume: 60 cc COMPARISON: CT CT CHEST PE CTA from 11/10/2021 FINDINGS: CHEST: PULMONARY ARTERIES: There are no intraluminal filling defects to suggest acute pulmonary emboli. LUNGS: There is an area of infiltrate in the right upper lobe just above the minor fissure, this oliva uring 2 x 1.8 cm.. There is also mild infiltrate in the medial basal segment of right lower lobe. In the opposite-left lung there is an area of pleural based infiltrate in the inferior lingular segme nt measuring approximately 3 x 2 cm. Also some patchy infiltrate noted in the posterior and lateral basal segments of the left lower lobe.. There are no pleural effusions. MEDIASTINUM: There is no hilar nor mediastinal adenopathy. CARDIAC: Heart size is upper normal. There is no pericardial effusion.Caliber of the thoracic aorta is within normal limits. Ventricular ratio is 1:1 PARTIALLY VISUALIZED UPPERMOST ABDOMEN: Lowermost images reveal peripherally calcified and ectatic ab dominal aorta only partially included in the field of view. OSSEOUS: No significant osseous lesions.No fractures.. IMPRESSION: 1. No evidence of acute pulmonary emboli. 2. There are infiltrates bilaterally in the right upper lobe, right lower lobe, left lower lobe, and lingular segment of the left lung. There are no pleural effusions nor intrathoracic adenopathy. 3. Appropriate follow-up recommended including repeat CT scan after appropriate clinical interval. Called by myself to ER physician 08/07/2024 at 12:05 p.m. RADIATION DOSE DELIVERED: 82.86mGy.cm Total DLP DATA REPOSITORY: All CT scans at this facility are submitted to the National Radiology Data Registry (NRDR) Dose Index Registry (DIR) with the [employer] (ACR). RADIATION OPTIMIZATION: All CT scans at this facility use at least one of these dose optimization te chniques: automated exposure control; mA and/or kV adjustment per patient size (includes targeted exa ms where dose is matched to clinical indication); or iterative reconstruction.
[2024-08-07 11:27] LABS: Troponin I 16 ng/L (<or=51)
[2024-08-07] MEDS: Omnipaque 350 MG/ML 100 ML BTL IJ (11:52)
[2024-08-07] MEDS: Normal Saline - Diluent 50 ML VIAL IJ (11:52)
== END 2024-08-07 13:31 | disposition home or self-care (01) ==
PROVIDERS: Emergency Provider Student in an Organized Health Care Education/Training Program; PCP Nurse Practitioner Family
DX: J18.9 Pneumonia, unspecified organism (principal); I10 Essential (primary) hypertension; E78.5 Hyperlipidemia, unspecified; Z79.82 Long term (current) use of aspirin
CPT/HCPCS: 71275; 80053; 82805; 87637; 93005; 94640; 99285; 71045; 81003; 81015; 83605; 83880; 84484; 85025; 85610; 85730; 93010; J3490; J7620

== ENCOUNTER 2024-08-25 11:51 | Outpatient (CLI) | payer MEDICARE, SELFPAY ==
--- NOTE | 2024-08-25 09:45 | DI.RAD_ITS ---
Exam(s) XR LUMBAR SPINE COMPLETE EXAM: XR LUMBAR SPINE COMPLETE CLINICAL HISTORY: fell on ice, W19.XXXA. TECHNIQUE: 2D digital imaging was performed. COMPARISON: CR XR LUMBAR SPINE COMPLETE from 01/26/2020 FINDINGS: Five views. Degenerative scoliosis in the lumbar spine is again noted. Multilevel disc space narrowing again not ed with slight further progression of disc height loss at multiple levels. There is also degenerativ e anterolisthesis of L5 upon S1 again noted. There are no compression fractures in the lumbar verteb rhianna evident. Sacroiliac joints appear unremarkable. Visualized osteopenia but no obvious lytic nor blastic lesions evident. IMPRESSION: Further progression of degenerative changes as described above, when compared to prior images of 2019. No acute fractures evident DATA REPOSITORY: RADIATION DOSE DELIVERED:
== END 2024-08-25 12:11 ==
LOC: DI 11:51
PROVIDERS: PCP Nurse Practitioner Family; Visit Provider Nurse Practitioner Family
DX: W19.XXXA Unspecified fall, initial encounter (principal); M51.360 Other intervertebral disc degeneration, lumbar region with discogenic back pain only
CPT/HCPCS: 72110

== ENCOUNTER 2024-09-11 00:15 | Outpatient (CLI) | payer MEDICARE, SELFPAY ==
--- NOTE | 2024-09-11 07:15 | DI.MRI_ITS ---
Exam(s) MR LUMBAR SPINE WO EXAM: MR LUMBAR SPINE WO CLINICAL HISTORY: worsening degenerative changes, LUMBAGO, FALL, LOW BACK PAIN, M54.5. TECHNIQUE: Multiplanar multisequence MRI of the Lumbar spine was performed. COMPARISON: CT CT CHEST PE CTA from 08/07/2024 CR XR LUMBAR SPINE COMPLETE from 08/25/2024 FINDINGS: Bones: The last intervertebral disc space is designated the L5/S1 level for the numbering purpose of this ex amination. The vertebral body heights are well maintained. Alignment: Prominent Biconvex scoliosis. The marrow signal characteristics are show degenerative signal changes. No suspicious lesions. Cord: The conus tip ends at the T12 level. It is of normal size and signal intensity. T12-L1: Severe loss of disc height and prominent endplate osteophytes, eccentric toward the left. Le ft greater than right neural foraminal narrowing. No focal disc herniation is present. No central s genna canal stenosis. L1-2:There is severe loss of disc height, eccentric toward the left with prominent endplate osteophyt es and broad-based disc bulging. Facet degenerative changes. No focal disc herniation is present. Mild central spinal canal stenosis.Moderate bilateral neural foraminal stenosis. L2-3Severe loss of disc height and prominent endplate osteophytes eccentric toward the right. Facet d egenerative changes and ligamentous hypertrophy combine to produce moderate central canal stenosis.No focal disc herniation is present. Moderate right neural foraminal narrowing. L3-4: Severe loss of disc height and prominent endplate osteophytes, eccentric toward the right. Fac et degenerative changes. Mild right neural foraminal narrowing. L4-5:Severe loss of disc height and prominent endplate osteophytes, eccentric toward the right. Face t degenerative changes. Moderate central canal stenosis. Severe bilateral neural foraminal narrowin g.. L5-S1: Severe loss of disc height, eccentric toward the left. Severe left neural foraminal narrowing . No significant central canal stenosis. The visualized SI joints and sacrum are unremarkable. Soft tissues: The paraspinal soft tissues are unremarkable. IMPRESSION: Prominent biconvex scoliosis. Severe multilevel degenerative disc changes and facet degenerative sonali nges cause multilevel level bilateral neural foraminal narrowing. There is moderate central canal st enosis at L2-3 and L4-5. DATA REPOSITORY:
== END 2024-09-11 00:35 ==
LOC: DI 00:15
PROVIDERS: PCP Nurse Practitioner Family; Visit Provider Nurse Practitioner Family
DX: M51.360 Other intervertebral disc degeneration, lumbar region with discogenic back pain only (principal); W19.XXXA Unspecified fall, initial encounter; M99.63 Osseous and subluxation stenosis of intervertebral foramina of lumbar region; M41.86 Other forms of scoliosis, lumbar region
CPT/HCPCS: 72148

== ENCOUNTER 2024-10-01 02:08 | Outpatient (CLI) | payer MEDICARE, SELFPAY ==
--- NOTE | 2024-10-01 06:45 | DI.US_ITS ---
Exam(s) US THYROID EXAM: US THYROID CLINICAL HISTORY: Assess for change, biopsy benign,MULTINODULAR THYROID,E04.2. TECHNIQUE: Ultrasound thyroid performed using standard protocol. COMPARISON: US US THYROID from 10/10/2023 FINDINGS: ISTHMUS: 2.3 mm RIGHT LOBE: Size: 4.9 x 2.8 x 2.6 cm Echogenicity: Normal. Vascularity: Normal. Nodules: In the mid and upper pole of the right lobe there is a solid isoechoic nodule present. It m easures 3.3 x 1.9 x 2.1 cm. This is show no significant change in size compared to the prior examina tion. It is consistent with a TI rads level 3 nodule. In the lower pole of the right lobe there is a solid hypoechoic nodule. It measures 1.2 x 1.0 x 1.4 cm. This is unchanged in size compared to th e prior examination. It remains a TI rads level 4 nodule. LEFT LOBE: Size: 4.1 x 1.7 x 1.4 cm Echogenicity: Normal. Vascularity: Normal. Nodules: There is again seen a nodule in the inferior pole of the left lobe measuring 0.7 x 0.5 x 0.5 cm. It is solid and slightly hypoechoic. This is unchanged in size compared to the prior examinati on. It remains a TI rads level 4 nodule. OTHER FINDINGS: None. IMPRESSION: Stable bilateral thyroid nodules. DATA REPOSITORY:
== END 2024-10-01 02:28 ==
LOC: DI 02:10
PROVIDERS: PCP Nurse Practitioner Family; Visit Provider Otolaryngology
DX: E04.2 Nontoxic multinodular goiter (principal)
CPT/HCPCS: 76536

== ENCOUNTER 2024-10-07 09:33 | Outpatient (CLI) | payer MEDICARE, SELFPAY ==
--- NOTE | 2024-10-07 06:00 | DI.RAD_ITS ---
Exam(s) XR PAIN CLINIC SACRIOILIAC 2V EXAM: XR PAIN CLINIC SACRIOILIAC 2V CLINICAL HISTORY: DX: Sacroiliac Dysfunction. TECHNIQUE: Fluoroscopy was provided for the referring physician for guidance with performing pain cl inic injection procedure. COMPARISON: No exams were available for comparison FINDINGS: Please see procedure note for details. Fluoro time: 37.7 seconds RADIATION DOSE DELIVERED: Ka,r=12.44 mGy
[2024-10-07 09:47] VITALS: BP 166/104; PULSE 83; RESP 16; TEMP 36.3; O2SAT 96
--- NOTE | 2024-10-07 09:58 | PDOC.PAIN ---
Date of service: 10/07/24 Time of Service: 10:44 Pain Managment Procedure Note Procedure Note Procedure Note: ?Sacroiliac Joint Steroid Injection ? Location: Bilateral SI Joints? Pre-procedure Diagnosis: Sacroiliitis, not elsewhere classified - M46.1 ? Post-procedure Diagnosis:? The same as above ? Sedation:? NONE ? Medication: Depo-Medrol 40 mg, bupivacaine 0.5% 1 mL, Omnipaque 0.25 mL per joint ? Estimated blood loss:? less than 2 cc ? Surgeon:? Roderick Dominguez MD ? COMMENT: THIS WILL BE BOTH DIAGNOSTIC AND THERAPEUTIC ? Procedure Detail:? The procedure and potential risks were explained to the patient and informed written consent was obtained. The patient was escorted to the procedure room and placed in the prone position. Pillows were utilized for proper positioning and comfort. Time out was performed in the procedure room with nursing staff confirming the patient's identity, procedure to be performed, allergies, and any blood thinning or anti-platelet medications. The patient's lumbosacral area was prepped with ChloraPrep and draped in a sterile fashion. Sterile technique was maintained throughout the procedure.? Sterile gloves were used, a face mask was worn, and new single dose vials of all medications were used with the top being swabbed with alcohol and given time to dry prior to withdrawal of medication. Lidocaine 1% was used to anesthetize the skin. With fluoroscopic guidance, a 22-gauge 3.5 spinal needle was advanced into the posteroinferior aspect of the bilateral sacroiliac joints Confirmation of intra-articular position of the needle tip was obtained with injection of 0.25cc of Omnipaque 240 contrast which showed appropriate spread within the joint.? Following negative aspiration, 40mg of methylprednisolone mixed with 1 mL of bupivacaine 0.5% was injected.? The needle was gently removed. ?The patient tolerated the procedure well and was transported to the recovery area for observation and discharge instructions.? Permanent images saved and recorded. Plan:? Follow up prn. PAIN PRE PROCEDURE /10 POST PROCEDURE 010 COMMENT: 100 % BETTER AFTER INJECTION Consider interlaminar epidural steroid injection at L3-4 Coding Conscious Sedation used for procedure: No CPT Codes: SI Joint Inj; incl Fluoro * BILATERAL* - [id number] ([id number]) Additional Codes: Date of Service (99081) Date of service: 10/07/24
[2024-10-07 10:21] VITALS: PULSE 86; O2SAT 97
[2024-10-07 10:30] VITALS: PULSE 90; O2SAT 94
[2024-10-07] MEDS: methylPREDNISolone ACETATE 80 MG/ML VIAL IJ (10:37)
[2024-10-07] MEDS: Omnipaque 240 MG/ML 50 ML BTL IJ (10:37)
[2024-10-07] MEDS: Bupivacaine 0.5% Pres-Free 10 ML VIAL IJ (10:38)
[2024-10-07] MEDS: Nerve Block Tray 1 EACH MC (10:38)
== END 2024-10-07 09:34 | disposition home or self-care (01) ==
LOC: PC 09:34
PROVIDERS: PCP Nurse Practitioner Family; Visit Provider Anesthesiology Pain Medicine
DX: M46.1 Sacroiliitis, not elsewhere classified (principal); M25.551 Pain in right hip; M25.552 Pain in left hip
CPT/HCPCS: 27096; 72200; J0665; J1010; Q9967

== ENCOUNTER 2024-10-23 19:12 | Outpatient (REF) | payer MEDICARE, SELFPAY ==
[2024-10-26 10:21] LABS: HBs Antibody, Quant <3.1 mIU/mL (See Note); Hep B Surface Ab Negative (See Note); Hepatitis B Core Antibody Negative (Negative); Hepatitis B Surface Antigen Negative (Negative)
== END 2024-10-23 19:13 | disposition home or self-care (01) ==
LOC: LBN 19:12
PROVIDERS: PCP Nurse Practitioner Family; Visit Provider Nurse Practitioner Family
DX: Z11.59 Encounter for screening for other viral diseases (principal); R21 Rash and other nonspecific skin eruption; R10.30 Lower abdominal pain, unspecified
CPT/HCPCS: 86704; 86706; 87340

== ENCOUNTER 2024-11-06 07:50 | Emergency (ER) | payer MEDICARE, SELFPAY ==
[2024-11-06 07:54] VITALS: BP 223/109; PULSE 95; RESP 18; TEMP 36.6; O2SAT 95
--- NOTE | 2024-11-06 08:15 | DI.US_ITS ---
Exam(s) US LOWER EXTREMITY VENOUS LT EXAM: US LOWER EXTREMITY VENOUS LT CLINICAL HISTORY: L calf pain; increased varicosities TECHNIQUE: Grayscale, color, and doppler imaging of the deep venous system of the left lower extremi ty was performed. COMPARISON: US US THYROID from 10/01/2024 FINDINGS: There is no evidence of intraluminal thrombus and there is normal compression and augmentation demons trated within the common femoral vein, femoral vein, and popliteal vein. In the ipsilateral calf the interrogated veins also exhibit normal compression/ augmentation properti es. The ipsilateral saphenofemoral junction is patent. IMPRESSION: 1. No evidence of DVT in the left lower extremity. DATA REPOSITORY:
--- NOTE | 2024-11-06 08:22 | ED.GENADUL_ITS ---
Discharge Plan Disposition Patient Disposition: Home Condition: Stable Discharge Details Clinical Impression: Peripheral artery disease Primary Care Provider: Fco Montes ED Provider: Ajit Raymundo Home Meds and New Rx's Prescriptions: Continued cholecalciferol (vitamin D3) 1,000 unit capsule 5,000 unit PO DAILY Jeri's Butter See Rx Instructions topical PRN Patient Comments: 12/16/18 Hemp with Arnica, si Rx Instructions: 1 application topical as needed; lidocaine 5 % adhesive patch,medicated 1 patch topical DAILY Qty: 30 2RF Rx Instructions: leave on most painful area for up to 12 hrs mupirocin 2 % ointment 1 applic topical BID Qty: 22 0RF albuterol sulfate [Ventolin HFA] 90 mcg/actuation HFA aerosol inhaler 2 puff inhalation QID PRN (Reason: shortness of breath or wheezing) Qty: 8.5 2RF hydrochlorothiazide 12.5 mg tablet 12.5 mg PO DAILY Qty: 90 3RF irbesartan 150 mg tablet 150 mg PO DAILY Qty: 90 4RF Rx Instructions: dose increase triamcinolone acetonide 0.1 % cream 1 applic topical TID Qty: 80 0RF acetaminophen 325 mg tablet 325 mg PO ONCE PRN aspirin [Adult Low Dose Aspirin] 81 mg tablet,delayed release (DR/EC) 81 mg PO DAILY diclofenac sodium 1 % gel 4 g topical QID Qty: 100 0RF Rx Instructions: apply to SI joints QID prn diphenoxylate-atropine [Lomotil] 2.5-0.025 mg tablet 1 tab PO DAILY Qty: 90 1RF prednisone 50 mg tablet 50 mg PO DAILY Qty: 5 0RF Rx Instructions: NOt taking, has on hand to start for cervical radiculopathy. omega-3 fatty acids-fish oil 1 EACH capsule 1 ea PO DAILY magnesium oxide 250 mg magnesium tablet 500 mg PO wkly PRN omeprazole 20 mg capsule,delayed release(DR/EC) 20 mg PO DAILY Qty: 90 4RF Rx Instructions: omega 8-bic-qcm-fish oil [Fish Oil] 1,200 (144-216) mg capsule PO DAILY Discharge Instructions Instructions: Peripheral artery disease and claudication Additional Instructions: You were seen in the emergency department for your left leg pain, you have had significant changes to varicose veins of your left foot and ankle and lower leg. Your ultrasound was negative for any blood clot in the venous system of the leg, we performed a CTA of your lower aorta on both legs which showed that you have significant narrowing especially below the knee on the left lower extremity with the parts of your arteries being up to 80% occluded but you do still have good flow past these narrowings. You need to follow-up with vascular surgery at [facility] for definitive management. I will process a referral for your PCP to follow-up with you next week to get a referral entered for [facility] vascular consult, your PCP may want to start you on a medicine for PAD in the meantime, please keep applying Voltaren to areas of pain and take Tylenol, elevate your legs whenever you are feeling some pain. Please return for any necrotic lesions in any of your toes or feet, any severe worsening of pain with completely white or cold toes or feet, chest pain with walking. Referrals: Fco Montes [employer] [Primary Care Provider] - Discharge Data Discharge Date/Time-TO BE ENTERED AT DEPARTURE: 11/06/24 14:28 HPI General Date/Time Provider Initiated Documentation: 11/06/24 08:08 . HPI Narrative: 89 year-old female presents to ED today by POV/ambulating with a chief complaint of known sciatica, seen at pain clinic 3 weeks ago- having worsening L foot pain, and increasing varicosities in her L foot- especially compared to her R. Quality described as cold L foot, painful, no radiation to swelling, medial thigh pain, swollen calf, palpitations, redness, warmth to touch, lesions/ulcerations, knee pain. Severity is described as severe. Palliating factors include nothing specific beyond her normal back pain meds. Provoking factors include nothing specific. Events leading up to the incident/Associated Symptoms: Patient denies history of blood clot. Patient not anticoagulated. Related Data Home Medications ?Medication ?Instructions ?Recorded ?Confirmed omega-3 fatty acids-fish oil 300 1 ea PO DAILY 09/18/13 11/06/24 mg-1,000 mg capsule Jeri's Butter See Rx Instructions topical PRN 12/16/18 11/06/24 cholecalciferol (vitamin D3) 25 5,000 unit PO DAILY 12/16/18 11/06/24 mcg (1,000 unit) capsule magnesium oxide 500 mg PO wkly PRN 03/07/22 11/06/24 acetaminophen 325 mg tablet 325 mg PO ONCE PRN 03/21/22 11/06/24 aspirin 81 mg tablet,delayed 81 mg PO DAILY 09/10/22 11/06/24 release (Adult Low Dose Aspirin) lidocaine 5 % topical patch 1 patch topical DAILY #30 ea 03/12/23 11/06/24 albuterol sulfate 90 mcg/actuation 2 puff inhalation QID PRN 02/24/24 11/06/24 aerosol inhaler (Ventolin HFA) shortness of breath or wheezing #8.5 grams hydrochlorothiazide 12.5 mg tablet 12.5 mg PO DAILY #90 tabs 02/24/24 11/06/24 mupirocin 2 % topical ointment 1 applic topical BID #22 grams 02/24/24 11/06/24 irbesartan 150 mg tablet 150 mg PO DAILY #90 tabs 06/22/24 11/06/24 diclofenac sodium 1 % topical gel 4 g topical QID #100 grams 08/10/24 11/06/24 diphenoxylate-atropine 2.5 1 tab PO DAILY diarrhea #90 tabs 08/10/24 11/06/24 mg-0.025 mg tablet (Lomotil) prednisone 50 mg tablet 50 mg PO DAILY #5 tabs 08/10/24 11/06/24 omega 5-igl-abc-fish oil 1,200 mg cap PO DAILY 10/07/24 10/23/24 (144 mg-216 mg) capsule (Fish Oil) omeprazole 20 mg capsule,delayed 20 mg PO DAILY #90 tab-caps 10/14/24 11/06/24 release triamcinolone acetonide 0.1 % 1 applic topical TID #80 grams 10/23/24 11/06/24 topical cream Previous Rx's ?Medication ?Instructions ?Recorded lidocaine 5 % topical patch 1 patch topical DAILY #30 ea 03/12/23 albuterol sulfate 90 mcg/actuation 2 puff inhalation QID PRN 02/24/24 aerosol inhaler (Ventolin HFA) shortness of breath or wheezing #8.5 grams hydrochlorothiazide 12.5 mg tablet 12.5 mg PO DAILY #90 tabs 02/24/24 mupirocin 2 % topical ointment 1 applic topical BID #22 grams 02/24/24 irbesartan 150 mg tablet 150 mg PO DAILY #90 tabs 06/22/24 diclofenac sodium 1 % topical gel 4 g topical QID #100 grams 08/10/24 diphenoxylate-atropine 2.5 1 tab PO DAILY diarrhea #90 tabs 08/10/24 mg-0.025 mg tablet (Lomotil) prednisone 50 mg tablet 50 mg PO DAILY #5 tabs 08/10/24 omeprazole 20 mg capsule,delayed 20 mg PO DAILY #90 tab-caps 10/14/24 release triamcinolone acetonide 0.1 % 1 applic topical TID #80 grams 10/23/24 topical cream Allergies Allergy/AdvReac Type Severity Reaction Status Date / Time mesalamine Allergy Intermediate HIVES Verified 11/06/24 08:00 latex Allergy Mild SKIN RASH Verified 11/06/24 08:00 amlodipine Allergy Unknown Swelling/Ed Unverified 11/06/24 08:00 nic oxaprozin Allergy Unknown unknown Verified 11/06/24 08:00 tetracycline Allergy Unknown unknown Verified 11/06/24 08:00 morphine AdvReac Severe headaches, Verified 11/06/24 08:00 vomiting codeine AdvReac Intermediate H/A Verified 11/06/24 08:00 losartan AdvReac Intermediate Cardiac Verified 11/06/24 08:00 Dysrhythmia Sulfa (Sulfonamide AdvReac Intermediate NAUSEA Verified 11/06/24 08:00 Antibiotics) esomeprazole magnesium (From AdvReac Mild H/A Verified 11/06/24 08:00 Nexium) General Stated Complaint: Nk/Back Pain REFUGIO: 3 Review of Systems All systems reviewed & are unremarkable except as noted in HPI and below Exam Narrative Exam Narrative: GENERAL APPEARANCE: Well-nourished, non-toxic, awake and alert, atraumatic, no acute distress. SKIN: Warm, pink, dry, intact, without rashes/lesions/ulcerations. HEAD: Normocephalic, atraumatic, normal hair distribution for gender/age. EYES: Normal conjunctiva, no exudates on lids/lashes. ENT: Nares patent, no circumoral cyanosis, no facial swelling NECK: Supple, trachea midline, painless cervical ROM. LUNGS/CHEST: Lungs CTA bilaterally, non-labored respirations, normal A/P diameter, symmetrical expansion, no chest wall deformity HEART (CV/PV): Regular rate and rhythm without murmur, no peripheral edema, no JVD. ABDOMEN: Soft, non-distended, no guarding, no tenderness. MSK: Normal ROM, no swelling/deformity to bilateral UEs or LEs, moving all extremities without weakness, no cyanosis, spine midline without tenderness, normal curvature, L LE: Significant amounts of varicosities of left foot compared to right, Homans negative, no calf swelling or tenderness, no medial thigh tenderness, delayed capillary refill of left left toes, cool to touch, nonpalpable or dopplerable left pedal pulse, right dorsalis pedis 2+, no skin lesions, no breakdown NEURO: Mental Status AAOx4 - alert to person, place, time, events No facial droop, no forehead involvement. Motor: No focal weakness - strength 5/5 in bilateral UEs and LEs, proximal and distal, symmetric. Sensory: sensation intact to light touch globally. Gait normal: patient ambulated without ataxia into ED room. PSYCH: euthymic, cooperative, pleasant, appropriate speech Course Vital Signs Vital signs: Vital Signs Temperature 36.6 C 11/06/24 07:54 Pulse 95 H 11/06/24 07:54 Respiratory Rate 18 11/06/24 07:54 Blood Pressure 223/109 H 11/06/24 07:54 Pulse Oximetry 95 11/06/24 07:54 Temperature 36.6 C 11/06/24 07:54 Temperature Source Oral 11/06/24 07:54 Pulse 95 H 11/06/24 07:54 Respiratory Rate 18 11/06/24 07:54 Blood Pressure 223/109 H 11/06/24 07:54 Blood Pressure Position Sitting 11/06/24 07:54 Pulse Oximetry 95 11/06/24 07:54 Oxygen Delivery Method Room Air 11/06/24 07:54 Oxygen Flow Rate 0 11/06/24 07:54 Pain Level 8 11/06/24 07:54 Comment did not take meds today 11/06/24 07:54 Medical Decision Making This dictation utilizes [id number] dictation software and may contain unedited grammatical errors. 89 year-old female presents to ED today by POV/ambulating with a chief complaint of known sciatica, seen at pain clinic 3 weeks ago- having worsening L foot pain, and increasing varicosities in her L foot- especially compared to her R. Quality described as cold L foot, painful, no radiation to swelling, medial thigh pain, swollen calf, palpitations, redness, warmth to touch, lesions/ulcerations, knee pain. Severity is described as severe. Palliating factors include nothing specific beyond her normal back pain meds. Provoking factors include nothing specific. Events leading up to the incident/Associated Symptoms: Patient denies history of blood clot. Patients' medical history: Hypertension, GERD, hyperlipidemia, varicose veins spinal stenosis, SI joint dysfunction. Family and social history: Noncontributory. Pertinent exam findings / vital signs include extensive varicosities of the left lower extremity mostly in the foot and ankle, some extending to calf, far more severe than the right lower extremity, no knee tenderness, Homans negative, no medial thigh tenderness, no unilateral leg swelling, slightly delayed capillary refill in the toes of left foot, nonpalpable, nondopplerable dorsalis pedis and posterior tib. Differential / pathologies of concern include vascular pathology-DVT or arterial occlusion or PAD, unlikely cellulitis, no lesions. Diagnostic studies of: - CBC, BMP, US DVT left lower extremity, CTA abdominal aorta with runoffs. - Labs are completely benign - DVT study negative -CTA shows no major large vessel occlusion of the left lower extremity but does show multilevel disease and about 80% intermittent occlusion below the left ankle and discussion with radiologist Interventions of: - Counseled the patient to follow-up with her PCP for possible starting of prescription medicine for PAD as well as to seek a referral to vascular surgery, I see no need for emergent consult or transfer from today's findings. ED Course/Assessment/Plan: 89-year-old female presents with left lower extremity pain and some concerning skin changes including a massive amount of varicosities to the left especially when compared to the right foot, she has some nodular focal swellings in the vascular distribution of the calf, Homans is negative and no medial thigh tenderness, she has known sciatica and was questioning whether the pain was from this, her toes are cold on the left and her pulses were nonpalpable, nondopplerable in the left foot. Ultrasound DVT studies negative, labs were significantly delayed with the BMP becoming hemolyzed X3 times, CTA aorta and runoff show severe beading and stenosis of the distal left lower extremity likely the cause of her pain in the setting of peripheral artery disease. She has delayed capillary refill in the toes and they are cool to touch but does have flow, I counseled the patient that she should continue using Voltaren on her leg and Tylenol but that she would likely need to definitively follow-up with [facility] vascular surgery, she states she has no way of getting there. I placed a referral for her PCP to follow-up with her to possibly start cilostazol for PAD, or work with the patient to get a vascular consult. Findings not consistent with arterial occlusion, DVT, cellulitis, skin ulceration, neurovascular compromise of left lower extremity. Disposition of Peripheral Artery Disease. Patient verbalized understanding of the plan and return to ED criteria and engaged in shared decision making. Medical Records Medical records reviewed: Yes I reviewed the patient's medical records. Imaging Data Radiologic Study: Attestation: I personally reviewed and interpreted this imaging study as follows: Imaging: CT Scan Radiologist's impression: EXAM: CT ABD AORTA CTA W RUNOFF CLINICAL HISTORY: L foot absent pedal pulses. TECHNIQUE: Imaging Protocol: Axial computed tomography images with coronal and sagittal reformatted images were created and reviewed CONTRAST MATERIAL: Intravenous: Omnipaque 350 Contrast volume:100 ml Oral: None COMPARISON: CT CT UPPER EXTREMITY LT WO from 04/12/2023 FINDINGS: ABDOMEN: AORTA: Abdominal aorta is atherosclerotic. There is left-sided mural plaque in the infrarenal mid abdominal aorta. There is a fusiform infrarenal abdominal aortic aneurysm with maximum diameter 2.6 cm. At the level of the plaque the diameter is 2.8 cm. There is arterial megaly of the iliac arteries. Maximum diameter is 1.6 cm at the level of the mid left common iliac artery. There is no stenosis at the aortic bifurcation nor in the common iliac arteries. Also no significant stenosis in the external iliac arteries bilaterally nor within the common femoral arteries. The bilateral SFA arteries in the thighs exhibit mild disease bilaterally in José Luis's canal but no tight stenosis at this level nor at the junction with the popliteal arteries.. The right popliteal artery is so difficult to evaluate because of right knee prosthesis, this despite IMAR utilization.. Left popliteal artery exhibits only mild disease. There is no evidence of obvious popliteal artery aneurysm on either side. CALF RUNOFF: Both tibioperoneal trunks are patent. There is three-vessel runoff in both calves. There is multilevel/multifocal disease in the 3 runoff vessels of both calves but these vessels are not occluded. Dominant runoff vessel in each calf appears to be the posterior tibial arteries.. There is no ascites. LIVER: There are no focal hepatic lesions nor dilatation of intrahepatic ducts. GALLBLADDER/BILIARY: Cannot be assessed due to motion artifact. CBD also cannot be assessed due to motion artifact. PANCREAS: Difficult to assess because of motion artifact. SPLEEN: Spleen size normal. Splenic parenchyma difficult to assess because of motion artifact. ADRENALS: No obvious adrenal masses. KIDNEYS: Benign cyst in the posterior cortex of the inferior pole of the right kidney which measures 2.7 x 2.8 cm and does not require further workup. No solid lesions seen in either kidney. No calculi nor hydronephrosis. No solid re nal masses. ABDOMINAL AORTA: See above LYMPH NODES: There is no retroperitoneal nor para-aortic adenopathy. No obvious mesenteric masses. ABDOMINAL WALL: No evidence of significant anterior abdominal wall hernia. GI: There is no evidence of bowel obstruction, free air, nor abscess. PELVIS: LYMPH NODES: There is no intrapelvic nor inguinal adenopathy. GI: No evidence of appendicitis.Sigmoid diverticula but no obvious diverticulitis. URINARY BLADDER: No calculi nor masses evident REPRODUCTIVE: Uterus is surgically absent. No abnormal adnexal masses nor free fluid in the pelvis. OSSEOUS: No significant osseous lesions. Multilevel chronic degenerative disc disease. IMPRESSION: 1. Atherosclerotic involvement of the infrarenal abdominal aorta and mild fusiform dilatation to maximum diameter 2.6 cm. The common iliac arteries also exhibit some arterial megaly but with maximum diameter only 1.6 cm in the distal left common iliac artery. There is no significant stenosis in the aorto iliac segments nor the level the aortic bifurcation and there are no dissection flaps. 2. Mild multilevel atherosclerotic disease throughout both SFA arteries in the thighs but without at tight stenosis in these vessels nor within the popliteal arteries. There are no obvious popliteal artery aneurysms. 3. There is three-vessel runoff in both calves with the dominant runoff vessels being the posterior tibial arteries bilaterally. There is multilevel beaded atherosclerotic disease throughout the runoff vessels in the calf but they do appear to be patent to the ankle levels. 4. Other findings as above Discussed by phone with ER provider 11/06/2024 at 1:15 p.m. Radiologic Study #2: Attestation: I personally reviewed and interpreted this imaging study as follows: Imaging: Ultrasound Radiologist's impression: EXAM: US LOWER EXTREMITY VENOUS LT CLINICAL HISTORY: L calf pain; increased varicosities TECHNIQUE: Grayscale, color, and doppler imaging of the deep venous system of the left lower extremity was performed. COMPARISON: US US THYROID from 10/01/2024 FINDINGS: There is no evidence of intraluminal thrombus and there is normal compression and augmentation demonstrated within the common femoral vein, femoral vein, and popliteal vein. In the ipsilateral calf the interrogated veins also exhibit normal compression/ augmentation properties. The ipsilateral saphenofemoral junction is patent. IMPRESSION: 1. No evidence of DVT in the left lower extremity. Lab Data Lab results reviewed: Yes I reviewed the patient's lab results. Labs: Laboratory Tests Range/Units 11/06/24 11/06/24 11/06/24 09:43 10:12 10:57 WBC (4.4-10.8) 10^3/uL 6.73 RBC (3.93-5.22) 10^6/uL 4.67 Hgb (11.2-15.7) g/dL 14.1 Hct (36.0-46.0) % 43.4 MCV (80-95) fL 93 MCH (27.0-33.0) pg 30.2 MCHC (32.0-36.0) % 32.5 RDW (11.7-14.6) % 12.7 Plt Count (130-400) 10^3/uL 267 MPV (8.0-11.0) fL 9.2 Immature Gran % % 0.3 Neutrophils % % 74.7 Lymphocytes % % 16.3 Monocytes % % 7.9 Eosinophils % % 0.4 Basophils % % 0.4 Nucleated RBC % (0.0-0.3) % 0.0 Absolute Neutrophils (1.2-6.7) 10^3/uL 5.02 Absolute Lymphocytes (1.2-3.4) 10^3/uL 1.10 L Absolute Monocytes (0.1-0.8) 10^3/uL 0.53 Absolute Eosinophils (0.0-0.7) 10^3/uL 0.03 Absolute Basophils (0.0-0.2) 10^3/uL 0.03 Sodium Cancelled Cancelled 138 Potassium Cancelled Cancelled 4.2 Chloride Cancelled Cancelled 100 Carbon Dioxide Cancelled Cancelled 30.0 Anion Gap Cancelled Cancelled 8.0 BUN Cancelled Cancelled 27 H Creatinine Cancelled Cancelled 0.9 Est GFR (CKD-EPI 2020) Cancelled Cancelled 61.49 Glucose Cancelled Cancelled 120 H Calcium Cancelled Cancelled 9.6 Quality:SDOH Health Related Social Needs: No Data to Display PFSH All Active Problems (Updated 11/06/24 @ 14:03 by JAVI Interiano) Peripheral artery disease (Acute) Spinal stenosis of lumbar region (Acute) SI (sacroiliac) joint dysfunction (Acute) Lumbar spondylosis (Acute) Fall (Acute) Left wrist pain (Acute) Hyperuricemia (Acute) Orthopnea (Acute) Asthma (Chronic) Nocturnal hypoxia (Acute) Multinodular thyroid (Acute) Palpitations (Acute) COLVIN (dyspnea on exertion) (Acute) Lesion of skin of nose (Acute) Collagenous colitis (Acute) Anxiety (Acute) Cervical radiculopathy (Acute 05/10/15) 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 per Xray-10/07=right foot 1st MTP; left hand Hyperlipidemia (Acute) Lumbago (Acute) scoliosis and DJD 03/10-xray Varicose veins of lower extremity (Acute) Essential tremor (Acute) she wishes to hold off on any interventions for now Primary osteoarthritis of left knee (Chronic) Most recent Depo-Medrol injection: 08/26/20; 03/25/20; 10/16/19; 06/18/2019 Medical History Rash Lip lesion Diarrhea SOB (shortness of breath) Thyroid nodule Chest pain Chills (without fever) Chest pain, atypical Groin rash Pain in upper jaw Facial pain Abdominal pain Protracted diarrhea (09/18/13) 09/05 [facility] colonoscopy ?colitis 08/06 colonoscopy normal ?bacterial overgrowth 09/2015 collagenous collitis Dysphagia, unspecified (09/02/17) Epilepsy (11/30/10) pt. 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 Mohs at [facility] Hyperlipidemia 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 Anxiety Osteoporosis Osteoarthritis of knees, bilateral Lower back pain Synovitis of hand Cellulitis of left hand Surgical History History of cataract surgery History of colonoscopy Status post left foot surgery Hallux valgus Status post surgical removal of ganglion cyst RMF History of shoulder surgery Right bursa and excision of bone spurs Status post phlebectomy Left leg vein excision Abdominal hysterectomy EGD - IV Sedation Bladder Surgery (~07/2008) sling and reconstruction for uterine prolapse and cystocele Appendectomy Family History Mother Heart disease Hyperlipidemia Father Essential hypertension Heart disease Hyperlipidemia Sister Essential hypertension Heart disease Hyperlipidemia Brother Essential hypertension Heart disease Hyperlipidemia Brother Personal history of malignant neoplasm Brother Heart disease Stroke Brother Essential hypertension Heart disease Hyperlipidemia Brother Essential hypertension Heart disease Hyperlipidemia Stroke Son Hyperlipidemia Daughter Diabetes Hyperlipidemia COPD (chronic obstructive pulmonary disease) Daughter No problems noted. Social History Smoking/Tobacco Use Status: Never Second Hand Exposure: Yes Smoking risk assessment performed?: Yes Alcohol Intake: never Drug use: Never Substance use type: does not use Adopted: No Caregiver/Support person: Yes Household members: none Housing: other Details: MOBILE HOME Number of Children: 3 number of grandchildren: 7 Communication Needs: Hard of Hearing and Corrective Lenses Education Level: high school Do you need help understanding health information?: Rarely current occupation: RETIRED Sexually active: No Do you think of yourself as: straight/heterosexual Current gender identity: female What is your relationship status?: How often do you talk on the phone with friends or family?: decline to answer How often do you get together with friends or relatives?: decline to answer How often do you attend mormon or worship services?: decline to answer Do you belong to any clubs or organized social groups?: no Panel score (0-1 are the most socially isolated patients): 0 What type of physical activity do you participate in: other Details: [place] outside, mow lawn with riding mower, get groceries Duration: 60-90 minutes/day Frequency: 1-2 times per week Naz/Mosque: Synagogue Special naz needs: No Seatbelt use: always Drive intox or ride w/intox 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
[2024-11-06 09:50] LABS: Abs Immature Grans 0.02 10^3/uL (0.0-0.06); Absolute Basophil Count 0.03 10^3/uL (0.0-0.2); Absolute Eosinophil Count 0.03 10^3/uL (0.0-0.7); Absolute Monocyte Count 0.53 10^3/uL (0.1-0.8); Absolute Neutrophil Count 5.02 10^3/uL (1.2-6.7); Basophils % 0.4 %; Eosinophils % 0.4 %; HCT 43.4 % (36.0-46.0); HGB 14.1 g/dL (11.2-15.7); Immature Grans % 0.3 %; Lymphocytes % 16.3 %; MCH 30.2 pg (27.0-33.0); MCHC 32.5 % (32.0-36.0); MCV 93 fL (80-95); MPV 9.2 fL (8.0-11.0); Monocytes % 7.9 %; Neutrophils % 74.7 %; Platelet Count 267 10^3/uL (130-400); RBC 4.67 10^6/uL (3.93-5.22); RDW 12.7 % (11.7-14.6); RDW-SD 43.2 fL; WBC 6.73 10^3/uL (4.4-10.8)
[2024-11-06] MEDS: Acetaminophen 325 MG TAB 650 MG PO (09:55)
[2024-11-06 11:31] LABS: BUN 27 mg/dL (7-18); CREATININE 0.9 mg/dL (0.55-1.02); Calcium 9.6 mg/dL (8.5-10.1); Chloride 100 mmol/L (98-107); Estimated GFR 61.49 (mL/min/1.73m2); Glucose 120 mg/dL (74-106); Potassium 4.2 mmol/L (3.5-5.1); Sodium 138 mmol/L (136-145)
[2024-11-06] MEDS: Normal Saline - Diluent 50 ML VIAL IJ ×2 (11:45→11:48)
[2024-11-06] MEDS: Omnipaque 350 MG/ML 100 ML BTL IJ (11:46)
[2024-11-06] MEDS: Omnipaque 350 MG/ML 50 ML BTL IJ (11:47)
--- NOTE | 2024-11-06 11:55 | DI.CT_ITS ---
Exam(s) CT ABD AORTA CTA W RUNOFF EXAM: CT ABD AORTA CTA W RUNOFF CLINICAL HISTORY: L foot absent pedal pulses. TECHNIQUE: Imaging Protocol: Axial computed tomography images with coronal and sagittal reformatted images were created and reviewed CONTRAST MATERIAL: Intravenous: Omnipaque 350 Contrast volume:100 ml Oral: None COMPARISON: CT CT UPPER EXTREMITY LT WO from 04/12/2023 FINDINGS: ABDOMEN: AORTA: Abdominal aorta is atherosclerotic. There is left-sided mural plaque in the infrarenal mid abdominal aorta. There is a fusiform infrarenal abdominal aortic aneurysm with maximum diameter 2.6 cm. At t he level of the plaque the diameter is 2.8 cm. There is arterial megaly of the iliac arteries. Maxi mum diameter is 1.6 cm at the level of the mid left common iliac artery. There is no stenosis at the aortic bifurcation nor in the common iliac arteries. Also no significant stenosis in the external i liac arteries bilaterally nor within the common femoral arteries. The bilateral SFA arteries in the thighs exhibit mild disease bilaterally in José Luis's canal but no ti ght stenosis at this level nor at the junction with the popliteal arteries.. The right popliteal art won is so difficult to evaluate because of right knee prosthesis, this despite IMAR utilization.. Le ft popliteal artery exhibits only mild disease. There is no evidence of obvious popliteal artery ane urysm on either side. CALF RUNOFF: Both tibioperoneal trunks are patent. There is three-vessel runoff in both calves. There is multile sabas/multifocal disease in the 3 runoff vessels of both calves but these vessels are not occluded. Do minant runoff vessel in each calf appears to be the posterior tibial arteries.. There is no ascites. LIVER: There are no focal hepatic lesions nor dilatation of intrahepatic ducts. GALLBLADDER/BILIARY: Cannot be assessed due to motion artifact. CBD also cannot be assessed due to m otion artifact. PANCREAS: Difficult to assess because of motion artifact. SPLEEN: Spleen size normal. Splenic parenchyma difficult to assess because of motion artifact. ADRENALS: No obvious adrenal masses. KIDNEYS: Benign cyst in the posterior cortex of the inferior pole of the right kidney which measures 2.7 x 2.8 cm and does not require further workup. No solid lesions seen in either kidney. No calcul i nor hydronephrosis. No solid renal masses. ABDOMINAL AORTA: See above LYMPH NODES: There is no retroperitoneal nor para-aortic adenopathy. No obvious mesenteric masses. ABDOMINAL WALL: No evidence of significant anterior abdominal wall hernia. GI: There is no evidence of bowel obstruction, free air, nor abscess. PELVIS: LYMPH NODES: There is no intrapelvic nor inguinal adenopathy. GI: No evidence of appendicitis.Sigmoid diverticula but no obvious diverticulitis. URINARY BLADDER: No calculi nor masses evident REPRODUCTIVE: Uterus is surgically absent. No abnormal adnexal masses nor free fluid in the pelvis. OSSEOUS: No significant osseous lesions. Multilevel chronic degenerative disc disease. IMPRESSION: 1. Atherosclerotic involvement of the infrarenal abdominal aorta and mild fusiform dilatation to maxi mum diameter 2.6 cm. The common iliac arteries also exhibit some arterial megaly but with maximum di ameter only 1.6 cm in the distal left common iliac artery. There is no significant stenosis in the a orto iliac segments nor the level the aortic bifurcation and there are no dissection flaps. 2. Mild multilevel atherosclerotic disease throughout both SFA arteries in the thighs but without at tight stenosis in these vessels nor within the popliteal arteries. There are no obvious popliteal ar carolina aneurysms. 3. There is three-vessel runoff in both calves with the dominant runoff vessels being the posterior t ibial arteries bilaterally. There is multilevel beaded atherosclerotic disease throughout the runoff vessels in the calf but they do appear to be patent to the ankle levels. 4. Other findings as above Discussed by phone with ER provider 11/06/2024 at 1:15 p.m. RADIATION DOSE DELIVERED: 795.22mGy.cm Total DLP DATA REPOSITORY: All CT scans at this facility are submitted to the National Radiology Data Registry (NRDR) Dose Index Registry (DIR) with the [employer] ([employer]). RADIATION OPTIMIZATION: All CT scans at this facility use at least one of these dose optimization te chniques: automated exposure control; mA and/or kV adjustment per patient size (includes targeted exa ms where dose is matched to clinical indication); or iterative reconstruction.
[2024-11-06 13:04] VITALS: BP 177/111; PULSE 95; O2SAT 96
[2024-11-06 14:20] VITALS: BP 184/100; PULSE 94; RESP 16; O2SAT 94
--- NOTE | 2024-11-07 10:47 | NUR.NOTE ---
Nursing Note: This RN accessed this patient's chart to return her phone call regarding the need for [facility] referral. Patient was seen in this ER the day prior, denied wanting referral at this time of her ER visit. Patient called this morning 11/07/24 to say that she changed her mind and would like the referral. This RN spoke to Lamont CALDWELL who was this patient provider yesterday and who is here today, provider states that she will need to call her PCP for referral. This RN called patient to inform her, patient states that she will call them on Saturday. Alexandra Keller RN, BSN
== END 2024-11-06 14:28 | disposition home or self-care (01) ==
PROVIDERS: Emergency Provider Physician Assistant; PCP Nurse Practitioner Family
DX: I73.9 Peripheral vascular disease, unspecified (principal); I83.93 Asymptomatic varicose veins of bilateral lower extremities; Z79.82 Long term (current) use of aspirin
CPT/HCPCS: 36415; 75635; 80048; 99285; 85025; 93971; 99284; J3490; Q9967

== ENCOUNTER 2024-12-12 10:19 | Outpatient (REF) | payer MEDICARE, SELFPAY ==
[2024-12-12 16:54] LABS: Glucose 100 mg/dL (Negative)
[2024-12-12 17:02] LABS: WBC >50 HPF (0-5)
== END 2024-12-12 10:20 | disposition home or self-care (01) ==
LOC: LBN 10:19
PROVIDERS: PCP Nurse Practitioner Family; Visit Provider Physician Assistant
DX: R30.0 Dysuria (principal); B96.29 Other Escherichia coli [E. coli] as the cause of diseases classified elsewhere
CPT/HCPCS: 81003; 81015

== ENCOUNTER 2025-01-16 09:54 | Outpatient (CLI) | payer MEDICARE, SELFPAY ==
--- NOTE | 2025-01-16 09:45 | RT.EKG_ITS ---
APPROVED REPORT Exam: Resting ECG Reason for Exam: SOB Patient Location: O HR:83 bpm ECG Measurements Heart Rate 83 AXIS KS 179 P 10 QRSd 79 QRS -13 QT 379 T 31 QTc 446 Conclusion Sinus rhythm...normal P axis, V-rate 50- 99 Atrial premature complexes in couplets...pair SV complexes w/ short R-R
--- NOTE | 2025-01-16 10:50 | DI.RAD_ITS ---
Exam(s) XR CHEST 2V PA LATERAL EXAM: XR CHEST 2V PA LATERAL CLINICAL HISTORY: evalutate pathology, R06.02 shortness of breathe TECHNIQUE: 2D digital imaging was performed. Two views. COMPARISON: CR XR PORTABLE CHEST AP from 08/07/[address] CHEST PE CTA from 08/07/2024 FINDINGS: HEART: Mildly enlarged. Aorta: Tortuous. PULMONARY VASCULATURE: Normal. MEDIASTINUM: Unremarkable. LUNGS: Clear. PLEURAL SPACE: No pleural effusion or pneumothorax. BONE:Unremarkable for age. SOFT TISSUES: Unremarkable. IMPRESSION: No acute abnormality. The preliminary [facility] report was reviewed. DATA REPOSITORY: RADIATION DOSE DELIVERED:
--- NOTE | 2025-01-16 12:37 | DI.[facility]_ITS ---
PROCEDURE INFORMATION: Exam: XR Chest Exam date and time: 01/16/2025 10:45 AM Age: 89 years old Clinical indication: Shortness of breath and other: Evalutate pathology TECHNIQUE: Imaging protocol: Radiologic exam of the chest. Views: 2 views. COMPARISON: CT CHEST PE CTA 08/07/2024 11:40 AM FINDINGS: Lungs: The lungs are mildly hyperinflated. On the patient's prior chest CT scan of 08/07/2024 there was a small patchy infiltrate in the right upper lobe which has resolved. There is also noted to be a small infiltrate in the lingula which shows some minimal residual density. No new infiltrates identified. Density in the right cardiophrenic angle corresponds to prominent epicardial fat. Pleural spaces: No effusions or pneumothoraces. Heart/Mediastinum: The heart is normal in size. The aorta is atherosclerotic. The descending thoracic aorta is tortuous. Bones/joints: There are moderate diffuse degenerative changes of the thoracic spine without acute bony change IMPRESSION: 1. On the current examination there has been interval resolution of the previously noted small patchy right upper lobe infiltrate and nearly complete resolution of the lingular infiltrate since the CT scan of 08/07/2024. No current new infiltrates identified. No effusions or pneumothoraces. Dictated and Authenticated by: Martin Avitia MD. Orderin Ibrahima Dietrich MD
== END 2025-01-16 10:14 ==
LOC: DI.CM 09:55 → DI 10:39
PROVIDERS: PCP Nurse Practitioner Family; Visit Provider Nurse Practitioner Family
DX: R06.02 Shortness of breath (principal)
CPT/HCPCS: 71046

== ENCOUNTER 2025-01-29 09:39 | Outpatient (CLI) | payer MEDICARE, SELFPAY ==
[2025-01-29 12:50] LABS: TSH (W/Ref FT4) 1.73 uIU/mL (0.36-3.74)
== END 2025-01-29 09:40 | disposition home or self-care (01) ==
LOC: LOS 09:39
PROVIDERS: PCP Nurse Practitioner Family; Referring Provider Nurse Practitioner Family; Visit Provider Nurse Practitioner Family
DX: E04.2 Nontoxic multinodular goiter (principal)
CPT/HCPCS: 36415; 84443

== ENCOUNTER 2025-02-05 09:29 | Outpatient (CLI) | payer MEDICARE, SELFPAY ==
--- NOTE | 2025-02-05 09:15 | RT.EKG_ITS ---
APPROVED REPORT Exam: Resting ECG Reason for Exam: malaise and weakness Patient Location: O HR:93 bpm ECG Measurements Heart Rate 93 AXIS NM 180 P -11 QRSd 79 QRS -26 QT 360 T 24 QTc 448 Conclusion Sinus rhythm...normal P axis, V-rate 50- 99 Atrial premature complex...SV complex w/ short R-R interval Borderline left axis deviation...QRS axis (-15,-29)
== END 2025-02-05 09:30 | disposition home or self-care (01) ==
LOC: DI.CM 09:30
PROVIDERS: PCP Nurse Practitioner Family; Visit Provider Nurse Practitioner Family
DX: R53.81 Other malaise (principal)
CPT/HCPCS: 93010

== ENCOUNTER 2025-02-05 09:42 | Outpatient (CLI) | payer MEDICARE, SELFPAY ==
[2025-02-05 12:24] LABS: Glucose Negative (Negative)
[2025-02-05 12:28] LABS: Abs Immature Grans 0.02 10^3/uL (0.0-0.06); HCT 39.1 % (36.0-46.0); HGB 12.4 g/dL (11.2-15.7); Immature Grans % 0.3 %; MCH 29.4 pg (27.0-33.0); MCHC 31.7 % (32.0-36.0); MCV 93 fL (80-95); MPV 9.7 fL (8.0-11.0); Platelet Count 366 10^3/uL (130-400); RBC 4.22 10^6/uL (3.93-5.22); RDW 13.3 % (11.7-14.6); RDW-SD 45.1 fL; WBC 7.67 10^3/uL (4.4-10.8)
[2025-02-05 12:59] LABS: ALT 18 U/L (14-59); AST 21 U/L (15-37); Albumin 3.3 g/dL (3.4-5.0); Alkaline Phosphatase 93 U/L (46-116); Anion Gap 8.1 mmol/L (3-11); BUN 28 mg/dL (7-18); Bilirubin, Total 0.6 mg/dL (0.2-1.0); CO2 28.9 mmol/L (21.0-32.0); Calcium 9.7 mg/dL (8.5-10.1); Chloride 102 mmol/L (98-107); Estimated GFR 54.19 (mL/min/1.73m2); Glucose 115 mg/dL (74-106); Potassium 4.2 mmol/L (3.5-5.1); Sodium 139 mmol/L (136-145); Total Protein 8.0 g/dL (6.4-8.2); WBC 0-2 HPF (0-5)
[2025-02-05 13:00] LABS: C & S Indicated? No
== END 2025-02-05 09:43 | disposition home or self-care (01) ==
LOC: LOS 09:42
PROVIDERS: PCP Nurse Practitioner Family; Referring Provider Nurse Practitioner Family; Visit Provider Nurse Practitioner Family
DX: R31.9 Hematuria, unspecified (principal); R53.83 Other fatigue
CPT/HCPCS: 36415; 80053; 81003; 81015; 85025

== ENCOUNTER 2025-02-12 16:03 | Outpatient (REF) | payer MEDICARE, SELFPAY | END 2025-02-12 16:04 | disposition home or self-care (01) | LOC: LBN 16:03 | PROVIDERS: PCP Nurse Practitioner Family; Visit Provider Nurse Practitioner Family | DX: N39.0 Urinary tract infection, site not specified (principal); R94.31 Abnormal electrocardiogram [ECG] [EKG]; R53.81 Other malaise; R53.1 Weakness | CPT/HCPCS: 87086 ==

== ENCOUNTER 2025-02-25 08:57 | Emergency (ER) | payer MEDICARE, SELFPAY ==
[2025-02-25] VITALS (22 sets, daily range): BP systolic 126–185; BP diastolic 71–133; PULSE 72–116; RESP 10–29; TEMP 36.6; O2SAT 94–97
--- NOTE | 2025-02-25 09:15 | DI.RAD_ITS ---
Exam(s) XR KNEE LT 3V AP,LAT,EILEEN EXAM: XR KNEE LT 3V AP,LAT,EILEEN CLINICAL HISTORY: left knee pain. TECHNIQUE: 2D digital imaging was performed. Three views. COMPARISON: CR XR knee LT 3V AP,lat,eileen from 02/16/2019 CR XR KNEE RT 3V AP,LAT,EILEEN from 03/25/2020 FINDINGS: BONES: No acute fracture is present. No bony destructive lesion is seen. JOINTS: There is severe narrowing of the medial femoral tibial joint space, with a [id number] appearance. There is prominent periarticular spurring. There is varus angulation at the knee. A small joint effusion is seen. SOFT TISSUE: Severe vascular calcifications. IMPRESSION: Severe degenerative changes of the medial femoral tibial joint. No acute abnormality. DATA REPOSITORY: RADIATION DOSE DELIVERED:
--- NOTE | 2025-02-25 09:15 | RT.EKG_ITS ---
APPROVED REPORT Exam: Resting ECG Reason for Exam: irregular pulse Patient Location: E HR:96 bpm ECG Measurements Heart Rate 96 AXIS MS 199 P 60 QRSd 75 QRS -10 QT 363 T 25 QTc 460 Conclusion Sinus rhythm...normal P axis, V-rate 60- 99 Atrial premature complex...SV complex w/ short R-R interval Physician: no stemi
--- NOTE | 2025-02-25 09:15 | DI.US_ITS ---
Exam(s) US LOWER EXTREMITY VENOUS LT EXAM: US LOWER EXTREMITY VENOUS LT CLINICAL HISTORY: left leg swelling and pain. TECHNIQUE: Lower extremity venous ultrasound performed using grayscale, color- flow, and spectral Doppler analysis. COMPARISON: No exams were available for comparison FINDINGS: The common femoral, femoral and popliteal veins demonstrate normal compressibility, augmentation, and color Doppler. The posterior tibial and peroneal veins are patent. No saphenous vein thrombosis or other superficial venous thrombosis is seen. 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 IMPRESSION: Blanco's cyst. No evidence of DVT. DATA REPOSITORY:
[2025-02-25 09:43] LABS: Abs Immature Grans 0.01 10^3/uL (0.0-0.06); HCT 36.8 % (36.0-46.0); HGB 11.5 g/dL (11.2-15.7); Immature Grans % 0.2 %; MCH 28.5 pg (27.0-33.0); MCHC 31.3 % (32.0-36.0); MCV 91 fL (80-95); MPV 8.8 fL (8.0-11.0); Platelet Count 362 10^3/uL (130-400); RBC 4.03 10^6/uL (3.93-5.22); RDW 13.2 % (11.7-14.6); RDW-SD 44.4 fL; WBC 6.43 10^3/uL (4.4-10.8)
[2025-02-25 09:59] LABS: C-Reactive Protein 8.75 mg/dL (<or=0.5); Uric Acid 7.1 mg/dL (2.6-6.0)
[2025-02-25 10:08] LABS: ALT 16 U/L (14-59); AST 19 U/L (15-37); Albumin 2.8 g/dL (3.4-5.0); Alkaline Phosphatase 90 U/L (46-116); Anion Gap 6.4 mmol/L (3-11); BUN 28 mg/dL (7-18); Bilirubin, Total 0.5 mg/dL (0.2-1.0); CO2 31.6 mmol/L (21.0-32.0); Calcium 9.4 mg/dL (8.5-10.1); Chloride 101 mmol/L (98-107); Estimated GFR 61.49 (mL/min/1.73m2); Glucose 114 mg/dL (74-106); Magnesium 1.9 mg/dL (1.8-2.4); Potassium 3.5 mmol/L (3.5-5.1); Sodium 139 mmol/L (136-145); TSH (W/Ref FT4) 2.02 uIU/mL (0.36-3.74); Total Protein 7.7 g/dL (6.4-8.2)
--- NOTE | 2025-02-25 13:37 | W.ED.GENAD ---
Discharge Plan Disposition Patient Disposition: Home Discharge Details Clinical Impression: Blanco's cyst, Acute knee pain Primary Care Provider: Fco Montes ED Provider: Cathy Castelan Home Meds and New Rx's Prescriptions: New diclofenac sodium 1 % gel 4 g topical QID Qty: 100 0RF Rx Instructions: apply to single knee, ankle, foot; for foot includes sole/toes/top of foot prednisone 20 mg tablet 40 mg PO ONCE Qty: 10 0RF Continued cholecalciferol (vitamin D3) 1,000 unit capsule 5,000 unit PO DAILY Jeri's Butter See Rx Instructions topical PRN Patient Comments: 12/16/18 Hemp with Arnica, si Rx Instructions: 1 application topical as needed; lidocaine 5 % adhesive patch,medicated 1 patch topical DAILY Qty: 30 2RF Rx Instructions: leave on most painful area for up to 12 hrs mirtazapine 7.5 mg tablet 7.5 mg PO QHS Qty: 30 0RF mupirocin 2 % ointment 1 applic topical BID Qty: 22 0RF albuterol sulfate [Ventolin HFA] 90 mcg/actuation HFA aerosol inhaler 2 puff inhalation QID PRN (Reason: shortness of breath or wheezing) Qty: 8.5 2RF irbesartan 150 mg tablet 150 mg PO DAILY Qty: 90 4RF Rx Instructions: dose increase acetaminophen 325 mg tablet 325 mg PO ONCE PRN aspirin [Adult Low Dose Aspirin] 81 mg tablet,delayed release (DR/EC) 81 mg PO DAILY diclofenac sodium 1 % gel 4 g topical QID Qty: 100 0RF Rx Instructions: apply to SI joints QID prn diphenoxylate-atropine [Lomotil] 2.5-0.025 mg tablet 1 tab PO DAILY Qty: 90 1RF hydrochlorothiazide 12.5 mg tablet 12.5 mg PO DAILY Qty: 90 3RF cephalexin 500 mg capsule 500 mg PO BID Qty: 14 0RF magnesium oxide 250 mg magnesium tablet 500 mg PO wkly PRN omega 0-[id number]-fish oil [Fish Oil] 1,200 (144-216) mg capsule 1 cap PO DAILY Discharge Instructions Instructions: Blanco's Cyst (DC), Knee Pain ED Additional Instructions: Please follow-up with orthopedics, I will place the referral You may apply diclofenac gel topically and take Tylenol [id number] Wear your brace as needed for discomfort Please return earlier should you have chest pain, worsening shortness of breath, increased swelling or redness Referrals: Sekou Pruitt MD [ [facility] STAFF PHYSICIAN, Orthopaedic Surgical] HPI General Date/Time Provider Initiated Documentation: 02/25/25 09:16. HPI Narrative: This 89-year-old female with history of SI dysfunction hyperlipidemia hypertension presents with left knee pain over the past several weeks states knee feels tight she is having some difficulty ambulating secondary to this. She denies any chest pain or shortness of breath. She denies prior history of blood clots. She denies any fever or chills or known trauma to the affected area. She has had a prior right knee replacement per patient. Denies any recent tick bites. Did not take any of her medications prior to arrival. Related Data Home Medications ?Medication ?Instructions ?Recorded ?Confirmed Jeri's Butter See Rx Instructions topical PRN 12/16/18 02/25/25 cholecalciferol (vitamin D3) 25 5,000 unit PO DAILY 12/16/18 02/25/25 mcg (1,000 unit) capsule magnesium oxide 500 mg PO wkly PRN 03/07/22 02/25/25 acetaminophen 325 mg tablet 325 mg PO ONCE PRN 03/21/22 02/25/25 aspirin 81 mg tablet,delayed 81 mg PO DAILY 09/10/22 02/25/25 release (Adult Low Dose Aspirin) lidocaine 5 % topical patch 1 patch topical DAILY #30 ea 03/12/23 02/25/25 albuterol sulfate 90 mcg/actuation 2 puff inhalation QID PRN 02/24/24 02/25/25 aerosol inhaler (Ventolin HFA) shortness of breath or wheezing #8.5 grams mupirocin 2 % topical ointment 1 applic topical BID #22 grams 02/24/24 02/25/25 irbesartan 150 mg tablet 150 mg PO DAILY #90 tabs 06/22/24 02/25/25 diclofenac sodium 1 % topical gel 4 g topical QID #100 grams 08/10/24 02/25/25 diphenoxylate-atropine 2.5 1 tab PO DAILY diarrhea #90 tabs 08/10/24 02/25/25 mg-0.025 mg tablet (Lomotil) omega 6-hqd-qot-fish oil 1,200 mg 1 cap PO DAILY 10/07/24 02/25/25 (144 mg-216 mg) capsule (Fish Oil) hydrochlorothiazide 12.5 mg tablet 12.5 mg PO DAILY #90 tabs 01/29/25 02/25/25 mirtazapine 7.5 mg tablet 7.5 mg PO QHS #30 tabs 02/08/25 02/25/25 cephalexin 500 mg capsule 500 mg PO BID #14 caps 02/12/25 02/25/25 diclofenac sodium 1 % topical gel 4 g topical QID #100 grams 02/25/25 prednisone 20 mg tablet 40 mg (2 x 20 mg) PO ONCE #10 tabs 02/25/25 Previous Rx's ?Medication ?Instructions ?Recorded lidocaine 5 % topical patch 1 patch topical DAILY #30 ea 03/12/23 albuterol sulfate 90 mcg/actuation 2 puff inhalation QID PRN 02/24/24 aerosol inhaler (Ventolin HFA) shortness of breath or wheezing #8.5 grams mupirocin 2 % topical ointment 1 applic topical BID #22 grams 02/24/24 irbesartan 150 mg tablet 150 mg PO DAILY #90 tabs 06/22/24 diclofenac sodium 1 % topical gel 4 g topical QID #100 grams 08/10/24 diphenoxylate-atropine 2.5 1 tab PO DAILY diarrhea #90 tabs 08/10/24 mg-0.025 mg tablet (Lomotil) hydrochlorothiazide 12.5 mg tablet 12.5 mg PO DAILY #90 tabs 01/29/25 mirtazapine 7.5 mg tablet 7.5 mg PO QHS #30 tabs 02/08/25 cephalexin 500 mg capsule 500 mg PO BID #14 caps 02/12/25 diclofenac sodium 1 % topical gel 4 g topical QID #100 grams 02/25/25 prednisone 20 mg tablet 40 mg (2 x 20 mg) PO ONCE #10 tabs 02/25/25 Allergies Allergy/AdvReac Type Severity Reaction Status Date / Time cilostazol Allergy Severe Psychosis Verified 02/25/25 09:03 mesalamine Allergy Intermediate HIVES Verified 02/25/25 09:03 rosuvastatin Allergy Intermediate Skin Rash Verified 02/25/25 09:03 latex Allergy Mild SKIN RASH Verified 02/25/25 09:03 amlodipine Allergy Unknown Swelling/Ed Verified 02/25/25 09:03 nic oxaprozin Allergy Unknown unknown Verified 02/25/25 09:03 tetracycline Allergy Unknown unknown Verified 02/25/25 09:03 morphine AdvReac Severe headaches, Verified 02/25/25 09:03 vomiting codeine AdvReac Intermediate H/A Verified 02/25/25 09:03 losartan AdvReac Intermediate Cardiac Verified 02/25/25 09:03 Dysrhythmia Sulfa (Sulfonamide AdvReac Intermediate NAUSEA Verified 02/25/25 09:03 Antibiotics) esomeprazole magnesium (From AdvReac Mild H/A Verified 02/25/25 09:03 Nexium) General Stated Complaint: Vascular REFUGIO: 4 Exam Narrative Exam Narrative: This 89-year-old female is alert and oriented she is in no acute distress her left knee is swollen and she has some mild calf swelling and tenderness, her distal pulses are intact she has no swelling in her upper leg her rhythm is a regular her lungs are clear to auscultation pupils equal round reactive to light and accommodation lungs clear to auscultation Course Vital Signs Vital signs: Vital Signs Temperature 36.6 C 02/25/25 09:00 Pulse 91 H 02/25/25 09:00 Respiratory Rate 10 L 02/25/25 09:00 Blood Pressure 171/110 H 02/25/25 09:00 Pulse Oximetry 94 02/25/25 09:00 Temperature 36.6 C 02/25/25 09:00 Temperature Source Oral 02/25/25 09:00 Pulse 88 02/25/25 12:35 Pulse Rhythm Irregular 02/25/25 10:26 Pulse 96 H 02/25/25 12:10 Respiratory Rate 26 H 02/25/25 12:10 Respiratory Effort Normal 02/25/25 10:26 Respiratory Depth Normal 02/25/25 10:26 Blood Pressure 148/120 H 02/25/25 12:35 Blood Pressure Mean 101 02/25/25 11:01 Blood Pressure Position Sitting 02/25/25 09:00 Pulse Oximetry 96 02/25/25 12:35 Oxygen Delivery Method Room Air 02/25/25 10:26 Oxygen Flow Rate 0 02/25/25 10:26 Pain Level 7 02/25/25 10:26 Comment irregular HR 02/25/25 09:23 Lab/Test Results Lab/Test Results: Laboratory Tests Range/Units 02/25/25 09:37 WBC (4.4-10.8) 10^3/uL 6.43 RBC (3.93-5.22) 10^6/uL 4.03 Hgb (11.2-15.7) g/dL 11.5 Hct (36.0-46.0) % 36.8 MCV (80-95) fL 91 MCH (27.0-33.0) pg 28.5 MCHC (32.0-36.0) % 31.3 L RDW (11.7-14.6) % 13.2 Plt Count (130-400) 10^3/uL 362 MPV (8.0-11.0) fL 8.8 Immature Gran % % 0.2 Neutrophils % % 70.0 Lymphocytes % % 18.8 Monocytes % % 9.3 Eosinophils % % 1.4 Basophils % % 0.3 Nucleated RBC % (0.0-0.3) % 0.0 Absolute Neutrophils (1.2-6.7) 10^3/uL 4.50 Absolute Lymphocytes (1.2-3.4) 10^3/uL 1.21 Absolute Monocytes (0.1-0.8) 10^3/uL 0.60 Absolute Eosinophils (0.0-0.7) 10^3/uL 0.09 Absolute Basophils (0.0-0.2) 10^3/uL 0.02 Sodium (136-145) mmol/L 139 Potassium (3.5-5.1) mmol/L 3.5 Chloride (98-107) mmol/L 101 Carbon Dioxide (21.0-32.0) mmol/L 31.6 Anion Gap (3-11) mmol/L 6.4 BUN (7-18) mg/dL 28 H Creatinine (0.55-1.02) mg/dL 0.9 Est GFR (CKD-EPI 2020) (mL/min/1.73m2) 61.49 Glucose (74-106) mg/dL 114 H Uric Acid (2.6-6.0) mg/dL 7.1 H Calcium (8.5-10.1) mg/dL 9.4 Magnesium (1.8-2.4) mg/dL 1.9 Total Bilirubin (0.2-1.0) mg/dL 0.5 AST (15-37) U/L 19 ALT (14-59) U/L 16 Alkaline Phosphatase (46-116) U/L 90 C-Reactive Protein (<or=0.5) mg/dL 8.75 H Total Protein (6.4-8.2) g/dL 7.7 Albumin (3.4-5.0) g/dL 2.8 L TSH (0.36-3.74) uIU/mL 2.02 Medical Decision Making Results: Ultrasound of the patient's leg does not show evidence of acute abnormality per radiology interpretation of my review, there is a Blanco's cyst that is quite large 9 cm x 4 x 2. X-ray shows significant degenerative changes with significant narrowing of the knee. Labs do not show significant acute abnormality CBC and chemistries are within normal limits, uric acid is mildly elevated as is CRP I do not see evidence of infectious process clinically Assessment and plan: Patient is alert and oriented she is in no significant acute distress I did review the Blanco's cyst and severe degenerative changes and have referred patient to orthopedics for consultation and further intervention at their request. She may need PT as well. I have given her steroids for a few days and placed her in a hinged knee brace for comfort. We did review all labs and she is encouraged to be reevaluated in 24 to 48 hours. Should her symptoms worsen she is encouraged to return immediately. There is no evidence of a DVT on her studies today. Quality:SDOH Health Related Social Needs: Health related social needs lonely/isolated PFSH All Active Problems (Updated 02/25/25 @ 12:26 by JAVI Petit) Acute knee pain (Acute) Blanco's cyst (Acute) Fatigue (Acute) Sebaceous hyperplasia of face (Acute) Spinal stenosis of lumbar region (Acute) SI (sacroiliac) joint dysfunction (Acute) Lumbar spondylosis (Acute) Fall (Acute) Left wrist pain (Acute) Hyperuricemia (Acute) Orthopnea (Acute) Asthma (Chronic) Nocturnal hypoxia (Acute) Multinodular thyroid (Acute) Palpitations (Acute) COLVIN (dyspnea on exertion) (Acute) Lesion of skin of nose (Acute) Collagenous colitis (Acute) Anxiety (Acute) Cervical radiculopathy (Acute 05/10/15) 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 per Xray-10/07=right foot 1st MTP; left hand Hyperlipidemia (Acute) Lumbago (Acute) scoliosis and DJD 03/10-xray Varicose veins of lower extremity (Acute) Essential tremor (Acute) she wishes to hold off on any interventions for now Primary osteoarthritis of left knee (Chronic) Most recent Depo-Medrol injection: 08/26/20; 03/25/20; 10/16/19; 06/18/2019 Medical History Rash Lip lesion Diarrhea SOB (shortness of breath) Thyroid nodule Chest pain Chills (without fever) Chest pain, atypical Groin rash Pain in upper jaw Facial pain Abdominal pain Protracted diarrhea (09/18/13) 09/05 [facility] colonoscopy ?colitis 08/06 colonoscopy normal ?bacterial overgrowth 09/2015 collagenous collitis Dysphagia, unspecified (09/02/17) Epilepsy (11/30/10) pt. 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 Mohs at [facility] Hyperlipidemia 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 Anxiety Osteoporosis Osteoarthritis of knees, bilateral Lower back pain Synovitis of hand Cellulitis of left hand Surgical History History of cataract surgery History of colonoscopy Status post left foot surgery Hallux valgus Status post surgical removal of ganglion cyst RMF History of shoulder surgery Right bursa and excision of bone spurs Status post phlebectomy Left leg vein excision Abdominal hysterectomy EGD - IV Sedation Bladder Surgery (~07/2008) sling and reconstruction for uterine prolapse and cystocele Appendectomy Family History Mother Heart disease Hyperlipidemia Father Essential hypertension Heart disease Hyperlipidemia Sister Essential hypertension Heart disease Hyperlipidemia Brother Essential hypertension Heart disease Hyperlipidemia Brother Personal history of malignant neoplasm Brother Heart disease Stroke Brother Essential hypertension Heart disease Hyperlipidemia Brother Essential hypertension Heart disease Hyperlipidemia Stroke Son Hyperlipidemia Daughter Diabetes Hyperlipidemia COPD (chronic obstructive pulmonary disease) Daughter No problems noted. Social History (Updated 02/08/25 @ 16:07 by Maricel Branham) Smoking/Tobacco Use Status: Never Second Hand Exposure: Yes Smoking risk assessment performed?: Yes Alcohol Intake: never Drug use: Never Substance use type: does not use Counseling given: No Adopted: No Caregiver/Support person: Yes Household members: none Housing: other Details: MOBILE HOME Number of Children: 3 number of grandchildren: 7 Communication Needs: Hard of Hearing and Corrective Lenses Education Level: high school Do you need help understanding health information?: Rarely current occupation: RETIRED Sexually active: No Do you think of yourself as: straight/heterosexual Current gender identity: female What is your relationship status?: How often do you talk on the phone with friends or family?: decline to answer How often do you get together with friends or relatives?: decline to answer How often do you attend restorationist or yazidism services?: decline to answer Do you belong to any clubs or organized social groups?: no Panel score (0-1 are the most socially isolated patients): 0 What type of physical activity do you participate in: other Details: [place] outside, mow lawn with riding mower, get groceries Duration: 60-90 minutes/day Frequency: 1-2 times per week Naz/Buddhist: Bahai Special naz needs: No Agree to transfusion: Yes Seatbelt use: always Drive intox or ride w/intox refrigerated company driver: No Working smoke detector in home: Yes Carbon monox detector in home: Yes Firearms in home: Yes Firearms unloaded and locked: No (unloaded, not locked) Do you feel safe at home: Yes Victim of physical abuse: No Victim of emotional abuse: No Victim of sexual abuse: No Would you like helpful sources: No
== END 2025-02-25 12:56 | disposition home or self-care (01) ==
PROVIDERS: Emergency Provider Physician Assistant; PCP Nurse Practitioner Family
DX: M25.562 Pain in left knee (principal); M71.22 Synovial cyst of popliteal space [Baker], left knee; I10 Essential (primary) hypertension; E78.5 Hyperlipidemia, unspecified; Z79.82 Long term (current) use of aspirin
CPT/HCPCS: 36415; 73562; 80053; 93005; 99284; 83735; 84443; 84550; 85025; 86140; 93010; 93971

== ENCOUNTER → 2025-03-18 08:17 | Outpatient (BNVA) | payer MEDICARE, SELFPAY | PROVIDERS: PCP Nurse Practitioner Family; Referring Provider Nurse Practitioner Family; Visit Provider Physician Assistant | DX: M17.12 Unilateral primary osteoarthritis, left knee (principal) | CPT/HCPCS: 20610; J1010 ==

== ENCOUNTER 2025-03-23 07:36 | Emergency (ER) | payer MEDICARE, SELFPAY ==
[2025-03-23 07:43] VITALS: BP 177/82; PULSE 115; RESP 12; TEMP 36.8; O2SAT 97
--- NOTE | 2025-03-23 08:15 | DI.RAD_ITS ---
Exam(s) XR CHEST 2V PA LATERAL EXAM: XR CHEST 2V PA LATERAL CLINICAL HISTORY: left crackles TECHNIQUE: 2D digital imaging was performed of the chest. Two images were obtained. PA and lateral views were obtained. COMPARISON: CR,XR XR CHEST 2V PA LATERAL from 04/12/2023 CR,XR XR CHEST 2V PA LATERAL from 01/16/2025 FINDINGS: MEDIASTINUM: Normal. HEART: Normal. PULMONARY VASCULATURE: Normal. There is tortuosity of the thoracic aorta. LUNGS: There are no focal consolidating infiltrates. PLEURAL SPACE: No pleural effusion or pneumothorax. BONE:Within normal limits for the patient's age. OTHER FINDINGS:Normal. IMPRESSION: No acute pulmonary findings. DATA REPOSITORY: RADIATION DOSE DELIVERED:
[2025-03-23] MEDS: oxyCODONE 5 MG TAB 2.5 MG PO (08:36)
[2025-03-23] MEDS: Dexamethasone 4 MG/ML VIAL IVP (08:36)
[2025-03-23] MEDS: Normal Saline 500 ML IV (08:37)
[2025-03-23 08:58] LABS: Glucose Negative (Negative)
--- NOTE | 2025-03-23 09:00 | DI.RAD_ITS ---
Exam(s) XR FOOT LT COMPLETE EXAM: XR FOOT LT COMPLETE CLINICAL HISTORY: pain lateral foot. TECHNIQUE: 2D digital imaging was performed of the left foot. Three images were obtained. AP, oblique and lateral views were obtained. COMPARISON: No exams were available for comparison FINDINGS: BONES: There is a healing minimally displaced fracture of the mid shaft of the proximal phalanx of the 4th toe. Callus formation is seen about the fracture. No bony destructive lesion is seen. There is a small plantar calcaneal spur. JOINTS: No dislocation present. Degenerative changes are seen in the foot particularly the interphalangeal joints of the toes. There is a hallux valgus deformity. There is flattening of the head of the 3rd metatarsal which may reflect an avascular necrosis. SOFT TISSUE: Atherosclerotic calcification is present. IMPRESSION: 1. Subacute mildly displaced healing fracture of the proximal phalanx of the 4th toe. 2. Degenerative changes of the left foot. DATA REPOSITORY: RADIATION DOSE DELIVERED:
--- NOTE | 2025-03-23 09:00 | DI.RAD_ITS ---
Exam(s) XR HAND LT COMPLETE EXAM: XR HAND LT COMPLETE CLINICAL HISTORY: pain 1st mcp and 2 nd mcp. TECHNIQUE: 2D digital imaging was performed of the left hand. Three views were obtained. AP, lateral and oblique views were obtained. COMPARISON: CR,XR XR HAND LT COMPLETE from 04/12/2023 FINDINGS: BONES: No acute fracture is present. No bony destructive lesion is seen. JOINTS: No dislocation present. There again seen advanced arthritic changes throughout the hand characterized by joint space narrowing and osteophytes. Subluxations are also present at the 1st CMC joint and the interphalangeal joint of the 3rd finger. There is joint space narrowing and bony productive change seen at the 2nd and 3rd metacarpophalangeal joints. There is chondrocalcinosis seen at the ulnar carpal joint space. SOFT TISSUE: Normal. IMPRESSION: 1. There is no acute fracture. 2. Advanced arthritis of the left hand. DATA REPOSITORY: RADIATION DOSE DELIVERED:
[2025-03-23 09:12] LABS: C & S Indicated? No; WBC Negative HPF (0-5)
[2025-03-23 09:38] LABS: Abs Immature Grans 0.06 10^3/uL (0.0-0.06); HCT 38.0 % (36.0-46.0); HGB 12.2 g/dL (11.2-15.7); Immature Grans % 0.6 %; MCH 28.7 pg (27.0-33.0); MCHC 32.1 % (32.0-36.0); MCV 89 fL (80-95); MPV 8.9 fL (8.0-11.0); Platelet Count 343 10^3/uL (130-400); RBC 4.25 10^6/uL (3.93-5.22); RDW 14.2 % (11.7-14.6); RDW-SD 46.3 fL; WBC 9.56 10^3/uL (4.4-10.8)
[2025-03-23 09:39] LABS: COVID-19 PCR Negative (Negative); RSV PCR Negative (Negative)
[2025-03-23 09:45] LABS: ESR 95 mm/hr (0-30)
--- NOTE | 2025-03-23 09:48 | W.ED.GENAD ---
Discharge Plan Disposition Patient Disposition: Home Discharge Details Clinical Impression: Polyarthralgia, Gout attack Primary Care Provider: Fco Montes ED Provider: Cathy Castelan Home Meds and New Rx's Prescriptions: New colchicine 0.6 mg tablet 0.6 mg PO DAILY Qty: 9 0RF Rx Instructions: take 1.2 mg colchicine followed by 0.6 mg every 4 days as needed for pain prednisone 20 mg tablet 40 mg PO DAILY Qty: 17 0RF Continued cholecalciferol (vitamin D3) 1,000 unit capsule 5,000 unit PO DAILY Jeri's Butter See Rx Instructions topical PRN Patient Comments: 12/16/18 Hemp with Arnica, si Rx Instructions: 1 application topical as needed; lidocaine 5 % adhesive patch,medicated 1 patch topical DAILY Qty: 30 2RF Rx Instructions: leave on most painful area for up to 12 hrs mirtazapine 7.5 mg tablet 7.5 mg PO QHS Qty: 30 0RF mupirocin 2 % ointment 1 applic topical BID Qty: 22 0RF albuterol sulfate [Ventolin HFA] 90 mcg/actuation HFA aerosol inhaler 2 puff inhalation QID PRN (Reason: shortness of breath or wheezing) Qty: 8.5 2RF amoxicillin-pot clavulanate 875-125 mg tablet 1 tab PO BID Qty: 20 0RF acetaminophen 325 mg tablet 325 mg PO ONCE PRN aspirin [Adult Low Dose Aspirin] 81 mg tablet,delayed release (DR/EC) 81 mg PO DAILY diclofenac sodium 1 % gel 4 g topical QID Qty: 100 0RF Rx Instructions: apply to SI joints QID prn cephalexin 500 mg capsule 500 mg PO BID Qty: 14 0RF magnesium oxide 250 mg magnesium tablet 500 mg PO wkly PRN irbesartan 150 mg tablet 150 mg PO DAILY Qty: 90 4RF Rx Instructions: dose increase diphenoxylate-atropine [Lomotil] 2.5-0.025 mg tablet 1 tab PO DAILY Qty: 90 1RF omega 5-jyn-irs-fish oil [Fish Oil] 1,200 (144-216) mg capsule 1 cap PO DAILY Discontinued hydrochlorothiazide 12.5 mg tablet 12.5 mg PO DAILY Qty: 90 3RF Discharge Instructions Instructions: Gout ED Additional Instructions: You may take 2 tablets followed by 1 tablet an hour later if your still having symptoms in 4 days, you may repeat this every 4 days start on prednisone if the pain returns and take the full 14 days follow-up with pcp this week i've place a referral to [facility] rheumatology for recheck given recurrence of gout Please return with worsening pain, persistent fever, or should any new concerns arise Referrals: Fco Montes NP [Primary Care Provider, Medicine] HPI General Date/Time Provider Initiated Documentation: 03/23/25 07:40. HPI Narrative: This 89-year-old female with a history of gout SI joint dysfunction hyperlipidemia hypertension presents with reports of left 1st and 2nd MCP joint pain and right foot pain. She states she was evaluated at Ortho previously for a steroid injection was on oral prednisone secondary to the hand pain and concern for gout. She states her pain completely resolved while she was on the prednisone she has been off for 3 days and the pain has dramatically worsened in the same locations. She has had chills and generally feels unwell. She denies any chest pain or shortness of breath. She has any known sick contacts. She denies any additional rashes or lesions. She has been taking Tylenol without relief of symptoms. There is a urinary component of symptoms. Related Data Home Medications ?Medication ?Instructions ?Recorded ?Confirmed Jeri's Butter See Rx Instructions topical PRN 12/16/18 03/23/25 cholecalciferol (vitamin D3) 25 5,000 unit PO DAILY 12/16/18 03/23/25 mcg (1,000 unit) capsule magnesium oxide 500 mg PO wkly PRN 03/07/22 03/23/25 acetaminophen 325 mg tablet 325 mg PO ONCE PRN 03/21/22 03/23/25 aspirin 81 mg tablet,delayed 81 mg PO DAILY 09/10/22 03/23/25 release (Adult Low Dose Aspirin) lidocaine 5 % topical patch 1 patch topical DAILY #30 ea 03/12/23 03/23/25 albuterol sulfate 90 mcg/actuation 2 puff inhalation QID PRN 02/24/24 03/23/25 aerosol inhaler (Ventolin HFA) shortness of breath or wheezing #8.5 grams mupirocin 2 % topical ointment 1 applic topical BID #22 grams 02/24/24 03/23/25 diclofenac sodium 1 % topical gel 4 g topical QID #100 grams 03/10/25 10/21/25 omega 2-oud-gqe-fish oil 1,200 mg 1 cap PO DAILY 10/07/24 03/23/25 (144 mg-216 mg) capsule (Fish Oil) mirtazapine 7.5 mg tablet 7.5 mg PO QHS #30 tabs 02/08/25 03/23/25 cephalexin 500 mg capsule 500 mg PO BID #14 caps 02/12/25 03/23/25 irbesartan 150 mg tablet 150 mg PO DAILY #90 tabs 03/15/25 03/23/25 diphenoxylate-atropine 2.5 1 tab PO DAILY diarrhea #90 tabs 03/16/25 03/23/25 mg-0.025 mg tablet (Lomotil) amoxicillin 875 mg-potassium 1 tab PO BID #20 tabs 03/22/25 03/23/25 clavulanate 125 mg tablet colchicine 0.6 mg tablet 0.6 mg PO DAILY #9 tabs 03/23/25 prednisone 20 mg tablet 40 mg (2 x 20 mg) PO DAILY #17 tabs 03/23/25 Previous Rx's ?Medication ?Instructions ?Recorded lidocaine 5 % topical patch 1 patch topical DAILY #30 ea 03/12/23 albuterol sulfate 90 mcg/actuation 2 puff inhalation QID PRN 02/24/24 aerosol inhaler (Ventolin HFA) shortness of breath or wheezing #8.5 grams mupirocin 2 % topical ointment 1 applic topical BID #22 grams 02/24/24 diclofenac sodium 1 % topical gel 4 g topical QID #100 grams 08/10/24 mirtazapine 7.5 mg tablet 7.5 mg PO QHS #30 tabs 02/08/25 cephalexin 500 mg capsule 500 mg PO BID #14 caps 02/12/25 irbesartan 150 mg tablet 150 mg PO DAILY #90 tabs 03/15/25 diphenoxylate-atropine 2.5 1 tab PO DAILY diarrhea #90 tabs 03/16/25 mg-0.025 mg tablet (Lomotil) amoxicillin 875 mg-potassium 1 tab PO BID #20 tabs 03/22/25 clavulanate 125 mg tablet colchicine 0.6 mg tablet 0.6 mg PO DAILY #9 tabs 03/23/25 prednisone 20 mg tablet 40 mg (2 x 20 mg) PO DAILY #17 tabs 03/23/25 Allergies Allergy/AdvReac Type Severity Reaction Status Date / Time cilostazol Allergy Severe Psychosis Verified 03/23/25 07:48 mesalamine Allergy Intermediate HIVES Verified 03/23/25 07:48 rosuvastatin Allergy Intermediate Skin Rash Verified 03/23/25 07:48 latex Allergy Mild SKIN RASH Verified 03/23/25 07:48 amlodipine Allergy Unknown Swelling/Ed Verified 03/23/25 07:48 nic oxaprozin Allergy Unknown unknown Verified 03/23/25 07:48 tetracycline Allergy Unknown unknown Verified 03/23/25 07:48 morphine AdvReac Severe headaches, Verified 03/23/25 07:48 vomiting codeine AdvReac Intermediate H/A Verified 03/23/25 07:48 losartan AdvReac Intermediate Cardiac Verified 03/23/25 07:48 Dysrhythmia Sulfa (Sulfonamide AdvReac Intermediate NAUSEA Verified 03/23/25 07:48 Antibiotics) esomeprazole magnesium (From AdvReac Mild H/A Verified 03/23/25 07:48 Nexium) General Stated Complaint: Orthopedic REFUGIO: 3 Exam Narrative Exam Narrative: Alert and oriented 89-year-old female appears uncomfortable pupils are equal and reactive to light and accommodation no meningismus lungs with crackles at base of left lung cardiac rate rhythm regular no abdominal tenderness swelling and mild pink discoloration noted over 1st and 2nd MCP joints tenderness over right MTP, no warmth or redness noted. Neurovascularly intact all 4 extremities Course Vital Signs Vital signs: Vital Signs Temperature 36.8 C 03/23/25 07:43 Pulse 115 H 03/23/25 07:43 Respiratory Rate 12 03/23/25 07:43 Blood Pressure 177/82 H 03/23/25 07:43 Pulse Oximetry 97 03/23/25 07:43 Temperature 36.8 C 03/23/25 07:43 Temperature Source Oral 03/23/25 07:43 Pulse 115 H 03/23/25 07:43 Respiratory Rate 12 03/23/25 07:43 Blood Pressure 177/82 H 03/23/25 07:43 Blood Pressure Position Sitting 03/23/25 07:43 Pulse Oximetry 97 03/23/25 07:43 Oxygen Delivery Method Room Air 03/23/25 07:43 Oxygen Flow Rate 0 03/23/25 07:43 Lab/Test Results Lab/Test Results: 03/23/25 09:25 Blood Blood Culture - Pending 03/23/25 09:08 Blood Blood Culture - Pending Laboratory Tests Range/Units 03/23/25 03/23/25 08:46 09:25 WBC (4.4-10.8) 10^3/uL 9.56 RBC (3.93-5.22) 10^6/uL 4.25 Hgb (11.2-15.7) g/dL 12.2 Hct (36.0-46.0) % 38.0 MCV (80-95) fL 89 MCH (27.0-33.0) pg 28.7 MCHC (32.0-36.0) % 32.1 RDW (11.7-14.6) % 14.2 Plt Count (130-400) 10^3/uL 343 MPV (8.0-11.0) fL 8.9 Immature Gran % % 0.6 Neutrophils % % 76.0 Lymphocytes % % 12.9 Monocytes % % 10.1 Eosinophils % % 0.2 Basophils % % 0.2 Nucleated RBC % (0.0-0.3) % 0.0 Absolute Neutrophils (1.2-6.7) 10^3/uL 7.26 H Absolute Lymphocytes (1.2-3.4) 10^3/uL 1.23 Absolute Monocytes (0.1-0.8) 10^3/uL 0.97 H Absolute Eosinophils (0.0-0.7) 10^3/uL 0.02 Absolute Basophils (0.0-0.2) 10^3/uL 0.02 ESR (0-30) mm/hr 95 H VBG Lactate (<or=2.0) mmol/L 1.1 Urine Color (Yellow) Yellow Urine Clarity (Clear) Sl Cloudy Urine pH (5-8) 5.5 Ur Specific [place] (1.005-1.025) 1.020 Urine Protein (Neg-Trace) mg/dL 100 H Urine Ketones (Negative) mg/dL Negative Urine Blood (Negative) Small H Urine Nitrite (Negative) Negative Urine Bilirubin (Negative) Negative Urine Urobilinogen (Up to 0.2) mg/dL 0.2 Ur Leukocyte Esterase (Negative) Negative Urine RBC (0-2) HPF 3-5 H Urine WBC (0-5) HPF Negative Ur Epithelial Cells (Negative) HPF Few Urine Crystals (Negative) HPF Negative Urine Bacteria (Negative) HPF Negative Urine Casts (Negative) LPF 3-5 Hyaline Urine Mucus (Negative) Trace Ur Culture Indicated? No Urine Glucose (Negative) mg/dL Negative COVID-19 Source Nasopharynx SARS-CoV-2 (PCR) (Negative) Negative Influenza Type A (PCR) (Negative) Negative Influenza Type B (PCR) (Negative) Negative RSV (PCR) (Negative) Negative Medical Decision Making Results: Chest x-ray per radiology interpretation my review does not show acute abnormality, left hand with advanced arthritis, right foot with swelling and tenderness neurovascularly intact, CBC and chemistry reassuring, mild elevation in BUN. CRP of 9 sed rate of 95 not significantly changed from prior uric acid 7.1 similar to prior lactate within normal limits Assessment and plan: Patient presenting polyarthralgia fever, no leukocytosis and labs except for inflammatory markers which are likely secondary to acute gouty flare, are negative. Low concern clinically for infectious etiology. Case discussed with Dr. Pruitt, orthopedics he recommends colchicine prescription for home with 2 weeks of prednisone if her symptoms recur. Reassessment of ultrasound administration 1.2 followed by 0.6 mg, your pain has completely resolved. She will need close outpatient follow-up with her primary care physician and I will also prescribe referral to rheumatology as she mayneed to be on a prophylactic medication. She is also encouraged to stop her hydrochlorothiazide as discussed. Return precautions reviewed and patient expressed understanding, recheck next week primary care physician encouraged. Encouraged to drink at least 88 ounces of water daily Quality:SDOH Health Related Social Needs: Health related social needs lonely/isolated PFSH All Active Problems (Updated 03/23/25 @ 11:47 by JAVI Petit) Gout attack (Acute) Polyarthralgia (Acute) Joint pain (Acute) Fever (Acute) Acute knee pain (Acute) Blanco's cyst (Acute) Fatigue (Acute) Sebaceous hyperplasia of face (Acute) Spinal stenosis of lumbar region (Acute) SI (sacroiliac) joint dysfunction (Acute) Lumbar spondylosis (Acute) Fall (Acute) Left wrist pain (Acute) Hyperuricemia (Acute) Orthopnea (Acute) Asthma (Chronic) Nocturnal hypoxia (Acute) Multinodular thyroid (Acute) Palpitations (Acute) COLVIN (dyspnea on exertion) (Acute) Lesion of skin of nose (Acute) Collagenous colitis (Acute) Anxiety (Acute) Cervical radiculopathy (Acute 05/10/15) 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 per Xray-10/07=right foot 1st MTP; left hand Hyperlipidemia (Acute) Lumbago (Acute) scoliosis and DJD 03/10-xray Varicose veins of lower extremity (Acute) Essential tremor (Acute) she wishes to hold off on any interventions for now Primary osteoarthritis of left knee (Chronic) Most recent Depo-Medrol injection: 03/18/25; 08/26/20; 03/25/20; 10/16/19; 06/18/2019 Medical History Rash Lip lesion Diarrhea SOB (shortness of breath) Thyroid nodule Chest pain Chills (without fever) Chest pain, atypical Groin rash Pain in upper jaw Facial pain Abdominal pain Protracted diarrhea (09/18/13) 09/05 [facility] [place] colonoscopy ?colitis 08/06 colonoscopy normal ?bacterial overgrowth 09/2015 collagenous collitis Dysphagia, unspecified (09/02/17) Epilepsy (11/30/10) pt. 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 Mohs at [facility] [place] Hyperlipidemia 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 Anxiety Osteoporosis Osteoarthritis of knees, bilateral Lower back pain Synovitis of hand Cellulitis of left hand Surgical History History of cataract surgery History of colonoscopy Status post left foot surgery Hallux valgus Status post surgical removal of ganglion cyst RMF History of shoulder surgery Right bursa and excision of bone spurs Status post phlebectomy Left leg vein excision Abdominal hysterectomy EGD - IV Sedation Bladder Surgery (~07/2008) sling and reconstruction for uterine prolapse and cystocele Appendectomy Family History Mother Heart disease Hyperlipidemia Father Essential hypertension Heart disease Hyperlipidemia Sister Essential hypertension Heart disease Hyperlipidemia Brother Essential hypertension Heart disease Hyperlipidemia Brother Personal history of malignant neoplasm Brother Heart disease Stroke Brother Essential hypertension Heart disease Hyperlipidemia Brother Essential hypertension Heart disease Hyperlipidemia Stroke Son Hyperlipidemia Daughter Diabetes Hyperlipidemia COPD (chronic obstructive pulmonary disease) Daughter No problems noted. Social History (Updated 02/08/25 @ 16:07 by Maricel Branham) Smoking/Tobacco Use Status: Never Second Hand Exposure: Yes Smoking risk assessment performed?: Yes Alcohol Intake: never Drug use: Never Substance use type: does not use Counseling given: No Adopted: No Caregiver/Support person: Yes Household members: none Housing: other Details: MOBILE HOME Number of Children: 3 number of grandchildren: 7 Communication Needs: Hard of Hearing and Corrective Lenses Education Level: high school Do you need help understanding health information?: Rarely current occupation: RETIRED Sexually active: No Do you think of yourself as: straight/heterosexual Current gender identity: female What is your relationship status?: How often do you talk on the phone with friends or family?: decline to answer How often do you get together with friends or relatives?: decline to answer How often do you attend yazdanism or jehovah's witness services?: decline to answer Do you belong to any clubs or organized social groups?: no Panel score (0-1 are the most socially isolated patients): 0 What type of physical activity do you participate in: other Details: [place] outside, mow lawn with riding mower, get groceries Duration: 60-90 minutes/day Frequency: 1-2 times per week Naz/Congregational: Christian Special naz needs: No Agree to transfusion: Yes Seatbelt use: always Drive intox or ride w/intox route sales delivery drivers supervisor: No Working smoke detector in home: Yes Carbon monox detector in home: Yes Firearms in home: Yes Firearms unloaded and locked: No (unloaded, not locked) Do you feel safe at home: Yes Do you feel safe in your relationship?: Yes Victim of physical abuse: No Victim of emotional abuse: No Victim of sexual abuse: No Would you like helpful sources: No
[2025-03-23] MEDS: Colchicine 0.6 MG TAB PO (09:49)
[2025-03-23 10:04] LABS: ALT 21 U/L (14-59); AST 17 U/L (15-37); Albumin 3.1 g/dL (3.4-5.0); Alkaline Phosphatase 88 U/L (46-116); Anion Gap 9.6 mmol/L (3-11); BUN 29 mg/dL (7-18); Bilirubin, Total 0.8 mg/dL (0.2-1.0); C-Reactive Protein 9.89 mg/dL (<or=0.5); CO2 27.4 mmol/L (21.0-32.0); Calcium 9.4 mg/dL (8.5-10.1); Chloride 101 mmol/L (98-107); Estimated GFR 54.19 (mL/min/1.73m2); Glucose 113 mg/dL (74-106); Potassium 3.9 mmol/L (3.5-5.1); Sodium 138 mmol/L (136-145); Total Protein 8.0 g/dL (6.4-8.2); Uric Acid 7.1 mg/dL (2.6-6.0)
[2025-03-23] MEDS: Colchicine 0.6 MG TAB 1.2 MG PO (10:30)
[2025-03-23 12:31] VITALS: BP 185/126; PULSE 98; TEMP 36.2; O2SAT 95
[2025-03-24 10:54] LABS: Lyme Ab w Rflx to Lyme Confirm Negative (Negative)
[2025-03-26 01:29] LABS: B. miyamotoi PCR Negative (Negative); Babesia divergens/MO-1 Negative (Negative); Ehrlichia muris eauclairensis Negative (Negative)
== END 2025-03-23 12:38 | disposition home or self-care (01) ==
PROVIDERS: Emergency Provider Physician Assistant; PCP Nurse Practitioner Family
DX: M25.59 Pain in other specified joint (principal); M10.9 Gout, unspecified
CPT/HCPCS: 99284; 99285; 96374; 80053; 85652; 87040; 87637; 87798; 96361; 71046; 73130; 73630; 81003; 81015; 83605; 84550; 85025; 86140; 86431; 86618; J1100

== ENCOUNTER 2025-04-05 09:09 | Observation (INO) | payer MEDICARE, SELFPAY ==
[2025-04-05] VITALS (11 sets, daily range): BP systolic 122–190; BP diastolic 71–148; PULSE 85–113; RESP 16–23; TEMP 36.3–37.4; O2SAT 94–97
--- NOTE | 2025-04-05 09:00 | RT.EKG_ITS ---
APPROVED REPORT Exam: Resting ECG Reason for Exam: dizziness Patient Location: E HR:98 bpm ECG Measurements Heart Rate 98 AXIS MD 233 P 22 QRSd 73 QRS -23 QT 362 T 2 QTc 463 Conclusion Sinus rhythm...normal P axis, V-rate 60- 99 Supraventricular bigeminy...bigeminy string>4 w/ SV complexes Prolonged MD interval...MD >215, V-rate 91-120 No Occlusion AK. PACs versus Mobitz 2
--- NOTE | 2025-04-05 09:45 | DI.CT_ITS ---
Exam(s) CT THORAX ABD/PEL CTA EXAM: CT THORAX ABD/PEL CTA CLINICAL HISTORY: fall with gi bleeding/sob. TECHNIQUE: Imaging Protocol: Axial CT angiography was performed with multi- slice acquisition and multi-planar and/or 3D reconstructions. Lung Computer Aided Detection (CAD) was utilized. CONTRAST MATERIAL: Intravenous: Omnipaque 350 contrast volume:75 mL Oral: No COMPARISON: CT CT renal colic wo from 12/02/[address] CHEST PE CTA from 08/07/2024 FINDINGS: CHEST: Tracheobronchial tree: Patent where visualized. There is no evidence of bronchiectasis. Pulmonary parenchyma: No consolidation or dominant measurable mass. No architectural distortion. Pulmonary Arteries: No evidence of filling defect to suggest pulmonary emboli. Mediastinum and Mónica: No dominant adenopathy or fluid collection. The esophagus is unremarkable. Visualized thyroid: There is a 2 cm right thyroid nodule. Nonemergent thyroid ultrasound is recommended. Pleura: No effusion or pneumothorax. Heart: Mild cardiomegaly. There are coronary artery calcifications. No pericardial effusion. Aorta: The ascending thoracic aorta measures 3.9 x 4.0 cm. There is no evidence of dissection. Atherosclerotic calcification is present. Soft Tissues: Unremarkable. Bones: Within normal limits for the patient's age. ABDOMEN AND PELVIS: Abdomen: Celiac axis/mesenteric arteries: No evidence of occlusion or significant stenosis. There is atherosclerotic calcification at the origins of both the superior mesenteric in the celiac arteries but no significant stenosis is seen. Renal Arteries: No evidence of occlusion or significant stenosis. There is atherosclerosis at the origins of the renal arteries bilaterally with less than 50 percent stenosis. Aorta: No evidence of occlusion or significant stenosis. No aneurysm or dissection. Atherosclerotic calcification is present. Pelvis: Iliac Arteries: No evidence of occlusion or significant stenosis. Atherosclerotic calcification is present but no significant stenosis is seen. Common Femoral Arteries: No evidence of occlusion or significant stenosis. Atherosclerotic calcification is present but no significant stenosis is seen. ABDOMEN: Liver: Normal density. No measurable mass. Portal, superior mesenteric and splenic veins: Unremarkable. Gallbladder and Biliary Tract: No radiodense calculus or dilation. Pancreas: Normal density, no abnormal calcifications or inflammatory process. Spleen: Normal. Adrenals: Stable nodularity of the adrenal glands. Kidneys: Normal size, contour and axis. There is no obstructive uropathy. There is a right renal cyst. No follow-up is recommended. There are no suspicious renal masses. Bowel: No obstruction or bowel wall thickening. There is no evidence of appendicitis. Peritoneal Cavity: No ascites, collection or mesenteric inflammatory response. No free air. Lymph Nodes: Within normal limits. Bones: Within normal limits for the patient's age. There is a right convex thoracolumbar scoliosis. Soft Tissues: Unremarkable. PELVIS: Bladder: Symmetric distention, no gross wall thickening. Reproductive Organs: Status post hysterectomy. Lymph Nodes: Within normal limits. Bones: Within normal limits for the patient's age. IMPRESSION: 1. There is no acute abdominal or pelvic process. 2. No evidence of gastrointestinal hemorrhage. 3. There is no evidence of a pulmonary embolism or thoracic aortic dissection. 4. No evidence of an abdominal aortic aneurysm or dissection. 5. There is no acute pulmonary process. RADIATION DOSE DELIVERED: 734.62mGy.cm Total DLP DATA REPOSITORY: All CT scans at this facility are submitted to the National Radiology Data Registry (NRDR) Dose Index Registry (DIR) with the [employer] (ACR). RADIATION OPTIMIZATION: All CT scans at this facility use at least one of these dose optimization techniques: automated exposure control; mA and/or kV adjustment per patient size (includes targeted exams where dose is matched to clinical indication); or iterative reconstruction.
--- NOTE | 2025-04-05 09:45 | DI.CT_ITS ---
Exam(s) CT BRAIN NECK CTA EXAM: CT BRAIN NECK CTA CLINICAL HISTORY: dizziness, fx falls. TECHNIQUE: Imaging Protocol: Axial CT angiography was performed with multi- slice acquisition and multi-planar and/or 3D reconstructions. CONTRAST MATERIAL: Intravenous: Omnipaque 350 contrast volume:70 mL COMPARISON: There are no priors for comparison. FINDINGS: CT Head W/O and W: Ventricles and Extra axial spaces: Normal in size and morphology for the patient's age. Hemorrhage: None. Cerebral parenchyma: There are areas of decreased attenuation in the white matter consistent with chronic microvascular ischemic disease. There is no acute mass effect. Midline shift: None. Brainstem/Cerebellum: Normal. Calvarium: Normal. Visualized Paranasal sinuses/Mastoids: Clear. Soft Tissues: Unremarkable. Enhancement: Unremarkable. CTA Neck W: Common Carotid: There is mild atherosclerotic calcification in the carotid bulbs. Right: No dissection, occlusion or significant stenosis. Left: No dissection, occlusion or significant stenosis. Atherosclerotic calcification is seen in the common carotid artery. External Carotid: Right: No occlusion or significant stenosis. Left: No occlusion or significant stenosis. Internal Carotid: Right: No dissection, occlusion or significant stenosis. Left: No dissection, occlusion or significant stenosis. Vertebral Artery: Right: No dissection, occlusion or significant stenosis. Left: No dissection, occlusion or significant stenosis. Lung Apices: Normal. Bones: Within normal limits for the patient's age. There is a grade 1 anterolisthesis of C3 on C4 and C4 on C5 which are likely degenerative in nature. Facet arthropathy is seen at multiple levels throughout the cervical spine. Soft Tissues: Normal. Thyroid gland: There is a 2 cm hypodense right thyroid nodule. Nonemergent thyroid ultrasound is recommended for further evaluation. CTA Brain W: Internal Carotid Arteries: Atherosclerotic calcification is seen in the internal carotid arteries. There is no significant stenosis or aneurysm. No occlusion is seen. Anterior Cerebral Arteries: Right: No aneurysm, occlusion or significant stenosis. Left: No aneurysm, occlusion or significant stenosis. Middle Cerebral Arteries: Right: No aneurysm, occlusion or significant stenosis. Left: No aneurysm, occlusion or significant stenosis. Posterior Cerebral Arteries: Right: No aneurysm, occlusion or significant stenosis. Left: No aneurysm, occlusion or significant stenosis. Vertebral Arteries: Right: No aneurysm, occlusion or significant stenosis. Left: No aneurysm, occlusion or significant stenosis. Basilar Artery: No aneurysm, occlusion or significant stenosis. IMPRESSION: 1. No large vessel occlusion or significant stenosis on the CT angiography of the head. 2. No acute intracranial process. 3. No occlusion or significant stenosis on the CT angiography of the neck. 4. 2 cm right thyroid nodule. Nonemergent thyroid ultrasound is recommended for further evaluation. Unexpected findings RADIATION DOSE DELIVERED: 2,050.44mGy.cm Total DLP DATA REPOSITORY: All CT scans at this facility are submitted to the National Radiology Data Registry (NRDR) Dose Index Registry (DIR) with the [employer] (ACR). RADIATION OPTIMIZATION: All CT scans at this facility use at least one of these dose optimization techniques: automated exposure control; mA and/or kV adjustment per patient size (includes targeted exams where dose is matched to clinical indication); or iterative reconstruction.
[2025-04-05 10:12] LABS: Abs Immature Grans 0.02 10^3/uL (0.0-0.06); HCT 39.9 % (36.0-46.0); HGB 12.6 g/dL (11.2-15.7); Immature Grans % 0.3 %; MCH 28.7 pg (27.0-33.0); MCHC 31.6 % (32.0-36.0); MCV 91 fL (80-95); MPV 9.7 fL (8.0-11.0); Platelet Count 328 10^3/uL (130-400); RBC 4.39 10^6/uL (3.93-5.22); RDW 14.2 % (11.7-14.6); RDW-SD 47.8 fL; WBC 6.77 10^3/uL (4.4-10.8)
[2025-04-05 10:26] LABS: Glucose Negative (Negative)
[2025-04-05] MEDS: Omnipaque 350 MG/ML 100 ML BTL IJ ×2 (10:33→11:00)
[2025-04-05] MEDS: Normal Saline - Diluent 50 ML VIAL IJ ×2 (10:34→11:00)
[2025-04-05 10:35] LABS: Lipase 12 U/L (<78); Troponin I 51 ng/L (<or=51)
[2025-04-05 10:38] LABS: ALT 19 U/L (14-59); AST 22 U/L (15-37); Albumin 3.1 g/dL (3.4-5.0); Alkaline Phosphatase 90 U/L (46-116); Anion Gap 10.0 mmol/L (3-11); BUN 33 mg/dL (7-18); Bilirubin, Total 0.5 mg/dL (0.2-1.0); CO2 27.0 mmol/L (21.0-32.0); Calcium 9.2 mg/dL (8.5-10.1); Chloride 103 mmol/L (98-107); Glucose 97 mg/dL (74-106); Magnesium 1.9 mg/dL (1.8-2.4); Potassium 4.3 mmol/L (3.5-5.1); Sodium 140 mmol/L (136-145); TSH (W/Ref FT4) 1.90 uIU/mL (0.36-3.74); Total Protein 7.9 g/dL (6.4-8.2)
[2025-04-05 10:39] LABS: C & S Indicated? No; WBC Negative HPF (0-5)
--- NOTE | 2025-04-05 10:40 | W.ED.GENAD ---
Discharge Plan Discharge Details Chief Complaint: GI Bleed Primary Care Provider: Fco Montes ED Provider: Cathy Castelan Home Meds and New Rx's Prescriptions: No Action cholecalciferol (vitamin D3) 1,000 unit capsule 5,000 unit PO DAILY Jeri's Butter See Rx Instructions topical PRN Patient Comments: 12/16/18 Hemp with Arnica, si Rx Instructions: 1 application topical as needed; lidocaine 5 % adhesive patch,medicated 1 patch topical DAILY Qty: 30 2RF Rx Instructions: leave on most painful area for up to 12 hrs mirtazapine 7.5 mg tablet 7.5 mg PO QHS Qty: 30 0RF mupirocin 2 % ointment 1 applic topical BID Qty: 22 0RF albuterol sulfate [Ventolin HFA] 90 mcg/actuation HFA aerosol inhaler 2 puff inhalation QID PRN (Reason: shortness of breath or wheezing) Qty: 8.5 2RF acetaminophen 325 mg tablet 325 mg PO ONCE PRN aspirin [Adult Low Dose Aspirin] 81 mg tablet,delayed release (DR/EC) 81 mg PO DAILY diclofenac sodium 1 % gel 4 g topical QID Qty: 100 0RF Rx Instructions: apply to SI joints QID prn magnesium oxide 250 mg magnesium tablet 500 mg PO wkly PRN irbesartan 150 mg tablet 150 mg PO DAILY Qty: 90 4RF Rx Instructions: dose increase diphenoxylate-atropine [Lomotil] 2.5-0.025 mg tablet 1 tab PO DAILY Qty: 90 1RF colchicine 0.6 mg tablet 0.6 mg PO DAILY Qty: 9 0RF Rx Instructions: take 1.2 mg colchicine followed by 0.6 mg every 4 days as needed for pain prednisone 20 mg tablet 40 mg PO DAILY Qty: 17 0RF omega 5-uct-fii-fish oil [Fish Oil] 1,200 (144-216) mg capsule 1 cap PO DAILY HPI General Date/Time Provider Initiated Documentation: 04/05/25 09:12. HPI Narrative: This 89-year-old female with history of hypertension, gout, hypomagnesemia presents with weakness and bloody stool for the past 6 days. She states she has been taking 2 Aleve in the morning and at night her son is concerned that perhaps this is causing some of the irritation and bleeding. She was prescribed 2 doses of colchicine on 26 March and mild this alleviated her gout, she is wondering if this also could have precipitated this episode. She denies any prior history of GI bleed. She denies any anticoagulation. She has had some increased shortness of breath but denies any chest discomfort. She has a mild headache. She has had multiple falls but this is secondary to lightheadedness and some dizziness per patient. She states she has been feeling more weak in the past 2 days. She has had 8+ episodes of diarrhea daily denies recent antibiotics. Denies any head injury associated with the falls. Related Data Home Medications Medication Instructions Recorded Confirmed Jeri'prosper Butter See Rx Instructions topical PRN 12/16/18 03/26/25 cholecalciferol (vitamin D3) 25 5,000 unit PO DAILY 12/16/18 03/26/25 mcg (1,000 unit) capsule magnesium oxide 500 mg PO wkly PRN 03/07/22 03/26/25 acetaminophen 325 mg tablet 325 mg PO ONCE PRN 03/21/22 03/26/25 aspirin 81 mg tablet,delayed 81 mg PO DAILY 09/10/22 03/26/25 release (Adult Low Dose Aspirin) lidocaine 5 % topical patch 1 patch topical DAILY #30 ea 03/12/23 03/26/25 albuterol sulfate 90 mcg/actuation 2 puff inhalation QID PRN 02/24/24 03/26/25 aerosol inhaler (Ventolin HFA) shortness of breath or wheezing #8.5 grams mupirocin 2 % topical ointment 1 applic topical BID #22 grams 02/24/24 03/26/25 diclofenac sodium 1 % topical gel 4 g topical QID #100 grams 08/10/24 03/26/25 omega 1-bro-amt-fish oil 1,200 mg 1 cap PO DAILY 10/07/24 03/26/25 (144 mg-216 mg) capsule (Fish Oil) mirtazapine 7.5 mg tablet 7.5 mg PO QHS #30 tabs 02/08/25 03/26/25 irbesartan 150 mg tablet 150 mg PO DAILY #90 tabs 03/15/25 03/26/25 diphenoxylate-atropine 2.5 1 tab PO DAILY diarrhea #90 tabs 03/16/25 03/26/25 mg-0.025 mg tablet (Lomotil) colchicine 0.6 mg tablet 0.6 mg PO DAILY #9 tabs 03/23/25 03/26/25 prednisone 20 mg tablet 40 mg (2 x 20 mg) PO DAILY #17 tabs 03/23/25 Previous Rx's Medication Instructions Recorded lidocaine 5 % topical patch 1 patch topical DAILY #30 ea 03/12/23 albuterol sulfate 90 mcg/actuation 2 puff inhalation QID PRN 02/24/24 aerosol inhaler (Ventolin HFA) shortness of breath or wheezing #8.5 grams mupirocin 2 % topical ointment 1 applic topical BID #22 grams 02/24/24 diclofenac sodium 1 % topical gel 4 g topical QID #100 grams 08/10/24 mirtazapine 7.5 mg tablet 7.5 mg PO QHS #30 tabs 02/08/25 irbesartan 150 mg tablet 150 mg PO DAILY #90 tabs 03/15/25 diphenoxylate-atropine 2.5 1 tab PO DAILY diarrhea #90 tabs 03/16/25 mg-0.025 mg tablet (Lomotil) colchicine 0.6 mg tablet 0.6 mg PO DAILY #9 tabs 03/23/25 prednisone 20 mg tablet 40 mg (2 x 20 mg) PO DAILY #17 tabs 03/23/25 Allergies Allergy/AdvReac Type Severity Reaction Status Date / Time cilostazol Allergy Severe Psychosis Verified 03/25/25 08:55 mesalamine Allergy Intermediate HIVES Verified 03/25/25 08:55 rosuvastatin Allergy Intermediate Skin Rash Verified 03/25/25 08:55 latex Allergy Mild SKIN RASH Verified 03/25/25 08:55 amlodipine Allergy Unknown Swelling/Ed Verified 03/25/25 08:55 nic oxaprozin Allergy Unknown unknown Verified 03/25/25 08:55 tetracycline Allergy Unknown unknown Verified 03/25/25 08:55 morphine AdvReac Severe headaches, Verified 03/25/25 08:55 vomiting codeine AdvReac Intermediate H/A Verified 03/25/25 08:55 losartan AdvReac Intermediate Cardiac Verified 03/25/25 08:55 Dysrhythmia Sulfa (Sulfonamide AdvReac Intermediate NAUSEA Verified 03/25/25 08:55 Antibiotics) esomeprazole magnesium (From AdvReac Mild H/A Verified 03/25/25 08:55 Nexium) General Stated Complaint: GI Bleed REFUGIO: 3 Exam Narrative Exam Narrative: Pale, alert and oriented, pupils equal round reactive to light and accommodation no cervical spine tenderness mild tenderness to left shoulder, range of motion intact no bruising or evidence of deformity lungs clear to auscultation sinus tachycardia cardiac rate rhythm regular, mild diffuse abdominal tenderness 1+ edema to bilateral lower extremities GCS 15 alert oriented x 4 able to follow basic commands Course Vital Signs Vital signs: Vital Signs Temperature 36.3 C L 04/05/25 09:14 Pulse 85 04/05/25 09:14 Respiratory Rate 20 04/05/25 09:14 Blood Pressure 168/115 H 04/05/25 09:14 Pulse Oximetry 95 04/05/25 09:14 Temperature 36.3 C L 04/05/25 09:14 Temperature Source Oral 04/05/25 09:14 Pulse 85 04/05/25 09:14 Respiratory Rate 20 04/05/25 09:14 Blood Pressure 158/82 H 04/05/25 10:17 Blood Pressure Mean 107 04/05/25 10:17 Pulse Oximetry 95 04/05/25 09:14 Oxygen Delivery Method Room Air 04/05/25 09:14 Oxygen Flow Rate 0 04/05/25 09:14 Lab/Test Results Lab/Test Results: Laboratory Tests Range/Units 04/05/25 04/05/25 04/05/25 09:34 10:14 10:28 WBC (4.4-10.8) 10^3/uL 6.77 RBC (3.93-5.22) 10^6/uL 4.39 Hgb (11.2-15.7) g/dL 12.6 Hct (36.0-46.0) % 39.9 MCV (80-95) fL 91 MCH (27.0-33.0) pg 28.7 MCHC (32.0-36.0) % 31.6 L RDW (11.7-14.6) % 14.2 Plt Count (130-400) 10^3/uL 328 MPV (8.0-11.0) fL 9.7 Immature Gran % % 0.3 Neutrophils % % 69.2 Lymphocytes % % 20.4 Monocytes % % 9.6 Eosinophils % % 0.4 Basophils % % 0.1 Nucleated RBC % (0.0-0.3) % 0.0 Absolute Neutrophils (1.2-6.7) 10^3/uL 4.68 Absolute Lymphocytes (1.2-3.4) 10^3/uL 1.38 Absolute Monocytes (0.1-0.8) 10^3/uL 0.65 Absolute Eosinophils (0.0-0.7) 10^3/uL 0.03 Absolute Basophils (0.0-0.2) 10^3/uL 0.01 VBG Lactate (<or=2.0) mmol/L 0.7 Sodium (136-145) mmol/L 140 Potassium (3.5-5.1) mmol/L 4.3 Chloride (98-107) mmol/L 103 Carbon Dioxide (21.0-32.0) mmol/L 27.0 Anion Gap (3-11) mmol/L 10.0 BUN (7-18) mg/dL 33 H Creatinine (0.55-1.02) mg/dL 1.0 Est GFR (CKD-EPI 2020) (mL/min/1.73m2) 54.19 Glucose (74-106) mg/dL 97 Calcium (8.5-10.1) mg/dL 9.2 Magnesium (1.8-2.4) mg/dL 1.9 Total Bilirubin (0.2-1.0) mg/dL 0.5 AST (15-37) U/L 22 ALT (14-59) U/L 19 Alkaline Phosphatase (46-116) U/L 90 Troponin I (<or=51) ng/L 51 Total Protein (6.4-8.2) g/dL 7.9 Albumin (3.4-5.0) g/dL 3.1 L Lipase (<78) U/L 12 TSH (0.36-3.74) uIU/mL 1.90 Urine Color (Yellow) Yellow Urine Clarity (Clear) Clear Urine pH (5-8) 6.0 Ur Specific [place] (1.005-1.025) 1.010 Urine Protein (Neg-Trace) mg/dL Trace Urine Ketones (Negative) mg/dL Negative Urine Blood (Negative) Small H Urine Nitrite (Negative) Negative Urine Bilirubin (Negative) Negative Urine Urobilinogen (Up to 0.2) mg/dL 0.2 Ur Leukocyte Esterase (Negative) Negative Urine RBC (0-2) HPF 3-5 H Urine WBC (0-5) HPF Negative Ur Epithelial Cells (Negative) HPF Rare Urine Crystals (Negative) HPF Negative Urine Bacteria (Negative) HPF Negative Urine Casts (Negative) LPF Negative Urine Mucus (Negative) Negative Ur Culture Indicated? No Urine Glucose (Negative) mg/dL Negative Medical Decision Making Results: EKG nonischemic with PACs, CBC without acute abnormality specifically no anemia, BUN of 33 mildly increased for patient urinalysis with 3 of right 5 red blood cells no evidence of infection flu COVID RSV pending A+ blood type, CTA head and neck per radiology interpretation reviewed shows thyroid nodule no acute abnormality, CTA chest abdomen pelvis per radiology interpretation my review no acute abnormality specifically no source of active bleeding Assessment and plan: 89-year-old female presenting with bloody diarrhea for the past 6 days. No recent antibiotic use did take colchicine for gout on 26 March. Has been taking ibuprofen for the past 6 days. States in the past 3 days she has become quite weak, she has been having 6-8 episodes of bloody diarrhea a day per patient. Describes the blood as bright red. Denies history of similar symptoms in the past has had cramping in her abdomen and pelvis. Took Imodium prior to arrival so has not had any bloody diarrhea during the day today. Denies prior history of C. difficile. CTs are reassuring as are her labs, however she is quite weak I performed orthostatics patient was not orthostatic but quite weak with attempted ambulation. I suspect she is dehydrated secondary to bleeding will need stool studies. I think she requires admission for observation. I did speak with cardiology regarding patient's EKG as initially there was concern for possible Mobitz type II heart block, I spoke with Hitesh nurse practitioner who reviewed the EKG with the on-call gis specialist. Patient will receive fluids, reglan 5 mg for MAK, protonix 40 mg IV and will need admission for observation. Quality:SDOH Health Related Social Needs: Health related social needs lonely/isolated PFSH All Active Problems (Updated 03/28/25 @ 00:02 by MARYLOU HUSAIN) Gout attack (Acute) Fatigue (Acute) Sebaceous hyperplasia of face (Acute) Spinal stenosis of lumbar region (Acute) SI (sacroiliac) joint dysfunction (Acute) Lumbar spondylosis (Acute) Fall (Acute) Left wrist pain (Acute) Hyperuricemia (Acute) Orthopnea (Acute) Asthma (Chronic) Nocturnal hypoxia (Acute) Multinodular thyroid (Acute) Palpitations (Acute) COLVIN (dyspnea on exertion) (Acute) Lesion of skin of nose (Acute) Collagenous colitis (Acute) Anxiety (Acute) Cervical radiculopathy (Acute 05/10/15) 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 per Xray-10/07=right foot 1st MTP; left hand Hyperlipidemia (Acute) Lumbago (Acute) scoliosis and DJD 03/10-xray Varicose veins of lower extremity (Acute) Essential tremor (Acute) she wishes to hold off on any interventions for now Primary osteoarthritis of left knee (Chronic) Most recent Depo-Medrol injection: 03/18/25; 08/26/20; 03/25/20; 10/16/19; 06/18/2019 Medical History (Updated 03/28/25 @ 00:02 by MARYLOU HUSAIN) Polyarthralgia Joint pain Fever Rash Lip lesion Diarrhea SOB (shortness of breath) Thyroid nodule Chest pain Chills (without fever) Chest pain, atypical Groin rash Pain in upper jaw Facial pain Abdominal pain Protracted diarrhea (09/18/13) 09/05 [facility] colonoscopy ?colitis 08/06 colonoscopy normal ?bacterial overgrowth 09/2015 collagenous collitis Dysphagia, unspecified (09/02/17) Epilepsy (11/30/10) pt. 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 at [facility] Hyperlipidemia 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 Anxiety Osteoporosis Osteoarthritis of knees, bilateral Lower back pain Synovitis of hand Cellulitis of left hand Surgical History History of cataract surgery History of colonoscopy Status post left foot surgery Hallux valgus Status post surgical removal of ganglion cyst RMF History of shoulder surgery Right bursa and excision of bone spurs Status post phlebectomy Left leg vein excision Abdominal hysterectomy EGD - IV Sedation Bladder Surgery (~07/2008) sling and reconstruction for uterine prolapse and cystocele Appendectomy Family History Mother Heart disease Hyperlipidemia Father Essential hypertension Heart disease Hyperlipidemia Sister Essential hypertension Heart disease Hyperlipidemia Brother Essential hypertension Heart disease Hyperlipidemia Brother Personal history of malignant neoplasm Brother Heart disease Stroke Brother Essential hypertension Heart disease Hyperlipidemia Brother Essential hypertension Heart disease Hyperlipidemia Stroke Son Hyperlipidemia Daughter Diabetes Hyperlipidemia COPD (chronic obstructive pulmonary disease) Daughter No problems noted. Social History Smoking/Tobacco Use Status: Never Second Hand Exposure: Yes Smoking risk assessment performed?: Yes Alcohol Intake: never Drug use: Never Substance use type: does not use Counseling given: No Adopted: No Caregiver/Support person: Yes Household members: none Housing: other Details: MOBILE HOME Number of Children: 3 number of grandchildren: 7 Communication Needs: Hard of Hearing and Corrective Lenses Education Level: high school Do you need help understanding health information?: Rarely current occupation: RETIRED Sexually active: No Do you think of yourself as: straight/heterosexual Current gender identity: female What is your relationship status?: How often do you talk on the phone with friends or family?: decline to answer How often do you get together with friends or relatives?: decline to answer How often do you attend moravian or mandaeism services?: decline to answer Do you belong to any clubs or organized social groups?: no Panel score (0-1 are the most socially isolated patients): 0 What type of physical activity do you participate in: other Details: Holly outside, mow lawn with riding mower, get groceries Duration: 60-90 minutes/day Frequency: 1-2 times per week Naz/Evangelical: [employer] Special naz needs: No Agree to transfusion: Yes Seatbelt use: always Drive intox or ride w/intox front end driver: No Working smoke detector in home: Yes Carbon monox detector in home: Yes Firearms in home: Yes Firearms unloaded and locked: No (unloaded, not locked) Do you feel safe at home: Yes Do you feel safe in your relationship?: Yes Victim of physical abuse: No Victim of emotional abuse: No Victim of sexual abuse: No Would you like helpful sources: No
[2025-04-05 10:56] LABS: Troponin I 52 ng/L (<or=51)
[2025-04-05] MEDS: Normal Saline 1,000 ML 250 ML IV (12:19)
[2025-04-05] MEDS: Pantoprazole 40 MG VIAL IVP (13:57)
[2025-04-05] MEDS: Metoclopramide 10 MG/2 ML VIAL 5 MG IVP (13:58)
--- NOTE | 2025-04-05 15:22 | W.PC.ACHO ---
Registration Status: REG ER Primary Language: Preferred Language: Estonian ED Information & Data Chief Complaint GI Bleed 04/05/25 11:09 Chief Complaint GI Bleed 04/05/25 10:45 Triage Note x6 days taking double doses 04/05/25 09:14 of Aleve, blood in stool x6days, dizzy/weak since yesterday, fell this AM right shoulder & leg pain also right first finger pain , denies head strike Medical / Surgical History (Last Updated 03/26/25 @ 18:10 by Fco Campbell NP) Polyarthralgia Joint pain Fever Rash Lip lesion Diarrhea SOB (shortness of breath) Thyroid nodule Chest pain Chills (without fever) Chest pain, atypical Groin rash Pain in upper jaw Facial pain Abdominal pain Protracted diarrhea (09/18/13) Dysphagia, unspecified (09/02/17) Epilepsy (11/30/10) Nocturnal dyspnea Arthritis of knee, right History of colitis History of postoperative nausea and vomiting Pyriformis syndrome Kidney stones Primary malignant neoplasm of skin Hyperlipidemia 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 Anxiety Osteoporosis Osteoarthritis of knees, bilateral Lower back pain Synovitis of hand Cellulitis of left hand (Last Reviewed 03/26/25 @ 18:07 by Fco Campbell NP) History of cataract surgery History of colonoscopy Status post left foot surgery Status post surgical removal of ganglion cyst History of shoulder surgery Status post phlebectomy Abdominal hysterectomy EGD - IV Sedation Bladder Surgery (~07/2008) Appendectomy Most Recent Vital Signs Temperature 36.3 C L 04/05/25 09:14 Temperature Source Oral 04/05/25 09:14 Pulse 93 H 04/05/25 09:41 Pulse 104 H 04/05/25 09:41 Respiratory Rate 23 04/05/25 09:41 Blood Pressure 162/84 H 04/05/25 12:35 Blood Pressure Mean 110 04/05/25 12:35 Pulse Oximetry 95 04/05/25 09:14 Oxygen Delivery Method Room Air 04/05/25 09:14 Oxygen Flow Rate 0 04/05/25 09:14 Allergies cilostazol Allergy (Severe, Verified 04/05/25 15:17) Psychosis suicidal ideation mesalamine Allergy (Intermediate, Verified 04/05/25 15:17) HIVES rosuvastatin Allergy (Intermediate, Verified 04/05/25 15:17) Skin Rash And itching latex Allergy (Mild, Verified 04/05/25 15:17) SKIN RASH amlodipine Allergy (Unknown, Verified 04/05/25 15:17) Swelling/Edema headache, swelling in feet oxaprozin Allergy (Unknown, Verified 04/05/25 15:17) unknown tetracycline Allergy (Unknown, Verified 04/05/25 15:17) unknown morphine Adverse Reaction (Severe, Verified 04/05/25 15:17) headaches, vomiting codeine Adverse Reaction (Intermediate, Verified 04/05/25 15:17) H/A losartan Adverse Reaction (Intermediate, Verified 04/05/25 15:17) Cardiac Dysrhythmia Sulfa (Sulfonamide Antibiotics) Adverse Reaction (Intermediate, Verified 04/05/25 15:17) NAUSEA esomeprazole magnesium (From Nexium) Adverse Reaction (Mild, Verified 04/05/25 15:17) H/A Precautions Isolation Standard precaution 04/05/25 11:09 Active Medications Generic Name Dose Route Start Last Admin Trade Name Freq PRN Reason Stop Dose Admin Iohexol 100 ml 04/05/25 10:45 04/05/25 11:00 Omnipaque 350 Mg/Ml 100 Ml Btl IJ 05/05/25 23:59 75 ml DIRECTED FORREST Administration Sodium Chloride 50 ml 04/05/25 10:45 04/05/25 11:00 Normal Saline - Diluent 50 Ml Vial IJ 50 ml DIRECTED FORREST Administration IV IV Catheter Type [Left Forearm Saline Lock ] IV Catheter Type [Right Diffusics Antecubital] IV Catheter Gauge [Left 20 Forearm] Diagnostics 04/05/25 04/05/25 04/05/25 Range/Units 14:25 12:35 11:08 WBC (4.4-10.8) 10^3/uL RBC (3.93-5.22) 10^6/uL Hgb (11.2-15.7) g/dL Hct (36.0-46.0) % MCV (80-95) fL MCH (27.0-33.0) pg MCHC (32.0-36.0) % RDW (11.7-14.6) % Plt Count (130-400) 10^3/uL MPV (8.0-11.0) fL Immature Gran % % Neutrophils % % Lymphocytes % % Monocytes % % Eosinophils % % Basophils % % Nucleated RBC % (0.0-0.3) % Absolute Neutrophils (1.2-6.7) 10^3/uL Absolute Lymphocytes (1.2-3.4) 10^3/uL Absolute Monocytes (0.1-0.8) 10^3/uL Absolute Eosinophils (0.0-0.7) 10^3/uL Absolute Basophils (0.0-0.2) 10^3/uL VBG Lactate (<or=2.0) mmol/L Sodium (136-145) mmol/L Potassium (3.5-5.1) mmol/L Chloride (98-107) mmol/L Carbon Dioxide (21.0-32.0) mmol/L Anion Gap (3-11) mmol/L BUN (7-18) mg/dL Creatinine (0.55-1.02) mg/dL Est GFR (CKD-EPI 2020) (mL/min/1.73m2) Glucose (74-106) mg/dL Calcium (8.5-10.1) mg/dL Magnesium (1.8-2.4) mg/dL Total Bilirubin (0.2-1.0) mg/dL AST (15-37) U/L ALT (14-59) U/L Alkaline Phosphatase (46-116) U/L Troponin I Pending Pending (<or=51) ng/L Total Protein (6.4-8.2) g/dL Albumin (3.4-5.0) g/dL Lipase (<78) U/L TSH (0.36-3.74) uIU/mL Urine Color (Yellow) Urine Clarity (Clear) Urine pH (5-8) Ur Specific Emerson (1.005-1.025) Urine Protein (Neg-Trace) mg/dL Urine Ketones (Negative) mg/dL Urine Blood (Negative) Urine Nitrite (Negative) Urine Bilirubin (Negative) Urine Urobilinogen (Up to 0.2) mg/dL Ur Leukocyte Esterase (Negative) Urine RBC (0-2) HPF Urine WBC (0-5) HPF Ur Epithelial Cells (Negative) HPF Urine Crystals (Negative) HPF Urine Bacteria (Negative) HPF Urine Casts (Negative) LPF Urine Mucus (Negative) Ur Culture Indicated? Urine Glucose (Negative) mg/dL COVID-19 Source SARS-CoV-2 (PCR) Influenza Type A (PCR) Influenza Type B (PCR) RSV (PCR) ABO/Rh Antibody Screen Antibody Identification Antibody ID Referred Pending 04/05/25 04/05/25 04/05/25 Range/Units 10:28 10:14 10:03 WBC (4.4-10.8) 10^3/uL RBC (3.93-5.22) 10^6/uL Hgb (11.2-15.7) g/dL Hct (36.0-46.0) % MCV (80-95) fL MCH (27.0-33.0) pg MCHC (32.0-36.0) % RDW (11.7-14.6) % Plt Count (130-400) 10^3/uL MPV (8.0-11.0) fL Immature Gran % % Neutrophils % % Lymphocytes % % Monocytes % % Eosinophils % % Basophils % % Nucleated RBC % (0.0-0.3) % Absolute Neutrophils (1.2-6.7) 10^3/uL Absolute Lymphocytes (1.2-3.4) 10^3/uL Absolute Monocytes (0.1-0.8) 10^3/uL Absolute Eosinophils (0.0-0.7) 10^3/uL Absolute Basophils (0.0-0.2) 10^3/uL VBG Lactate 0.7 (<or=2.0) mmol/L Sodium (136-145) mmol/L Potassium (3.5-5.1) mmol/L Chloride (98-107) mmol/L Carbon Dioxide (21.0-32.0) mmol/L Anion Gap (3-11) mmol/L BUN (7-18) mg/dL Creatinine (0.55-1.02) mg/dL Est GFR (CKD-EPI 2020) (mL/min/1.73m2) Glucose (74-106) mg/dL Calcium (8.5-10.1) mg/dL Magnesium (1.8-2.4) mg/dL Total Bilirubin (0.2-1.0) mg/dL AST (15-37) U/L ALT (14-59) U/L Alkaline Phosphatase (46-116) U/L Troponin I 52 H* (<or=51) ng/L Total Protein (6.4-8.2) g/dL Albumin (3.4-5.0) g/dL Lipase (<78) U/L TSH (0.36-3.74) uIU/mL Urine Color Yellow (Yellow) Urine Clarity Clear (Clear) Urine pH 6.0 (5-8) Ur Specific Emerson 1.010 (1.005-1.025) Urine Protein Trace (Neg-Trace) mg/dL Urine Ketones Negative (Negative) mg/dL Urine Blood Small H (Negative) Urine Nitrite Negative (Negative) Urine Bilirubin Negative (Negative) Urine Urobilinogen 0.2 (Up to 0.2) mg/dL Ur Leukocyte Esterase Negative (Negative) Urine RBC 3-5 H (0-2) HPF Urine WBC Negative (0-5) HPF Ur Epithelial Cells Rare (Negative) HPF Urine Crystals Negative (Negative) HPF Urine Bacteria Negative (Negative) HPF Urine Casts Negative (Negative) LPF Urine Mucus Negative (Negative) Ur Culture Indicated? No Urine Glucose Negative (Negative) mg/dL COVID-19 Source Pending SARS-CoV-2 (PCR) Pending Influenza Type A (PCR) Pending Influenza Type B (PCR) Pending RSV (PCR) Pending ABO/Rh Antibody Screen Antibody Identification Antibody ID Referred 04/05/25 Range/Units 09:34 WBC 6.77 (4.4-10.8) 10^3/uL RBC 4.39 (3.93-5.22) 10^6/uL Hgb 12.6 (11.2-15.7) g/dL Hct 39.9 (36.0-46.0) % MCV 91 (80-95) fL MCH 28.7 (27.0-33.0) pg MCHC 31.6 L (32.0-36.0) % RDW 14.2 (11.7-14.6) % Plt Count 328 (130-400) 10^3/uL MPV 9.7 (8.0-11.0) fL Immature Gran % 0.3 % Neutrophils % 69.2 % Lymphocytes % 20.4 % Monocytes % 9.6 % Eosinophils % 0.4 % Basophils % 0.1 % Nucleated RBC % 0.0 (0.0-0.3) % Absolute Neutrophils 4.68 (1.2-6.7) 10^3/uL Absolute Lymphocytes 1.38 (1.2-3.4) 10^3/uL Absolute Monocytes 0.65 (0.1-0.8) 10^3/uL Absolute Eosinophils 0.03 (0.0-0.7) 10^3/uL Absolute Basophils 0.01 (0.0-0.2) 10^3/uL VBG Lactate (<or=2.0) mmol/L Sodium 140 (136-145) mmol/L Potassium 4.3 (3.5-5.1) mmol/L Chloride 103 (98-107) mmol/L Carbon Dioxide 27.0 (21.0-32.0) mmol/L Anion Gap 10.0 (3-11) mmol/L BUN 33 H (7-18) mg/dL Creatinine 1.0 (0.55-1.02) mg/dL Est GFR (CKD-EPI 2020) 54.19 (mL/min/1.73m2) Glucose 97 (74-106) mg/dL Calcium 9.2 (8.5-10.1) mg/dL Magnesium 1.9 (1.8-2.4) mg/dL Total Bilirubin 0.5 (0.2-1.0) mg/dL AST 22 (15-37) U/L ALT 19 (14-59) U/L Alkaline Phosphatase 90 (46-116) U/L Troponin I 51 (<or=51) ng/L Total Protein 7.9 (6.4-8.2) g/dL Albumin 3.1 L (3.4-5.0) g/dL Lipase 12 (<78) U/L TSH 1.90 (0.36-3.74) uIU/mL Urine Color (Yellow) Urine Clarity (Clear) Urine pH (5-8) Ur Specific Emerson (1.005-1.025) Urine Protein (Neg-Trace) mg/dL Urine Ketones (Negative) mg/dL Urine Blood (Negative) Urine Nitrite (Negative) Urine Bilirubin (Negative) Urine Urobilinogen (Up to 0.2) mg/dL Ur Leukocyte Esterase (Negative) Urine RBC (0-2) HPF Urine WBC (0-5) HPF Ur Epithelial Cells (Negative) HPF Urine Crystals (Negative) HPF Urine Bacteria (Negative) HPF Urine Casts (Negative) LPF Urine Mucus (Negative) Ur Culture Indicated? Urine Glucose (Negative) mg/dL COVID-19 Source SARS-CoV-2 (PCR) Influenza Type A (PCR) Influenza Type B (PCR) RSV (PCR) ABO/Rh A Positive Antibody Screen POSITIVE Antibody Identification Pending Antibody ID Referred Intake and Output - 24 Hour Total 04/05/25 09:09 thru 04/05/25 10:09 Intake Total 20 Balance 20 Weight 67 kg Intake: IV 20 Falls Risk Assessment History of Falls Admit Due to Fall 04/05/25 10:10 Contributing Factors Unstable 04/05/25 10:10 Ambulatory Aids Uses ambulatory device + 04/05/25 10:10 Tubes/Lines With any additional score 04/05/25 10:10 Gait Evaluation W/any additional score 04/05/25 10:10 Fall Total Score 98 04/05/25 10:10 Level of Risk Maximum Risk 04/05/25 10:10 v v v v v v v v v Sending and/or Receiving Nurses: Please use comment section below to note any information pertinent to the patient hand-off not included above. Information / Comments: Alert and oriented, here for rectal bleeding for 6 days, due to doubleing dose of advil she was taking for Gout at home. became dizzy and fell at home scans were negative no injurys, hands on assist of one to commode, c diff needed, bilateral 20G IV Report received from: Aga TSAI in ER at [id number]
[2025-04-05 15:54] LABS: Troponin I 60 ng/L (<or=51)
[2025-04-05 16:08] LABS: COVID-19 PCR Negative (Negative); RSV PCR Negative (Negative)
[2025-04-05] MEDS: Felodipine 2.5 MG TABCR PO (17:35)
--- NOTE | 2025-04-05 17:44 | W.PM.HP.N ---
Date of service: 04/05/25 Time of Service: 17:44 Assessment and Plan Assessment and plan (1) Bloody diarrhea: Status: Acute Assessment and plan: Lower GI bleed, likely secondary to NSAID-induced colitis vs. collagenous colitis flare. Dehydration and weakness due to volume loss from diarrhea and bleeding. Admit for observation and hydration (IV fluids). Protonix 40 mg IV BID for GI protection/BRBPR. Reglan 5 mg IV for headache/nausea in ED without relief; acetaminophen/ondansetron prn. Hold NSAIDs (Aleve, diclofenac). Stool studies: occult blood, C. difficile, culture. Monitor H/H and renal function. Cardiology consulted for EKG—Mobitz II ruled out. Continue home medications as appropriate; hold aspirin until GI bleeding ruled out. Consider GI consult for possible endoscopic evaluation if bleeding persists. (2) Hypertension: Status: Chronic Assessment and plan: Contnues to have high blood pressure. Discussed with Dr Ocasio Continue Irbesartan at 150 mg daily; add felodipine 2.5 mg daily. Monitor BP Will review with PCP 04/06 (3) Fatigue: Status: Acute Assessment and plan: In setting of bloody diarrhea Lack of sleep up and down all night PT cx (4) Anxiety: Status: Chronic Assessment and plan: Stable (5) Hyperuricemia: Status: Chronic Assessment and plan: Will recheck uric acid, ESR, CRP per PCP plan (6) Mechanical venous thromboembolism (VTE) prophylaxis in place: Status: Acute Assessment and plan: ISO BRBPR - no chemical VTE prophylaxis (7) Discharge planning issues: Status: Acute Assessment and plan: Home when stable possibly with HH PT History of Present Illness History of Present Illness Chief Complaint: Bloody diarrhea Narrative: An 89-year-old female with a past medical history of hypertension, gout, hypomagnesemia, and collagenous colitis presents with progressive weakness and bright red bloody diarrhea ongoing for the past 6 days. She was [facility] seen [facility] for hand pain and started on Augmentin 875 mg twice daily for 10 days for suspected infection. She returned to the ED on 03/23 for a gout flare and was prescribed colchicine 0.6 mg every 4 days, Aleve twice daily, and prednisone 40 mg daily for an 8-day course. She was evaluated by her PCP on 03/25, at which time gout symptoms were improving. Colchicine was effective but caused nausea, and prednisone provided relief. Labs revealed uric acid 7.1 mg/dL (goal <6). The PCP’s plan included rechecking uric acid, ESR, CRP, and BMP in two weeks; continuing Aleve as needed for pain (avoiding concurrent prednisone use); and considering restarting allopurinol for long-term prevention after lab review. For hypertension (BP 158/100), irbesartan was increased from 150 mg daily to 1½–2 tablets daily, with instructions to continue holding HCTZ and monitor blood pressure at home. She now presents to the ED with worsening weakness, lightheadedness, and ongoing bright red bloody diarrhea. She reports taking Aleve 2 tablets twice daily, and her son is concerned this may be contributing to gastrointestinal irritation and bleeding. She also took two doses of colchicine on 03/26 for recurrent gout symptoms, which improved her joint pain. Additionally, she completed a 10-day course of Augmentin for possible septic arthritis. She denies prior history of gastrointestinal bleeding and is not on anticoagulation. Over the past two days, she has experienced increased weakness, dizziness, and several falls, though denies head trauma. She notes shortness of breath without chest pain, mild headache, and frequent loose, bloody stools (>=/day). She denies nausea, vomiting, hematemesis, or melena. She took Imodium prior to arrival with temporary improvement and reports using Lomotil daily. ED Course & Results Vitals: BP 168/115, 158/82, HR 85, RR 20, Temp 36.3°C, SpO2 95% RA Labs: Hgb 12.6, Hct 39.9, WBC 6.77, BUN 33, Cr 1.0 (GFR 54), Albumin 3.1, remainder of CMP and CBC unremarkable. UA with 3–5 RBCs, no infection. EKG: Sinus rhythm with PACs, no ischemic changes. Imaging: CTA head/neck/chest/abdomen/pelvis negative for acute bleed; incidental thyroid nodule. Lactate: 0.7 mmol/L Troponin: 51 ng/L Urine negative for infection Stool studies pending Patient's hemoglobin is stable at 12.6. She continues to be hypertensive with blood pressure in the ED 168/115, 176/95, 190/106; she states she continues to take Ibersartin 150 mg daily, she did not increase the dose as recommended by her PCP. Patient is admitted to the medical floor for further testing and treatment. Patient agrees with plan of care. Patient verbalized DNR/DNI wishes, although a full code was documented. (Status was changed to her wishes, and COLST was updated). Review of Systems Narrative: Constitutional: Fatigue, generalized weakness; no fever or chills HEENT: Mild headache; denies vision changes Cardiovascular: Denies chest pain, palpitations; positive for occasional lightheadedness Respiratory: Mild dyspnea; denies cough or wheezing GI: Bright red diarrhea x 6–8/day, mild abdominal pain/cramping; denies melena, hematemesis, nausea, or vomiting : No dysuria or hematuria MSK: History of gout, no current joint swelling or pain Neuro: Dizziness, no focal deficits Psych: Denies anxiety or depression exacerbation PFSH All Active Problems (Updated 04/05/25 @ 19:17 by Tania Thompson NP) Mechanical venous thromboembolism (VTE) prophylaxis in place (Acute) Discharge planning issues (Acute) Atrial fibrillation (Acute) Bloody diarrhea (Acute) Gout attack (Acute) Fatigue (Acute) Sebaceous hyperplasia of face (Acute) Spinal stenosis of lumbar region (Acute) SI (sacroiliac) joint dysfunction (Acute) Lumbar spondylosis (Acute) Fall (Acute) Left wrist pain (Acute) Hyperuricemia (Chronic) Orthopnea (Acute) Asthma (Chronic) Nocturnal hypoxia (Acute) Multinodular thyroid (Acute) Palpitations (Acute) COLVIN (dyspnea on exertion) (Acute) Lesion of skin of nose (Acute) Collagenous colitis (Acute) Anxiety (Chronic) Cervical radiculopathy (Acute 05/10/15) 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 per Xray-10/07=right foot 1st MTP; left hand Hyperlipidemia (Chronic) Lumbago (Acute) scoliosis and DJD 03/10-xray Varicose veins of lower extremity (Acute) Essential tremor (Acute) she wishes to hold off on any interventions for now Primary osteoarthritis of left knee (Chronic) Most recent Depo-Medrol injection: 03/18/25; 08/26/20; 03/25/20; 10/16/19; 06/18/2019 Hypertension (Chronic) Medical History (Updated 04/05/25 @ 19:17 by Tania Thompson NP) Polyarthralgia Joint pain Fever Rash Lip lesion Diarrhea SOB (shortness of breath) Thyroid nodule Chest pain Chills (without fever) Chest pain, atypical Groin rash Pain in upper jaw Facial pain Abdominal pain Protracted diarrhea (09/18/13) 09/05 [facility] [place] [facility] [place] ?colitis 08/06 colonoscopy normal ?bacterial overgrowth 09/2015 collagenous collitis Dysphagia, unspecified (09/02/17) Epilepsy (11/30/10) pt. 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 Mohs at [facility] [facility] [place] Hyperlipidemia 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 Anxiety Osteoporosis Osteoarthritis of knees, bilateral Lower back pain Synovitis of hand Cellulitis of left hand Surgical History History of cataract surgery History of colonoscopy Status post left foot surgery Hallux valgus Status post surgical removal of ganglion cyst RMF History of shoulder surgery Right bursa and excision of bone spurs Status post phlebectomy Left leg vein excision Abdominal hysterectomy EGD - IV Sedation Bladder Surgery (~07/2008) sling and reconstruction for uterine prolapse and cystocele Appendectomy Family History Mother Heart disease Hyperlipidemia Father Essential hypertension Heart disease Hyperlipidemia Sister Essential hypertension Heart disease Hyperlipidemia Brother Essential hypertension Heart disease Hyperlipidemia Brother Personal history of malignant neoplasm Brother Heart disease Stroke Brother Essential hypertension Heart disease Hyperlipidemia Brother Essential hypertension Heart disease Hyperlipidemia Stroke Son Hyperlipidemia Daughter Diabetes Hyperlipidemia COPD (chronic obstructive pulmonary disease) Daughter No problems noted. Social History Smoking/Tobacco Use Status: Never Second Hand Exposure: Yes Smoking risk assessment performed?: Yes Alcohol Intake: never Drug use: Never Substance use type: does not use Counseling given: No Adopted: No Caregiver/Support person: Yes Household members: none Housing: house Number of Children: 3 number of grandchildren: 7 Communication Needs: Hard of Hearing and Corrective Lenses Education Level: high school Do you need help understanding health information?: Rarely current occupation: RETIRED Sexually active: No Do you think of yourself as: straight/heterosexual Current gender identity: female What is your relationship status?: How often do you talk on the phone with friends or family?: decline to answer How often do you get together with friends or relatives?: decline to answer How often do you attend moravian or islam services?: decline to answer Do you belong to any clubs or organized social groups?: no Panel score (0-1 are the most socially isolated patients): 0 What type of physical activity do you participate in: other Details: Wyatt outside, mow lawn with riding mower, get groceries Duration: 60-90 minutes/day Frequency: 1-2 times per week Naz/Sabianist: Anabaptism Special naz needs: No Agree to transfusion: Yes Seatbelt use: always Drive intox or ride w/intox local company 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 Meds Allergies and Home Medications Allergies Allergy/AdvReac Type Severity Reaction Status Date / Time cilostazol Allergy Severe Psychosis Verified 04/05/25 15:17 mesalamine Allergy Intermediate HIVES Verified 04/05/25 15:17 rosuvastatin Allergy Intermediate Skin Rash Verified 04/05/25 15:17 latex Allergy Mild SKIN RASH Verified 04/05/25 15:17 amlodipine Allergy Unknown Swelling/Ed Verified 04/05/25 15:17 nic oxaprozin Allergy Unknown unknown Verified 04/05/25 15:17 tetracycline Allergy Unknown unknown Verified 04/05/25 15:17 morphine AdvReac Severe headaches, Verified 04/05/25 15:17 vomiting codeine AdvReac Intermediate H/A Verified 04/05/25 15:17 losartan AdvReac Intermediate Cardiac Verified 04/05/25 15:17 Dysrhythmia Sulfa (Sulfonamide AdvReac Intermediate NAUSEA Verified 04/05/25 15:17 Antibiotics) esomeprazole magnesium (From AdvReac Mild H/A Verified 04/05/25 15:17 Nexium) Home Medications Medication Instructions Recorded Confirmed Type Jeri's Butter See Rx Instructions topical PRN 12/16/18 04/05/25 History cholecalciferol (vitamin D3) 25 5,000 unit PO DAILY 12/16/18 04/05/25 History mcg (1,000 unit) capsule magnesium oxide 500 mg PO wkly PRN 03/07/22 04/05/25 History acetaminophen 325 mg tablet 325 mg PO ONCE PRN 03/21/22 04/05/25 History aspirin 81 mg tablet,delayed 81 mg PO DAILY 09/10/22 04/05/25 History release (Adult Low Dose Aspirin) albuterol sulfate 90 mcg/actuation 2 puff inhalation QID PRN 02/24/24 04/05/25 Rx aerosol inhaler (Ventolin HFA) shortness of breath or wheezing #8.5 grams mupirocin 2 % topical ointment 1 applic topical BID #22 grams 02/24/24 04/05/25 Rx diclofenac sodium 1 % topical gel 4 g topical QID #100 grams 08/10/24 04/05/25 Rx omega 9-vgo-cge-fish oil 1,200 mg 1 cap PO DAILY 10/07/24 04/05/25 History (144 mg-216 mg) capsule (Fish Oil) mirtazapine 7.5 mg tablet 7.5 mg PO QHS #30 tabs 02/08/25 04/05/25 Rx irbesartan 150 mg tablet 150 mg PO DAILY #90 tabs 03/15/25 04/05/25 Rx diphenoxylate-atropine 2.5 1 tab PO DAILY diarrhea #90 tabs 03/16/25 04/05/25 Rx mg-0.025 mg tablet (Lomotil) lidocaine 5 % topical patch 1 patch topical DAILY PRN 04/05/25 04/05/25 History prednisone 20 mg tablet 40 mg PO DAILY PRN 04/05/25 04/05/25 History Exam Narrative Exam Narrative: General: Pale, alert, oriented ×4, cooperative. HEENT: PERRLA, mucous membranes slightly dry. Neck: No tenderness, supple. CV: Sinus tachycardia; regular rhythm, no murmur. Resp: Lungs clear to auscultation bilaterally, no distress. Abdomen: Soft, mild diffuse tenderness, no rebound or guarding. Extremities: 1+ bilateral lower extremity edema. Neuro: GCS 15, no focal deficits, follows commands appropriately. Results Labs 04/05/25 09:34 04/05/25 09:34 Labs: Laboratory Results - last 24 hr 04/05/25 04/05/25 04/05/25 09:34 10:14 10:28 WBC 6.77 RBC 4.39 Hgb 12.6 Hct 39.9 MCV 91 MCH 28.7 MCHC 31.6 L RDW 14.2 Plt Count 328 MPV 9.7 Immature Gran % 0.3 Neutrophils % 69.2 Lymphocytes % 20.4 Monocytes % 9.6 Eosinophils % 0.4 Basophils % 0.1 Nucleated RBC % 0.0 Absolute Neutrophils 4.68 Absolute Lymphocytes 1.38 Absolute Monocytes 0.65 Absolute Eosinophils 0.03 Absolute Basophils 0.01 VBG Lactate 0.7 Sodium 140 Potassium 4.3 Chloride 103 Carbon Dioxide 27.0 Anion Gap 10.0 BUN 33 H Creatinine 1.0 Est GFR (CKD-EPI 2020) 54.19 Glucose 97 Calcium 9.2 Magnesium 1.9 Total Bilirubin 0.5 AST 22 ALT 19 Alkaline Phosphatase 90 Troponin I 51 52 H* Total Protein 7.9 Albumin 3.1 L Lipase 12 TSH 1.90 Urine Color Yellow Urine Clarity Clear Urine pH 6.0 Ur Specific [place] 1.010 Urine Protein Trace Urine Ketones Negative Urine Blood Small H Urine Nitrite Negative Urine Bilirubin Negative Urine Urobilinogen 0.2 Ur Leukocyte Esterase Negative Urine RBC 3-5 H Urine WBC Negative Ur Epithelial Cells Rare Urine Crystals Negative Urine Bacteria Negative Urine Casts Negative Urine Mucus Negative Ur Culture Indicated? No Urine Glucose Negative COVID-19 Source SARS-CoV-2 (PCR) Influenza Type A (PCR) Influenza Type B (PCR) RSV (PCR) ABO/Rh A Positive Antibody Screen POSITIVE 04/05/25 04/05/25 11:08 15:21 WBC RBC Hgb Hct MCV MCH MCHC RDW Plt Count MPV Immature Gran % Neutrophils % Lymphocytes % Monocytes % Eosinophils % Basophils % Nucleated RBC % Absolute Neutrophils Absolute Lymphocytes Absolute Monocytes Absolute Eosinophils Absolute Basophils VBG Lactate Sodium Potassium Chloride Carbon Dioxide Anion Gap BUN Creatinine Est GFR (CKD-EPI 2020) Glucose Calcium Magnesium Total Bilirubin AST ALT Alkaline Phosphatase Troponin I Cancelled 60 H* Total Protein Albumin Lipase TSH Urine Color Urine Clarity Urine pH Ur Specific [place] Urine Protein Urine Ketones Urine Blood Urine Nitrite Urine Bilirubin Urine Urobilinogen Ur Leukocyte Esterase Urine RBC Urine WBC Ur Epithelial Cells Urine Crystals Urine Bacteria Urine Casts Urine Mucus Ur Culture Indicated? Urine Glucose COVID-19 Source Nasopharynx SARS-CoV-2 (PCR) Negative Influenza Type A (PCR) Negative Influenza Type B (PCR) Negative RSV (PCR) Negative ABO/Rh Antibody Screen Last Vital Signs Temp 36.7 C 04/05/25 15:56 Pulse 102 H 04/05/25 15:56 Resp 16 04/05/25 15:56 BP 190/106 H 04/05/25 15:56 Pulse Ox 96 04/05/25 15:56 Time Spent Time spent with Patient: 40-54 minutes Time was spent: preparing to see the patient(eg.review tests), obtaining and/or reviewing separately otained hiistory, ordering medications,tests, procedures, referring, communicating with other health critical care physician, indepentently interpreting results, counseling the patient and care coordination
--- NOTE | 2025-04-05 18:15 | RT.EKG_ITS ---
APPROVED REPORT Exam: Resting ECG Reason for Exam: AFib per tele Patient Location: I HR:96 bpm ECG Measurements Heart Rate 96 AXIS NM 201 P 3 QRSd 77 QRS -18 QT 352 T 30 QTc 445 Conclusion Sinus tachycardia...rate> 99 Supraventricular bigeminy...bigeminy string>4 w/ SV complexes Borderline left axis deviation...QRS axis (-15,-29) Anteroseptal infarct, age indeterminate...Q >35mS, T neg, V1-V2 I have reviewed and I agree with the emergency room physician's ECG interpretation.
[2025-04-05] MEDS: Normal Saline 1,000 ML 125 ML IV (18:41)
[2025-04-05] MEDS: Acetaminophen 325 MG TAB 650 MG PO (18:42)
[2025-04-06 00:23] LABS: EPI 027-NAP1-B1 PRESUMPTIVE NEGATIVE
[2025-04-06] MEDS: Ondansetron 4 MG/2 ML VIAL IVP (00:32)
[2025-04-06] MEDS: Acetaminophen 325 MG TAB 650 MG PO (00:33)
[2025-04-06] MEDS: Gabapentin 300 MG CAP PO (00:33)
[2025-04-06 00:46] VITALS: PULSE 94
--- NOTE | 2025-04-06 01:17 | NUR.NOTE ---
Nursing Note:Yoly is AOx4 anxious & restless. VS documented on RA, see flowsheet. PRN APAP given for headache. Multiple BMs through shift, specimen sent to lab. C/o restless legs and anxiety, notified and acknowledge, gabapentin administer with good effect.
[2025-04-06] MEDS: Normal Saline 1,000 ML 125 ML IV (02:45)
[2025-04-06 07:34] LABS: Abs Immature Grans 0.01 10^3/uL (0.0-0.06); HCT 37.3 % (36.0-46.0); HGB 11.5 g/dL (11.2-15.7); Immature Grans % 0.2 %; MCH 28.1 pg (27.0-33.0); MCHC 30.8 % (32.0-36.0); MCV 91 fL (80-95); MPV 9.4 fL (8.0-11.0); Platelet Count 296 10^3/uL (130-400); RBC 4.09 10^6/uL (3.93-5.22); RDW 14.3 % (11.7-14.6); RDW-SD 47.8 fL; WBC 4.22 10^3/uL (4.4-10.8)
[2025-04-06 07:41] VITALS: BP 138/89; PULSE 79; RESP 16; TEMP 36.4; O2SAT 95
[2025-04-06 07:43] LABS: ESR 64 mm/hr (0-30)
[2025-04-06 07:53] LABS: Anion Gap 7.0 mmol/L (3-11); BUN 20 mg/dL (7-18); C-Reactive Protein 2.79 mg/dL (<or=0.5); CO2 27.0 mmol/L (21.0-32.0); Calcium 8.7 mg/dL (8.5-10.1); Chloride 108 mmol/L (98-107); Glucose 99 mg/dL (74-106); Magnesium 1.9 mg/dL (1.8-2.4); Potassium 4.2 mmol/L (3.5-5.1); Sodium 142 mmol/L (136-145); Uric Acid 6.1 mg/dL (2.6-6.0)
--- NOTE | 2025-04-06 08:14 | PDOC.CMIN ---
Date of service: 04/06/25 Time of Service: 08:14 Care Management Initial Assmt Initial Assessment Reason for Hospitalization: Weakness, Diarrhea Functional Status/Living Situation Patient Presentation: Yoly was sitting in a chair when CM met with her. She is accompanied by her son Wisam, whom she identifies as her 'caregiver.' Yoly resides in [place] next door to her daughter Libertad, whom she reports is also very supportive. Yoly may benefit from increased support in the community and is interested in learning more about [facility]. CM will follow and place a referral to [facility]. Town of Residence: [place] Resides with: Alone Significant Other/Family: Local (Abran Joel) Caregiver/Guardian: Son Wisam Natural Supports: SOn Wisam and Daughter Libertad Employment Status: Retired Instrumental Activities of Daily Living (ADLs): Requires support with Transportation Activities/Hobbies/SocialSupport: Enjoys looking through old cook books and making collages. Medications Medication Management: No Issues/Barriers identified Physical Functioning/Mobility Assistive Device: Walker and Cane Advance Directives Advance Directives: Do you have an Advance Directive: Y 09/21/23, 19:15 AD On File at [facility]: Y 09/21/23, 19:15 Date Asked 07/25/22 Today, 08:01 AD Date Reviewed 04/05/25 04/05/25, 10:20 COLST On File at [facility] Yes Today, 08:01 COLST Date Scanned 04/05/25 Today, 08:01 Code Status Resuscitation Status DNR/DNI Insurance Coverage/Financial Issues Insurance: Medicare Part A & B - [id number] Care Team Visit Care Team Role Provider Type Tania Thompson NP MD [facility] STAFF PHYSICIAN Fco Campbell NP Primary Care Provider NURSE PRACTITIONER [facility] Other Providers OTHER [facility] Emergency Provider PHYSICIANS ASSISTANT Jhony Ocasio Admit Provider [facility] STAFF PHYSICIAN Attending Provider Discharge Potential Discharge Needs: PCP F/U Appt Anticipated Barriers to Discharge: None Identified Patient/Family Education Needs: Review discharge instructions, discuss Ask Me Three Transportation: Private vehicle Plan: Anticipate, Yoly will discharge home with new [facility] PT via private vehicle once medically ready. Patient will follow up with her community provider and continue per her discharge plan of care. CM will follow. Social Determinants of Health Screening Social Determinants of health last assessed in clinic: 04/06/25 Will the Patient Participate in the Screening?: Yes Do you worry about having a steady place to live?: no Problems where you live: no known problems In the past 12 months, have you had to go without electric, gas, oil or water in your home?: no 1. Within the past 12 months, we worried whether our food would run out before we got money to buy more.: Never true 2. Within the past 12 months, the food we bought just didn't last and we didn't have money to get more.: Never true Has lack of transportation kept you from medical appointments or from doing things needed for daily living?: no Has anyone in your life made you feel unsafe or unsupported?: no How hard is it for you to pay for the very basics like food, housing, medical care, and heating? Would you say it is:: Not hard at all Do you want help finding or keeping work or a job?: I do not need or want help If for any reason you need help with day-to-day activities such as bathing, preparing meals, shopping, managing finances, etc., do you get the help you need?: I don’t need any help How often do you feel lonely or isolated from those around you?: Never Do you speak a language other than Nigerien at home?: No Does the patient want assistance with any of the above?: No PFSH All Active Problems (Updated 04/05/25 @ 19:17 by Tania Thompson NP) Mechanical venous thromboembolism (VTE) prophylaxis in place (Acute) Discharge planning issues (Acute) Atrial fibrillation (Acute) Bloody diarrhea (Acute) Gout attack (Acute) Fatigue (Acute) Sebaceous hyperplasia of face (Acute) Spinal stenosis of lumbar region (Acute) SI (sacroiliac) joint dysfunction (Acute) Lumbar spondylosis (Acute) Fall (Acute) Left wrist pain (Acute) Hyperuricemia (Chronic) Orthopnea (Acute) Asthma (Chronic) Nocturnal hypoxia (Acute) Multinodular thyroid (Acute) Palpitations (Acute) COLVIN (dyspnea on exertion) (Acute) Lesion of skin of nose (Acute) Collagenous colitis (Acute) Anxiety (Chronic) Cervical radiculopathy (Acute 05/10/15) 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 per Xray-10/07=right foot 1st MTP; left hand Hyperlipidemia (Chronic) Lumbago (Acute) scoliosis and DJD 03/10-xray Varicose veins of lower extremity (Acute) Essential tremor (Acute) she wishes to hold off on any interventions for now Primary osteoarthritis of left knee (Chronic) Most recent Depo-Medrol injection: 03/18/25; 08/26/20; 03/25/20; 10/16/19; 06/18/2019 Hypertension (Chronic) Medical History (Updated 04/05/25 @ 19:17 by Tania Thompson NP) Polyarthralgia Joint pain Fever Rash Lip lesion Diarrhea SOB (shortness of breath) Thyroid nodule Chest pain Chills (without fever) Chest pain, atypical Groin rash Pain in upper jaw Facial pain Abdominal pain Protracted diarrhea (09/18/13) 09/05 [facility] colonoscopy ?colitis 08/06 colonoscopy normal ?bacterial overgrowth 09/2015 collagenous collitis Dysphagia, unspecified (09/02/17) Epilepsy (11/30/10) pt. 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 Mohs at [facility] Hyperlipidemia 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 Anxiety Osteoporosis Osteoarthritis of knees, bilateral Lower back pain Synovitis of hand Cellulitis of left hand Surgical History History of cataract surgery History of colonoscopy Status post left foot surgery Hallux valgus Status post surgical removal of ganglion cyst RMF History of shoulder surgery Right bursa and excision of bone spurs Status post phlebectomy Left leg vein excision Abdominal hysterectomy EGD - IV Sedation Bladder Surgery (~07/2008) sling and reconstruction for uterine prolapse and cystocele Appendectomy Family History Mother Heart disease Hyperlipidemia Father Essential hypertension Heart disease Hyperlipidemia Sister Essential hypertension Heart disease Hyperlipidemia Brother Essential hypertension Heart disease Hyperlipidemia Brother Personal history of malignant neoplasm Brother Heart disease Stroke Brother Essential hypertension Heart disease Hyperlipidemia Brother Essential hypertension Heart disease Hyperlipidemia Stroke Son Hyperlipidemia Daughter Diabetes Hyperlipidemia COPD (chronic obstructive pulmonary disease) Daughter No problems noted. Social History Smoking/Tobacco Use Status: Never Second Hand Exposure: Yes Smoking risk assessment performed?: Yes Alcohol Intake: never Drug use: Never Substance use type: does not use Counseling given: No Adopted: No Caregiver/Support person: Yes Household members: none Housing: house Number of Children: 3 number of grandchildren: 7 Communication Needs: Hard of Hearing and Corrective Lenses Education Level: high school Do you need help understanding health information?: Rarely current occupation: RETIRED Sexually active: No Do you think of yourself as: straight/heterosexual Current gender identity: female What is your relationship status?: How often do you talk on the phone with friends or family?: decline to answer How often do you get together with friends or relatives?: decline to answer How often do you attend yazdanism or taoist services?: decline to answer Do you belong to any clubs or organized social groups?: no Panel score (0-1 are the most socially isolated patients): 0 What type of physical activity do you participate in: other Details: [place] outside, mow lawn with riding mower, get groceries Duration: 60-90 minutes/day Frequency: 1-2 times per week Anz/Scientologist: Yarsanism Special naz needs: No Agree to transfusion: Yes Seatbelt use: always Drive intox or ride w/intox local company 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
[2025-04-06] MEDS: Cholecalciferol (Vitamin D3) 1,000 UNIT TAB 5000 UNITS PO (08:45)
[2025-04-06] MEDS: Pantoprazole 40 MG VIAL IVP (08:45)
[2025-04-06] MEDS: Irbesartan 75 MG TAB 150 MG PO (08:46)
[2025-04-06] MEDS: Felodipine 2.5 MG TABCR PO (08:46)
--- NOTE | 2025-04-06 09:59 | IN_ITS ---
PT Notes Visit Reasons: Weakness; Diarrhea Physical Therapy Inpatient Initial Evaluation Date: 04/06/2025 Referring Doctor: Tania Thompson NP PT Orders: PT CONSULT: Eval/Treat Precautions: Fall. Standard. Activity as tolerated. Patient Profile/Admitting Diagnosis: Yoly is an 89-year-old female who presented to the ED on 04/05/2025 with chief complaints of weakness blood in stool for the past 6 days headache, lightheadedness and multiple falls. Patient is admitted for further examination/assessment/management of lower GI bleed, hypertension, fatigue, anxiety, and hyperuricemia. PMHX: All Active Problems (Updated 04/05/25 @ 19:17 by Tania Thompson NP) Mechanical venous thromboembolism (VTE) prophylaxis in place (Acute) Discharge planning issues (Acute) Atrial fibrillation (Acute) Bloody diarrhea (Acute) Gout attack (Acute) Fatigue (Acute) Sebaceous hyperplasia of face (Acute) Spinal stenosis of lumbar region (Acute) SI (sacroiliac) joint dysfunction (Acute) Lumbar spondylosis (Acute) Fall (Acute) Left wrist pain (Acute) Hyperuricemia (Chronic) Orthopnea (Acute) Asthma (Chronic) Nocturnal hypoxia (Acute) Multinodular thyroid (Acute) Palpitations (Acute) COLVIN (dyspnea on exertion) (Acute) Lesion of skin of nose (Acute) Collagenous colitis (Acute) Anxiety (Chronic) Cervical radiculopathy (Acute 05/10/15) 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 per Xray-10/07=right foot 1st MTP; left hand Hyperlipidemia (Chronic) Lumbago (Acute) scoliosis and DJD 03/10-xray Varicose veins of lower extremity (Acute) Essential tremor (Acute) she wishes to hold off on any interventions for now Primary osteoarthritis of left knee (Chronic) Most recent Depo-Medrol injection: 03/18/25; 08/26/20; 03/25/20; 10/16/19; 06/18/2019 Hypertension (Chronic) Medical History (Updated 04/05/25 @ 19:17 by Tania Thompson NP) Polyarthralgia Joint pain Fever Rash Lip lesion Diarrhea SOB (shortness of breath) Thyroid nodule Chest pain Chills (without fever) Chest pain, atypical Groin rash Pain in upper jaw Facial pain Abdominal pain Protracted diarrhea (09/18/13) 09/05 [facility] colonoscopy ?colitis 08/06 colonoscopy normal ?bacterial overgrowth 09/2015 collagenous collitis Dysphagia, unspecified (09/02/17) Epilepsy (11/30/10) pt. 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 Mohs at [facility] Hyperlipidemia 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 Anxiety Osteoporosis Osteoarthritis of knees, bilateral Lower back pain Synovitis of hand Cellulitis of left hand Surgical History History of cataract surgery History of colonoscopy Status post left foot surgery Hallux valgusStatus post surgical removal of ganglion cyst RMFHistory of shoulder surgery Right bursa and excision of bone spursStatus post phlebectomy Left leg vein excision Abdominal hysterectomy EGD - IV Sedation Bladder Surgery (~07/2008) sling and reconstruction for uterine prolapse and cystocele Appendectomy Social History/Home Situation: Son and daughter live close by and have been supportive. Has 3 steps to enter with one railing. Modified independent with SPC and occasional FWW indoors. Still drives but very infrequently now. Equipment Owned/DME: FWW, SPC Subjective: Complained about the heavy telemonitor hangng on her R pocker, felt better when PT put the device in a blue bag. Did not like the walker but felt more stable with it and so was agreeable to use it in the hallway for the walk Objective: General Observation: Seated on bediside chair. Son and daughter present in room throughout session. Mental Status: Alert and oriented as to person, place, time, and purpose. Able to pay attention, focus, and respond appropriately. Pain: []/10 in [] [] Vital Signs: [] ROM: Right Upper Extremity: Shoulder Flexion WFL. Shoulder abduction WFL. Elbow flexion WFL. Wrist flexion WFL. Functional opening and closing of hand WFL. Left Upper Extremity: Shoulder Flexion WFL. Shoulder abduction WFL. Elbow flexion WFL. Wrist flexion WFL. Functional opening and closing of hand WFL. Right Lower Extremity: Hip flexion WFL. Hip abduction WFL. Knee flexion WFL. Ankle dorsiflexion WFL. Ankle plantarflexion WFL. Left Lower Extremity: Hip flexion WFL. Hip abduction WFL. Knee flexion WFL. Ankle dorsiflexion WFL. Ankle plantarflexion WFL. Strength: Right Upper Extremity: Shoulder flexors 4-/5. Shoulder abductors 4-/5. Elbow flexors 4-/5. Elbow extensors 4-/5. Manager Of Financial Reporting strong. Left Upper Extremity: Shoulder flexors 4-/5. Shoulder abductors 4-/5. Elbow flexors 4-/5. Elbow extensors 4-/5. Manager Of Financial Reporting strong. Right Lower Extremity: Hip flexors 3+/5. Hip abductors 3+/5. Knee flexors 4-/5. Knee extensors 3+/5. Ankle dorsiflexors 4-/5. Ankle plantarflexors 4-/5. Left Lower Extremity: Hip flexors 3+/5. Hip abductors 3+/5. Knee flexors 4-/5. Knee extensors 3+/5. Ankle dorsiflexors 4-/5. Ankle plantarflexors 4-/5. Bed Mobility/Transfers: Minimal cueing provided for use of B hands as needed for support, movement sequence, AD management, and posture to reduce fall risk and minimize pain report Sit to stand stand by assist with FWW Stand to sit stand by assist with FWW Bed to toilet seat stand by assist with FWW toilet seat to bed stand by assist with FWW Bed to reclining chair stand by assist with FWW Reclining chair to bed stand by assist with FWW Gait: Facilitate safe and correct performance of level surface ambulation covering at distances of 75 feet + 75 feet + 150 feet with FWW, stand by assist with FWW with 3 seated rests. Decreased abduction on the right hip. Decreased step height and step length. Emphasize improved stability with a walker though she did not like using device, less stable with single-point cane. Denied pain, headache, chest pain, and lightheadedness throughout session. Stairs: Guided patient with safe and correct negotiation of 6 x 4-inch steps and 4 x 6- inch steps while holding onto 1 rail and using SPC on the other side. Balance: Static Sitting: Normal Dynamic Sitting: Normal Static Standing: Fair Dynamic Standing: Fair Special Tests: Mobility Limitations Standardized Measure [employer] AM-PAC 6 clicks Basic Mobility Inpatient Short Form: Raw Score: 23 CMS Score: 11% deficit Informed Consent/Education: Patient was instructed in purpose of PT consult and plan of care. Agreeable to proceed with established PT POC to achieve personal goals. Assessment: Patient, daughter, adn son were all trained with safe techiniques and safe dvices to use ot reduce fall risk at home. Patient presents with clinical signs and symptoms consistent with current/admitting diagnoses that have resulted to mobility limitations, gait instability, generalized weakness, and overall ADL decline as demonstrated by the following impairment level findings: 1. Decreased strength to B UE/LE major muscle groups 2. Impaired static/dynamic standing balance 3. Impaired activity tolerance Impairments are contributing to the following functional limitations: 1. Difficulty with ambulation without assistive device and physical assistance 2. Increased completion time for mobility ADL performance 3. Increased risk for falls 4. Difficulty with managing steps alone safely Patient is assessed as a 55273 moderate complexity based on the following: History: 89-year-old female with past medical history as indicated above Examination: Demonstrable impairment in strength, balance, and mobility level with underlying impairments and functional limitations as exhibited above as well as deficit score of 11% utilizing the [facility] Mobility Inpatient Short Form Presentation: Stable Decision Makin moderate complexity Goals: Goals X1 week 1. Supine-Sit independent 2. Sit-Supine independent 3. Sit-Stand independent 4. Stand-Sit independent with FWW 5. Bed-Chair independent with FWW 6. Chair-Bed independent with FWW 7. Independent gait on level surface with use of FWW for at least 150 feet without report of pain nor dyspnea 8. Independent stair negotiation while holding onto 1 rail for at least 3 steps without report of pain nor dyspnea 9. Independent with home exercise program 10. Good static and dynamic standing balance/tolerance Plan of Care/Treatment Plan: 1-2x/day, 7 days/week x 1 week. Plan of care has been reviewed with the PREASSEMBLER AND INSPECTOR providing the service under Physical Therapy direction. Initiate Physical Therapy intervention for pain management as needed, strengthening, bed mobility, transfers, gait, stairs, balance training, and use of assistive device. DISCHARGE RECOMMENDATIONS: PT TREATMENT CODE/TIME: 12844 x 20 minutes for 1 unit, 99981 x 26 minutes for 2 units (9:59-10:45). Thank you for the opportunity to participate in the care of this patient. Seda Lora PT, DPT, CLT [facility] [place], [place]
[2025-04-06 11:06] VITALS: BP 122/69; PULSE 98; RESP 16; TEMP 36.7; O2SAT 94
--- NOTE | 2025-04-06 13:21 | DSE_ITS ---
Date of service: 04/06/25 Time of Service: 13:21 DS: Diagnosis Discharge Diagnosis (1) Bloody diarrhea: Status: Acute (2) Hypertension: Status: Chronic (3) Fatigue: Status: Acute (4) Anxiety: Status: Chronic (5) Hyperuricemia: Status: Chronic (6) Mechanical venous thromboembolism (VTE) prophylaxis in place: Status: Acute (7) Discharge planning issues: Status: Acute Discharge Plan Disposition Patient Disposition: Home W/Home Health Services Condition: Improving Discharge Details Reason For Visit: Weakness; Diarrhea Admit Date/Time: 04/05/25 13:48 Admit Provider: Jhony Ocasio Attending Provider: Jhony Ocasio Primary Care Provider: Fco Montes Hospital Course Hospital Course: The patient was admitted for management of bright red bloody diarrhea and associated weakness. Presentation was most consistent with a lower gastrointestinal bleed, likely secondary to NSAID-induced colitis versus a flare of underlying collagenous colitis. Hemoglobin remained stable throughout admission. NSAIDs were discontinued. The patient was treated with IV hydration and proton pump inhibitor therapy. Stool studies were negative. Blood pressures remained elevated during hospitalization; irbesartan was continued and felodipine was initiated for improved control. Blood pressures came down nicely. The patient also reported symptoms consistent with restless leg syndrome and was given gabapentin at bedtime which she felt was very effective and she said she slept great. The patient remained hemodynamically stable and tolerated oral intake. She had no further diarrhea. She demonstrated improvement in symptoms and was deemed medically appropriate for discharge home with close outpatient follow-up. She was evaluated by PT who recommended PT. Home Meds and New Rx's Prescriptions: New gabapentin 100 mg capsule 100 mg PO QHS Qty: 30 0RF felodipine 2.5 mg Tablet Extended Release 24 Hr 2.5 mg PO DAILY Qty: 30 0RF Continued cholecalciferol (vitamin D3) 1,000 unit capsule 5,000 unit PO DAILY mupirocin 2 % ointment 1 applic topical BID Qty: 22 0RF albuterol sulfate [Ventolin HFA] 90 mcg/actuation HFA aerosol inhaler 2 puff inhalation QID PRN (Reason: shortness of breath or wheezing) Qty: 8.5 2RF acetaminophen 325 mg tablet 325 mg PO ONCE PRN diclofenac sodium 1 % gel 4 g topical QID Qty: 100 0RF Rx Instructions: apply to SI joints QID prn magnesium oxide 250 mg magnesium tablet 500 mg PO wkly PRN irbesartan 150 mg tablet 150 mg PO DAILY Qty: 90 4RF Rx Instructions: dose increase diphenoxylate-atropine [Lomotil] 2.5-0.025 mg tablet 1 tab PO DAILY Qty: 90 1RF omega 5-aoq-oco-fish oil [Fish Oil] 1,200 (144-216) mg capsule 1 cap PO DAILY prednisone 20 mg tablet 40 mg PO DAILY PRN lidocaine 5 % adhesive patch,medicated 1 patch topical DAILY PRN Rx Instructions: leave on most painful area for up to 12 hrs Discharge Instructions Instructions: High blood pressure in adults, Felodipine, Gabapentin Additional Instructions: Discharge Medications * Continue: * Irbesartan 150 mg orally daily * Start: * Felodipine 2.5 mg orally daily for blood pressure control * Gabapentin 100 mg orally at bedtime for restless legs symptoms * Hold / Stop: * NSAIDs (Aleve, diclofenac, etc.) — avoid to reduce risk of recurrent GI bleeding * Aspirin — hold until GI bleeding has fully resolved and PCP clears Follow-Up * PCP follow-up in 1 week for: * Blood pressure re-evaluation; medication management * Restless legs Activity / Diet / Instructions * Stay well hydrated * Avoid NSAIDs completely * Continue to monitor stools; return for increasing blood, dizziness, weakness, chest pain, or shortness of breath * Monitor home BP daily and bring log to PCP visit Stand Alone Forms: Portal Information Referrals: Fco Montes NP [Primary Care Provider, Medicine] Referral Note: 1 week - HTN; change in meds; Restless legs - gabapentin. Activity:: Activity as Tolerated Equipment/Supplies:: No Equipment Needed Diet:: As Tolerated Discharge Orders Discharge Orders: Discharge Order (Routine); Ordered 04/06/25 Ordered By: Tania Thompson Discharge Data Discharge Date/Time-TO BE ENTERED AT DEPARTURE: 04/06/25 13:54 DS: Summary Time Spent with Patient providing and/or coordinating discharge services: Greater than 30 minutes Status at Discharge Functional status at discharge: uses cane/walker Overall status at discharge: patient is back to baseline Mental Status: mental status grossly normal Speech and Movement: speech and movement normal Mood: congruent mood Affect: normal affect Quality:SDOH Health Related Social Needs: Health related social needs lonely/isolated Exam Narrative Exam Narrative: General: Pale, alert, oriented ×4, cooperative. HEENT: PERRLA, mucous membranes slightly dry. Neck: No tenderness, supple. CV: Sinus tachycardia; regular rhythm, no murmur. Resp: Lungs clear to auscultation bilaterally, no distress. Abdomen: Soft, mild diffuse tenderness, no rebound or guarding. Extremities: 1+ bilateral lower extremity edema. Neuro: GCS 15, no focal deficits, follows commands appropriately. Psych Mental Status: mental status grossly normal Speech and Movement: speech and movement normal Mood: congruent mood Affect: normal affect DS: Data Vitals/I&O Vitals and I&O: Vital Signs Temperature 36.7 C 04/06/25 11:06 Temperature Source Temporal Artery Scan 04/06/25 11:06 Pulse 98 H 04/06/25 11:06 Pulse Rhythm Regular 04/05/25 15:56 Pulse 104 H 04/05/25 09:41 Respiratory Rate 16 04/06/25 11:06 Respiratory Effort Normal, Non-Labored 04/05/25 15:56 Respiratory Depth Normal 04/05/25 15:56 Respiratory Pattern Normal 04/05/25 15:56 Blood Pressure 122/69 04/06/25 11:06 Blood Pressure Mean 86 04/06/25 11:06 Pulse Oximetry 94 04/06/25 11:06 Oxygen Delivery Method Room Air 04/06/25 11:06 Oxygen Flow Rate 0 04/06/25 11:06 Pain Level 0 04/06/25 07:41 Intake & Output 04/05/25 04/06/25 04/06/25 23:59 11:59 23:59 Intake Total 1000 / 1020 2457 / 2677 220 / 2677 Output Total 525 / 525 250 / 250 Balance 475 / 495 2207 / 2427 220 / 2427 Weight 61.235 kg 63.5 kg Intake: IV 1000 / 1020 1999 / 1999 Oral 457 / 677 220 / 677 Output: Urine 525 / 525 250 / 250 Other: Urine Color Yellow Yellow Urine Appearance Clear Clear Urine Odor Normal Normal Comment 1 large unmeasured void Stool Size Moderate Moderate Stool Characteristics Soft Liquid Formed Brown Brown Emesis Description None Data Completed and Pending Pending Labs at Discharge: 04/05/25 04/05/25 04/05/25 09:34 10:14 10:28 WBC 6.77 RBC 4.39 Hgb 12.6 Hct 39.9 MCV 91 MCH 28.7 MCHC 31.6 L RDW 14.2 Plt Count 328 MPV 9.7 Immature Gran % 0.3 Neutrophils % 69.2 Lymphocytes % 20.4 Monocytes % 9.6 Eosinophils % 0.4 Basophils % 0.1 Nucleated RBC % 0.0 Absolute Neutrophils 4.68 Absolute Lymphocytes 1.38 Absolute Monocytes 0.65 Absolute Eosinophils 0.03 Absolute Basophils 0.01 ESR VBG Lactate 0.7 Sodium 140 Potassium 4.3 Chloride 103 Carbon Dioxide 27.0 Anion Gap 10.0 BUN 33 H Creatinine 1.0 Est GFR (CKD-EPI 2020) 54.19 Glucose 97 Uric Acid Calcium 9.2 Magnesium 1.9 Total Bilirubin 0.5 AST 22 ALT 19 Alkaline Phosphatase 90 Troponin I 51 52 H* C-Reactive Protein Total Protein 7.9 Albumin 3.1 L Lipase 12 TSH 1.90 Urine Color Yellow Urine Clarity Clear Urine pH 6.0 Ur Specific Glendo 1.010 Urine Protein Trace Urine Ketones Negative Urine Blood Small H Urine Nitrite Negative Urine Bilirubin Negative Urine Urobilinogen 0.2 Ur Leukocyte Esterase Negative Urine RBC 3-5 H Urine WBC Negative Ur Epithelial Cells Rare Urine Crystals Negative Urine Bacteria Negative Urine Casts Negative Urine Mucus Negative Ur Culture Indicated? No Urine Glucose Negative Stool Campylobacter PCR Stl C.difficile Tox PCR Stool Salmonella PCR Stool Shigella PCR COVID-19 Source SARS-CoV-2 (PCR) Influenza Type A (PCR) Influenza Type B (PCR) RSV (PCR) Shiga Toxin (PCR) ABO/Rh A Positive Antibody Screen POSITIVE Antibody Identification Pending Antibody ID Referred 04/05/25 04/05/25 04/05/25 11:08 14:25 15:21 WBC RBC Hgb Hct MCV MCH MCHC RDW Plt Count MPV Immature Gran % Neutrophils % Lymphocytes % Monocytes % Eosinophils % Basophils % Nucleated RBC % Absolute Neutrophils Absolute Lymphocytes Absolute Monocytes Absolute Eosinophils Absolute Basophils ESR VBG Lactate Sodium Potassium Chloride Carbon Dioxide Anion Gap BUN Creatinine Est GFR (CKD-EPI 2020) Glucose Uric Acid Calcium Magnesium Total Bilirubin AST ALT Alkaline Phosphatase Troponin I Cancelled 60 H* C-Reactive Protein Total Protein Albumin Lipase TSH Urine Color Urine Clarity Urine pH Ur Specific Glendo Urine Protein Urine Ketones Urine Blood Urine Nitrite Urine Bilirubin Urine Urobilinogen Ur Leukocyte Esterase Urine RBC Urine WBC Ur Epithelial Cells Urine Crystals Urine Bacteria Urine Casts Urine Mucus Ur Culture Indicated? Urine Glucose Stool Campylobacter PCR Stl C.difficile Tox PCR Stool Salmonella PCR Stool Shigella PCR COVID-19 Source Nasopharynx SARS-CoV-2 (PCR) Negative Influenza Type A (PCR) Negative Influenza Type B (PCR) Negative RSV (PCR) Negative Shiga Toxin (PCR) ABO/Rh Antibody Screen Antibody Identification Antibody ID Referred Pending 04/05/25 04/06/25 23:28 07:05 WBC 4.22 L RBC 4.09 Hgb 11.5 Hct 37.3 MCV 91 MCH 28.1 MCHC 30.8 L RDW 14.3 Plt Count 296 MPV 9.4 Immature Gran % 0.2 Neutrophils % 58.1 Lymphocytes % 31.0 Monocytes % 8.1 Eosinophils % 2.1 Basophils % 0.5 Nucleated RBC % 0.0 Absolute Neutrophils 2.45 Absolute Lymphocytes 1.31 Absolute Monocytes 0.34 Absolute Eosinophils 0.09 Absolute Basophils 0.02 ESR 64 H VBG Lactate Sodium 142 Potassium 4.2 Chloride 108 H Carbon Dioxide 27.0 Anion Gap 7.0 BUN 20 H Creatinine 0.9 Est GFR (CKD-EPI 2020) 61.49 Glucose 99 Uric Acid 6.1 H Calcium 8.7 Magnesium 1.9 Total Bilirubin AST ALT Alkaline Phosphatase Troponin I C-Reactive Protein 2.79 H Total Protein Albumin Lipase TSH Urine Color Urine Clarity Urine pH Ur Specific Glendo Urine Protein Urine Ketones Urine Blood Urine Nitrite Urine Bilirubin Urine Urobilinogen Ur Leukocyte Esterase Urine RBC Urine WBC Ur Epithelial Cells Urine Crystals Urine Bacteria Urine Casts Urine Mucus Ur Culture Indicated? Urine Glucose Stool Campylobacter PCR Pending Stl C.difficile Tox PCR Negative Stool Salmonella PCR Pending Stool Shigella PCR Pending COVID-19 Source SARS-CoV-2 (PCR) Influenza Type A (PCR) Influenza Type B (PCR) RSV (PCR) Shiga Toxin (PCR) Pending ABO/Rh Antibody Screen Antibody Identification Antibody ID Referred [facility] All Active Problems (Updated 04/05/25 @ 19:17 by Tania Thompson NP) Mechanical venous thromboembolism (VTE) prophylaxis in place (Acute) Discharge planning issues (Acute) Atrial fibrillation (Acute) Bloody diarrhea (Acute) Gout attack (Acute) Fatigue (Acute) Sebaceous hyperplasia of face (Acute) Spinal stenosis of lumbar region (Acute) SI (sacroiliac) joint dysfunction (Acute) Lumbar spondylosis (Acute) Fall (Acute) Left wrist pain (Acute) Hyperuricemia (Chronic) Orthopnea (Acute) Asthma (Chronic) Nocturnal hypoxia (Acute) Multinodular thyroid (Acute) Palpitations (Acute) COLVIN (dyspnea on exertion) (Acute) Lesion of skin of nose (Acute) Collagenous colitis (Acute) Anxiety (Chronic) Cervical radiculopathy (Acute 05/10/15) 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 per Xray-10/07=right foot 1st MTP; left hand Hyperlipidemia (Chronic) Lumbago (Acute) scoliosis and DJD 03/10-xray Varicose veins of lower extremity (Acute) Essential tremor (Acute) she wishes to hold off on any interventions for now Primary osteoarthritis of left knee (Chronic) Most recent Depo-Medrol injection: 03/18/25; 08/26/20; 03/25/20; 10/16/19; 06/18/2019 Hypertension (Chronic) Medical History (Updated 04/05/25 @ 19:17 by Tania Thompson NP) Polyarthralgia Joint pain Fever Rash Lip lesion Diarrhea SOB (shortness of breath) Thyroid nodule Chest pain Chills (without fever) Chest pain, atypical Groin rash Pain in upper jaw Facial pain Abdominal pain Protracted diarrhea (09/18/13) 09/05 [facility]oscopy ?colitis 08/06 colonoscopy normal ?bacterial overgrowth 09/2015 collagenous collitis Dysphagia, unspecified (09/02/17) Epilepsy (11/30/10) pt. 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 at [facility] Hyperlipidemia 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 Anxiety Osteoporosis Osteoarthritis of knees, bilateral Lower back pain Synovitis of hand Cellulitis of left hand Surgical History History of cataract surgery History of colonoscopy Status post left foot surgery Hallux valgus Status post surgical removal of ganglion cyst RMF History of shoulder surgery Right bursa and excision of bone spurs Status post phlebectomy Left leg vein excision Abdominal hysterectomy EGD - IV Sedation Bladder Surgery (~07/2008) sling and reconstruction for uterine prolapse and cystocele Appendectomy Family History Mother Heart disease Hyperlipidemia Father Essential hypertension Heart disease Hyperlipidemia Sister Essential hypertension Heart disease Hyperlipidemia Brother Essential hypertension Heart disease Hyperlipidemia Brother Personal history of malignant neoplasm Brother Heart disease Stroke Brother Essential hypertension Heart disease Hyperlipidemia Brother Essential hypertension Heart disease Hyperlipidemia Stroke Son Hyperlipidemia Daughter Diabetes Hyperlipidemia COPD (chronic obstructive pulmonary disease) Daughter No problems noted. Social History Smoking/Tobacco Use Status: Never Second Hand Exposure: Yes Smoking risk assessment performed?: Yes Alcohol Intake: never Drug use: Never Substance use type: does not use Counseling given: No Adopted: No Caregiver/Support person: Yes Household members: none Housing: house Number of Children: 3 number of grandchildren: 7 Communication Needs: Hard of Hearing and Corrective Lenses Education Level: high school Do you need help understanding health information?: Rarely current occupation: RETIRED Sexually active: No Do you think of yourself as: straight/heterosexual Current gender identity: female What is your relationship status?: How often do you talk on the phone with friends or family?: decline to answer How often do you get together with friends or relatives?: decline to answer How often do you attend gnosticism or samaritan services?: decline to answer Do you belong to any clubs or organized social groups?: no Panel score (0-1 are the most socially isolated patients): 0 What type of physical activity do you participate in: other Details: [place] outside, mow lawn with riding mower, get groceries Duration: 60-90 minutes/day Frequency: 1-2 times per week Naz/Muslim: Scientologist Special naz needs: No Agree to transfusion: Yes Seatbelt use: always Drive intox or ride w/intox trash truck driver: No Working smoke detector in home: Yes Carbon monox detector in home: Yes Firearms in home: Yes Firearms unloaded and locked: No (unloaded, not locked) Do you feel safe at home: Yes Do you feel safe in your relationship?: Yes Victim of physical abuse: No Victim of emotional abuse: No Victim of sexual abuse: No Would you like helpful sources: No Time Spent with Patient Time Spent with Patient: 45-69 minutes Time was spent: preparing to see the patient(eg.review tests), ordering medications,tests, procedures, referring, communicating with other health child care supervisor, indepentently interpreting results, counseling the patient and care coordination
--- NOTE | 2025-04-06 13:54 | CMDISCH_ITS ---
Date of service: 04/06/25 Time of Service: 13:54 LACE Index Scoring Tool Questions: Length of Stay (in days): 1 Was the patient admitted via the E.D.?: Yes E.D. Visits: 4 Answers: Total Score: 8 Risk of Readmission: Low Risk Care Management Discharge Plan Reason for Hospitalization: Weakness, Diarrhea Discharge Plan: Yoly is discharged home with [facility] PT via private vehicle with son. She will follow up with community providers and continue per her discharge plan of care as directed. COA referral to determine MOW eligibility was placed prior to discharge. Patient/Family Education Needs: Review discharge instructions and plan follow-up after discharge. Discuss ask me three. Services Needed at Discharge: Home Health Care Services ([facility] PT, CM notified HH prior to discharge. ) SDOH Health Related Social Needs: Health related social needs lonely/isolated
--- NOTE | 2025-04-06 17:15 | PDOC.HHF2F ---
Date of service: 04/06/25 Time of Service: 17:15 Home Health Referral Home Health Orders Clinical synopsis of why skilled professionals are needed: The patient was admitted for management of bright red bloody diarrhea and associated weakness. Presentation was most consistent with a lower gastrointestinal bleed, likely secondary to NSAID-induced colitis versus a flare of underlying collagenous colitis. Hemoglobin remained stable throughout admission. NSAIDs were discontinued. The patient was treated with IV hydration and proton pump inhibitor therapy. Stool studies were negative. Blood pressures remained elevated during hospitalization; irbesartan was continued and felodipine was initiated for improved control. Blood pressures came down nicely. The patient also reported symptoms consistent with restless leg syndrome and was given gabapentin at bedtime which she felt was very effective and she said she slept great. The patient remained hemodynamically stable and tolerated oral intake. She had no further diarrhea. She demonstrated improvement in symptoms and was deemed medically appropriate for discharge home with close outpatient follow-up. She was evaluated by PT who recommended PT. Medical diagnosis necessitation home health referral: Hypertension, Weakness Registered Nurse: Check all that apply Instruct on new or changed medication(s)/assess compliance: Ordered Physical Therapist: Check all that apply Increase strength & endurance for safe mobility at home: Ordered To design/establish home maintenance program: Ordered Fall reduction therapy program for patient with history of frequent falls: Ordered Home safety evaluation and teaching/gait training including stair management (if applicable): Ordered Home Bound Status Patient has a condition such that leaving home is medically contraindicated (Describe): Requires a device and one person assist. Describe why leaving home would require a considerable and taxing effort: Side effects from pain medication (sedation/drowsiness), Requires frequent rest periods and Safety Concerns: describe (weakness) Encounter Date and Reason: I certify that a FTF encounter for this patient was performed on April 06, 2025 and that such encounter was related to the primary reason the patient requires home health services. The encounter was conducted in the following manner: By me as the certifying physician, COMPENSATION BUSINESS PARTNER, PA or By an inpatient physician, COMPENSATION BUSINESS PARTNER or PA during an inpatient stay who communicated findings to me, Certification And Authentication I certify that I composed the above information based on my clinical judgment relating to this patient's medical condition and, if applicable, clinical findings communicated to me by the NPP or inpatient physician who performed the FTF encounter. Name of Provider that will be monitoring home health services: Fco Campbell
[2025-04-06 23:09] LABS: Campylobacter PCR Negative (Negative); Shiga Toxin PCR Negative (Negative); Shigella/Enteroinvasive Ecoli Negative (Negative)
== END 2025-04-06 13:54 | disposition home health service (06) ==
LOC: ER 14:01 → MS 15:44
PROVIDERS: Admitting Provider Family Medicine; Emergency Provider Physician Assistant; PCP Nurse Practitioner Family; Responsible Provider Nurse Practitioner Family; Visit Provider Family Medicine
DX: K52.831 Collagenous colitis (principal); K92.1 Melena; R53.83 Other fatigue; I10 Essential (primary) hypertension; F41.9 Anxiety disorder, unspecified; E86.0 Dehydration; M10.9 Gout, unspecified; E83.42 Hypomagnesemia; R42 Dizziness and giddiness; Z79.899 Other long term (current) drug therapy; Z66 Do not resuscitate; I48.91 Unspecified atrial fibrillation; M48.061 Spinal stenosis, lumbar region without neurogenic claudication; J45.909 Unspecified asthma, uncomplicated; E04.2 Nontoxic multinodular goiter; M47.22 Other spondylosis with radiculopathy, cervical region
CPT/HCPCS: 00123; 36415; 70496; 70498; 71275; 80048; 80053; 80323; 83690; 85652; 86850; 86900; 86901; 87505; 87637; 93005; 96361; 96374; 96375; 97162; 97530; 99285; 74174; 81003; 81015; 82272; 83605; 83735; 84443; 84484; 84550; 85025; 86140; 86870; 86880; 86885; 86905; 93010; 99222; 99239; G0378; J2405; J2470; J2765; J3490

== ENCOUNTER 2025-05-03 04:18 | Outpatient (CLI) | payer MEDICARE, SELFPAY ==
[2025-05-03 14:17] LABS: ESR 25 mm/hr (0-30)
[2025-05-03 14:25] LABS: Uric Acid 5.5 mg/dL (3.1-7.8)
[2025-05-03 14:26] LABS: Anion Gap 7.8 mmol/L (3-11); BUN 26 mg/dL (9-23); CO2 29.2 mmol/L (20.0-31.0); Calcium 9.5 mg/dL (8.3-10.6); Chloride 105 mmol/L (98-107); Glucose 91 mg/dL (74-106); Potassium 4.4 mmol/L (3.5-5.1); Sodium 142 mmol/L (136-145)
[2025-05-03 14:27] LABS: C-Reactive Protein < 0.50 mg/dL (<=0.50)
== END 2025-05-03 04:19 | disposition home or self-care (01) ==
LOC: LOS 04:18
PROVIDERS: PCP Nurse Practitioner Family; Visit Provider Nurse Practitioner Family
DX: M10.9 Gout, unspecified (principal)
CPT/HCPCS: 36415; 80048; 85652; 84550; 86140

== ENCOUNTER 2025-05-11 11:48 | Outpatient (CLI) | payer MEDICARE, SELFPAY ==
[2025-05-11 11:16] VITALS: BP 164/105; PULSE 81; RESP 18; TEMP 36.4; O2SAT 96
[2025-05-11 12:29] VITALS: PULSE 101; O2SAT 93
[2025-05-11 12:30] VITALS: PULSE 97; O2SAT 92
[2025-05-11 12:40] VITALS: PULSE 94; O2SAT 95
--- NOTE | 2025-05-11 12:45 | DI.RAD_ITS ---
Exam(s) XR PAIN CLINIC SACRIOILIAC 2V EXAM: XR PAIN CLINIC SACRIOILIAC 2V CLINICAL HISTORY: Dx: Sacroiliac Joint Dysfunction. TECHNIQUE: Fluoroscopy was provided for the referring physician for guidance with performing pain clinic injection procedure. COMPARISON: No exams were available for comparison FINDINGS: Please see procedure note for details. Fluoro time: 40.5 seconds RADIATION DOSE DELIVERED: Ka,r=10.8 mGy
[2025-05-11] MEDS: Omnipaque 240 MG/ML 50 ML BTL IJ (12:48)
[2025-05-11] MEDS: Nerve Block Tray 1 EACH MC (12:48)
[2025-05-11] MEDS: methylPREDNISolone ACETATE 40 MG/ML VIAL IJ (12:49)
[2025-05-11] MEDS: Bupivacaine 0.5% Pres-Free 10 ML VIAL IJ (12:49)
--- NOTE | 2025-05-11 12:51 | PDOC.PAIN_ITS ---
Date of service: 05/11/25 Time of Service: 12:53 Pain Managment Procedure Note Procedure Note Procedure Note: ?Sacroiliac Joint Steroid Injection ? Location: Bilateral SI Joints? Pre-procedure Diagnosis: Sacroiliitis, not elsewhere classified - M46.1 ? Post-procedure Diagnosis:? The same as above ? Sedation:? NONE ? Medication: Depo-Medrol 40 mg, bupivacaine 0.5% 1 mL, Omnipaque 0.25 mL per joint ? Estimated blood loss:? less than 2 cc ? Surgeon:? Roderick Dominguez MD ? COMMENT: PT HAD GREATER THAN 50% RELIEF OF HER PAIN FOR GREATER THAN 6 MONTHS FROM PREVIOUS INJECTION ? Procedure Detail:? The procedure and potential risks were explained to the patient and informed written consent was obtained. The patient was escorted to the procedure room and placed in the prone position. Pillows were utilized fo r proper positioning and comfort. Time out was performed in the procedure room with nursing staff confirming the patient's identity, procedure to be performed, allergies, and any blood thinning or anti-platelet medications. The patient's lumbosacral area was prepped with ChloraPrep and draped in a sterile fashion. Sterile technique was maintained throughout the procedure.? Sterile gloves were used, a face mask was worn, and new single dose vials of all medications were used with the top being swabbed with alcohol and given time to dry prior to withdrawal of medication. Lidocaine 1% was used to anesthetize the skin. With fluoroscopic guidance, a 22-gauge 3.5 spinal needle was advanced into the posteroinferior aspect of the Bilateral SI joints. Confirmation of intra-articular position of the needle tip was obtained with injection of 0.25cc of Omnipaque 240 contrast which showed appropriate spread within the joint.? Following negative aspiration, 40mg of methylprednisolone mixed with 1 mL of bupivacaine 0.5% was injected.? The needle was gently removed. ?The patient tolerated the procedure well and was discharged home with instructions.? Permanent images saved and recorded. Plan:? Follow up prn. PAIN PRE PROCEDURE 10 POST PROCEDURE 010 COMMENT: 100 % BETTER AFTER INJECTION. Would consider spine injections depending on how she does though she did quite well for 8 months with the SI injections previously. Coding Conscious Sedation used for procedure: No CPT Codes: SI Joint Inj; incl Fluoro * BILATERAL* - [id number] ([id number]) Additional Codes: Date of Service () Diagnoses: Sacroiliitis, not elsewhere classified - M46.1
== END 2025-05-11 11:49 | disposition home or self-care (01) ==
PROVIDERS: PCP Nurse Practitioner Family; Visit Provider Anesthesiology Pain Medicine
DX: M54.50 Low back pain, unspecified (principal); M46.1 Sacroiliitis, not elsewhere classified
CPT/HCPCS: 27096; 72200; J0665; J1010; Q9967